=== PATIENT | female | born 1950 | race African-American/Black ===

== ENCOUNTER 2017-07-08 10:35 | Emergency (ER) | payer MEDICARE, OTHER ==
[2017-07-08 10:44] VITALS: RESP 18
--- NOTE | 2017-07-08 10:48 | ED ---
Extremity Problem HPI - General Chief complaint: Extremity Problem,Nontraumatic Stated complaint: Right Sided Pain Time Seen by Provider: 07/08/17 10:35 Source: patient, EMS, RN notes reviewed Mode of arrival: EMS Limitations: no limitations - History of Present Illness Initial comments: This is a 67-year-old female who was brought in by EMS for evaluation for possible stroke she was seen in outpatient clinic brought here by her [facility] worker she complains of bilateral headaches and pain to her right upper and lower extremity with no focal weakness. No falls no trauma no fevers chills sweats nausea vomiting no blurry vision. She states the extremities her more when she tries to move them. She cannot define the headache other than seen is some both sides and pain also is just pain. MD Complaint: extremity pain - Related Data Home Medications Medication Instructions Recorded Confirmed Albuterol Inhaler [Ventolin Hfa 2 puff INHALATION RT-Q6H PRN 07/24/16 07/08/17 Inhaler] FLUoxetine HCL [Fluoxetine HCl] 20 mg PO DAILY 07/24/16 07/08/17 Furosemide [Furosemide] 40 mg PO DAILY 07/24/16 07/08/17 amLODIPine BESYLATE [Amlodipine 10 mg PO DAILY 07/24/16 07/08/17 Besylate] Aspirin EC [Ecotrin Low Dose] 81 mg PO DAILY 07/08/17 07/08/17 Atenolol [Tenormin] 25 mg PO DAILY 07/08/17 07/08/17 Atorvastatin [Lipitor] 80 mg PO HS 07/08/17 07/08/17 Gabapentin [Neurontin] 300 mg PO QID 07/08/17 07/08/17 Isosorbide Mononitrate ER [Imdur] 30 mg PO DAILY 07/08/17 07/08/17 Previous Rx's Medication Instructions Recorded Ibuprofen [Motrin] 600 mg PO Q6HR PRN #20 tab 07/08/17 Allergies Allergy/AdvReac Type Severity Reaction Status Date / Time allopurinol [From Zyloprim] Allergy Unknown Verified 07/08/17 11:07 codeine Allergy Unknown Verified 07/08/17 11:07 Review of Systems ROS Statement: Those systems with pertinent positive or pertinent negative responses have been documented in the HPI. ROS Other: All systems not noted in ROS Statement are negative. Past Medical History Past Medical History: CVA/TIA, Hypertension, Renal Disease History of Any Multi-Drug Resistant Organisms: None Reported Past Surgical History: Hysterectomy, Tonsillectomy Past Anesthesia/Blood Transfusion Reactions: No Reported Reaction Past Psychological History: No Psychological Hx Reported Smoking Status: Never smoker Past Alcohol Use History: None Reported Past Drug Use History: None Reported General Exam - General Exam Comments Initial Comments: This a well-developed well-nourished awake alert female she appears be oriented 3 Limitations: no limitations General appearance: alert, in no apparent distress Head exam: Present: atraumatic, normocephalic, normal inspection Eye exam: Present: normal appearance, PERRL, EOMI. Absent: scleral icterus, conjunctival injection, periorbital swelling ENT exam: Present: normal exam, mucous membranes moist Neck exam: Present: normal inspection. Absent: tenderness, meningismus, lymphadenopathy Respiratory exam: Present: normal lung sounds bilaterally. Absent: respiratory distress, wheezes, rales, rhonchi, stridor Cardiovascular Exam: Present: regular rate, normal rhythm, normal heart sounds. Absent: systolic murmur, diastolic murmur, rubs, gallop, clicks GI/Abdominal exam: Present: soft, normal bowel sounds. Absent: distended, tenderness, guarding, rebound, rigid Extremities exam: Present: normal inspection, full ROM, tenderness (Tenderness palpation over the posterior right arm and anterior right thigh), normal capillary refill. Absent: pedal edema, joint swelling, calf tenderness Back exam: Present: normal inspection Neurological exam: Present: alert, oriented X3, CN II-XII intact Psychiatric exam: Present: normal affect, normal mood Skin exam: Present: warm, dry, intact, normal color. Absent: rash Course Vital Signs 07/08/17 07/08/17 10:38 12:23 Temperature 98 F 97.9 F Pulse Rate 71 70 Respiratory 18 18 Rate Blood Pressure 163/74 150/75 O2 Sat by Pulse 97 98 Oximetry Medical Decision Making - Medical Decision Making I did discuss the findings with the patient and her care worker she will be discharged to follow-up with her doctor. Patient also was instructed to increase her oral fluids - Lab Data Result diagrams: 07/08/17 10:50 07/08/17 10:50 Lab Results 07/08/17 07/08/17 07/08/17 Range/Units 10:50 10:50 10:50 WBC 6.2 (3.8-10.6) k/uL RBC 4.28 (3.80-5.40) m/uL Hgb 11.2 L (11.4-16.0) gm/dL Hct 34.3 (34.0-46.0) % MCV 80.2 (80.0-100.0) fL MCH 26.3 (25.0-35.0) pg MCHC 32.7 (31.0-37.0) g/dL RDW 15.0 (11.5-15.5) % Plt Count 282 (150-450) k/uL Neutrophils % 66 % Lymphocytes % 21 % Monocytes % 6 % Eosinophils % 5 % Basophils % 1 % Neutrophils # 4.1 (1.3-7.7) k/uL Lymphocytes # 1.3 (1.0-4.8) k/uL Monocytes # 0.4 (0-1.0) k/uL Eosinophils # 0.3 (0-0.7) k/uL Basophils # 0.0 (0-0.2) k/uL APTT 22.1 (22.0-30.0) sec Sodium (137-145) mmol/L Potassium (3.5-5.1) mmol/L Chloride (98-107) mmol/L Carbon Dioxide (22-30) mmol/L Anion Gap mmol/L BUN (7-17) mg/dL Creatinine (0.52-1.04) mg/dL Est GFR (MDRD) Af Amer (>60 ml/min/1.73 sqM) Est GFR (MDRD) Non-Af (>60 ml/min/1.73 sqM) Glucose (74-99) mg/dL Calcium (8.4-10.2) mg/dL Magnesium (1.6-2.3) mg/dL Total Bilirubin (0.2-1.3) mg/dL AST (14-36) U/L ALT (9-52) U/L Alkaline Phosphatase (38-126) U/L Total Creatine Kinase 174 H (30-135) U/L CK-MB (CK-2) 1.9 (0.0-2.4) ng/mL CK-MB (CK-2) Rel Index 1.1 Total Protein (6.3-8.2) g/dL Albumin (3.5-5.0) g/dL Phenytoin ug/mL 07/08/17 Range/Units 10:50 WBC (3.8-10.6) k/uL RBC (3.80-5.40) m/uL Hgb (11.4-16.0) gm/dL Hct (34.0-46.0) % MCV (80.0-100.0) fL MCH (25.0-35.0) pg MCHC (31.0-37.0) g/dL RDW (11.5-15.5) % Plt Count (150-450) k/uL Neutrophils % % Lymphocytes % % Monocytes % % Eosinophils % % Basophils % % Neutrophils # (1.3-7.7) k/uL Lymphocytes # (1.0-4.8) k/uL Monocytes # (0-1.0) k/uL Eosinophils # (0-0.7) k/uL Basophils # (0-0.2) k/uL APTT (22.0-30.0) sec Sodium 141 (137-145) mmol/L Potassium 4.1 (3.5-5.1) mmol/L Chloride 107 (98-107) mmol/L Carbon Dioxide 24 (22-30) mmol/L Anion Gap 10 mmol/L BUN 29 H (7-17) mg/dL Creatinine 1.30 H (0.52-1.04) mg/dL Est GFR (MDRD) Af Amer 49 (>60 ml/min/1.73 sqM) Est GFR (MDRD) Non-Af 41 (>60 ml/min/1.73 sqM) Glucose 92 (74-99) mg/dL Calcium 9.1 (8.4-10.2) mg/dL Magnesium 1.8 (1.6-2.3) mg/dL Total Bilirubin 0.3 (0.2-1.3) mg/dL AST 27 (14-36) U/L ALT 43 (9-52) U/L Alkaline Phosphatase 101 (38-126) U/L Total Creatine Kinase (30-135) U/L CK-MB (CK-2) (0.0-2.4) ng/mL CK-MB (CK-2) Rel Index Total Protein 6.8 (6.3-8.2) g/dL Albumin 3.7 (3.5-5.0) g/dL Phenytoin <3.0 ug/mL - EKG Data -: EKG Interpreted by Me EKG shows normal: sinus rhythm (Sinus rhythm rate 64 GA interval 162 QRS 74 QT since QTC of 416/429 st-t wave changes) - Radiology Data Radiology results: report reviewed (I did review the imaging and reports no acute findings. There is evidence of remote findings in the MCA distribution), image reviewed Disposition Clinical Impression: Dehydration, Extremity pain Disposition: HOME SELF-CARE Condition: Good Instructions: Dehydration (ED), Paresthesia (ED) Prescriptions: Ibuprofen [Motrin] 600 mg PO Q6HR PRN #20 tab PRN Reason: Pain Referrals: Rinku Echevarria MD [Primary Care Provider] - 1-2 days
[2017-07-08 11:12] LABS: Basophils % (A) 1 %; CH 25.7; CHCM 32.2; Eosinophils # (A) 0.3 k/uL (0-0.7); Eosinophils % (A) 5 %; HCT 34.3 % (34.0-46.0); HDW 2.46; HGB 11.2 gm/dL (11.4-16.0); Luc # (Auto) 0.12; Luc % (Auto) 2; Lymphocytes # (A) 1.3 k/uL (1.0-4.8); Lymphocytes % (A) 21 %; MCH 26.3 pg (25.0-35.0); MCHC 32.7 g/dL (31.0-37.0); MCV 80.2 fL (80.0-100.0); Mean Platelet Volume 6.4; Monocytes # (A) 0.4 k/uL (0-1.0); Monocytes % (A) 6 %; Neutrophils # (A) 4.1 k/uL (1.3-7.7); Neutrophils % (A) 66 %; RBC 4.28 m/uL (3.80-5.40); WBC 6.2 k/uL (3.8-10.6); WBC (Perox) 6.46
--- NOTE | 2017-07-08 11:18 | CT ---
EXAMINATION TYPE: CT brain wo con DATE OF EXAM: 07/08/2017 COMPARISON: NONE HISTORY: weakness, cva symptoms. hx of cva CT DLP: [address] of the brain was performed. The ventricles, basal cisterns and sulci overlying the cerebral convexities demonstrate mild enlargem ent. Large area of remote insult posterior left MCA territory. There is no evidence for intracranial hemorrhage or sulcal effacement. There is decreased attenuation about the periventricular white matter and deep white matter of both c erebral hemispheres, compatible with chronic small vessel ischemia. Differential diagnosis does inclu de demyelination. No mass effects are seen.No midline shift. Osseous calvarium is intact. If symptoms persist consider MRI. IMPRESSION: 1. Age related atrophic and chronic small vessel ischemic change without acute intracranial process s een at this time. Remote insult posterior left MCA territory.
--- NOTE | 2017-07-08 11:20 | XR ---
EXAMINATION TYPE: XR chest 2V DATE OF EXAM: 07/08/2017 COMPARISON: 08/09/2014 TECHNIQUE: PA and lateral views submitted. HISTORY: Cough FINDINGS: The lungs are clear and there is no pneumothorax, pleural effusion, or focal pneumonia. Subsegmental changes at the left lung base. No overt failure. Hypertrophic and degenerative change of the spine. Upper thoracic spine obscured due to positioning. IMPRESSION: 1. Subsegmental changes left lung base. Atelectasis favored over early infiltrate. Correlate clinical ly.
[2017-07-08 11:23] LABS: ALT 43 U/L (9-52); AST 27 U/L (14-36); Alkaline Phosphatase 101 U/L (38-126); Anion Gap 10 mmol/L; Blood Urea Nitrogen 29 mg/dL (7-17); Calcium 9.1 mg/dL (8.4-10.2); Carbon Dioxide 24 mmol/L (22-30); Chloride 107 mmol/L (98-107); Glucose 92 mg/dL (74-99); Magnesium 1.8 mg/dL (1.6-2.3); Non-African American GFR(MDRD) 41 (>60 ml/min/1.73 sqM); Potassium 4.1 mmol/L (3.5-5.1); Sodium 141 mmol/L (137-145); Total Bilirubin 0.3 mg/dL (0.2-1.3); Total Protein 6.8 g/dL (6.3-8.2)
[2017-07-08 11:35] LABS: Creatine Kinase MB 1.9 ng/mL (0.0-2.4)
[2017-07-08] MEDS ORDERED: KETOROLAC 30 MG/ML 1 ML VIAL IVP STA (12:23)
[2017-07-08 12:24] VITALS: BP 150/75; PULSE 70; TEMP 97.9
== END 2017-07-08 12:45 | disposition home or self-care (01) ==
LOC: EC 10:35
DX: E86.0 Dehydration (principal); M79.601 Pain in right arm; M79.651 Pain in right thigh; I10 Essential (primary) hypertension; N28.9 Disorder of kidney and ureter, unspecified; Z86.73 Personal history of transient ischemic attack (TIA), and cerebral infarction without residual deficits; Z88.8 Allergy status to other drugs, medicaments and biological substances; Z88.5 Allergy status to narcotic agent; Z79.82 Long term (current) use of aspirin; Z79.899 Other long term (current) drug therapy
CPT/HCPCS: 36415; 70450; 71020; 80053; 80185; 82550; 82553; 83735; 85025; 85730; 93005; 99284

== ENCOUNTER 2017-10-14 12:57 | Emergency (ER) | payer MEDICARE, OTHER ==
[2017-10-14 13:30] VITALS: RESP 20
--- NOTE | 2017-10-14 14:47 | XR ---
Right foot HISTORY: Pain 3 views of the right foot Osteotomy changes present at the first digit. There is a hallux valgus deformity. Bone mineralization is reduced. There is loss of joint space of the first metatarsophalangeal joint. There may be a smal l plantar calcaneal spur. Enthesophyte present at the insertion of the Achilles tendon. IMPRESSION: Osteopenia, postop changes, hallux valgus deformity.
--- NOTE | 2017-10-14 14:47 | ED ---
Extremity Problem HPI - General Chief complaint: Extremity Problem,Nontraumatic Stated complaint: Right Foot Pain Time Seen by Provider: 10/14/17 13:47 Source: patient, RN notes reviewed Mode of arrival: wheelchair Limitations: no limitations - History of Present Illness Initial comments: This is a 67-year-old female who presents to the emergency department with chief complaint of right foot and ankle pain and swelling. Patient states that she had a stroke 5-6 years ago and has had chronic pain of her right side ever since. Patient is unsure when the swelling and pain increased in intensity. She states that she has limited range of motion of her right ankle but that this is normal for her since having a stroke. She denies any recent injuries, falls or trauma. Denies fever, chills, chest pain, shortness of breath, abdominal pain, nausea or vomiting, constipation or diarrhea, dysuria or hematuria, numbness or tingling, headache or vision changes. - Related Data Home Medications Medication Instructions Recorded Confirmed Albuterol Inhaler [Ventolin Hfa 2 puff INHALATION RT-Q6H PRN 07/24/16 10/14/17 Inhaler] FLUoxetine HCL [Fluoxetine HCl] 20 mg PO DAILY 07/24/16 10/14/17 Furosemide [Furosemide] 40 mg PO DAILY 07/24/16 10/14/17 amLODIPine BESYLATE [Amlodipine 10 mg PO DAILY 07/24/16 10/14/17 Besylate] Aspirin EC [Ecotrin Low Dose] 81 mg PO DAILY 07/08/17 10/14/17 Atenolol [Tenormin] 25 mg PO DAILY 07/08/17 10/14/17 Atorvastatin [Lipitor] 80 mg PO HS 07/08/17 10/14/17 Gabapentin [Neurontin] 300 mg PO QID 07/08/17 10/14/17 Isosorbide Mononitrate ER [Imdur] 30 mg PO DAILY 07/08/17 10/14/17 Previous Rx's Medication Instructions Recorded Ibuprofen [Motrin] 600 mg PO Q6HR PRN #20 tab 07/08/17 traMADol HCL [Ultram] 50 mg PO Q4HR PRN #15 tab 10/14/17 Allergies Allergy/AdvReac Type Severity Reaction Status Date / Time allopurinol [From Zyloprim] Allergy Unknown Verified 10/14/17 13:45 codeine Allergy Unknown Verified 10/14/17 13:45 Review of Systems ROS Statement: Those systems with pertinent positive or pertinent negative responses have been documented in the HPI. ROS Other: All systems not noted in ROS Statement are negative. Past Medical History Past Medical History: CVA/TIA, Hypertension, Renal Disease History of Any Multi-Drug Resistant Organisms: None Reported Past Surgical History: Hysterectomy, Tonsillectomy Past Anesthesia/Blood Transfusion Reactions: No Reported Reaction Past Psychological History: No Psychological Hx Reported Smoking Status: Never smoker Past Alcohol Use History: None Reported Past Drug Use History: None Reported General Exam - General Exam Comments Initial Comments: General: Awake and alert, well-developed; in no apparent distress. Calm and cooperative. HEENT: Head atraumatic, normocephalic. Pupils are equal, round and reactive to light. Extraocular movements intact. Neck: Supple. Normal ROM. Cardiovascular: Regular rate and rhythm. No murmurs, rubs or gallops. Chest symmetrical. Respiratory: Lungs clear to auscultation bilaterally. No wheezes, rales or rhonchi. Normal respiratory effort with no use of accessory muscles. Musculoskeletal: Patient has limited range of motion of right ankle. Patient states this is normal for her. There is soft tissue swelling and tenderness of the entire right ankle and right foot. There is noted ecchymosis mid foot. Skin: Falcon, warm and dry without rashes or lesions. Neurological: Alert and oriented x3. CN II-XII grossly intact. Speech is fluent and answers are appropriate. Psychiatric: Normal mood and affect. No overt signs of depression or anxiety noted. Limitations: no limitations Course Vital Signs 10/14/17 13:27 Temperature 98.1 F Pulse Rate 78 Respiratory 20 Rate Blood Pressure 139/60 O2 Sat by Pulse 100 Oximetry Medical Decision Making - Medical Decision Making This is a 67-year-old female presents to the emergency department for evaluation of right foot pain and swelling. Patient is a poor historian and on palpation tenderness is generalized. X-rays of right ankle and foot revealed no acute abnormalities. It did reveal a calcaneal spur. Pedal and posterior tibial pulses were 2+ equal and palpable bilaterally. However, I did obtain a Doppler ultrasound to rule out DVT. Ultrasound was negative for DVT. This case was discussed with attending physician, Dr. Laura who also evaluated the patient. Patient has tenderness at the heel and pain increases with stretching of the plantar fascia. Patient may be suffering from plantar fasciitis. She will be discharged home with a referral to podiatry. She will also be given a prescription for Ultram. Patient is in agreement with plan and voices understanding. All questions were answered. - Radiology Data Radiology results: report reviewed X-ray right foot findings: Osteotomy changes present at the first digit. There is a hallux valgus deformity. Bony mineralization is reduced. There is loss of joint space of the first metatarsal phalangeal joint. There may be a small plantar calcaneal spur. Enthesophyte present at the insertion of the Achilles tendon. Impression: Osteopenia, postop changes, hallux valgus deformity. X-ray right ankle findings: There is soft tissue swelling present. Bone mineralization is reduced. No fracture or dislocation is evident. Plantar calcaneal spur is present. A necessary present at the insertion of the Achilles tendon. Soft tissue calcifications are likely quality audit representative of phleboliths. Impression: Osteopenia could limited sensitivity. Soft tissue swelling. Ultrasound venous Doppler right lower extremity impression: 1. No sonographic evidence of deep venous arthrosis within the right lower extremity. 2. Incidental note made of a 3.7 cm popliteal fossa cyst. Disposition Clinical Impression: Plantar fasciitis of right foot Disposition: HOME SELF-CARE Condition: Good Instructions: Plantar Fasciitis (ED) Additional Instructions: Please take medications as prescribed. Please follow up with primary care provider within 1-2 days. Return to emergency department if symptoms should worsen or any concerns arise. Prescriptions: traMADol HCL [Ultram] 50 mg PO Q4HR PRN #15 tab PRN Reason: Pain Referrals: Rinku Echevarria MD [Primary Care Provider] - 1-2 days Time of Disposition: 16:36
--- NOTE | 2017-10-14 14:47 | XR ---
Right ankle HISTORY: Right ankle pain 3 views of the right ankle there is soft tissue swelling present. Bone mineralization is reduced. No fracture or dislocation is evident. Plantar calcaneal spur is present. Enthesophyte present at the insertion of the Achilles ten don. Soft tissue calcifications are likely outbound call center representative of phleboliths. IMPRESSION: Osteopenia could limit sensitivity. Soft tissue swelling.
--- NOTE | 2017-10-14 15:58 | US ---
EXAMINATION TYPE: US venous doppler duplex LE RT DATE OF EXAM: 10/14/2017 3:49 PM COMPARISON: NONE CLINICAL HISTORY: Pain; EC patient with entire right leg pain. SIDE PERFORMED: Right TECHNIQUE: The lower extremity deep venous system is examined utilizing real time linear array sonog hedy with graded compression, doppler sonography and color-flow sonography. VESSELS IMAGED: Common Femoral Vein Deep Femoral Vein Greater Saphenous Vein * Femoral Vein Popliteal Vein Small Saphenous Vein * Proximal Calf Veins (* superficial vessels) Grayscale, color doppler, spectral doppler imaging performed of the deep veins of the lower extremiti es. There is normal flow, compressibility, vascular waveforms. Right Leg: Negative for DVT. Right popliteal fossa cyst is noted = 3.7 x 1.6 x 1.4cm. IMPRESSION: 1. No sonographic evidence of deep venous arthrosis within the right lower extremity. 2. Incidental note made of a 3.7 cm popliteal fossa cyst.
[2017-10-14 16:55] VITALS: BP 143/68; PULSE 70; TEMP 98.2
== END 2017-10-14 16:54 | disposition home or self-care (01) ==
LOC: EC 12:57
DX: M72.2 Plantar fascial fibromatosis (principal); M77.31 Calcaneal spur, right foot; I10 Essential (primary) hypertension; Z86.73 Personal history of transient ischemic attack (TIA), and cerebral infarction without residual deficits; Z79.82 Long term (current) use of aspirin; Z79.899 Other long term (current) drug therapy; Z88.5 Allergy status to narcotic agent; Z88.8 Allergy status to other drugs, medicaments and biological substances
CPT/HCPCS: 99284

== ENCOUNTER 2018-03-26 20:05 | Emergency (ER) | payer MEDICARE, OTHER ==
[2018-03-26 20:13] VITALS: BP 145/81; PULSE 83; RESP 18; TEMP 98.1
[2018-03-26 21:23] LABS: Basophils # (A) 0.1 k/uL (0-0.2); Basophils % (A) 1 %; Eosinophils # (A) 0.4 k/uL (0-0.7); Eosinophils % (A) 5 %; HCT 33.2 % (34.0-46.0); Lymphocytes # (A) 1.7 k/uL (1.0-4.8); Lymphocytes % (A) 22 %; MCH 25.4 pg (25.0-35.0); MCHC 33.3 g/dL (31.0-37.0); MCV 76.2 fL (80.0-100.0); Mean Platelet Volume 6.9; Microcytosis Slight; Monocytes # (A) 0.5 k/uL (0-1.0); Monocytes % (A) 6 %; Neutrophils % (A) 65 %; Platelet Count 278 k/uL (150-450); RBC 4.35 m/uL (3.80-5.40); RDW 15.4 % (11.5-15.5); WBC 7.7 k/uL (3.8-10.6)
--- NOTE | 2018-03-26 21:29 | XR ---
EXAMINATION TYPE: XR wrist complete LT DATE OF EXAM: 03/26/2018 COMPARISON: NONE HISTORY: Wrist pain TECHNIQUE: 4 views FINDINGS: There is narrowing and spurring at the first carpometacarpal joint. There is some spurring at the scaphoid trapezium joint. I see no fracture nor dislocation. There is widening of the scapholu juana joint space. IMPRESSION: Osteoarthritic changes and evidence of old injury. No fracture seen.
[2018-03-26 21:36] LABS: C Reactive Protein 8.1 mg/L (<10.0); Calcium 9.2 mg/dL (8.4-10.2); Potassium 4.3 mmol/L (3.5-5.1); Uric Acid 7.9 mg/dL (3.7-7.4)
--- NOTE | 2018-03-26 21:56 | ED ---
General Adult HPI - General Chief complaint: Extremity Injury, Upper Stated complaint: Hand Numbness Time Seen by Provider: 03/26/18 20:38 Source: patient, RN notes reviewed Mode of arrival: ambulatory Limitations: no limitations - History of Present Illness Initial comments: Patient 68-year-old female presenting to the emergency room today with a chief complaint of pain to the left wrist. She states it started yesterday. Denies any injury or trauma. Patient admits to a history of gout. States pain is worse with movements. Denies any other complaints. Patient denies any recent fever, chills, shortness of breath, chest pain, back pain, abdominal pain, nausea or vomiting, numbness or tingling, dysuria or hematuria, constipation or diarrhea, headaches or visual changes, or any other complaints. - Related Data Home Medications Medication Instructions Recorded Confirmed Albuterol Inhaler [Ventolin Hfa 2 puff INHALATION RT-Q6H PRN 07/24/16 10/14/17 Inhaler] FLUoxetine HCL [Fluoxetine HCl] 20 mg PO DAILY 07/24/16 10/14/17 Furosemide [Furosemide] 40 mg PO DAILY 07/24/16 10/14/17 amLODIPine BESYLATE [Amlodipine 10 mg PO DAILY 07/24/16 10/14/17 Besylate] Aspirin EC [Ecotrin Low Dose] 81 mg PO DAILY 07/08/17 10/14/17 Atenolol [Tenormin] 25 mg PO DAILY 07/08/17 10/14/17 Atorvastatin [Lipitor] 80 mg PO HS 07/08/17 10/14/17 Gabapentin [Neurontin] 300 mg PO QID 07/08/17 10/14/17 Isosorbide Mononitrate ER [Imdur] 30 mg PO DAILY 07/08/17 10/14/17 Previous Rx's Medication Instructions Recorded Ibuprofen [Motrin] 600 mg PO Q6HR PRN #20 tab 07/08/17 traMADol HCL [Ultram] 50 mg PO Q4HR PRN #15 tab 10/14/17 predniSONE 50 mg PO DAILY #5 tab 03/26/18 Allergies Allergy/AdvReac Type Severity Reaction Status Date / Time allopurinol [From Zyloprim] Allergy Unknown Verified 03/26/18 20:13 codeine Allergy Unknown Verified 03/26/18 20:13 Review of Systems ROS Statement: Those systems with pertinent positive or pertinent negative responses have been documented in the HPI. ROS Other: All systems not noted in ROS Statement are negative. Past Medical History Past Medical History: CVA/TIA, Hypertension, Renal Disease Additional Past Medical History / Comment(s): arthritis, History of Any Multi-Drug Resistant Organisms: None Reported Past Surgical History: Hysterectomy, Tonsillectomy Past Anesthesia/Blood Transfusion Reactions: No Reported Reaction Past Psychological History: No Psychological Hx Reported Smoking Status: Never smoker Past Alcohol Use History: None Reported Past Drug Use History: None Reported General Exam - General Exam Comments Initial Comments: General: The patient is awake and alert, in no distress, and does not appear acutely ill. Neck: The neck is supple, there is no tenderness or JVD. Cardiovascular: There is a regular rate and rhythm. No murmur, rub or gallop is appreciated. Respiratory: Lungs are clear to auscultation, respirations are non-labored, breath sounds are equal. No wheezes, stridor, rales, or rhonchi. Musculoskeletal: Mild warmness to the left wrist. Tender with palpation and extension and flexion. Sensations intact. Radial pulses 2+. Full range motion of the fingers and elbow Neurological: A&O x 3. CN II-XII intact, There are no obvious motor or sensory deficits. Coordination appears grossly intact. Speech is normal. Skin: Skin is warm and dry and no rashes or lesions are noted. Psychiatric: Normal mood and affect. Limitations: no limitations Course Vital Signs 03/26/18 20:07 Temperature 98.1 F Pulse Rate 83 Respiratory 18 Rate Blood Pressure 145/81 O2 Sat by Pulse 100 Oximetry Medical Decision Making - Medical Decision Making Patient's labs been reviewed no elevated white count. Negative CRP. Uric acid is elevated. Patient does have a history of gout. Symptoms are consistent. Patient will be given a short course of steroids. Advised following up with the - Lab Data Result diagrams: 03/26/18 20:41 03/26/18 20:41 Lab Results 03/26/18 03/26/18 Range/Units 20:41 20:41 WBC 7.7 (3.8-10.6) k/uL RBC 4.35 (3.80-5.40) m/uL Hgb 11.0 L (11.4-16.0) gm/dL Hct 33.2 L (34.0-46.0) % MCV 76.2 L (80.0-100.0) fL MCH 25.4 (25.0-35.0) pg MCHC 33.3 (31.0-37.0) g/dL RDW 15.4 (11.5-15.5) % Plt Count 278 (150-450) k/uL Neutrophils % 65 % Lymphocytes % 22 % Monocytes % 6 % Eosinophils % 5 % Basophils % 1 % Neutrophils # 5.0 (1.3-7.7) k/uL Lymphocytes # 1.7 (1.0-4.8) k/uL Monocytes # 0.5 (0-1.0) k/uL Eosinophils # 0.4 (0-0.7) k/uL Basophils # 0.1 (0-0.2) k/uL Microcytosis Slight Sodium 139 (137-145) mmol/L Potassium 4.3 (3.5-5.1) mmol/L Chloride 101 (98-107) mmol/L Carbon Dioxide 28 (22-30) mmol/L Anion Gap 10 mmol/L BUN 36 H (7-17) mg/dL Creatinine 1.40 H (0.52-1.04) mg/dL Est GFR (CKD-EPI)AfAm 44 (>60 ml/min/1.73 sqM) Est GFR (CKD-EPI)NonAf 38 (>60 ml/min/1.73 sqM) Glucose 92 (74-99) mg/dL Uric Acid 7.9 H (3.7-7.4) mg/dL Calcium 9.2 (8.4-10.2) mg/dL C-Reactive Protein 8.1 (<10.0) mg/L Disposition Clinical Impression: Gout Disposition: HOME SELF-CARE Condition: Good Instructions: Gout (ED) Additional Instructions: Please use medication as discussed. Please follow-up with family doctor in the next 2 days of symptoms have not improved. Please return to emergency room if the symptoms increase or worsen or for any other concerns. Prescriptions: predniSONE 50 mg PO DAILY #5 tab Is patient prescribed a controlled substance at d/c from ED?: No Referrals: Rinku Echevarria MD [Primary Care Provider] - 1-2 days Time of Disposition: 21:55
== END 2018-03-26 22:03 | disposition home or self-care (01) ==
LOC: EC 20:05
DX: M10.9 Gout, unspecified (principal); I10 Essential (primary) hypertension; M19.90 Unspecified osteoarthritis, unspecified site; Z86.73 Personal history of transient ischemic attack (TIA), and cerebral infarction without residual deficits; Z79.82 Long term (current) use of aspirin; Z79.899 Other long term (current) drug therapy; Z88.5 Allergy status to narcotic agent; Z88.8 Allergy status to other drugs, medicaments and biological substances
CPT/HCPCS: 36415; 80048; 84550; 85025; 86140; 87040; 99283

== ENCOUNTER 2018-05-11 15:10 | Inpatient (IN) | payer MEDICARE, OTHER ==
[2018-05-11] MEDS ORDERED: ONDANSETRON 4 MG/2 ML VIAL IVP STA (15:28)
[2018-05-11] MEDS ORDERED: FAMOTIDINE 20 MG/2 ML VIAL IV STA (15:28)
[2018-05-11] MEDS ORDERED: ACETAMINOPHEN IV (For NPO) 1,000 MG in SALINE 1 100ML.BAG IVPB STA (15:28)
--- NOTE | 2018-05-11 15:33 | ED ---
General Adult HPI - General Chief complaint: Nausea/Vomiting/Diarrhea Stated complaint: Vomiting and diarrhea Time Seen by Provider: 05/11/18 15:25 Source: patient, family, RN notes reviewed Mode of arrival: ambulatory Limitations: no limitations - History of Present Illness Initial comments: Patient is a pleasant 68-year-old female presenting to the emergency Department with vomiting and diarrhea. Patient is a somewhat poor historian. Symptoms were going on for a couple of days. Patient is unclear how much she has had vomiting and diarrhea that seems to be a similar amount for both. Patient feels she has had some fevers. Patient denies abdominal pain. No dysuria. - Related Data Home Medications Medication Instructions Recorded Confirmed Albuterol Inhaler [Ventolin Hfa 2 puff INHALATION RT-Q6H PRN 07/24/16 05/11/18 Inhaler] FLUoxetine HCL [Fluoxetine HCl] 20 mg PO DAILY 07/24/16 05/11/18 Furosemide 40 mg PO DAILY 07/24/16 05/11/18 amLODIPine BESYLATE [Amlodipine 10 mg PO DIRECTED 07/24/16 05/11/18 Besylate] Aspirin EC [Ecotrin Low Dose] 81 mg PO DAILY 07/08/17 05/11/18 Atenolol [Tenormin] 25 mg PO DAILY 07/08/17 05/11/18 Gabapentin [Neurontin] 300 mg PO DIRECTED 07/08/17 05/11/18 Isosorbide Mononitrate ER [Imdur] 30 mg PO DAILY 07/08/17 05/11/18 Atorvastatin [Lipitor] 40 mg PO DAILY 05/11/18 05/11/18 Allergies Allergy/AdvReac Type Severity Reaction Status Date / Time allopurinol [From Zyloprim] Allergy Unknown Verified 05/11/18 16:33 codeine Allergy Unknown Verified 05/11/18 16:33 Review of Systems ROS Statement: Those systems with pertinent positive or pertinent negative responses have been documented in the HPI. ROS Other: All systems not noted in ROS Statement are negative. Constitutional: Reports: fever Eyes: Denies: eye pain ENT: Denies: ear pain Respiratory: Denies: cough Cardiovascular: Denies: chest pain Endocrine: Reports: fatigue Gastrointestinal: Reports: nausea, vomiting, diarrhea. Denies: abdominal pain Genitourinary: Denies: dysuria Musculoskeletal: Denies: back pain Skin: Denies: rash Neurological: Denies: headache Past Medical History Past Medical History: CVA/TIA, Hypertension, Renal Disease Additional Past Medical History / Comment(s): arthritis, History of Any Multi-Drug Resistant Organisms: None Reported Past Surgical History: Hysterectomy, Tonsillectomy Past Anesthesia/Blood Transfusion Reactions: No Reported Reaction Past Psychological History: No Psychological Hx Reported Smoking Status: Never smoker Past Alcohol Use History: None Reported Past Drug Use History: None Reported General Exam Limitations: no limitations General appearance: alert, in no apparent distress Head exam: Present: atraumatic Eye exam: Present: normal appearance ENT exam: Present: normal oropharynx Neck exam: Present: normal inspection. Absent: meningismus Respiratory exam: Present: normal lung sounds bilaterally Cardiovascular Exam: Present: regular rate, normal rhythm GI/Abdominal exam: Present: soft, normal bowel sounds. Absent: distended, tenderness, guarding, rebound, rigid, pulsatile mass Extremities exam: Present: normal inspection. Absent: pedal edema, calf tenderness Neurological exam: Present: alert Psychiatric exam: Present: normal affect, normal mood Skin exam: Present: normal color. Absent: rash Course Vital Signs 05/11/18 05/11/18 15:13 16:41 Temperature 103 F H Pulse Rate 109 H Pulse Rate [ 98 Chlorinator ] Respiratory 18 18 Rate Blood Pressure 166/78 Blood Pressure 176/78 [Left Arm] O2 Sat by Pulse 96 100 Oximetry - Reevaluation(s) Reevaluation #1: 05/11/18 17:20 Patient does meet sepsis criteria diagnosed at 1720. Blood culture and lactic acid and IV antibiotics have been ordered. 05/11/18 17:48 Patient was earlier reevaluated and updated. Case was discussed with Dr. Echevarria, who will admit his patient and does request consult with Dr. raymond. EKG Findings - EKG Comments: EKG Findings:: Sinus tachycardia 103. DC 152. QRS 78. QT 322. QTC 421. Normal axis. Normal QRS. No acute ST change. Medical Decision Making - Lab Data Result diagrams: 05/11/18 16:30 05/11/18 16:30 Lab Results 05/11/18 05/11/18 05/11/18 Range/Units 15:44 15:55 16:30 WBC 21.6 H (3.8-10.6) k/uL RBC 4.24 (3.80-5.40) m/uL Hgb 10.2 L (11.4-16.0) gm/dL Hct 32.5 L (34.0-46.0) % MCV 76.5 L (80.0-100.0) fL MCH 24.1 L (25.0-35.0) pg MCHC 31.5 (31.0-37.0) g/dL RDW 15.3 (11.5-15.5) % Plt Count 245 (150-450) k/uL Neutrophils % 90 % Lymphocytes % 2 % Monocytes % 6 % Eosinophils % 1 % Basophils % 0 % Neutrophils # 19.5 H (1.3-7.7) k/uL Lymphocytes # 0.5 L (1.0-4.8) k/uL Monocytes # 1.3 H (0-1.0) k/uL Eosinophils # 0.1 (0-0.7) k/uL Basophils # 0.0 (0-0.2) k/uL Microcytosis Slight PT (9.0-12.0) sec INR (<1.2) APTT (22.0-30.0) sec Sodium (137-145) mmol/L Potassium (3.5-5.1) mmol/L Chloride (98-107) mmol/L Carbon Dioxide (22-30) mmol/L Anion Gap mmol/L BUN (7-17) mg/dL Creatinine (0.52-1.04) mg/dL Est GFR (CKD-EPI)AfAm (>60 ml/min/1.73 sqM) Est GFR (CKD-EPI)NonAf (>60 ml/min/1.73 sqM) Glucose (74-99) mg/dL POC Glucose (mg/dL) 218 H (75-99) mg/dL POC Glu Hypnotherapist ID Issa Scales Plasma Lactic Acid Julio (0.7-2.0) mmol/L Calcium (8.4-10.2) mg/dL Total Bilirubin (0.2-1.3) mg/dL AST (14-36) U/L ALT (9-52) U/L Alkaline Phosphatase (38-126) U/L Total Protein (6.3-8.2) g/dL Albumin (3.5-5.0) g/dL Urine Color Yellow Urine Appearance Turbid H (Clear) Urine pH 6.0 (5.0-8.0) Ur Specific [place] 1.011 (1.001-1.035) Urine Protein 2+ H (Negative) Urine Glucose (UA) Negative (Negative) Urine Ketones Negative (Negative) Urine Blood Small H (Negative) Urine Nitrite Negative (Negative) Urine Bilirubin Negative (Negative) Urine Urobilinogen <2.0 (<2.0) mg/dL Ur Leukocyte Esterase Trace H (Negative) Urine RBC <1 (0-5) /hpf Urine WBC 7 H (0-5) /hpf Ur Squamous Epith Cells 22 H (0-4) /hpf Amorphous Sediment Rare H (None) /hpf Urine Bacteria Many H (None) /hpf Hyaline Casts 2 (0-2) /lpf Urine Mucus Occasional H (None) /hpf 05/11/18 05/11/18 05/11/18 Range/Units 16:30 16:30 16:30 WBC (3.8-10.6) k/uL RBC (3.80-5.40) m/uL Hgb (11.4-16.0) gm/dL Hct (34.0-46.0) % MCV (80.0-100.0) fL MCH (25.0-35.0) pg MCHC (31.0-37.0) g/dL RDW (11.5-15.5) % Plt Count (150-450) k/uL Neutrophils % % Lymphocytes % % Monocytes % % Eosinophils % % Basophils % % Neutrophils # (1.3-7.7) k/uL Lymphocytes # (1.0-4.8) k/uL Monocytes # (0-1.0) k/uL Eosinophils # (0-0.7) k/uL Basophils # (0-0.2) k/uL Microcytosis PT 10.7 (9.0-12.0) sec INR 1.1 (<1.2) APTT 22.2 (22.0-30.0) sec Sodium 137 (137-145) mmol/L Potassium 5.8 H (3.5-5.1) mmol/L Chloride 107 (98-107) mmol/L Carbon Dioxide 23 (22-30) mmol/L Anion Gap 7 mmol/L BUN 21 H (7-17) mg/dL Creatinine 1.22 H (0.52-1.04) mg/dL Est GFR (CKD-EPI)AfAm 52 (>60 ml/min/1.73 sqM) Est GFR (CKD-EPI)NonAf 45 (>60 ml/min/1.73 sqM) Glucose 171 H (74-99) mg/dL POC Glucose (mg/dL) (75-99) mg/dL POC Glu Hypnotherapist ID Plasma Lactic Acid Julio 1.3 (0.7-2.0) mmol/L Calcium 8.5 (8.4-10.2) mg/dL Total Bilirubin 1.1 (0.2-1.3) mg/dL AST 42 H (14-36) U/L ALT 25 (9-52) U/L Alkaline Phosphatase 77 (38-126) U/L Total Protein 6.9 (6.3-8.2) g/dL Albumin 3.6 (3.5-5.0) g/dL Urine Color Urine Appearance (Clear) Urine pH (5.0-8.0) Ur Specific [place] (1.001-1.035) Urine Protein (Negative) Urine Glucose (UA) (Negative) Urine Ketones (Negative) Urine Blood (Negative) Urine Nitrite (Negative) Urine Bilirubin (Negative) Urine Urobilinogen (<2.0) mg/dL Ur Leukocyte Esterase (Negative) Urine RBC (0-5) /hpf Urine WBC (0-5) /hpf Ur Squamous Epith Cells (0-4) /hpf Amorphous Sediment (None) /hpf Urine Bacteria (None) /hpf Hyaline Casts (0-2) /lpf Urine Mucus (None) /hpf - Radiology Data Radiology results: image reviewed (Chest x-ray shows right lower lobe infiltrate. Abdominal x-ray reveals no acute process.) Critical Care Time Critical Care Time: Yes Total Critical Care Time: 32 Disposition Clinical Impression: Pneumonia, Sepsis Disposition: ADMITTED IP TO THIS HOSP Is patient prescribed a controlled substance at d/c from ED?: No Decision Time: 17:20
[2018-05-11] MEDS ORDERED: SODIUM CHLORIDE 0.9% 500 ML IV ONE (15:44)
[2018-05-11 15:49] LABS: Glucose,Whole Blood 218 mg/dL (75-99)
[2018-05-11 16:08] LABS: Amorphous Sediment,Urine Rare /hpf; Appearance,Urine Turbid (Clear); Bacteria,Urine Many /hpf; Bilirubin,Urine Negative (Negative); Blood,Urine Small (Negative); Color,Urine Yellow; Glucose,Urine (UA) Negative (Negative); Hyaline Casts,Urine 2 /lpf (0-2); Ketones,Urine Negative (Negative); Leukocyte Esterase,Urine Trace (Negative); Mucus,Urine Occasional /hpf; Nitrite,Urine Negative (Negative); Protein,Urine 2+ (Negative); RBC,Urine <1 /hpf (0-5); Specific Gravity,Urine 1.011 (1.001-1.035); Squamous Epithelial Cell,Urine 22 /hpf (0-4); Urobilinogen,Urine <2.0 mg/dL (<2.0); WBC,Urine 7 /hpf (0-5)
[2018-05-11] MEDS: SODIUM CHLORIDE 0.9% 1,000 ML IV SCH ×2 (16:31→17:29)
[2018-05-11 16:49] LABS: Basophils % (A) 0 %; Eosinophils # (A) 0.1 k/uL (0-0.7); Eosinophils % (A) 1 %; HCT 32.5 % (34.0-46.0); HGB 10.2 gm/dL (11.4-16.0); Lymphocytes # (A) 0.5 k/uL (1.0-4.8); Lymphocytes % (A) 2 %; MCH 24.1 pg (25.0-35.0); MCHC 31.5 g/dL (31.0-37.0); MCV 76.5 fL (80.0-100.0); Mean Platelet Volume 7.1; Microcytosis Slight; Monocytes # (A) 1.3 k/uL (0-1.0); Monocytes % (A) 6 %; Neutrophils # (A) 19.5 k/uL (1.3-7.7); Neutrophils % (A) 90 %; Platelet Count 245 k/uL (150-450); RBC 4.24 m/uL (3.80-5.40); RDW 15.3 % (11.5-15.5); WBC 21.6 k/uL (3.8-10.6)
[2018-05-11 16:58] LABS: Albumin 3.6 g/dL (3.5-5.0); Calcium 8.5 mg/dL (8.4-10.2); Total Bilirubin 1.1 mg/dL (0.2-1.3); Total Protein 6.9 g/dL (6.3-8.2)
[2018-05-11 17:01] LABS: Potassium 5.8 mmol/L (3.5-5.1)
[2018-05-11 17:03] LABS: INR 1.1 (<1.2); Partial Thromboplastin Time 22.2 sec (22.0-30.0); Prothrombin Time 10.7 sec (9.0-12.0)
--- NOTE | 2018-05-11 17:06 | XR ---
EXAMINATION TYPE: XR chest 2V DATE OF EXAM: 05/11/2018 COMPARISON: 07/08/2017 HISTORY: 68-year-old female with fever TECHNIQUE: PA and lateral views FINDINGS: The cardiomediastinal silhouette, aorta, and pulmonary vasculature are within normal limits. There is new right basilar consolidation. No pleural effusion. IMPRESSION: Right basilar pneumonia. Follow-up after treatment to ensure clearance.
--- NOTE | 2018-05-11 17:08 | XR ---
EXAMINATION TYPE: XR abdomen 1V DATE OF EXAM: 05/11/2018 CLINICAL DATA: 68-year-old female with pain, [facility] COMPARISON: 08/02/2014 FINDINGS: Right basilar opacity as mentioned on chest radiograph same day. No evidence for free intraperitoneal air. No dilated small bowel or air-fluid levels. Scattered air is present in some small bowel loops and colon with mild overall stool. No suspicious calcifications seen IMPRESSION: No evidence of bowel obstruction or free intraperitoneal air.
[2018-05-11] MEDS ORDERED: AZITHROMYCIN 500 MG in DEXTROSE 5% IN WATER 250 ML IVPB STA ×2 (17:18)
[2018-05-11] MEDS ORDERED: cefTRIAXone IN SWFI 1,000 MG/10 ML SYRINGE IVP STA (17:18)
[2018-05-11] MEDS ORDERED: PNEUMONIA PROTOCOL UTILIZED 1 EACH MISC PO PRN (17:18)
[2018-05-11] MEDS ORDERED: ONDANSETRON 4 MG/2 ML VIAL IVP PRN (19:02)
--- NOTE | 2018-05-11 20:55 | HP ---
HISTORY AND PHYSICAL CHIEF COMPLAINT: A 4 day history of nausea, vomiting, diarrhea, and fever and chills. HISTORY OF PRESENT ILLNESS: This is another admission for this 68-year-old female. She is very pleasant, but a poor historian and also had some mental issues in the past. Apparently, she became ill 3 or 4 days ago and was too sick to come to the office. She came to emergency room on the day of admission with history of nausea, vomiting, diarrhea, fever and chills. White count was elevated as was her temp and x-ray demonstrated a right lower lobe pneumonia. REVIEW OF SYSTEMS: She has no confusion, mental status changes, change in vision, hearing, hemoptysis, chest pain, abdominal pain, hematemesis, melena, urinary complaints, etc. Past medical history, family history, personal and social histories are significant in that she has the mental health problems and she also has very high hypertension, which she has been keeping under control over the last few years. She does not smoke or drink. LABORATORY STUDIES: [place] [address], hemoglobin 10.2. BUN was 21 with creatinine 1.2. Blood sugar was 218. Potassium is 5.8. PHYSICAL EXAM: Blood pressure is 176/78, pulse of 109, temperature 103, respirations of 18. In general, she appeared awake and alert. No acute distress. Skin was hot and dry. Lymph nodes not enlarged. Head, ears, eyes, nose, mouth, and throat were normal. Neck veins are not distended. Thyroid is not enlarged. Chest demonstrated decreased breath sounds at the bases with occasional rales or rhonchi. Cardiac exam demonstrates sinus tachycardia with no murmurs or extra sounds. The abdomen is soft, nontender. Extremities are normal. Neurological is intact. She is admitted to the hospital with diagnoses: 1. Right lower lobe pneumonia. 2. Viral gastroenteritis. 3. Possible sepsis. 4. Hypertension. PLAN: 1. Bed rest. 2. IV fluids. 3. Appropriate cultures. 4. IV antibiotics. 5. Infectious Disease consult. 6. Updrafts. MMODL / IJN: [id number] /
[2018-05-11] MEDS: LOPERAMIDE 2 MG CAP PO SCH (23:16)
[2018-05-12] MEDS: ACETAMINOPHEN TAB 325 MG TAB PO PRN ×3 (01:22→21:00)
[2018-05-12] MEDS: SODIUM CHLORIDE 0.9% 1,000 ML IV SCH ×4 (03:14→13:53)
--- NOTE | 2018-05-12 08:30 | XR ---
EXAMINATION TYPE: XR chest 2V DATE OF EXAM: 05/12/2018 COMPARISON: Prior chest x-ray 05/11/2018 HISTORY: Pneumonia TECHNIQUE: Frontal and lateral views of the chest are obtained. FINDINGS: Persistent airspace disease in the right lower lobe. Patient is rotated. No evident pneumo thorax or pleural effusion. Cardiac mediastinal silhouette, pulmonary vascularity and irwin are stable . IMPRESSION: Findings compatible with right lower lobe pneumonia. Follow-up recommended.
[2018-05-12] MEDS: ATORVASTATIN 40 MG TAB PO SCH (08:38)
[2018-05-12] MEDS: ATENOLOL 25 MG TAB PO SCH (08:39)
[2018-05-12] MEDS: FLUoxetine HCL 20 MG CAP PO SCH (08:39)
[2018-05-12] MEDS: LOPERAMIDE 2 MG CAP PO SCH ×4 (08:39→20:53)
[2018-05-12] MEDS: ASPIRIN 81 MG PO SCH (08:39)
[2018-05-12] MEDS: ISOSORBIDE MONONITRATE ER 30 MG TAB.ER.24H PO SCH (08:39)
[2018-05-12] MEDS ORDERED: AZITHROMYCIN 500 MG TAB PO SCH (09:00)
[2018-05-12] MEDS ORDERED: cefTRIAXone IN SWFI 1,000 MG/10 ML SYRINGE IVP SCH (09:00)
[2018-05-12] MEDS: amLODIPine 10 MG TAB PO SCH ×2 (10:49→20:54)
[2018-05-12] MEDS: IPRATROPIUM-ALBUTEROL 3 ML NEB INHALATION PRN (11:48)
[2018-05-12 11:49] LABS: Basophils % (A) 0 %; Eosinophils # (A) 0.2 k/uL (0-0.7); Eosinophils % (A) 1 %; HCT 30.3 % (34.0-46.0); HGB 9.7 gm/dL (11.4-16.0); Lymphocytes # (A) 0.6 k/uL (1.0-4.8); Lymphocytes % (A) 3 %; MCH 25.1 pg (25.0-35.0); MCV 78.5 fL (80.0-100.0); Mean Platelet Volume 6.9; Monocytes % (A) 6 %; Neutrophils # (A) 15.6 k/uL (1.3-7.7); Neutrophils % (A) 89 %; Platelet Count 198 k/uL (150-450); RBC 3.85 m/uL (3.80-5.40); RDW 14.9 % (11.5-15.5); WBC 17.6 k/uL (3.8-10.6)
[2018-05-12 11:58] LABS: Albumin 2.9 g/dL (3.5-5.0); Calcium 8.2 mg/dL (8.4-10.2); Potassium 4.3 mmol/L (3.5-5.1); Total Bilirubin 0.5 mg/dL (0.2-1.3); Total Protein 5.7 g/dL (6.3-8.2)
[2018-05-12 18:16] LABS: Hemoglobin A1C 6.1 % (4.0-6.0)
--- NOTE | 2018-05-12 18:20 | PN ---
PROGRESS NOTE CHIEF COMPLAINT: Fever, chills, gastroenteritis and right lower lobe pneumonia. HISTORY OF PRESENT ILLNESS: This lady is feeling much better. Her temperature has come down. She is oriented and alert. She is having no further nausea, vomiting or diarrhea, and she has had no chest pain. PHYSICAL EXAMINATION: Chest demonstrates scattered rales and rhonchi. Cardiac exam is normal. ABDOMEN: Soft, nontender. IMPRESSION: 1. Right lower lobe pneumonia. 2. Septicemia. 3. Viral gastroenteritis. 4. Dehydration. 5. Hypertension. PLAN: Continue with current program and repeat labs. MMODL / IJN: [id number] /
[2018-05-12] MEDS: GABAPENTIN 300 MG CAP PO SCH (20:54)
[2018-05-12] MEDS ORDERED: LEVOFLOXACIN 750 MG TAB PO SCH (22:15)
[2018-05-13] MEDS: SODIUM CHLORIDE 0.9% 1,000 ML IV SCH ×3 (01:04→20:08)
[2018-05-13] MEDS: AMPICILLIN-SULBACTAM 3 GM in SODIUM CHLORIDE 0.9% 100 ML IVPB SCH ×5 (01:04→23:33)
--- NOTE | 2018-05-13 05:44 | CONS ---
CONSULTATION DATE OF SERVICE: 05/12/2018 REASON FOR CONSULTATION: UTI and pneumonia. HISTORY OF PRESENT ILLNESS: The patient is a 68-year-old female who was brought into the ER at [facility] yesterday afternoon with chief complaints of vomiting and diarrhea. Apparently, her symptoms have been going on for a few days, though the patient subsequently did tell me that she was unable to go to the bathroom and her symptoms have been going on for about 2 to 3 days prior to presenting to the hospital. The patient did have some not feeling well, and the patient denies significant URI symptoms. She did have some mild cough, but not bringing up any sputum and no chest pain or shortness of breath. No abdominal pain and no significant burning or frequency of urine. With these symptoms, the patient has been evaluated by the ER physician. On arrival to the ER, the patient did have a fever of 103 degrees Fahrenheit. The patient did have a white count elevated 21.6. A urine was obtained which did show trace leukocyte esterase with many bacteria. The patient has been started on Zithromax and Rocephin. However, with persistent fever Infectious Disease was consulted for further recommendation regarding antibiotic therapy. The patient is not a very good historian. Thus most of the information has been obtained from question. REVIEW OF SYSTEMS: CONSTITUTIONAL: Positive for weakness and fever. EYES: No complaint. ENT: No complaint. RESPIRATORY: As per HPI. CARDIOVASCULAR: No complaint. GENITOURINARY: No complaint. GASTROINTESTINAL: As per HPI. MUSCULOSKELETAL: No complaint. INTEGUMENTARY: No complaint. PSYCHOLOGICAL: No complaint. ENDOCRINE: No complaint. NEUROLOGIC: No complaint. PAST MEDICAL HISTORY: Hypertension, CVA, TIA, renal insufficiency, arthritis. PAST SURGICAL HISTORY: Hysterectomy, tonsillectomy. SOCIAL HISTORY: No history of smoking, drinking, or drug use. FAMILY HISTORY: No pertinent findings noticed. ALLERGIES: MEDICATIONS: Zofran, Imodium, Imdur, Neurontin, Prozac, Rocephin, Zithromax, Lipitor, Tenormin, aspirin, Norvasc, DuoNeb, Ventolin and Tylenol. PHYSICAL EXAMINATION: On examination, blood pressure is 138/64, pulse of 89, temperature 103.1. She is 96% on 2 L nasal cannula. General description is an elderly female lying in bed, in no distress. No tachypnea or accessory muscle for respiratory use. HEENT examination shows pallor, no scleral icterus. Oral mucous membrane is dry. No pharyngeal erythema or thrush. NECK: Trachea central. No thyromegaly. LUNGS: Unlabored breathing with decreased breath sounds at the bases. No wheeze. HEART: S1, S2. Regular rate and rhythm. No added sounds. ABDOMEN: Soft, no tenderness. No guarding or rigidity. EXTREMITIES: No edema of feet. SKIN EXAMINATION: No rashes or masses palpable. NEUROLOGIC: The patient is awake, alert, oriented x2. Mood and affect normal. LABS: Hemoglobin 9.7, white count 17.6, BUN of 19, creatinine 1.23. Electrolytes have been normal. Liver enzymes are normal. Urine was slightly positive. DIAGNOSTIC IMPRESSION AND PLAN: Patient admitted to the hospital with sepsis in a patient who did have a fever of 103 and elevated white count of with evidence of right lower lobe pneumonia in a patient who did have predominant GI symptoms with concern of possible Legionella pneumonia to be on the top of the list. However, pneumonia of aspiration etiology also needs to be ruled out in view of her symptoms of vomiting. PLAN: 1. We will send a urine for Legionella antigen. 2. We will try to obtain sputum for Gram stain, culture and sensitivity. 3. Will start the patient on Unasyn 3 grams q.6 and add Levaquin 750 p.o. daily. 4. We will follow on clinical condition and cultures to further adjust medication if needed. Thank you for this consultation. Will follow this patient along with you. MMODL / IJN: [id number] /
[2018-05-13] MEDS: IPRATROPIUM-ALBUTEROL 3 ML NEB INHALATION PRN ×3 (06:01→20:51)
[2018-05-13] MEDS: ISOSORBIDE MONONITRATE ER 30 MG TAB.ER.24H PO SCH (09:28)
[2018-05-13] MEDS: amLODIPine 10 MG TAB PO SCH ×2 (09:28→20:08)
[2018-05-13] MEDS: ASPIRIN 81 MG PO SCH (09:28)
[2018-05-13] MEDS: ATORVASTATIN 40 MG TAB PO SCH (09:28)
[2018-05-13] MEDS: ATENOLOL 25 MG TAB PO SCH (09:29)
[2018-05-13] MEDS: LOPERAMIDE 2 MG CAP PO SCH ×4 (09:29→20:09)
[2018-05-13] MEDS: FLUoxetine HCL 20 MG CAP PO SCH (09:29)
--- NOTE | 2018-05-13 15:33 | PN ---
PROGRESS NOTE DATE OF SERVICE: 05/13/2018 CHIEF COMPLAINT: Right lower lobe pneumonitis. HISTORY OF PRESENT ILLNESS: This lady states she is feeling well. She still running low-grade fevers at night. She is also still having some nausea, vomiting, and diarrhea, but she is improved. PHYSICAL EXAM: Breath sounds diminished at the right base with a vesicular component and rales. Cardiac exam is normal. Abdomen is soft, nontender. IMPRESSION: 1. Right lower lobe pneumonitis. 2. Viral gastroenteritis. 3. Hypertension. PLAN: Continue on current program until she is afebrile through the night. MMODL / IJN: [id number] /
[2018-05-13] MEDS: GABAPENTIN 300 MG CAP PO SCH (20:08)
[2018-05-13] MEDS: ACETAMINOPHEN TAB 325 MG TAB PO PRN (22:14)
[2018-05-14] MEDS: SODIUM CHLORIDE 0.9% 1,000 ML IV SCH ×3 (04:34→23:15)
[2018-05-14] MEDS: AMPICILLIN-SULBACTAM 3 GM in SODIUM CHLORIDE 0.9% 100 ML IVPB SCH ×4 (06:03→23:13)
--- NOTE | 2018-05-14 06:43 | PN ---
PROGRESS NOTE DATE OF SERVICE: 05/13/2018. REASON FOR FOLLOWUP VISIT: Pneumonia, possible UTI. INTERVAL HISTORY: The patient's overall fever pattern has improved. The patient denies having any chest pain. She is feeling better, though. She did have some cough but not bringing up any sputum. No nausea, vomiting and no diarrhea. EXAMINATION: Her blood pressure is 164/56, pulse of 90, temperature of 100.3. She is 97% on 3 L nasal cannula. General description is an elderly female, lying in bed in no distress. RESPIRATORY SYSTEM: Unlabored breathing with decreased breath sounds in the base. No wheeze. HEART: S1, S2. Regular rate and rhythm. ABDOMEN: Soft, no tenderness. LABS: Hemoglobin is 9.7, white count 17.6, BUN of 19, creatinine 1.23. Cultures are currently pending. Urine did show an E coli with sensitive pathogen. Urine and stool cultures not done. Sputum was not collected. DIAGNOSTIC IMPRESSION AND PLAN: Patient with fever, source is likely right lobe pneumonia, question of possible aspiration with an E coli urinary tract infection. The patient is currently covered with Unasyn and Levaquin will be continued while waiting for the sputum culture. Continue supportive care. MMODL / IJN: [id number] /
[2018-05-14] MEDS: ATORVASTATIN 40 MG TAB PO SCH (08:24)
[2018-05-14] MEDS: ACETAMINOPHEN TAB 325 MG TAB PO PRN ×2 (08:24→21:32)
[2018-05-14] MEDS: ISOSORBIDE MONONITRATE ER 30 MG TAB.ER.24H PO SCH (08:24)
[2018-05-14] MEDS: FLUoxetine HCL 20 MG CAP PO SCH (08:24)
[2018-05-14] MEDS: ASPIRIN 81 MG PO SCH (08:25)
[2018-05-14] MEDS: amLODIPine 10 MG TAB PO SCH ×2 (08:25→21:29)
[2018-05-14] MEDS: LEVOFLOXACIN 750 MG TAB PO SCH (08:25)
[2018-05-14] MEDS: LOPERAMIDE 2 MG CAP PO SCH ×4 (08:33→21:29)
[2018-05-14] MEDS: ATENOLOL 25 MG TAB PO SCH (10:09)
--- NOTE | 2018-05-14 11:25 | CDI ---
Last Revision, September 2017 Documentation Clarification Form Date: 05/14/18 From: Jelena Kc Admit Date: 05/11/2018 5:18:00 PM Patient Name: Kelly Nino Visit Number: [id number] ATTENTION: The Clinical Documentation Specialists (CDI) and [facility] Coding Staff appreciate your assistance in clarifying documentation. Please respond to the clarification below the line at the bottom and electronically sign. The CDI & [facility] Coding staff will review the response and follow-up if needed. Please note: Queries are made part of the Legal Health Record. If you have any questions, please contact the author of this message via ITS. Dr. Rinku Echevarria MD, Pneumonia was documented in your H&P on 05/11, PN 05/12, Consult note 05/12 and PN 05/13. Can you please render your opinion on the clarification of the diagnosis? History/Risk Factors: mental health problems, htn Presented with vomiting and diarrhea, admitted with pneumonia and sepsis Clinical Indicators: WBC on admission: 21.6 X-ray: right basilar pneumonia Lung/Breathing assessment: H&P states decreased breath sounds at the bases with occasional rales or rhonchi. Treatment: Antibiotics: Ampicillin IVPB, Levaquin PO, Pneumonia protocol O2 @ 3L Breathing Tx: Ventolin, Duobeb In order to capture the severity of condition, please clarify if the condition signifies and you are treating for: Aspiration Pneumonia, identify if: Due to solids or liquids Bacterial Pneumonia, specify causal organism (if known) Gram Negative Pneumonia Other bacteria (please specify) Viral Pneumonia, specify casual organism (if known) Healthcare Acquired Pneumonia/Pneumonia, unspecified Other, please specify Unable to determine Please continue to document in your progress notes, under the line below and/or in the discharge summary in order to capture severity of illness and risk of mortality. Include clinical findings that support your diagnosis. MTDD
--- NOTE | 2018-05-14 11:42 | XR ---
EXAMINATION TYPE: XR chest 2V DATE OF EXAM: 05/14/2018 COMPARISON: Prior chest 05/12/2018 HISTORY: Pneumonia, cough TECHNIQUE: Frontal and lateral views of the chest are obtained. FINDINGS: Right hemidiaphragm is obscured due to increased density at the right lung base. No eviden t pneumothorax. IMPRESSION: Findings compatible with right lower lobe pneumonia, there is likely parapneumonic effus ion.
[2018-05-14 12:55] LABS: Basophils % (A) 0 %; Eosinophils # (A) 0.5 k/uL (0-0.7); Eosinophils % (A) 3 %; HCT 31.6 % (34.0-46.0); HGB 9.9 gm/dL (11.4-16.0); Lymphocytes # (A) 0.7 k/uL (1.0-4.8); Lymphocytes % (A) 5 %; MCH 24.6 pg (25.0-35.0); MCHC 31.4 g/dL (31.0-37.0); MCV 78.4 fL (80.0-100.0); Mean Platelet Volume 6.7; Monocytes # (A) 1.1 k/uL (0-1.0); Monocytes % (A) 8 %; Neutrophils % (A) 82 %; Platelet Count 287 k/uL (150-450); RBC 4.03 m/uL (3.80-5.40); RDW 15.1 % (11.5-15.5); WBC 14.6 k/uL (3.8-10.6)
[2018-05-14 13:13] LABS: Albumin 2.8 g/dL (3.5-5.0); Calcium 8.4 mg/dL (8.4-10.2); Potassium 3.9 mmol/L (3.5-5.1); Total Bilirubin 0.5 mg/dL (0.2-1.3); Total Protein 5.6 g/dL (6.3-8.2)
--- NOTE | 2018-05-14 15:28 | PN ---
PROGRESS NOTE CHIEF COMPLAINT: Pneumonitis. HISTORY OF PRESENT ILLNESS: This lady is doing well. She has had no pain, shortness of breath, nausea, vomiting, diarrhea, etc. PHYSICAL EXAM: Breath sounds are still decreased. Cardiac exam is normal. Abdomen is soft and nontender. IMPRESSION: Pneumonitis. PLAN: Continue with updrafts, IV fluids, antibiotics until her temperature is down. MMODL / IJN: [id number] /
[2018-05-14] MEDS: IPRATROPIUM-ALBUTEROL 3 ML NEB INHALATION PRN ×2 (16:15→21:11)
[2018-05-14] MEDS: GABAPENTIN 300 MG CAP PO SCH (21:29)
--- NOTE | 2018-05-14 23:28 | PN ---
PROGRESS NOTE DATE OF SERVICE: 05/14/2018 REASON FOR FOLLOWUP: Right lower lobe pneumonia. INTERVAL HISTORY: The patient seems to have persistent problems with a fever, running a fever of 101 degrees Fahrenheit. The patient denies significant chest pain or shortness of breath. She did have mild cough but not bringing up any sputum. No nausea, vomiting and no diarrhea. PHYSICAL EXAMINATION: Blood pressure 147/72 with a pulse of 94, temperature 100.9, T-max 101.3. She is 93% 2 L nasal cannula. General description is an elderly female lying in bed in no distress. RESPIRATORY SYSTEM: Unlabored breathing with decreased breath sounds. No wheeze. HEART: S1, S2. Regular rate and rhythm. ABDOMEN: Soft. No tenderness. EXTREMITIES: No edema of the feet. LABS: White count is down to 14.6 with a BUN of 14, creatinine 1.05. DIAGNOSTIC IMPRESSION AND PLAN: Patient admitted to hospital with fever with right lower lobe pneumonia, question of possible aspiration etiology, now with a parapneumonic effusion and persistent fever. Will need to rule out loculated fluid that may be responsible for this persistent fever, as the white count is showing a downward trend. We will obtain a CT of the chest without any contrast. If there is evidence of loculated fluid, CT surgeon will need to be consulted. Will keep the patient on Unasyn and Levaquin at this point. Continue with supportive care. MELANI / NICOLASAN: [id number] / MTDD
[2018-05-15] MEDS: AMPICILLIN-SULBACTAM 3 GM in SODIUM CHLORIDE 0.9% 100 ML IVPB SCH ×3 (05:57→17:21)
[2018-05-15] MEDS: IPRATROPIUM-ALBUTEROL 3 ML NEB INHALATION PRN ×3 (07:05→20:47)
[2018-05-15] MEDS: ATORVASTATIN 40 MG TAB PO SCH (08:34)
[2018-05-15] MEDS: amLODIPine 10 MG TAB PO SCH ×2 (08:34→20:44)
[2018-05-15] MEDS: FLUoxetine HCL 20 MG CAP PO SCH (08:34)
[2018-05-15] MEDS: ASPIRIN 81 MG PO SCH (08:34)
[2018-05-15] MEDS: ATENOLOL 25 MG TAB PO SCH (08:34)
[2018-05-15] MEDS: LOPERAMIDE 2 MG CAP PO SCH ×3 (08:35→20:44)
[2018-05-15] MEDS: ISOSORBIDE MONONITRATE ER 30 MG TAB.ER.24H PO SCH (08:35)
--- NOTE | 2018-05-15 11:07 | CT ---
EXAMINATION TYPE: CT chest wo con DATE OF EXAM: 05/15/2018 COMPARISON: Chest radiograph dated 05/14/2018. HISTORY: Pneumonia, empyema CT DLP: 417.4 mGycm. Automated Exposure Control for Dose Reduction was Utilized. TECHNIQUE: CT scan of the thorax is performed without IV contrast. FINDINGS: LUNGS: There is a nodular lobar consolidation within the right lower lobe with opacity also seen in t he right middle lobe. There are intervening areas of low-attenuation suggesting pneumonia rather than atelectasis. Additionally there are air bronchograms and a small to moderate surrounding right-sided pleural effusion, presumed parapneumonic effusion. Evaluation for empyema is extremely limited witho ut contrast to evaluate for pleural enhancement. No foci of air are seen within the pleural effusion to suggest empyema at this time. Right lower lobe punctate granulomas incidentally seen. There is a trace left pleural effusion and left basilar atelectasis. No pneumothorax is seen. MEDIASTINUM: Lack of IV contrast is noted to limit evaluation for mediastinal and especially hilar ad enopathy. There are no definitive greater than 1 cm hilar or mediastinal lymph nodes. There are mult iple prominent lymph nodes within the mediastinum measuring up to 1 cm in short axis, likely reactive . The heart is mildly enlarged. There is no pericardial effusion. OTHER: There is a fluid attenuated ill-defined left renal cystic lesion measuring 2.0 cm with layerin g debris or calcification peripherally. There is slight thickening of the adrenal glands although the y maintain their normal adreniform shape, likely on the basis of adrenal gland hyperplasia. Mild mult ilevel degenerative changes of the thoracic spine are seen. IMPRESSION: 1. Right lower lobar pneumonia with small to moderate parapneumonic effusion and right middle lobe pn eumonia versus atelectasis. No gross evidence of empyema however intravenous contrast with better ass ess this diagnosis with evaluation for pleural enhancement. 2. Left basilar atelectasis and trace pleural effusion.
[2018-05-15] MEDS: SODIUM CHLORIDE 0.9% 1,000 ML IV SCH (13:36)
[2018-05-15] MEDS: ALBUTEROL NEBULIZED 2.5 MG/3 ML INHALATION PRN (15:28)
--- NOTE | 2018-05-15 18:29 | PN ---
PROGRESS NOTE DATE OF SERVICE: 05/15/2018 CHIEF COMPLAINT: Pneumonitis. HISTORY OF PRESENT ILLNESS: This lady is doing well and seems to be feeling well, but she is still running low- grade temperatures at night, but they are coming down. PHYSICAL EXAMINATION: Her chest appears to be improving. Breath sounds are improved. Cardiac exam is normal. Abdomen is soft, nontender. IMPRESSION: Pneumonitis. PLAN: Continue with IV fluids and antibiotics until temperature is down. MMODL / IJN: [id number] /
[2018-05-15] MEDS: GABAPENTIN 300 MG CAP PO SCH (20:44)
--- NOTE | 2018-05-15 20:50 | PN ---
PROGRESS NOTE DATE OF SERVICE: 05/15/2018 REASON FOR FOLLOWUP: Pneumonia, likely aspiration in etiology. INTERVAL HISTORY: The patient did have a fever last night of 101.3. The patient is afebrile since then. The patient seems to be having more cough and she is bringing up sputum. Unfortunately, no sputum has been collected. Denies significant swelling. No nausea, no vomiting. No abdominal pain and no diarrhea. EXAMINATION: Her blood pressure is 140/69 with a pulse of 83, temperature 98.3. She is 91% on 3L nasal cannula. General description is an elderly female up in the bed in no distress. RESPIRATORY SYSTEM: Unlabored breathing. Some coarse breath sounds at the bases. No wheeze. HEART: S1, S2. Regular rate and rhythm. ABDOMEN: Soft. No tenderness. LABS: Hemoglobin 9.8, white count 14.6. BUN of 14, creatinine 1.05. Blood culture has been negative. Sputum not collected. She did have a CT of the chest to rule out empyema and did show right lower lobe pneumonia with small pulmonary effusion, right middle lobe pneumonia versus atelectasis. DIAGNOSTIC IMPRESSION AND PLAN: Patient with a right middle and lower lobe pneumonia, likely aspiration etiology with current fever, is concerning for recurrent aspiration. A swallow evaluation will be requested. R.N. has instructed once again to obtain a sputum. We will keep the patient on Unasyn and the Levaquin this point, adjusting it further based on clinical response. Continue with supportive care. MMODL / IJN: [id number] /
[2018-05-15] MEDS: ACETAMINOPHEN TAB 325 MG TAB PO PRN (22:44)
[2018-05-16] MEDS: AMPICILLIN-SULBACTAM 3 GM in SODIUM CHLORIDE 0.9% 100 ML IVPB SCH ×4 (00:58→17:13)
[2018-05-16] MEDS: SODIUM CHLORIDE 0.9% 1,000 ML IV SCH ×2 (00:58→08:23)
[2018-05-16] MEDS: ALBUTEROL NEBULIZED 2.5 MG/3 ML INHALATION PRN (07:13)
[2018-05-16] MEDS: ATENOLOL 25 MG TAB PO SCH (08:23)
[2018-05-16] MEDS: ISOSORBIDE MONONITRATE ER 30 MG TAB.ER.24H PO SCH (08:23)
[2018-05-16] MEDS: LEVOFLOXACIN 750 MG TAB PO SCH (08:23)
[2018-05-16] MEDS: amLODIPine 10 MG TAB PO SCH ×2 (08:23→22:12)
[2018-05-16] MEDS: FLUoxetine HCL 20 MG CAP PO SCH (08:24)
[2018-05-16] MEDS: LOPERAMIDE 2 MG CAP PO SCH ×4 (08:24→22:15)
[2018-05-16] MEDS: ATORVASTATIN 40 MG TAB PO SCH (08:24)
[2018-05-16] MEDS: ASPIRIN 81 MG PO SCH (08:24)
[2018-05-16 09:12] LABS: Calcium 8.6 mg/dL (8.4-10.2); Potassium 4.3 mmol/L (3.5-5.1)
[2018-05-16] MEDS: IPRATROPIUM-ALBUTEROL 3 ML NEB INHALATION PRN ×3 (10:49→18:55)
[2018-05-16 11:15] VITALS: BMI 32.7
[2018-05-16] MEDS: ACETAMINOPHEN TAB 325 MG TAB PO PRN (16:37)
--- NOTE | 2018-05-16 18:56 | PN ---
PROGRESS NOTE DATE OF SERVICE: 05/16/2018 CHIEF COMPLAINT: Pneumonitis. HISTORY OF PRESENT ILLNESS: This lady is doing fairly well. Temperature is coming down. She feels well and she has had no shortness of breath or vomiting. There has been no diarrhea. PHYSICAL EXAMINATION: The abdomen is soft, nontender. Cardiac exam seems normal. Chest is clear. IMPRESSION: 1. Resolving pneumonitis. 2. Gastroenteritis. PLAN: If temperature stays down over the next 24 hours, she can go home Saturday. MMODL / IJN: [id number] /
[2018-05-16] MEDS: GABAPENTIN 300 MG CAP PO SCH (22:12)
[2018-05-17] MEDS: AMPICILLIN-SULBACTAM 3 GM in SODIUM CHLORIDE 0.9% 100 ML IVPB SCH ×3 (00:09→11:06)
[2018-05-17] MEDS: ACETAMINOPHEN TAB 325 MG TAB PO PRN (00:10)
[2018-05-17 07:02] VITALS: BP 152/72; RESP 18; TEMP 98.2
[2018-05-17] MEDS: FLUoxetine HCL 20 MG CAP PO SCH (07:54)
[2018-05-17] MEDS: amLODIPine 10 MG TAB PO SCH (07:54)
[2018-05-17] MEDS: ATORVASTATIN 40 MG TAB PO SCH (07:54)
[2018-05-17] MEDS: ASPIRIN 81 MG PO SCH (07:55)
[2018-05-17] MEDS: ISOSORBIDE MONONITRATE ER 30 MG TAB.ER.24H PO SCH (07:55)
[2018-05-17] MEDS: ATENOLOL 25 MG TAB PO SCH (07:55)
[2018-05-17] MEDS: LOPERAMIDE 2 MG CAP PO SCH ×2 (07:55→11:12)
[2018-05-17] MEDS: IPRATROPIUM-ALBUTEROL 3 ML NEB INHALATION PRN ×2 (08:15→11:39)
--- NOTE | 2018-05-17 08:16 | PN ---
PROGRESS NOTE DATE OF SERVICE: 05/16/2018. REASON FOR FOLLOWUP: Pneumonia. INTERVAL HISTORY: The patient did have a low-grade fever of 100.8 last night. The patient afebrile since then. She has been breathing comfortably. She has been coughing up sputum. Unfortunately, no sputum has been collected. No chest pain. No abdominal pain. No diarrhea. EXAMINATION: Blood pressure 140/81 with a pulse of 83, temperature 98.9. She is 96% on 4 L nasal cannula. General description is an elderly female lying in bed in no distress. RESPIRATORY SYSTEM: Unlabored breathing. Some coarse breath sounds in the bases. No wheeze. HEART: S1, S2. Regular rate and rhythm. ABDOMEN: Soft. No tenderness. LABS: Creatinine is 1.19. CBC was not done today. Blood culture negative. DIAGNOSTIC IMPRESSION AND PLAN: Patient with right middle lobe pneumonia, consider recurrent aspiration pneumonitis. RN has been advised to obtain a sputum. Once again, the patient will be kept on Unasyn and Levaquin. Swallow evaluation has been requested. Continue supportive care. MMODL / IJN: [id number] /
[2018-05-17] MEDS ORDERED: LEVOFLOXACIN 500 MG TAB PO STA (10:11)
[2018-05-17 11:53] VITALS: PULSE 88
--- NOTE | 2018-05-17 18:49 | DS ---
DISCHARGE SUMMARY CHIEF COMPLAINT: Fever, chills, nausea, vomiting and diarrhea. HISTORY OF PRESENT ILLNESS AND PHYSICAL EXAM: Details of this lady's history and physical can be found in the initial workup. LABORATORY STUDIES: While she was in a hospital, she had laboratory studies, details which can be found in the laboratory section of her chart. COURSE IN HOSPITAL: After admission she was placed on bedrest, started on intravenous fluids and intravenous fluids and IV antibiotics and updrafts. She slowly improved. Breathing improved and temperature slowly came down. She is doing well and it was felt that she could be discharged on the and she will go home on usual activity, regular medications and seen in the office in several days. FINAL DIAGNOSES: 1. Bronchopneumonia. 2. Viral gastroenteritis. 3. Hypertension. OPERATIONS: None. CONSULTATION: None. She is improved. MELANI / JESUS: [id number] /
[2018-05-17] MEDS ORDERED: AMOXIC-POT CLAV 875-125MG 1 EACH TAB PO SCH (21:00)
--- NOTE | 2018-05-21 12:23 | CDI ---
Last Revision, September 2017 Documentation Clarification Form Date: 05/21/2018 12:08:28 PM From: Yadi Rayo Phone: If you have a question about this query, please contact Luanne Albright Trailer Technician at [phone] between 8am and 5pm. Admit Date: 05/11/2018 5:18:00 PM Patient Name: Kelly Nino Visit Number: [id number] Discharge Date: 05/17/2018 ATTENTION: The Clinical Documentation Specialists (CDI) and [facility] Coding Staff appreciate your assistance in clarifying documentation. Please respond to the clarification below the line at the bottom and electronically sign. The CDI & [facility] Coding staff will review the response and follow-up if needed. Please note: Queries are made part of the Legal Health Record. If you have any questions, please contact the author of this message via ITS. Dr. FINE, Rinku Bailey MD Documentation of possible sepsis is in the H and P and consult. Sepsis was not carried through to the D[facility]. Please clarify if patient had sepsis or was it ruled out. History/Risk Factors: Patient with bronchopneumonia and UTI and viral gastroenteritis. Clinical Indicators: Fever WBC/Left Shift 21.6 Vitals signs on admission: 103.5 F 109 BPM 18 166/78 96% RA Treatment: IV fluids, IV antibiotics, bedrest In your professional opinion, please clarify if these findings signify one of the following conditions, whether the condition is POA, and cause, if known: Condition Sepsis ruled out Sepsis Severe Sepsis Other, please specify Unable to determine Present on Admission: Yes No MTDD
--- NOTE | 2018-05-21 14:23 | MISC ---
MISCELLANOUS REPORT QUERY: Sepsis was ruled out. MMODL / IJN: [id number] /
== END 2018-05-17 14:31 | disposition home or self-care (01) | DRG 194 ==
LOC: EC 15:10 → 4MS4W 17:18
PROVIDERS: ADMIT Family Medicine; ATTEND Family Medicine
DX: J18.0 Bronchopneumonia, unspecified organism (principal); N39.0 Urinary tract infection, site not specified; A08.4 Viral intestinal infection, unspecified; E86.0 Dehydration; I10 Essential (primary) hypertension; Z86.73 Personal history of transient ischemic attack (TIA), and cerebral infarction without residual deficits; Z90.710 Acquired absence of both cervix and uterus; M19.90 Unspecified osteoarthritis, unspecified site; Z79.899 Other long term (current) drug therapy
CPT/HCPCS: 36415; 71046; 71250; 74018; 80048; 80053; 81001; 83036; 83605; 85025; 85610; 85730; 87040; 87077; 87086; 87186; 87449; 94640; 94760; 96361; 96374; 96375; 99285

== ENCOUNTER 2018-05-29 03:21 | Inpatient (IN) | payer MEDICARE, OTHER ==
--- NOTE | 2018-05-29 03:38 | ED ---
Nausea/Vomiting/Diarrhea HPI - General Chief complaint: Nausea/Vomiting/Diarrhea Stated complaint: Nausea, vomiting Time Seen by Provider: 05/29/18 03:23 Source: patient Mode of arrival: EMS Limitations: no limitations - History of Present Illness Initial comments: 68-year-old female with extensive past medical history presents to the emergency department today via EMS with multiple complaints. Patient reports that she has had multiple episodes of nonbloody diarrhea throughout the day today, in addition she has had some nausea and nonbloody nonbilious emesis. Patient reports diffuse abdominal cramping as well as a cough. She reports that she called her son and told him that she thought this was going to kill her and she didn't want to be in the hospital anymore. He needed to call 911 for the patient to be transferred to the emergency department. Patient was hospitalized earlier in the month for pneumonia, she reports that she believes she was discharged home with pills for the pneumonia. She states that she has tried to take them but they make her vomit. However it is uncertain if she is talking about immediately after her previous admission or earlier in the day as she seems somewhat confused about this. - Related Data Home Medications Medication Instructions Recorded Confirmed Albuterol Inhaler [Ventolin Hfa 2 puff INHALATION RT-Q6H PRN 07/24/16 05/29/18 Inhaler] FLUoxetine HCL [Fluoxetine HCl] 20 mg PO DAILY 07/24/16 05/29/18 Furosemide 40 mg PO DAILY 07/24/16 05/29/18 amLODIPine BESYLATE [Amlodipine 10 mg PO BID 07/24/16 05/29/18 Besylate] Aspirin EC [Ecotrin Low Dose] 81 mg PO DAILY 07/08/17 05/29/18 Atenolol [Tenormin] 25 mg PO DAILY 07/08/17 05/29/18 Gabapentin [Neurontin] 300 mg PO HS 07/08/17 05/29/18 Isosorbide Mononitrate ER [Imdur] 30 mg PO DAILY 07/08/17 05/29/18 Atorvastatin [Lipitor] 40 mg PO DAILY 05/11/18 05/29/18 Amoxic-Pot Clav 875-125Mg 1 tab PO Q12HR 05/29/18 05/29/18 [Augmentin 875-125] Allergies Allergy/AdvReac Type Severity Reaction Status Date / Time allopurinol [From Zyloprim] Allergy Unknown Verified 05/29/18 07:29 codeine Allergy Unknown Verified 05/29/18 07:29 Review of Systems ROS Statement: Those systems with pertinent positive or pertinent negative responses have been documented in the HPI. ROS Other: All systems not noted in ROS Statement are negative. Past Medical History Past Medical History: Asthma, Heart Failure, CVA/TIA, Hyperlipidemia, Hypertension, Renal Disease Additional Past Medical History / Comment(s): arthritis, neuropathy. Patient when reviewing med list and history states, "I didn't know I had that!" Not very aware of medical history, medications, or what they are for. History of Any Multi-Drug Resistant Organisms: None Reported Past Surgical History: Hysterectomy, Tonsillectomy Past Anesthesia/Blood Transfusion Reactions: No Reported Reaction Past Psychological History: Depression Smoking Status: Never smoker Past Alcohol Use History: None Reported Past Drug Use History: None Reported - Past Family History Father Family Medical History: No Reported History Mother Family Medical History: No Reported History General Exam Limitations: no limitations General appearance: alert, other (Appears uncomfortable, mildly dehydrated) Head exam: Present: atraumatic, normocephalic Eye exam: Present: PERRL ENT exam: Present: mucous membranes dry Neck exam: Absent: lymphadenopathy Respiratory exam: Absent: respiratory distress Cardiovascular Exam: Present: regular rate, normal rhythm GI/Abdominal exam: Present: soft, tenderness, normal bowel sounds. Absent: rebound, rigid Rectal exam: Present: deferred Extremities exam: Present: normal inspection Back exam: Absent: CVA tenderness (R), CVA tenderness (L) Neurological exam: Present: alert, other (Oriented to person, place, unaware of why she is at the hospital and no witnessed most of her medical conditions or medications) Psychiatric exam: Present: depressed Skin exam: Present: warm, dry Course Vital Signs 05/29/18 05/29/18 05/29/18 03:31 04:50 05:35 Temperature 98.0 F Pulse Rate 78 76 83 Respiratory 16 15 Rate Blood Pressure 158/74 173/72 179/72 O2 Sat by Pulse 97 100 99 Oximetry 05/29/18 05/29/18 05/29/18 07:00 08:12 08:32 Temperature 97.9 F Pulse Rate 84 86 87 Respiratory 15 18 18 Rate Blood Pressure 179/70 161/85 164/64 O2 Sat by Pulse 100 97 98 Oximetry Medical Decision Making - Medical Decision Making The patient was seen and evaluated, history is obtained from the patient, EMS, review of medical record Patient very poor historian with report of N/V/D, fatigue and feeling as though she is going to Labs and imaging ordered EKG obtained at 3:29 AM, rate is 78, rhythm is sinus, there is a normal axis, there are normal intervals, IA is 164, QRS is 82, QTc is 449, there are no acute ST elevations or depressions, no evidence of acute ischemia or infarction. Labs reveal chronic anemia, JAE CT with concern for persistent pneumonia - considering recent admission will treat as HCAP CT also reveals fluid in the bowel consistent with diarrhea - considering recent antibiotics will test for C. Diff Patient care discussed with Dr. Echevarria who is here with patient and agrees with admission for HCAP - Lab Data Result diagrams: 05/29/18 04:13 05/29/18 04:13 Lab Results 05/29/18 05/29/18 05/29/18 Range/Units 04:13 04:13 06:44 WBC 6.7 (3.8-10.6) k/uL RBC 3.91 (3.80-5.40) m/uL Hgb 9.4 L (11.4-16.0) gm/dL Hct 30.2 L (34.0-46.0) % MCV 77.3 L (80.0-100.0) fL MCH 24.1 L (25.0-35.0) pg MCHC 31.2 (31.0-37.0) g/dL RDW 15.8 H (11.5-15.5) % Plt Count 435 (150-450) k/uL Neutrophils % 77 % Lymphocytes % 13 % Monocytes % 5 % Eosinophils % 4 % Basophils % 1 % Neutrophils # 5.2 (1.3-7.7) k/uL Lymphocytes # 0.8 L (1.0-4.8) k/uL Monocytes # 0.3 (0-1.0) k/uL Eosinophils # 0.3 (0-0.7) k/uL Basophils # 0.0 (0-0.2) k/uL Microcytosis Slight Sodium 141 (137-145) mmol/L Potassium 3.7 (3.5-5.1) mmol/L Chloride 106 (98-107) mmol/L Carbon Dioxide 29 (22-30) mmol/L Anion Gap 6 mmol/L BUN 20 H (7-17) mg/dL Creatinine 1.40 H (0.52-1.04) mg/dL Est GFR (CKD-EPI)AfAm 44 (>60 ml/min/1.73 sqM) Est GFR (CKD-EPI)NonAf 38 (>60 ml/min/1.73 sqM) Glucose 99 (74-99) mg/dL Calcium 8.9 (8.4-10.2) mg/dL Total Bilirubin 0.5 (0.2-1.3) mg/dL AST 25 (14-36) U/L ALT 36 (9-52) U/L Alkaline Phosphatase 74 (38-126) U/L Total Protein 6.4 (6.3-8.2) g/dL Albumin 3.3 L (3.5-5.0) g/dL Urine Color Light Yellow Urine Appearance Clear (Clear) Urine pH 6.5 (5.0-8.0) Ur Specific [place] 1.017 (1.001-1.035) Urine Protein Trace H (Negative) Urine Glucose (UA) Negative (Negative) Urine Ketones Negative (Negative) Urine Blood Negative (Negative) Urine Nitrite Negative (Negative) Urine Bilirubin Negative (Negative) Urine Urobilinogen <2.0 (<2.0) mg/dL Ur Leukocyte Esterase Negative (Negative) Disposition Clinical Impression: HCAP (healthcare-associated pneumonia), Nausea, vomiting, and diarrhea Disposition: ADMITTED IP TO THIS [facility] Condition: Good Referrals: Rinku Echevarria MD [Primary Care Provider] - 1-2 days Decision Time: 08:39
[2018-05-29] MEDS ORDERED: SODIUM CHLORIDE 0.9% 1,000 ML IV STA (03:57)
[2018-05-29] MEDS ORDERED: ONDANSETRON 4 MG/2 ML VIAL IVP STA (03:57)
[2018-05-29] MEDS ORDERED: DICYCLOMINE 10 MG/ML 2 ML AMP IM STA (03:58)
[2018-05-29] MEDS ORDERED: ONDANSETRON ODT 4 MG TAB PO STA (03:58)
[2018-05-29 04:26] LABS: Basophils % (A) 1 %; Eosinophils # (A) 0.3 k/uL (0-0.7); Eosinophils % (A) 4 %; HCT 30.2 % (34.0-46.0); HGB 9.4 gm/dL (11.4-16.0); Lymphocytes # (A) 0.8 k/uL (1.0-4.8); Lymphocytes % (A) 13 %; MCH 24.1 pg (25.0-35.0); MCHC 31.2 g/dL (31.0-37.0); MCV 77.3 fL (80.0-100.0); Mean Platelet Volume 7.5; Microcytosis Slight; Monocytes # (A) 0.3 k/uL (0-1.0); Monocytes % (A) 5 %; Neutrophils # (A) 5.2 k/uL (1.3-7.7); Neutrophils % (A) 77 %; Platelet Count 435 k/uL (150-450); RBC 3.91 m/uL (3.80-5.40); RDW 15.8 % (11.5-15.5); WBC 6.7 k/uL (3.8-10.6)
--- NOTE | 2018-05-29 04:29 | XR ---
EXAMINATION TYPE: XR KUB DATE OF EXAM: 05/29/2018 COMPARISON: 05/11/2018 HISTORY: Abdominal pain TECHNIQUE: 2 views supine FINDINGS: There is no sign of intestinal obstruction or pneumoperitoneum. Fecal pattern is normal. Th ere are no pathologic calcifications over the kidneys. There is osteoarthritis in both hip joints and more on the left side. IMPRESSION: Nonacute abdomen. No significant change.
[2018-05-29 04:48] LABS: Albumin 3.3 g/dL (3.5-5.0); Calcium 8.9 mg/dL (8.4-10.2); Potassium 3.7 mmol/L (3.5-5.1); Total Bilirubin 0.5 mg/dL (0.2-1.3); Total Protein 6.4 g/dL (6.3-8.2)
--- NOTE | 2018-05-29 05:50 | CT ---
EXAMINATION TYPE: CT abdomen pelvis w con DATE OF EXAM: 05/29/2018 COMPARISON: None HISTORY: No prior, gen abd pain with nausea and vomiting, history of renal disease CT DLP: 589.10 mGycm Automated exposure control for dose reduction was used. TECHNIQUE: Helical acquisition of images was performed from the lung bases through the pelvis. CONTRAST: Performed without Oral Contrast and with IV Contrast, patient injected with 80 mL of Isovue 300. FINDINGS: There is right pleural effusion. There is some infiltrate and atelectasis in the right lower lobe. He art is enlarged. Liver and spleen appear normal. Bile ducts are not dilated. Gallbladder appears normal. There is no p ancreatic mass. There is no adrenal mass. Kidneys show satisfactory contrast opacification. There is 2.5 cm cortical cyst on the lateral left kidney. There are other smaller bilateral renal cortical cysts. There is no hydronephrosis. Ureters are not dilated. There is no retroperitoneal adenopathy. The appendix appears normal. There are fluid levels in the transverse colon. I see no evidence of a bowel obstruction. Sm all bowel is not dilated. The lumbar spine is intact. I see no bony destructive process. Bladder distends smoothly. There is no pelvic mass. There is hysterectomy. IMPRESSION: LARGE BOWEL FLUID LEVELS COULD RELATE TO SOME DIARRHEA. RIGHT PLEURAL EFFUSION WITH RIGHT LOWER LOBE CONSOLIDATION AND ATELECTASIS. CARDIOMEGALY. RENAL CORTICAL CYSTS. NO RENAL OBSTRUCTION.
[2018-05-29 07:04] LABS: Appearance,Urine Clear (Clear); Bilirubin,Urine Negative (Negative); Blood,Urine Negative (Negative); Color,Urine Light Yellow; Glucose,Urine (UA) Negative (Negative); Ketones,Urine Negative (Negative); Leukocyte Esterase,Urine Negative (Negative); Nitrite,Urine Negative (Negative); PH, Urine 6.5 (5.0-8.0); Protein,Urine Trace (Negative); Specific Gravity,Urine 1.017 (1.001-1.035); Urobilinogen,Urine <2.0 mg/dL (<2.0)
[2018-05-29] MEDS ORDERED: VANCOMYCIN IV PER PHARMACY 1 EACH MISC MISCELLANE PRN (07:49)
[2018-05-29] MEDS ORDERED: PIPERACILLIN-TAZOBACTAM 3.375 GM in DEXTROSE/WATER 1 50ML.BAG IVPB STA (07:49)
[2018-05-29] MEDS ORDERED: AZITHROMYCIN 500 MG in DEXTROSE 5% IN WATER 250 ML IVPB STA ×2 (07:56)
[2018-05-29] MEDS ORDERED: VANCOMYCIN 1,500 MG in SODIUM CHLORIDE 0.9% 250 ML IVPB STA (08:02)
[2018-05-29] MEDS ORDERED: NALOXONE 0.4 MG/ML 1 ML VIAL IV PRN (08:31)
[2018-05-29] MEDS: IPRATROPIUM-ALBUTEROL 3 ML NEB INHALATION SCH ×3 (14:28→18:59)
--- NOTE | 2018-05-29 15:59 | XR ---
EXAMINATION TYPE: XR chest 2V DATE OF EXAM: 05/29/2018 COMPARISON: 05/15/2018 TECHNIQUE: PA and lateral views submitted. HISTORY: Pneumonia FINDINGS: There is right lower lobe infiltrate and small pleural effusion. Curvature the spine noted. Heart siz e stable. No pneumothorax. Interstitium stable. IMPRESSION: 1. There may be mild improvement of the area of infiltrate and small pleural effusion involving the r ight lung relative to the previous exam.
--- NOTE | 2018-05-29 16:40 | HP ---
HISTORY AND PHYSICAL CHIEF COMPLAINT: Nausea, vomiting, diarrhea with persistent right lower lobe pneumonia. HISTORY OF PRESENT ILLNESS: This lady was just discharged from the hospital after being treated for right lower lobe pneumonitis. She was seen in the office and doing well. She apparently suddenly developed nausea, vomiting and diarrhea, which has been spreading through the community. She came to the emergency room. She was slightly dehydrated and because of her persistent vomiting and inability to take her medications, she was admitted. REVIEW OF SYSTEMS: She has had no problems neurologically or change in vision or hearing. She has had no hemoptysis, chest pain, abdominal pain, hematemesis, melena, hematochezia, urinary complaints, etc. Past medical history, family history, personal and social histories are all otherwise unremarkable and unchanged from recent admitting and discharge summaries. PHYSICAL EXAMINATION: Blood pressure 142/73 with a pulse of 79, respirations 35 and she is afebrile. In general, she appeared to be a slightly overweight and uncomfortable. Skin was dry. Lymph nodes not enlarged. Head, ears, eyes, nose, mouth, and throat were normal. Neck veins were not distended. Thyroid not enlarged. CHEST: Clear except for decreased breath sounds at the right base. Cardiac exam demonstrates sinus tachycardia and the abdomen is slightly protuberant, soft, nontender. Bowel sounds present. Extremities: Normal. Neurological: She is intact. IMPRESSION: 1. Viral gastroenteritis. 2. Dehydration. 3. Slowly resolving right lower lobe pneumonitis with consolidation. PLAN: 1. Bed rest. 2. IV fluids. 3. Updrafts. 4. Antidiarrheals. 5. Consult pulmonology for the right lower lobe pneumonitis. MMODL / IJN: [id number] /
--- NOTE | 2018-05-29 16:47 | P.CNPUL ---
History of Present Illness Consult date: 05/29/18 Reason for consult: pneumonia History of present illness: Is a 68-year-old female patient, who was Hospital as yesterday because of ongoing diarrhea. The patient was in the hospital for an extensive right lung pneumonia/consolidation small right-sided pleural effusion approximately 3 weeks ago. At that time she had an extensive workup and the cultures were all negative. The patient had negative blood culture and the Legionella urine antigen was negative. The patient was given antibiotics, seen by infectious disease and ultimately the patient was discharged home after pneumonia subsided. During that same hospitalization the patient was evaluated and seen by infectious disease. The patient came back with symptoms of repeated diarrhea that was nonbloody and was liquidy. She did have some nausea and emesis that was nonbloody and nonbilious. She did also report some diffuse abdominal cramping as well as. She was afebrile. She was hemodynamically stable. She was able to speak in full sentences without any difficulties. No reported aspiration. Her white cell count on admission was 6.7. The rest of the blood work showed a creatinine of 1.4 with a BUN of 20 and the rest of the electrodes were all within normal limits. A CAT scan of the abdomen was done that showed a small right-sided pleural effusion and atelectatic changes in the right lung base however compared to the previous CAT scan of the chest that was done earlier this month, the findings have significantly improved and the findings are most likely residual from her previous pneumonia. She does not express any pleurisy. No hemoptysis. No significant exertional dyspnea. Her UA is negative at this point in time. She has an acute kidney injury in the creatinine is up to 1.4 from a normal baseline from her previous hospitalization. She is a nonsmoker. Review of Systems Constitutional: Reports as per HPI Eyes: denies blurred vision, denies bulging eye, denies decreased vision Ears: deny: decreased hearing, ear discharge, earache, tinnitus Ears, nose, mouth and throat: Denies headache, Denies sore throat Cardiovascular: Denies chest pain, Denies shortness of breath Respiratory: Denies cough Gastrointestinal: Reports diarrhea, Reports nausea, Reports vomiting Genitourinary: Reports as per HPI Menstruation: Reports as per HPI Musculoskeletal: Reports as per HPI Musculoskeletal: absent: ankle pain, ankle stiffness, ankle swelling Integumentary: Denies pruritus, Denies rash Neurological: Reports as per HPI Psychiatric: Reports as per HPI Endocrine: Reports as per HPI Hematologic/Lymphatic: Reports as per HPI Allergic/Immunologic: Reports as per HPI Past Medical History Past Medical History: Asthma, Heart Failure, COPD, CVA/TIA, GERD/Reflux, Hyperlipidemia, Hypertension, Memory Impairment, Osteoarthritis (OA) Additional Past Medical History / Comment(s): Recent hospitalization for an extensive right lung pneumonia on 05/12/2018, 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, acid reflux, hypertension, hyperlipidemia, chronic anemia, chronic vitamin D deficiency, gout, chronic lower extremity pain History of Any Multi-Drug Resistant Organisms: None Reported Past Surgical History: Heart Catheterization, Hysterectomy, Tonsillectomy Additional Past Surgical History / Comment(s): Colonoscopy Past Anesthesia/Blood Transfusion Reactions: No Reported Reaction Smoking Status: Never smoker - Past Family History Father Family Medical History: No Reported History Mother Family Medical History: No Reported History Additional Family Medical History / Comment(s): Pt states she does not want to discuss parents past medical history. Medications and Allergies Home Medications Medication Instructions Recorded Confirmed Type Albuterol Inhaler [Ventolin Hfa 2 puff INHALATION RT-Q6H PRN 07/24/16 05/29/18 History Inhaler] FLUoxetine HCL [Fluoxetine HCl] 20 mg PO DAILY 07/24/16 05/29/18 History Furosemide 40 mg PO DAILY 07/24/16 05/29/18 History amLODIPine BESYLATE [Amlodipine 10 mg PO BID 07/24/16 05/29/18 History Besylate] Aspirin EC [Ecotrin Low Dose] 81 mg PO DAILY 07/08/17 05/29/18 History Atenolol [Tenormin] 25 mg PO DAILY 07/08/17 05/29/18 History Gabapentin [Neurontin] 300 mg PO HS 07/08/17 05/29/18 History Isosorbide Mononitrate ER [Imdur] 30 mg PO DAILY 07/08/17 05/29/18 History Atorvastatin [Lipitor] 40 mg PO DAILY 05/11/18 05/29/18 History Amoxic-Pot Clav 875-125Mg 1 tab PO Q12HR 05/29/18 05/29/18 History [Augmentin 875-125] Allergies Allergy/AdvReac Type Severity Reaction Status Date / Time allopurinol [From Zyloprim] Allergy Unknown Verified 05/29/18 07:29 codeine Allergy Unknown Verified 05/29/18 07:29 Physical Exam Vitals: Vital Signs Temp Pulse Pulse Resp BP BP Pulse Ox 05/29/18 15:56 70 16 05/29/18 13:18 16 05/29/18 10:30 98.1 F 87 16 165/91 96 05/29/18 09:56 78 18 173/80 97 05/29/18 08:32 97.9 F 87 18 164/64 98 05/29/18 08:12 86 18 161/85 97 05/29/18 07:00 84 15 179/70 100 05/29/18 05:35 83 15 179/72 99 05/29/18 04:50 76 173/72 100 05/29/18 03:31 98.0 F 78 16 158/74 97 Intake and Output 05/29/18 05/29/18 05/29/18 06:59 14:59 22:59 Other: Weight 83.915 kg The patient appeared well nourished and normally developed. Vital signs as documented. Head exam is unremarkable. No scleral icterus or corneal arcus noted. Neck is without jugular venous distension, thyromegaly, or carotid bruits. Carotid upstrokes are brisk bilaterally. Lungs are clear to auscultation and percussion. The breath sounds are diminished in the lung bases patient right lung base. Cardiac exam reveals the PMI to be normally sized and situated. Rhythm is regular. First and second heart sounds normal. No murmurs, rubs or gallops. Abdominal exam reveals normal bowel sounds, no masses , no organomegaly and no aortic enlargement. Extremities are nonedematous and both femoral and pedal pulses are normal.Examination of the skin revealed no evidence of significant rashes, suspicious appearing nevi or other concerning lesions. Neurologically the patient is awake and alert and is no focal neurological deficit. Results - Laboratory Findings CBC and BMP: 05/29/18 04:13 05/29/18 04:13 Abnormal lab findings: Abnormal Labs 05/29/18 05/29/18 05/29/18 04:13 04:13 06:44 Hgb 9.4 L Hct 30.2 L MCV 77.3 L MCH 24.1 L RDW 15.8 H Lymphocytes # 0.8 L BUN 20 H Creatinine 1.40 H Albumin 3.3 L Urine Protein Trace H Assessment and Plan Plan: Assessment 1 right lung pneumonia improved clinically and radiographically. There is some residual atelectatic change and effusion right lung base. Nevertheless, the patient is asymptomatic. The patient is not having any respiratory distress. No pleurisy. No hemoptysis and the findings in the right lung are probably related to a previous pneumonia and it was quite extensive based on my review of the CAT scan of the chest that was done on 05/12/2018. 2 diarrhea rule out C. diff colitis 3 acute kidney injury, likely secondary to intravascular volume depletion/ dehydration and creatinine is up to 1.4 4 hypertension 5 hyperlipidemia 6 CVA with some residual right-sided weakness 7 bronchial asthma currently inactive in stable Plan I reassured the patient on the right lung findings. The patient has small right -sided pleural effusion and compressive atelectasis and there are no signs or symptoms of ongoing pneumonia or respiratory infection. She was reassured. I' m however concerned about the ongoing diarrhea. I discussed this with infectious disease doctor was even with this patient during an earlier hospitalization. We'll check stool for C. diff. We'll put the patient on Flagyl 5 mg every 8 hours. Monitor diarrhea. Give the patient IV fluids. Monitor renal function. We'll continue to follow.
[2018-05-29] MEDS: metroNIDAZOLE-NS PMX 500 MG in SALINE 1 100ML.BAG IVPB SCH ×2 (16:49→23:59)
[2018-05-29] MEDS: SODIUM CHLORIDE 0.9% 1,000 ML IV SCH (16:50)
[2018-05-29] MEDS: amLODIPine 10 MG TAB PO SCH (20:27)
[2018-05-29] MEDS: GABAPENTIN 300 MG CAP PO SCH (20:27)
[2018-05-30] MEDS: SODIUM CHLORIDE 0.9% 1,000 ML IV SCH ×2 (04:54→19:10)
[2018-05-30] MEDS: ATENOLOL 25 MG TAB PO SCH (05:51)
[2018-05-30] MEDS: amLODIPine 10 MG TAB PO SCH ×2 (05:51→21:32)
[2018-05-30] MEDS ORDERED: VANCOMYCIN 1,500 MG in SODIUM CHLORIDE 0.9% 250 ML IVPB SCH (06:00)
--- NOTE | 2018-05-30 06:53 | CONS ---
CONSULTATION DATE OF SERVICE: 05/29/2018 REASON FOR CONSULTATION: Diarrhea and a question of pneumonia. HISTORY OF PRESENT ILLNESS: The patient is a 68-year-old female who was recently admitted to [facility] from 05/11/2018 until 05/17/2018 with the patient treated for right lower lobe pneumonia with concern for likely aspiration etiology. She was on Unasyn and Levaquin in the hospital and subsequently supposed to be discharged on oral Augmentin. However, when asked specifically for the patient which antibiotic she was discharged, she was not clear of when she has finished. The patient is now being brought back to the [facility] ER early this morning with chief complaints of nausea, vomiting and diarrhea. The patient has been complaining of multiple episodes of nonbloody diarrhea throughout the day today and she is complaining of some nausea and nonbilious emesis with diffuse crampy abdominal pain. The patient did call her son who advised her to call 911. Subsequently the patient was brought into the ER with the symptoms. The patient has been evaluated by the ER physician on arrival to the ER. The patient has been afebrile. Her white count was normal. The patient did have a CT of abdomen and pelvis completed, which was reported large bowel fluid could be related to some diarrhea, a right pleural effusion with right lower lobe consolidation atelectasis. However, the CT was reviewed with flatbed truck driver, Dr. Jurado and had shown much improved from her previous CT scan. The patient has been treated with broad- spectrum antibiotic in the form of Zosyn and Levaquin and vancomycin. Zosyn and Levaquin was discontinued. She was continued on IV Vanco and Infectious Disease was consulted for further recommendation regarding antibiotic therapy. REVIEW OF SYSTEMS: CONSTITUTIONAL: Positive for weakness. Denies any high-grade fever. EYES: No complaint. ENT: No complaint. RESPIRATORY: Occasional cough and some shortness of breath. CARDIOVASCULAR: No complaint. GENITOURINARY: No complaint. GASTROINTESTINAL: As per HPI. MUSCULOSKELETAL: No complaint. INTEGUMENTARY: No complaint. PSYCHOLOGICAL: No complaint. ENDOCRINE: No complaint. NEUROLOGIC: No complaint. PAST MEDICAL HISTORY: Her past medical history is significant for hypertension, CVA, TIA, insufficiency, arthritis, and recent episode of aspiration pneumonia. PAST SURGICAL HISTORY: Hysterectomy and tonsillectomy. SOCIAL HISTORY: The patient denies smoking, drinking or drug use. FAMILY HISTORY: No pertinent findings noticed. ALLERGIES: Allergies to ALLOPURINOL and CODEINE. MEDICATIONS: Medications currently include the patient is on DuoNeb, Norvasc, aspirin, Tenormin, Prozac, Lasix. Neurontin, Imdur, Narcan, and vancomycin pharmacy to dose. PHYSICAL EXAMINATION: On examination, her blood pressure is 144/86, pulse of 85, temperature 97.9. She is 95% on room air. General description is an elderly female, lying in bed in no distress. No tachypnea or accessory muscle of respiration use. HEENT examination shows slight pallor. No scleral icterus. Oral mucous membrane is dry. No pharyngeal erythema or thrush. NECK: Trachea central, no thyromegaly. LUNGS: Unlabored breathing, decreased breath sounds at the bases. No wheeze. HEART: S1, S2. Regular rate and rhythm. ABDOMEN: Soft, no tenderness. No guarding or rigidity. EXTREMITIES: No edema of feet. SKIN EXAMINATION: No rash or mass palpable. NEUROLOGICAL: Patient is awake, alert, oriented x3. Mood and affect normal. LABS: Hemoglobin 9.4, white count 6.7, BUN of 20, creatinine 1.40. Electrolytes have been normal. Liver enzymes are normal. Urine has been negative. Chest CT report as mentioned above. DIAGNOSTIC IMPRESSION AND PLAN: Patient admitted to the hospital with acute nausea, vomiting and diarrhea in a patient who was recently admitted to this facility and was treated for possible aspiration pneumonia with antibiotic in a hospital environment exposure making it to be high risk for Clostridium difficile colitis. Clinically, the patient does not have any fever and does not have significant respiratory symptoms and the chest x-ray and CAT scan was reviewed with the flatbed truck driver and did show significant improvement to the right lower lobe indicating that episode of pneumonia has been adequately treated. PLAN: 1. Discontinue the vancomycin to decrease risk of nephrotoxicity and clinical pneumonia. 2. We will check her stool for C difficile. 3. We will empirically add Flagyl 500 mg every 8 hours. 4. We will follow on her clinical condition and culture to further adjust medication if needed. Thank you for this consultation. Will follow this patient along with you. MMODL / IJN: [id number] /
[2018-05-30] MEDS: IPRATROPIUM-ALBUTEROL 3 ML NEB INHALATION SCH ×4 (07:13→19:53)
[2018-05-30] MEDS: ISOSORBIDE MONONITRATE ER 30 MG TAB.ER.24H PO SCH (08:25)
[2018-05-30] MEDS: FLUoxetine HCL 20 MG CAP PO SCH (08:25)
[2018-05-30] MEDS: ASPIRIN 81 MG PO SCH (08:26)
[2018-05-30] MEDS: FUROSEMIDE 40 MG TAB PO SCH (08:26)
[2018-05-30] MEDS: metroNIDAZOLE-NS PMX 500 MG in SALINE 1 100ML.BAG IVPB SCH (08:26)
[2018-05-30 14:26] VITALS: BMI 32.8
--- NOTE | 2018-05-30 15:10 | P.PN ---
Subjective Progress Note Date: 05/30/18 Is a 68-year-old female patient, who was Hospital as yesterday because of ongoing diarrhea. The patient was in the hospital for an extensive right lung pneumonia/consolidation small right-sided pleural effusion approximately 3 weeks ago. At that time she had an extensive workup and the cultures were all negative. The patient had negative blood culture and the Legionella urine antigen was negative. The patient was given antibiotics, seen by infectious disease and ultimately the patient was discharged home after pneumonia subsided. During that same hospitalization the patient was evaluated and seen by infectious disease. The patient came back with symptoms of repeated diarrhea that was nonbloody and was liquidy. She did have some nausea and emesis that was nonbloody and nonbilious. She did also report some diffuse abdominal cramping as well as. She was afebrile. She was hemodynamically stable. She was able to speak in full sentences without any difficulties. No reported aspiration. Her white cell count on admission was 6.7. The rest of the blood work showed a creatinine of 1.4 with a BUN of 20 and the rest of the electrodes were all within normal limits. A CAT scan of the abdomen was done that showed a small right-sided pleural effusion and atelectatic changes in the right lung base however compared to the previous CAT scan of the chest that was done earlier this month, the findings have significantly improved and the findings are most likely residual from her previous pneumonia. She does not express any pleurisy. No hemoptysis. No significant exertional dyspnea. Her UA is negative at this point in time. She has an acute kidney injury in the creatinine is up to 1.4 from a normal baseline from her previous hospitalization. She is a nonsmoker. On 05/30/2018 patient is not having any major stroke difficulties. No active diarrhea. She is on Flagyl. No stool sample was collected. No fever. No chills. No nausea no vomiting. No emesis. Objective - Vital Signs Vital signs: Vital Signs Temp 99.2 F 05/30/18 06:52 Pulse 88 05/30/18 11:02 Resp 16 05/30/18 08:00 BP 195/84 05/30/18 06:52 Pulse Ox 97 05/30/18 06:52 Intake & Output 05/29/18 05/30/18 05/30/18 18:59 06:59 18:59 Intake Total 400 Balance 400 Weight 83.915 kg Intake: Oral 400 Other: # Voids 1 1 # Bowel Movements 0 - Exam The patient appeared well nourished and normally developed. Vital signs as documented. Head exam is unremarkable. No scleral icterus or corneal arcus noted. Neck is without jugular venous distension, thyromegaly, or carotid bruits. Carotid upstrokes are brisk bilaterally. Lungs are clear to auscultation and percussion. The breath sounds are diminished in the lung bases patient right lung base. Cardiac exam reveals the PMI to be normally sized and situated. Rhythm is regular. First and second heart sounds normal. No murmurs, rubs or gallops. Abdominal exam reveals normal bowel sounds, no masses , no organomegaly and no aortic enlargement. Extremities are nonedematous and both femoral and pedal pulses are normal.Examination of the skin revealed no evidence of significant rashes, suspicious appearing nevi or other concerning lesions. Neurologically the patient is awake and alert and is no focal neurological deficit. - Labs CBC & Chem 7: 05/29/18 04:13 05/29/18 04:13 Labs: Microbiology - Last 24 Hours (Table) 05/29/18 07:12 Blood Culture - Preliminary Blood No Growth after 24 hours Assessment and Plan Plan: Assessment 1 right lung pneumonia improved clinically and radiographically. There is some residual atelectatic change and effusion right lung base. Nevertheless, the patient is asymptomatic. The patient is not having any respiratory distress. No pleurisy. No hemoptysis and the findings in the right lung are probably related to a previous pneumonia and it was quite extensive based on my review of the CAT scan of the chest that was done on 05/12/2018. 2 diarrhea rule out C. diff colitis 3 acute kidney injury, likely secondary to intravascular volume depletion/ dehydration and creatinine is up to 1.4 4 hypertension 5 hyperlipidemia 6 CVA with some residual right-sided weakness 7 bronchial asthma currently inactive in stable Plan Watch for diarrhea. Awaiting stool analysis. Continue Flagyl. No active pulmonary issues for now. No need for thoracentesis of the pleural fluid is small. Will need a follow-up blood work regarding the kidney function
[2018-05-30] MEDS: metroNIDAZOLE 500 MG TAB PO SCH ×2 (15:18→21:32)
--- NOTE | 2018-05-30 15:41 | PN ---
PROGRESS NOTE CHIEF COMPLAINT: Pneumonitis with viral gastroenteritis. HISTORY OF PRESENT ILLNESS: This lady is feeling better. The diarrhea has subsided. She is not nauseated. She has been seen by Pulmonology for her right lower lobe pneumonitis. PHYSICAL EXAMINATION: Breath sounds are decreased at the right base. Cardiac exam is normal. Abdomen is soft, nontender. IMPRESSION: 1. Right lower lobe pneumonitis. 2. Viral gastroenteritis. 3. Diarrhea. PLAN: Continue with current treatment, predominantly of her pneumonia, until she is clinically stable enough to go home. MMODL / IJN: [id number] /
--- NOTE | 2018-05-30 17:41 | PN ---
PROGRESS NOTE DATE OF SERVICE: 05/30/2018. REASON FOR FOLLOWUP: Diarrhea and a question of infectious colitis. INTERVAL HISTORY: The patient is currently afebrile. She is breathing comfortably. Denies any further nausea, vomiting. Tolerating her diet. Denies any abdominal pain. No further loose stool. EXAMINATION: Blood pressure is 195/84, pulse of 90, temperature of 99.2. She is 97% on room air. General description is an elderly female lying in bed in no distress. Respiratory system: Unlabored breathing with decreased breath sounds at the bases. Heart S1, S2. Regular rate and rhythm. Abdomen soft, no tenderness. LABS: Stool for C. dif has been requested, not completed. Blood culture has been negative so far. DIAGNOSTIC IMPRESSION AND PLAN: Patient admitted to the hospital with acute nausea, vomiting and diarrhea. The patient has been recently admitted to the hospital and treated for right lower lobe aspiration pneumonia and exposed to antibiotic. Plan at this time is try to obtain stool for C difficile. Keep the patient on Flagyl to which she seems to have responded. Continue supportive care. MMODL / IJN: [id number] /
[2018-05-30] MEDS: GABAPENTIN 300 MG CAP PO SCH (21:33)
[2018-05-31] MEDS: SODIUM CHLORIDE 0.9% 1,000 ML IV SCH (06:04)
[2018-05-31] MEDS: IPRATROPIUM-ALBUTEROL 3 ML NEB INHALATION SCH ×4 (07:10→20:09)
[2018-05-31] MEDS: metroNIDAZOLE 500 MG TAB PO SCH ×3 (08:15→20:45)
[2018-05-31] MEDS: FUROSEMIDE 40 MG TAB PO SCH (08:15)
[2018-05-31] MEDS: amLODIPine 10 MG TAB PO SCH ×2 (08:15→20:45)
[2018-05-31] MEDS: FLUoxetine HCL 20 MG CAP PO SCH (08:15)
[2018-05-31] MEDS: ATENOLOL 25 MG TAB PO SCH (08:15)
[2018-05-31] MEDS: ASPIRIN 81 MG PO SCH (08:15)
[2018-05-31] MEDS: ISOSORBIDE MONONITRATE ER 30 MG TAB.ER.24H PO SCH (08:16)
--- NOTE | 2018-05-31 14:07 | P.PN ---
Subjective Progress Note Date: 05/31/18 Principal diagnosis: Diarrhea acute Ms. Nino is a 68-year-old female with a past medical history of asthma, heart failure, COPD, CVA/TIA, GERD, reflux, hyperlipidemia, hypertension, osteoarthritis admitted to the hospital with a chief complaint of diarrhea. Patient had a recent hospitalization for extensive right lung pneumonia with the right-sided pleural effusion 3 weeks back. She was discharged home on antibiotics that she completed. Patient is being treated with Flagyl for her abdominal pain pending C. diff PCR. Today the patient is lying comfortably in the bed appears to be no acute distress. As per the nursing staff report patient did not have a bowel movement to collect C. diff. Review of systems; patient denies having any fevers chills or rigors. Denies having any abdominal pain nausea vomiting or diarrhea. No chest pain or palpitations. Patient has baseline shortness of breath with no exacerbation of her symptoms. Objective - Vital Signs Vital signs: Vital Signs Temp 99.7 F H 05/31/18 06:29 Pulse 72 05/31/18 11:40 Resp 18 05/31/18 06:29 BP 160/73 05/31/18 06:29 Pulse Ox 95 05/31/18 06:29 Intake & Output 05/30/18 05/31/18 05/31/18 18:59 06:59 18:59 Intake Total 500 240 Output Total 0 0 Balance 0 500 240 Weight 83.915 kg 74 kg Intake: Oral 500 240 Output: Stool 0 0 Other: # Voids 0 2 - Exam Gen. examination: No acute distress well-nourished well-developed HEENT: Atraumatic normocephalic no pallor no icterus Neck: No JVD no thyromegaly Cardiovascular: S1 and S2 heard no additional sounds Respiratory: Bilateral breath sounds are positive no wheeze or crackles Abdomen: Soft nontender no organomegaly bowel sounds are positive Extremities: No edema no cyanosis no clubbing peripheral pulses are felt COATER SMOKING PIPE: Alert awake oriented 3 no focal neurological deficits - Labs CBC & Chem 7: 05/29/18 04:13 05/29/18 04:13 Labs: Microbiology - Last 24 Hours (Table) 05/29/18 07:12 Blood Culture - Preliminary Blood No Growth after 48 hours Assessment and Plan Assessment: ASSESSMENT Acute gastroenteritis Right lower lobe pneumonitis JAE Hypertension Hyperlipidemia CVA with right-sided weakness Bronchial asthma Degenerative joint disease GERD/reflux PLAN: Patient will be continued on Flagyl as she responded to it. C. diff cultures still pending. We'll follow up on blood cultures as the patient still continues to have fever. Will repeat BMP to trend the creatinine. Continue with the rest of her home medication regimen and further recommendations to follow depending on the progress.
[2018-05-31] MEDS: GABAPENTIN 300 MG CAP PO SCH (20:45)
[2018-06-01] MEDS: SODIUM CHLORIDE 0.9% 1,000 ML IV SCH ×2 (03:43→10:42)
[2018-06-01] MEDS: IPRATROPIUM-ALBUTEROL 3 ML NEB INHALATION SCH ×4 (07:03→19:24)
[2018-06-01] MEDS: FUROSEMIDE 40 MG TAB PO SCH (08:03)
[2018-06-01] MEDS: amLODIPine 10 MG TAB PO SCH ×2 (08:04→21:22)
[2018-06-01] MEDS: FLUoxetine HCL 20 MG CAP PO SCH (08:04)
[2018-06-01] MEDS: metroNIDAZOLE 500 MG TAB PO SCH ×3 (08:04→21:22)
[2018-06-01] MEDS: ISOSORBIDE MONONITRATE ER 30 MG TAB.ER.24H PO SCH (08:04)
[2018-06-01] MEDS: ATENOLOL 25 MG TAB PO SCH (08:04)
[2018-06-01] MEDS: ASPIRIN 81 MG PO SCH (08:04)
[2018-06-01 09:37] LABS: Basophils % (A) 0 %; Eosinophils # (A) 0.4 k/uL (0-0.7); Eosinophils % (A) 8 %; HCT 29.6 % (34.0-46.0); HGB 9.2 gm/dL (11.4-16.0); Hypochromasia Slight; Lymphocytes # (A) 1.2 k/uL (1.0-4.8); Lymphocytes % (A) 22 %; MCH 24.2 pg (25.0-35.0); MCHC 31.1 g/dL (31.0-37.0); MCV 77.8 fL (80.0-100.0); Mean Platelet Volume 7.1; Microcytosis Slight; Monocytes # (A) 0.3 k/uL (0-1.0); Monocytes % (A) 6 %; Neutrophils # (A) 3.4 k/uL (1.3-7.7); Neutrophils % (A) 63 %; Platelet Count 359 k/uL (150-450); RBC 3.81 m/uL (3.80-5.40); RDW 15.6 % (11.5-15.5); WBC 5.4 k/uL (3.8-10.6)
[2018-06-01 10:05] LABS: Calcium 8.6 mg/dL (8.4-10.2); Potassium 3.8 mmol/L (3.5-5.1)
--- NOTE | 2018-06-01 13:28 | P.PN ---
Subjective Progress Note Date: 06/01/18 Principal diagnosis: Diarrhea acute Ms. Nino is a 68-year-old female with a past medical history of asthma, heart failure, COPD, CVA/TIA, GERD, reflux, hyperlipidemia, hypertension, osteoarthritis admitted to the hospital with a chief complaint of diarrhea. Patient had a recent hospitalization for extensive right lung pneumonia with the right-sided pleural effusion 3 weeks back. She was discharged home on antibiotics that she completed. Patient is being treated with Flagyl for her abdominal pain pending C. diff PCR. On 06/01/2018 - Today the patient is lying comfortably in the bed appears to be no acute distress. As per the nursing staff report patient did not have a bowel movement to collect C. diff. She responded well to Flagyl. Review of systems; patient denies having any fevers chills or rigors. Denies having any abdominal pain nausea vomiting or diarrhea. No chest pain or palpitations. Patient has baseline shortness of breath with no exacerbation of her symptoms. Objective - Vital Signs Vital signs: Vital Signs Temp 97.8 F 06/01/18 07:00 Pulse 84 06/01/18 11:06 Resp 18 06/01/18 08:00 BP 156/71 06/01/18 07:00 Pulse Ox 93 L 06/01/18 07:00 Intake & Output 05/31/18 06/01/18 06/01/18 18:59 06:59 18:59 Intake Total 480 550 240 Output Total 0 Balance 480 550 240 Intake: Oral 480 550 240 Output: Stool 0 Other: # Voids 1 2 1 # Bowel Movements 0 0 - Exam Gen. examination: No acute distress well-nourished well-developed HEENT: Atraumatic normocephalic no pallor no icterus Neck: No JVD no thyromegaly Cardiovascular: S1 and S2 heard no additional sounds Respiratory: Bilateral breath sounds are positive no wheeze or crackles Abdomen: Soft nontender no organomegaly bowel sounds are positive Extremities: No edema no cyanosis no clubbing peripheral pulses are felt PRODUCTION MANUFACTURING WORKER: Alert awake oriented 3 no new focal neurological deficits - Labs CBC & Chem 7: 06/01/18 08:36 06/01/18 08:36 Labs: Abnormal Lab Results - Last 24 Hours (Table) 06/01/18 06/01/18 Range/Units 08:36 08:36 Hgb 9.2 L (11.4-16.0) gm/dL Hct 29.6 L (34.0-46.0) % MCV 77.8 L (80.0-100.0) fL MCH 24.2 L (25.0-35.0) pg RDW 15.6 H (11.5-15.5) % Chloride 111 H (98-107) mmol/L Creatinine 1.21 H (0.52-1.04) mg/dL Glucose 105 H (74-99) mg/dL Microbiology - Last 24 Hours (Table) 05/29/18 07:12 Blood Culture - Preliminary Blood No Growth after 72 hours Assessment and Plan Assessment: ASSESSMENT Acute gastroenteritis - resolving Right lower lobe pneumonitis JAE on CKD -resolving CKD stage 3 Hypertension Hyperlipidemia Anemia of chronic disease CVA with right-sided weakness Bronchial asthma Degenerative joint disease GERD/reflux PLAN: Patient will be continued on Flagyl as she responded to it. C. diff cultures still pending but diarrhea resolved and patient had a formed small stool this morning. Follow up on blood cultures no growth for 72 hours. Creatinine at baseline currently. Continue with the rest of her home medication regimen and further recommendations to follow depending on the progress.
[2018-06-01] MEDS ORDERED: IBUPROFEN 600 MG TAB PO PRN (21:11)
[2018-06-01] MEDS: GABAPENTIN 300 MG CAP PO SCH (21:22)
[2018-06-02] MEDS: SODIUM CHLORIDE 0.9% 1,000 ML IV SCH ×2 (00:41→09:13)
--- NOTE | 2018-06-02 06:27 | PN ---
PROGRESS NOTE DATE OF SERVICE: 06/01/2018. REASON FOR FOLLOW UP: Diarrhea and question C difficile. INTERVAL HISTORY: The patient is afebrile. She has been breathing comfortably. She did have some occasional cough. No chest pain. No abdominal pain. The diarrhea seemed to have resolved. EXAMINATION: Blood pressure 137/59 with a pulse of 88. Temperature 98.1. She is 91% on room air. General description is an elderly female, lying in bed in no distress. RESPIRATORY SYSTEM: Unlabored breathing with decreased breath sounds in the bases. No wheeze. HEART: S1, S2. Regular rate and rhythm. ABDOMEN: Soft, no tenderness. LABS: Hemoglobin 9.8, white count 5.4, BUN of 15, creatinine 1.21. Blood culture has been negative. Stool for C was requested and not obtained. DIAGNOSTIC IMPRESSION AND PLAN: Patient admitted to the hospital with nausea, vomiting and diarrhea with concern for possible C diff in patient who has been recently admitted to the hospital. Unfortunately a stool for C was not collected and the patient to continue with Flagyl at this point to which the patient's symptoms seem to have responded. Continue supportive care. MMODL / IJN: [id number] /
[2018-06-02] MEDS: IPRATROPIUM-ALBUTEROL 3 ML NEB INHALATION SCH ×4 (07:44→20:02)
[2018-06-02] MEDS: ATENOLOL 25 MG TAB PO SCH (09:12)
[2018-06-02] MEDS: metroNIDAZOLE 500 MG TAB PO SCH ×3 (09:12→22:41)
[2018-06-02] MEDS: ASPIRIN 81 MG PO SCH (09:12)
[2018-06-02] MEDS: amLODIPine 10 MG TAB PO SCH ×2 (09:12→22:41)
[2018-06-02] MEDS: FLUoxetine HCL 20 MG CAP PO SCH (09:12)
[2018-06-02] MEDS: ISOSORBIDE MONONITRATE ER 30 MG TAB.ER.24H PO SCH (09:12)
[2018-06-02] MEDS: FUROSEMIDE 40 MG TAB PO SCH (09:12)
--- NOTE | 2018-06-02 22:18 | PN ---
PROGRESS NOTE DATE OF SERVICE: 06/02/2018. REASON FOR FOLLOWUP VISIT: Diarrhea and question of possible infectious diarrhea. INTERVAL HISTORY: The patient is afebrile. She is breathing comfortably on room air. Denies significant chest pain. Occasional cough. No further nausea or vomiting has been noticed. No diarrhea. EXAMINATION: Blood pressure 125/67, pulse of 71, temperature 98.2, she is 97% on room air. GENERAL DESCRIPTION: An elderly female lying in bed in no distress. RESPIRATORY SYSTEM: Unlabored breathing. Decreased breath sounds in the bases. No wheeze. HEART: S1, S2. Regular rate and rhythm. ABDOMEN: Soft. LABS: Hemoglobin is 9.8, white count 5.4 with a BUN of 16, creatinine 1.1. IMPRESSION/PLAN: Patient admitted to the hospital with nausea, vomiting, and diarrhea. The patient was recently treated for an episode of aspiration pneumonia and exposed to antibiotic with concern for possible C difficile colitis. Unfortunately was not collected. The patient seems to have responded to the oral Flagyl. She will continue for another week to finish a course of therapy. Continue supportive care. MMODL / IJN: [id number] /
[2018-06-02] MEDS: GABAPENTIN 300 MG CAP PO SCH (22:41)
[2018-06-03] MEDS: SODIUM CHLORIDE 0.9% 1,000 ML IV SCH (02:17)
[2018-06-03 06:29] VITALS: BP 143/76; TEMP 98.2
[2018-06-03] MEDS: IPRATROPIUM-ALBUTEROL 3 ML NEB INHALATION SCH ×2 (08:03→11:13)
[2018-06-03] MEDS: amLODIPine 10 MG TAB PO SCH (08:12)
[2018-06-03] MEDS: ASPIRIN 81 MG PO SCH (08:12)
[2018-06-03] MEDS: FLUoxetine HCL 20 MG CAP PO SCH (08:12)
[2018-06-03] MEDS: ATENOLOL 25 MG TAB PO SCH (08:12)
[2018-06-03] MEDS: ISOSORBIDE MONONITRATE ER 30 MG TAB.ER.24H PO SCH (08:13)
[2018-06-03] MEDS: metroNIDAZOLE 500 MG TAB PO SCH (08:13)
[2018-06-03] MEDS: FUROSEMIDE 40 MG TAB PO SCH (08:13)
[2018-06-03 11:16] VITALS: RESP 16
[2018-06-03 11:28] VITALS: PULSE 91
--- NOTE | 2018-06-03 13:02 | PN ---
PROGRESS NOTE DATE OF SERVICE: 06/03/2018 REASON FOR FOLLOWUP VISIT: Diarrhea and question of infection etiology. INTERVAL HISTORY: The patient is afebrile. She is feeling much better, breathing comfortably. Denies having any chest pain or shortness of breath or cough. No abdominal pain. No further loose stool. PHYSICAL EXAMINATION: Blood pressure 143/76, pulse of 73, temperature 98.2, she is 95% on room air. General description is an elderly female, lying in bed in no distress. RESPIRATORY SYSTEM: Unlabored breathing, clear to auscultation anteriorly. HEART: S1, S2. Regular rate and rhythm. ABDOMEN: Soft, no tenderness. LABS: Hemoglobin 9.2, white count 5.4 with a BUN of 16, creatinine 1.21. DIAGNOSTIC IMPRESSION AND PLAN: Patient admitted to the hospital with nausea, vomiting and diarrhea with concern for possible infectious etiology. Unfortunately, a stool for Clostridium difficile was not collected. Patient did well on the Flagyl. She will continue for about a week to finish the course of therapy. Continue supportive care. MMODL / NICOLASAN: [id number] /
--- NOTE | 2018-06-03 20:29 | PN ---
PROGRESS NOTE DATE OF SERVICE: 06/02/2018 CHIEF COMPLAINT: Pneumonitis and diarrhea. HISTORY OF PRESENT ILLNESS: This lady is doing well. She has had no further problems with diarrhea and she has had no shortness of breath, fever or chills. PHYSICAL EXAM: Breath sounds are improved at the right base. Cardiac exam is normal. Abdomen is soft, nontender. IMPRESSION: Right lower lobe pneumonitis. PLAN: Progress activity and possibly home tomorrow if she continues to improve. MMODL / IJN: [id number] /
--- NOTE | 2018-06-04 00:20 | DS ---
DISCHARGE SUMMARY CHIEF COMPLAINT: Right lower lobe pneumonitis and diarrhea. HISTORY OF PRESENT ILLNESS AND PHYSICAL EXAM: Details of this lady's history and physical can be found in the initial workup. LABORATORY STUDIES: While in the hospital, she had laboratory studies, details of which can be found in the laboratory section of her chart. COURSE IN HOSPITAL: After admission, she was placed on bedrest started on intravenous fluids, updrafts and antibiotics. The patient was seen by pulmonology. She improved and diarrhea stopped and it was felt she could go home on 06/03/2018. She will follow up in the office in 2- 3 days. FINAL DIAGNOSES: 1. Persistent right lower lobe community-acquired pneumonia. 2. Hypertension. 3. Diarrhea. OPERATIONS: None. CONSULTATIONS: Pulmonology. She is improved. MELANI / JESUS: [id number] /
== END 2018-06-03 15:24 | disposition home health service (06) | DRG 194 ==
LOC: EC 03:21 → 5MS5E 08:31 → 4MS4W 09:02 → OBSVTOIN 10:14
PROVIDERS: ADMIT Family Medicine; ATTEND Family Medicine
DX: J18.9 Pneumonia, unspecified organism (principal); I13.0 Hypertensive heart and chronic kidney disease with heart failure and stage 1 through stage 4 chronic kidney disease, or unspecified chronic kidney disease; I69.351 Hemiplegia and hemiparesis following cerebral infarction affecting right dominant side; J44.0 Chronic obstructive pulmonary disease with (acute) lower respiratory infection; N17.9 Acute kidney failure, unspecified; J98.11 Atelectasis; A08.4 Viral intestinal infection, unspecified; D63.1 Anemia in chronic kidney disease; E78.5 Hyperlipidemia, unspecified; E86.0 Dehydration; I50.9 Heart failure, unspecified; K21.9 Gastro-esophageal reflux disease without esophagitis; M19.90 Unspecified osteoarthritis, unspecified site; N18.3 Chronic kidney disease, stage 3 (moderate); F32.9 Major depressive disorder, single episode, unspecified; G62.9 Polyneuropathy, unspecified; E86.9 Volume depletion, unspecified; Z90.710 Acquired absence of both cervix and uterus; Z79.899 Other long term (current) drug therapy; Z79.82 Long term (current) use of aspirin; Z88.5 Allergy status to narcotic agent; Z88.8 Allergy status to other drugs, medicaments and biological substances; Y95 Nosocomial condition
CPT/HCPCS: 36415; 71046; 74018; 74177; 80048; 80053; 81003; 85025; 87040; 94640; 94760; 96361; 96365; 96372; 96375; 99285

== ENCOUNTER 2019-06-30 23:20 | Observation (INO) | payer MEDICARE, OTHER ==
[2019-06-30 23:32] LABS: Glucose,Whole Blood 109 mg/dL (75-99)
[2019-06-30] MEDS: SODIUM CHLORIDE 0.9% 500 ML 500 ML IV SCH (23:44)
[2019-06-30 23:51] LABS: Anisocytosis Slight; Basophils # (A) 0.1 k/uL (0-0.2); Basophils % (A) 1 %; Eosinophils # (A) 0.4 k/uL (0-0.7); Eosinophils % (A) 5 %; HCT 33.7 % (34.0-46.0); HGB 11.2 gm/dL (11.4-16.0); Lymphocytes # (A) 1.7 k/uL (1.0-4.8); Lymphocytes % (A) 23 %; MCH 25.8 pg (25.0-35.0); MCHC 33.2 g/dL (31.0-37.0); MCV 77.7 fL (80.0-100.0); Microcytosis Slight; Monocytes # (A) 0.5 k/uL (0-1.0); Monocytes % (A) 6 %; Neutrophils # (A) 4.8 k/uL (1.3-7.7); Neutrophils % (A) 63 %; Platelet Count 281 k/uL (150-450); RBC 4.34 m/uL (3.80-5.40); RDW 17.3 % (11.5-15.5); WBC 7.7 k/uL (3.8-10.6)
[2019-06-30 23:53] LABS: Appearance,Urine Clear (Clear); Bilirubin,Urine Negative (Negative); Blood,Urine Negative (Negative); Color,Urine Light Yellow; Glucose,Urine (UA) Negative (Negative); Ketones,Urine Negative (Negative); Leukocyte Esterase,Urine Negative (Negative); Nitrite,Urine Negative (Negative); PH, Urine 7.5 (5.0-8.0); Protein,Urine 1+ (Negative); RBC,Urine 1 /hpf (0-5); Specific Gravity,Urine 1.007 (1.001-1.035); Squamous Epithelial Cell,Urine 1 /hpf (0-4); Urobilinogen,Urine <2.0 mg/dL (<2.0)
[2019-06-30 23:59] LABS: INR 0.9 (<1.2); Prothrombin Time 9.8 sec (9.0-12.0)
[2019-07-01 00:01] LABS: Calcium 9.3 mg/dL (8.4-10.2); Potassium 4.1 mmol/L (3.5-5.1); Total Bilirubin 0.2 mg/dL (0.2-1.3); Total Protein 7.3 g/dL (6.3-8.2)
--- NOTE | 2019-07-01 00:04 | CT ---
EXAMINATION TYPE: CT brain jaskaran kaba con DATE OF EXAM: 06/30/2019 COMPARISON: CT brain July 08, 2017 HISTORY: AMS, Fall CT DLP: 1233.80 mGycm Automated exposure control for dose reduction was used. TECHNIQUE: CT scan of the head and cervical spine are performed without contrast. FINDINGS: There is hypodensity left temporal lobe related to old large cortical infarct. This exten ds into the left parietal lobe. There is no mass effect nor midline shift. There is no sign of intrac ranial hemorrhage. The calvarium is intact. Cervical vertebra have normal alignment. There is degenerative disc space narrowing at C5-6 C6-7 with spur formation. Facet joints are intact. The skull base appears intact. I see no bony destructive pr ocess. IMPRESSION: Spondylotic changes in the lower cervical spine. No fracture. Old left temporal lobe cortical infarct without change compared to old exam. No acute intracranial ab normality.
[2019-07-01 00:06] LABS: Partial Thromboplastin Time 19.6 sec (22.0-30.0)
[2019-07-01] MEDS ORDERED: MORPHINE SULFATE 4 MG/ML SYRINGE IVP STA (00:22)
[2019-07-01] MEDS ORDERED: ONDANSETRON 4 MG/2 ML VIAL IVP STA (00:23)
--- NOTE | 2019-07-01 00:28 | XR ---
EXAMINATION TYPE: XR chest 1V portable DATE OF EXAM: 07/01/2019 COMPARISON: 05/14/2018 HISTORY: Fever TECHNIQUE: Single frontal view of the chest is obtained. FINDINGS: Heart is normal. Lungs are clear of infiltrate. There are chest leads. Costophrenic angles are clear. IMPRESSION: Normal chest. There is complete clearing of right lower lobe pneumonia and pleural fluid compared to old exam.
--- NOTE | 2019-07-01 00:30 | XR ---
EXAMINATION TYPE: XR hand limited LT DATE OF EXAM: 07/01/2019 COMPARISON: NONE HISTORY: Pain TECHNIQUE: 2 views FINDINGS: There is unusual linear densities projected over the second and third digits the proximal p halanges consistent with foreign body. Location is unclear. I see no fracture line. There is some ost eoarthritis at the first carpometacarpal joint. There is widening of the scapholunate joint space con sistent with old ligamentous tear. Exam is limited due to positioning. There is probably some osteoar thritis in the IP joints. IMPRESSION: Osteoarthritis. Evidence of old trauma. Foreign body projected over the second and third digits.
--- NOTE | 2019-07-01 00:31 | XR ---
EXAMINATION TYPE: XR wrist limited LT DATE OF EXAM: 07/01/2019 COMPARISON: NONE HISTORY: Pain TECHNIQUE: 3 views FINDINGS: There is some spurring at the first carpometacarpal joint. There is widening of scapholunat e joint space. I see no carpal bone fracture. IMPRESSION: Osteoarthritis at the base of the thumb. Old ligamentous tear at the scapholunate joint. No acute fracture seen. Foreign body projected over the second and third digits.
--- NOTE | 2019-07-01 00:39 | ED ---
Altered Mental Status HPI - General Chief Complaint: Altered Mental Status Stated Complaint: Fall, altered mental status Time Seen by Provider: 06/30/19 23:28 Source: patient, EMS Mode of arrival: EMS - History of Present Illness Initial Comments: Kelly is a 69yo female who is brought to the ED today by EMS for evaluation of altered mental status. EMS was contacted by the patient's [id number] who reported she was on the phone with the patient when suddenly it became silent and it sounded like she dropped the phone. She attempted to hang up and call her [id number] back but didn't get a response at which time she contacted 911. EMS reports they found the patient on the floor, she was somewhat confused alert and oriented to person and place unaware of the date unaware of what it happened. They report that in route to the hospital she became alert and interactive. She complained of pain in her left thumb. Her left thumb was splinted. Upon arrival patient complains of pain in her left thumb denies other complaints. She is uncertain of what happened leading up to hospitalization. - Related Data Home Medications Medication Instructions Recorded Confirmed Albuterol Inhaler [Ventolin Hfa 2 puff INHALATION RT-Q6H PRN 07/24/16 05/29/18 Inhaler] FLUoxetine HCL [Fluoxetine HCl] 20 mg PO DAILY 07/24/16 05/29/18 Furosemide 40 mg PO DAILY 07/24/16 05/29/18 amLODIPine BESYLATE [Amlodipine 10 mg PO BID 07/24/16 05/29/18 Besylate] Aspirin EC [Ecotrin Low Dose] 81 mg PO DAILY 07/08/17 05/29/18 Atenolol [Tenormin] 25 mg PO DAILY 07/08/17 05/29/18 Gabapentin [Neurontin] 300 mg PO HS 07/08/17 05/29/18 Isosorbide Mononitrate ER [Imdur] 30 mg PO DAILY 07/08/17 05/29/18 Atorvastatin [Lipitor] 40 mg PO DAILY 05/11/18 05/29/18 Previous Rx's Medication Instructions Recorded metroNIDAZOLE [Flagyl] 500 mg PO TID #30 tab 06/03/18 Allergies Allergy/AdvReac Type Severity Reaction Status Date / Time allopurinol [From Zyloprim] Allergy Unknown Verified 06/30/19 23:32 codeine Allergy Unknown Verified 06/30/19 23:32 Review of Systems ROS Statement: Those systems with pertinent positive or pertinent negative responses have been documented in the HPI. ROS Other: All systems not noted in ROS Statement are negative. Past Medical History Past Medical History: Asthma, Heart Failure, COPD, CVA/TIA, GERD/Reflux, Hyperlipidemia, Hypertension, Memory Impairment, Osteoarthritis (OA) Additional Past Medical History / Comment(s): Recent hospitalization for an extensive right lung pneumonia on 05/12/2018, 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, acid reflux, hypertension, hyperlipidemia, chronic anemia, chronic vitamin D deficiency, gout, chronic lower extremity pain History of Any Multi-Drug Resistant Organisms: None Reported Past Surgical History: Heart Catheterization, Hysterectomy, Tonsillectomy Additional Past Surgical History / Comment(s): Colonoscopy Past Anesthesia/Blood Transfusion Reactions: No Reported Reaction Past Psychological History: Depression Smoking Status: Never smoker Past Alcohol Use History: None Reported Past Drug Use History: None Reported - Past Family History Father Family Medical History: No Reported History Mother Family Medical History: No Reported History Additional Family Medical History / Comment(s): Pt states she does not want to discuss parents past medical history. General Exam - General Exam Comments Initial Comments: Physical Exam GENERAL: Patient is well-developed and well-nourished. Patient is nontoxic and well- hydrated and is in no distress. HENT: Normocephalic, Atraumatic. EYES: PERRL, EOMI PULMONARY: Unlabored respirations. No audible rales rhonchi or wheezing was noted. CARDIOVASCULAR: There is a regular rate and rhythm without any murmurs gallops or rubs. ABDOMEN: Soft and nontender with normal bowel sounds. SKIN: Skin is clear with no lesions or rashes and otherwise unremarkable. : Deferred NEUROLOGIC: Patient is alert and oriented x2 Moving all extremities spontaneously CN II-XII grossly intact MUSCULOSKELETAL: Chronic arthritic changes in bilateral hands PSYCHIATRIC: Normal psychiatric evaluation. Course Vital Signs 06/30/19 07/01/19 07/01/19 23:32 00:38 02:14 Temperature 99.2 F Pulse Rate 84 86 82 Respiratory 18 18 18 Rate Blood Pressure 160/88 179/94 155/72 O2 Sat by Pulse 99 98 99 Oximetry Procedures - Orthopedic Splinting/Casting Injury #1 Side: left Upper Extremity Injury Location: wrist Upper Extremity Immobilizer: thumb spica Medical Decision Making - Medical Decision Making The patient was seen and evaluated history is obtained from the patient and EMS Patient had an apparent loss of consciousness while on the phone with the [id number], upon EMS arrival the patient was somewhat confused but pleasant Upon arrival patient remains pleasantly confused Patient complains of pain in her left thumb, she reports she was has been but it seems worse now Labs and imaging were obtained Head CT and x-rays with no acute findings, x-ray of the left hand with chronic changes however given the patient's significant pain she was splinted orthopedics will be consulted to evaluate her hand. Patient was witnessed to have episodes where she would be speaking then appeared to fall asleep and begins snoring. Patient was difficult to arouse but would wake seems somewhat confused but then be pleasantly interactive. Uncertain what the cause of this is as the patient's vital signs are unchanged, glucose is stable. Patient repeatedly just states that she is tired. At this time we will admit the patient for evaluation by neurology orthopedics and her primary care. Patient care was discussed with Dr. Olmstead who agrees with the plan - Lab Data Result diagrams: 06/30/19 23:34 06/30/19 23:34 Lab Results 06/30/19 06/30/19 06/30/19 Range/Units 23:28 23:34 23:34 WBC 7.7 (3.8-10.6) k/uL RBC 4.34 (3.80-5.40) m/uL Hgb 11.2 L (11.4-16.0) gm/dL Hct 33.7 L (34.0-46.0) % MCV 77.7 L (80.0-100.0) fL MCH 25.8 (25.0-35.0) pg MCHC 33.2 (31.0-37.0) g/dL RDW 17.3 H (11.5-15.5) % Plt Count 281 (150-450) k/uL Neutrophils % 63 % Lymphocytes % 23 % Monocytes % 6 % Eosinophils % 5 % Basophils % 1 % Neutrophils # 4.8 (1.3-7.7) k/uL Lymphocytes # 1.7 (1.0-4.8) k/uL Monocytes # 0.5 (0-1.0) k/uL Eosinophils # 0.4 (0-0.7) k/uL Basophils # 0.1 (0-0.2) k/uL Anisocytosis Slight Microcytosis Slight PT (9.0-12.0) sec INR (<1.2) APTT (22.0-30.0) sec Sodium 141 (137-145) mmol/L Potassium 4.1 (3.5-5.1) mmol/L Chloride 104 (98-107) mmol/L Carbon Dioxide 26 (22-30) mmol/L Anion Gap 11 mmol/L BUN 30 H (7-17) mg/dL Creatinine 1.43 H (0.52-1.04) mg/dL Est GFR (CKD-EPI)AfAm 43 (>60 ml/min/1.73 sqM) Est GFR (CKD-EPI)NonAf 37 (>60 ml/min/1.73 sqM) Glucose 106 H (74-99) mg/dL POC Glucose (mg/dL) 109 H (75-99) mg/dL POC Glu Is Support Analyst ID Maribell Pat Plasma Lactic Acid Julio (0.7-2.0) mmol/L Calcium 9.3 (8.4-10.2) mg/dL Total Bilirubin 0.2 (0.2-1.3) mg/dL AST 25 (14-36) U/L ALT 23 (9-52) U/L Alkaline Phosphatase 85 (38-126) U/L Troponin I (0.000-0.034) ng/mL Total Protein 7.3 (6.3-8.2) g/dL Albumin 4.0 (3.5-5.0) g/dL Urine Color Urine Appearance (Clear) Urine pH (5.0-8.0) Ur Specific [place] (1.001-1.035) Urine Protein (Negative) Urine Glucose (UA) (Negative) Urine Ketones (Negative) Urine Blood (Negative) Urine Nitrite (Negative) Urine Bilirubin (Negative) Urine Urobilinogen (<2.0) mg/dL Ur Leukocyte Esterase (Negative) Urine RBC (0-5) /hpf Urine WBC (0-5) /hpf Ur Squamous Epith Cells (0-4) /hpf 06/30/19 06/30/19 06/30/19 Range/Units 23:34 23:34 23:34 WBC (3.8-10.6) k/uL RBC (3.80-5.40) m/uL Hgb (11.4-16.0) gm/dL Hct (34.0-46.0) % MCV (80.0-100.0) fL MCH (25.0-35.0) pg MCHC (31.0-37.0) g/dL RDW (11.5-15.5) % Plt Count (150-450) k/uL Neutrophils % % Lymphocytes % % Monocytes % % Eosinophils % % Basophils % % Neutrophils # (1.3-7.7) k/uL Lymphocytes # (1.0-4.8) k/uL Monocytes # (0-1.0) k/uL Eosinophils # (0-0.7) k/uL Basophils # (0-0.2) k/uL Anisocytosis Microcytosis PT 9.8 (9.0-12.0) sec INR 0.9 (<1.2) APTT 19.6 L (22.0-30.0) sec Sodium (137-145) mmol/L Potassium (3.5-5.1) mmol/L Chloride (98-107) mmol/L Carbon Dioxide (22-30) mmol/L Anion Gap mmol/L BUN (7-17) mg/dL Creatinine (0.52-1.04) mg/dL Est GFR (CKD-EPI)AfAm (>60 ml/min/1.73 sqM) Est GFR (CKD-EPI)NonAf (>60 ml/min/1.73 sqM) Glucose (74-99) mg/dL POC Glucose (mg/dL) (75-99) mg/dL POC Glu Is Support Analyst ID Plasma Lactic Acid Julio 1.0 (0.7-2.0) mmol/L Calcium (8.4-10.2) mg/dL Total Bilirubin (0.2-1.3) mg/dL AST (14-36) U/L ALT (9-52) U/L Alkaline Phosphatase (38-126) U/L Troponin I <0.012 (0.000-0.034) ng/mL Total Protein (6.3-8.2) g/dL Albumin (3.5-5.0) g/dL Urine Color Urine Appearance (Clear) Urine pH (5.0-8.0) Ur Specific [place] (1.001-1.035) Urine Protein (Negative) Urine Glucose (UA) (Negative) Urine Ketones (Negative) Urine Blood (Negative) Urine Nitrite (Negative) Urine Bilirubin (Negative) Urine Urobilinogen (<2.0) mg/dL Ur Leukocyte Esterase (Negative) Urine RBC (0-5) /hpf Urine WBC (0-5) /hpf Ur Squamous Epith Cells (0-4) /hpf 06/30/19 Range/Units 23:34 WBC (3.8-10.6) k/uL RBC (3.80-5.40) m/uL Hgb (11.4-16.0) gm/dL Hct (34.0-46.0) % MCV (80.0-100.0) fL MCH (25.0-35.0) pg MCHC (31.0-37.0) g/dL RDW (11.5-15.5) % Plt Count (150-450) k/uL Neutrophils % % Lymphocytes % % Monocytes % % Eosinophils % % Basophils % % Neutrophils # (1.3-7.7) k/uL Lymphocytes # (1.0-4.8) k/uL Monocytes # (0-1.0) k/uL Eosinophils # (0-0.7) k/uL Basophils # (0-0.2) k/uL Anisocytosis Microcytosis PT (9.0-12.0) sec INR (<1.2) APTT (22.0-30.0) sec Sodium (137-145) mmol/L Potassium (3.5-5.1) mmol/L Chloride (98-107) mmol/L Carbon Dioxide (22-30) mmol/L Anion Gap mmol/L BUN (7-17) mg/dL Creatinine (0.52-1.04) mg/dL Est GFR (CKD-EPI)AfAm (>60 ml/min/1.73 sqM) Est GFR (CKD-EPI)NonAf (>60 ml/min/1.73 sqM) Glucose (74-99) mg/dL POC Glucose (mg/dL) (75-99) mg/dL POC Glu Is Support Analyst ID Plasma Lactic Acid Julio (0.7-2.0) mmol/L Calcium (8.4-10.2) mg/dL Total Bilirubin (0.2-1.3) mg/dL AST (14-36) U/L ALT (9-52) U/L Alkaline Phosphatase (38-126) U/L Troponin I (0.000-0.034) ng/mL Total Protein (6.3-8.2) g/dL Albumin (3.5-5.0) g/dL Urine Color Light Yellow Urine Appearance Clear (Clear) Urine pH 7.5 (5.0-8.0) Ur Specific [place] 1.007 (1.001-1.035) Urine Protein 1+ H (Negative) Urine Glucose (UA) Negative (Negative) Urine Ketones Negative (Negative) Urine Blood Negative (Negative) Urine Nitrite Negative (Negative) Urine Bilirubin Negative (Negative) Urine Urobilinogen <2.0 (<2.0) mg/dL Ur Leukocyte Esterase Negative (Negative) Urine RBC 1 (0-5) /hpf Urine WBC 1 (0-5) /hpf Ur Squamous Epith Cells 1 (0-4) /hpf Disposition Clinical Impression: Altered mental status Disposition: ADMITTED IP TO THIS HOSP Condition: Stable
[2019-07-01] MEDS ORDERED: ONDANSETRON 4 MG/2 ML VIAL IVP PRN (00:52)
[2019-07-01] MEDS ORDERED: NALOXONE 0.4 MG/ML 1 ML VIAL IV PRN (00:52)
[2019-07-01] MEDS ORDERED: MORPHINE SULFATE 4 MG/ML SYRINGE IV PRN (00:52)
[2019-07-01 06:40] LABS: Glucose,Whole Blood 119 mg/dL (75-99)
[2019-07-01 10:23] VITALS: BMI 309.6
[2019-07-01] MEDS ORDERED: PNEUMOCOCCAL VACC-PNEUMOVAX 23 25 MCG/0.5 ML VIAL IM ONE (10:26)
[2019-07-01 12:57] LABS: Glucose,Whole Blood 116 mg/dL (75-99)
--- NOTE | 2019-07-01 13:12 | P.CNNES ---
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 Yesterday patient was reportedly on the phone with her [id number] when she suddenly became silent and it sounded like she dropped the phone. The [id number] attempted to hang up and call the patient back but did not get a response. 911 was called. When EMS arrived, they found the patient on the floor, somewhat confused but later became alert and oriented and interactive. She did complain of pain in the left thumb for which it was splinted. The patient did not have any tongue or inner cheek biting, bowel or bladder incontinence, headache or myalgias. She does not remember what happened yesterday. She did not have any recollection about any type of aura or prodrome. She currently does not have any neurological c omplaints. Review of Systems 14-point ROS performed and as per HPI. Neurologically, patient denies other episodes of decreased level or loss of consciousness, headache, seizure, changes in vision, diplopia, amaurosis, changes in hearing, facial droop, ptosis, vertigo, hearing loss, tinnitus, dysarthria, dysphagia, aphasia, other focal numbness/weakness not mentioned above, tremors, bowel/bladder incontinence or ataxia. Past Medical History Past Medical History: Asthma, Heart Failure, COPD, CVA/TIA, GERD/Reflux, Hyperlipidemia, Hypertension, Memory Impairment, Osteoarthritis (OA), Pneumonia Additional Past Medical History / Comment(s): CVA with R sided weakness/memory impairment, chronic anemia, vitamin D deficiency, gout bilateral feet, chronic lower extremity pain especially L side, acute renal disease. History of Any Multi-Drug Resistant Organisms: None Reported Past Surgical History: Heart Catheterization, Hysterectomy, Tonsillectomy Additional Past Surgical History / Comment(s): Colonoscopy Past Anesthesia/Blood Transfusion Reactions: No Reported Reaction Smoking Status: Never smoker - Past Family History Father History Unknown: Yes Family Medical History: No Reported History Mother History Unknown: Yes Family Medical History: No Reported History Additional Family Medical History / Comment(s): Pt states she does not want to discuss parents past medical history. Medications and Allergies Home Medications Medication Instructions Recorded Confirmed Type Albuterol Inhaler [Ventolin Hfa 2 puff INHALATION RT-Q6H PRN 07/24/16 07/01/19 History Inhaler] FLUoxetine HCL [Fluoxetine HCl] 20 mg PO DAILY 07/24/16 07/01/19 History Furosemide 40 mg PO DAILY 07/24/16 07/01/19 History amLODIPine BESYLATE [Amlodipine 10 mg PO BID 07/24/16 07/01/19 History Besylate] Aspirin EC [Ecotrin Low Dose] 81 mg PO DAILY 07/08/17 07/01/19 History Atenolol [Tenormin] 25 mg PO DAILY 07/08/17 07/01/19 History Gabapentin [Neurontin] 300 mg PO HS 07/08/17 07/01/19 History Isosorbide Mononitrate ER [Imdur] 30 mg PO DAILY 07/08/17 07/01/19 History Atorvastatin [Lipitor] 40 mg PO DAILY 05/11/18 07/01/19 History Allergies Allergy/AdvReac Type Severity Reaction Status Date / Time allopurinol [From Zyloprim] Allergy Unknown Verified 07/01/19 09:23 codeine Allergy Unknown Verified 07/01/19 09:23 Physical Examination - Vital Signs Vital Signs: Vital Signs Temp Pulse Resp BP Pulse Ox 07/01/19 11:21 98.1 F 88 16 158/87 94 L 07/01/19 06:43 98.5 F 91 18 165/83 98 07/01/19 02:14 82 18 155/72 99 07/01/19 00:38 86 18 179/94 98 06/30/19 23:32 99.2 F 84 18 160/88 99 Intake and Output 06/30/19 07/01/19 07/01/19 22:59 06:59 14:59 Other: # Voids 3 Weight 743.438 kg Gen NAD Pleasant and cooperative HEENT NCAT Sclera without icterus Edentulous o/w O/P clear Neck Supple No carotid bruit Cor RRR no m/r/g Lungs CTAB Abd Soft NTND +BS Ext Warm to touch No edema left hand splinted Neuro MS A+Ox4 Normal fluency Able to follow all commands CN PERRL VFF no APD EOMI no nystagmus or KLARISSA No facial asymmetry Masseter's symmetric Hearing intact to normal voice bilaterally Speech not dysarthric Equal elevation of palate Tongue midline Sym shrug and SCM bilaterally Motor Normal bulk/tone No pronator or tremors Strength 5/5 sym throughout Sens Intact to LT x4 No neglect Coord No dysmetria on FTN bilaterally DTRs 2+/4 sym throughout Toes downgoing bilaterally No clonus at achilles Gait Deferred Results - Laboratory Findings CBC and BMP: 06/30/19 23:34 06/30/19 23:34 Abnormal Lab Findings: Abnormal Labs 06/30/19 06/30/19 06/30/19 23:28 23:34 23:34 Hgb 11.2 L Hct 33.7 L MCV 77.7 L RDW 17.3 H APTT BUN 30 H Creatinine 1.43 H Glucose 106 H POC Glucose (mg/dL) 109 H Urine Protein 06/30/19 06/30/19 07/01/19 23:34 23:34 06:38 Hgb Hct MCV RDW APTT 19.6 L BUN Creatinine Glucose POC Glucose (mg/dL) 119 H Urine Protein 1+ H 07/01/19 12:46 Hgb Hct MCV RDW APTT BUN Creatinine Glucose POC Glucose (mg/dL) 116 H Urine Protein - Diagnostic Findings Additional findings: CT Head and C-spine wo cont 06/30/19. Old left temporal ischemic infarct. No ICH. Nil acute intracranially. Sopndylitic changes in the lower cervical spine. No acute fracture. I have reviewed neuroimages myself. Assessment and Plan Assessment: Transient alteration of awareness- her old temporal CVA may serve as an epileptogenic focus. Will r/o seizure with EEG and also investigate for any major vascular compromise. Current neuro exam is non-focal. Plan: -EEG -Carotid duplex -TSH, B12 and fasting lipids in am -Resume aspirin and statin -May treat BP to normotensive range -Other medical work-up for possible syncope deferred to primary team -Will follow up -d/w patient in detail. All questions answered. Thank you for this consultation. Please call with ?. Time with Patient: Greater than 30 (Time spent in direct patient care, greater than 50% of which was spent in [id number] counseling and coordination of care: 70 minutes)
--- NOTE | 2019-07-01 14:26 | P.CNOR ---
History of Present Illness - [facility] Consult date: 07/01/19 Consult reason: joint pain History of present illness: Patient is a 69-year-old female who presented to [facility] with regards to altered mental status and a fall. Apparently the patient was on the phone with her daughter and alignment bed. She had contacted EMS, they found the patient on the floor. Upon arrival to the emergency room, patient remained confused but was able to answer most questions. She complained of left wrist pain. Multiple images of the left wrist are obtained. Patient was admitted under internal medicine for further workup, I'll orthopedic team was then consulted. Patient was evaluated at bedside today, she was sleeping upon arrival. I was able to wake her up with ease, she did not seem confused on talking to her. She notes she's had some previous issues with her left wrist. She denies any previous surgery. She has no other orthopedic complaints this time. Review of Systems Constitutional: Reports as per HPI Past Medical History Past Medical History: Asthma, Heart Failure, COPD, CVA/TIA, GERD/Reflux, Hyperlipidemia, Hypertension, Memory Impairment, Osteoarthritis (OA), Pneumonia Additional Past Medical History / Comment(s): CVA with R sided weakness/memory impairment, chronic anemia, vitamin D deficiency, gout bilateral feet, chronic lower extremity pain especially L side, acute renal disease. History of Any Multi-Drug Resistant Organisms: None Reported Past Surgical History: Heart Catheterization, Hysterectomy, Tonsillectomy Additional Past Surgical History / Comment(s): Colonoscopy Past Anesthesia/Blood Transfusion Reactions: No Reported Reaction Smoking Status: Never smoker - Past Family History Father History Unknown: Yes Family Medical History: No Reported History Mother History Unknown: Yes Family Medical History: No Reported History Additional Family Medical History / Comment(s): Pt states she does not want to discuss parents past medical history. Medications and Allergies Home Medications Medication Instructions Recorded Confirmed Type Albuterol Inhaler [Ventolin Hfa 2 puff INHALATION RT-Q6H PRN 07/24/16 07/01/19 History Inhaler] FLUoxetine HCL [Fluoxetine HCl] 20 mg PO DAILY 07/24/16 07/01/19 History Furosemide 40 mg PO DAILY 07/24/16 07/01/19 History amLODIPine BESYLATE [Amlodipine 10 mg PO BID 07/24/16 07/01/19 History Besylate] Aspirin EC [Ecotrin Low Dose] 81 mg PO DAILY 07/08/17 07/01/19 History Atenolol [Tenormin] 25 mg PO DAILY 07/08/17 07/01/19 History Gabapentin [Neurontin] 300 mg PO HS 07/08/17 07/01/19 History Isosorbide Mononitrate ER [Imdur] 30 mg PO DAILY 07/08/17 07/01/19 History Atorvastatin [Lipitor] 40 mg PO DAILY 05/11/18 07/01/19 History Allergies Allergy/AdvReac Type Severity Reaction Status Date / Time allopurinol [From Zyloprim] Allergy Unknown Verified 07/01/19 09:23 codeine Allergy Unknown Verified 07/01/19 09:23 Physical Examination Left upper extremity: There was a thumb spica type splint on, I did remove this. No obvious open lesions or sores present Obvious soft tissue swelling noted on the radial aspect of the hand and wrist. She's tender with palpation of the scaphoid lunate area. She is nontender with palpation throughout most of the digits. She is nontender at the elbow and proximal forearm. She is able to bend and extend the elbow with minimal difficulty She is able to wiggle the fingers minimal difficulty. Range of motion of the wrist does reproduce discomfort Sensation to light touch throughout the extremities intact, radial pulses 2+ Results - Labs Labs: Abnormal Lab Results - Last 24 Hours (Table) 06/30/19 06/30/19 06/30/19 Range/Units 23:28 23:34 23:34 Hgb 11.2 L (11.4-16.0) gm/dL Hct 33.7 L (34.0-46.0) % MCV 77.7 L (80.0-100.0) fL RDW 17.3 H (11.5-15.5) % APTT (22.0-30.0) sec BUN 30 H (7-17) mg/dL Creatinine 1.43 H (0.52-1.04) mg/dL Glucose 106 H (74-99) mg/dL POC Glucose (mg/dL) 109 H (75-99) mg/dL Urine Protein (Negative) 06/30/19 06/30/19 07/01/19 Range/Units 23:34 23:34 06:38 Hgb (11.4-16.0) gm/dL Hct (34.0-46.0) % MCV (80.0-100.0) fL RDW (11.5-15.5) % APTT 19.6 L (22.0-30.0) sec BUN (7-17) mg/dL Creatinine (0.52-1.04) mg/dL Glucose (74-99) mg/dL POC Glucose (mg/dL) 119 H (75-99) mg/dL Urine Protein 1+ H (Negative) 07/01/19 Range/Units 12:46 Hgb (11.4-16.0) gm/dL Hct (34.0-46.0) % MCV (80.0-100.0) fL RDW (11.5-15.5) % APTT (22.0-30.0) sec BUN (7-17) mg/dL Creatinine (0.52-1.04) mg/dL Glucose (74-99) mg/dL POC Glucose (mg/dL) 116 H (75-99) mg/dL Urine Protein (Negative) H & H 06/30/19 Range/Units 23:34 Hgb 11.2 L (11.4-16.0) gm/dL Hct 33.7 L (34.0-46.0) % Coagulation 06/30/19 Range/Units 23:34 INR 0.9 (<1.2) Result Diagrams: 06/30/19 23:34 06/30/19 23:34 - Diagnostic results Wrist/Hand MRI: report reviewed, image reviewed Assessment and Plan Plan: Imaging: Multiple x-rays of the wrist and hand are obtained. Images were negative for any acute fractures or dislocations. Obvious widening of the scaphoid lunate joint representing old injury is present. Assessment: 1. Left wrist/hand sprain 2. Left hand scapholunate chronic injury 3. Recent fall 4. Other medical comorbidities Plan: Was able to discuss the case, including with physical exam findings with my attending Dr. Mauricio. I did remove the makeshift thumb spica splint. Prescription was placed for a thumb spica splint. No orthopedic surgical intervention needed at this time. Recommend icing and elevating along with Tylenol or anti-inflammatories We'll be available for any further questions regarding this patient Time with Patient: Less than 30
--- NOTE | 2019-07-01 16:55 | US ---
EXAMINATION TYPE: US carotid duplex BILAT DATE OF EXAM: 07/01/2019 COMPARISON: US CLINICAL HISTORY: Altered mental status possible syncope. Altered mental status EXAM MEASUREMENTS: RIGHT: Peak Systolic Velocity (PSV) cm/sec ----- Right CCA: 51.4 ----- Right ICA: 217.1 ----- Right ECA: 47.0 ICA/CCA ratio: 4.2 RIGHT: End Diastole cm/sec ----- Right CCA: 10.4 ----- Right ICA: 41.5 ----- Right ECA: 13.0 LEFT: Peak Systolic Velocity (PSV) cm/sec ----- Left CCA: 83.4 ----- Left ICA: 155.4 ----- Left ECA: 122.6 ICA/CCA ratio: 1.9 LEFT: End Diastole cm/sec ----- Left CCA: 14.2 ----- Left ICA: 41.6 ----- Left ECA: 11.1 VERTEBRALS (direction of flow): Right Vertebral: Antegrade Left Vertebral: Antegrade Rhythm: Normal Difficult exam due to short neck, tortuous vessels, and high bifurcation Bilateral ICA's tortuous causing elevated velocities and abnormal ratios, more on right side IMPRESSION: Although peak systolic velocities appear exaggerated secondary to tortuous vessels and h igh bifurcation there is concern for 50-69% stenosis within the bilateral internal carotid arteries g iven the abnormal internal carotid artery to common carotid artery ratios. CTA of the neck could furt her evaluate for more accurate degree of stenosis. Criteria for Assigning % of Stenosis / Diameter reduction (Estimation based on the indirect measurements of the internal carotid artery velocities (ICA PSV). 1. Normal (no stenosis)=ICA PSV < 125 cm/s: ratio < 2.0: ICA EDV<40 cm/s. 2. Less than 50% stenosis=ICA PSV < 125 cm/s: ratio < 2.0: ICA EDV<40 cm/s. 3. 50 to 69% stenosis=ICA PSV of 125 to 230 cm/s: ration 2.0 ? 4.0: ICA EDV 40-100 cm/s. 4. Greater than 70% stenosis to near occlusion= ICA PSV > 230 cm/s: ratio > 4.0: ICA EDV > 100 cm/s. 5. Near occlusion= ICA PSV velocities may be low or undetectable: variable ratio and ICA EDV. 6. Total occlusion=unable to detect flow.
[2019-07-01 16:56] LABS: Glucose,Whole Blood 98 mg/dL (75-99)
--- NOTE | 2019-07-01 17:17 | EEG ---
ELECTROENCEPHALOGRAM REPORT DATE OF TESTIN07/01/2019. CLINICAL PROBLEM: The patient was talking on the phone when she suddenly stopped responding. On EMS arrival, patient was found lying on the floor, confused. The event was not physically witnessed. She has a history of an old left temporal stroke. EEG was requested to rule out epileptic activity. TYPE OF RECORDING: Bedside tracing using the 10-20 international electrode placement system. No sedation was given prior to the beginning of this recording. FINDINGS: At the beginning of this recording, there is a symmetric alpha rhythm that attenuates on eye opening and returns upon eye closure. There are scattered EMG artifacts that correspond to patient's movements. Photic stimulation does not elicit a driving response. Hyperventilation is not performed in this recording. As the tracing progresses, there is some slowing down of the background into the theta range. No definitive sleep architecture is seen. There is no background asymmetry, ictal or interictal patterns appreciated. IMPRESSION: This is a normal awake/drowsy electroencephalogram without background asymmetry or epileptiform discharges. Clinical correlation is advised. MELANI / JESUS: [id number] / MTDMatias
--- NOTE | 2019-07-01 18:47 | HP ---
HISTORY AND PHYSICAL CHIEF COMPLAINT: Syncopal episodes and injury to left thumb. HISTORY OF PRESENT ILLNESS: This is another admission for this 69-year-old -[place] female who has hypertension and some psychiatric difficulties, including depression. She also has a history of chronic renal failure and anemia. She apparently was talking with a relative and suddenly stopped talking, passed out and injured her left thumb. She came to the emergency room. She denies and was not witnessed to have a seizure, incontinence, etc. She was not diaphoretic and she has had no chest pain, headache, aura, diarrhea, melena, hematochezia, fever, chills, shortness of breath, etc. Review of systems is otherwise unremarkable. Past medical history, family history, and personal and social histories reveal that she is ALLERGIC to CODEINE and ALLOPURINOL. She is on: 1. Atenolol 25 mg once a day. 2. Amlodipine 10 mg once a day. 3. Furosemide 40 mg once a day. 4. Aspirin. 5. Isosorbide mononitrate 30 mg once a day. 6. Atorvastatin 40 mg once a day. 7. Fluoxetine 20 mg once a day. 8. Gabapentin 300 mg once a day. Past history is otherwise unremarkable. She has had a hysterectomy. She has sickle cell trait. She has never smoked. She does not drink. PHYSICAL EXAMINATION: Blood pressure 122/80 with pulse of 72, regular. Respiratory rate is 16. She is afebrile. In general she appears to be well developed, well nourished, in no acute distress. Skin color is normal. Skin is warm and dry. Lymph nodes are not enlarged. Head, ears, eyes, nose, mouth and throat are normal. Neck veins are not distended. Thyroid is not enlarged. Chest is clear. The cardiac exam is normal. The abdomen is soft and non-tender. Extremities are normal except for the left thumb, which is in a splint. Neurologically she is intact. IMPRESSION: 1. Syncopal episode and history of recent blackouts or syncopal events. 2. Hypertension. 3. Injury to the left thumb and wrist. 4. Hypertension. 5. Previous cerebrovascular accident. PLAN: 1. Bed rest. 2. IV fluids. 3. Frequent monitoring of her neurologic status and vital signs. 4. Central nervous system workup. 5. Consult Orthopedics. 6. Consult with Neurology. MMODL / IJN: [id number] /
--- NOTE | 2019-07-01 20:28 | XR ---
EXAMINATION TYPE: XR chest 1V DATE OF EXAM: 07/01/2019 COMPARISON: 06/30/2019 HISTORY: Fever TECHNIQUE: Single frontal view of the chest is obtained. FINDINGS: The previously seen right-sided pneumonia has resolved in the interim. No focal opacity re ana orsa. Diffuse osseous demineralization is seen. Dextroscoliosis of the thoracic spine. Cardiac silho uette is stable. IMPRESSION: Resolution of the previously seen pneumonia. No acute pathology.
[2019-07-01 20:39] LABS: Glucose,Whole Blood 114 mg/dL (75-99)
[2019-07-01] MEDS ORDERED: ATORVASTATIN 40 MG TAB PO SCH (21:00)
[2019-07-01] MEDS: ACETAMINOPHEN TAB 325 MG TAB PO PRN (21:06)
[2019-07-01] MEDS: ATENOLOL 25 MG TAB PO SCH (21:07)
[2019-07-01] MEDS: amLODIPine 10 MG TAB PO SCH (21:07)
[2019-07-01] MEDS: GABAPENTIN 300 MG CAP PO SCH (21:07)
[2019-07-02 01:42] LABS: Glucose,Whole Blood 126 mg/dL (75-99)
[2019-07-02] MEDS: ACETAMINOPHEN TAB 325 MG TAB PO PRN ×3 (05:35→19:09)
[2019-07-02 07:21] LABS: Glucose,Whole Blood 107 mg/dL (75-99)
[2019-07-02] MEDS: ISOSORBIDE MONONITRATE ER 30 MG TAB.ER.24H PO SCH (08:11)
[2019-07-02] MEDS: FUROSEMIDE 40 MG TAB PO SCH (08:11)
[2019-07-02] MEDS: ATENOLOL 25 MG TAB PO SCH (08:11)
[2019-07-02] MEDS: FLUoxetine HCL 20 MG CAP PO SCH (08:12)
[2019-07-02] MEDS: amLODIPine 10 MG TAB PO SCH ×2 (08:12→20:16)
[2019-07-02] MEDS: ASPIRIN 81 MG PO SCH (08:12)
--- NOTE | 2019-07-02 08:14 | P.PN ---
Subjective Progress Note Date: 07/02/19 Principal diagnosis: Syncope, etiology unclear EEG. Carotid duplex. No further episode of transient alteration of awareness or syncope. No other neuro c/o. Objective - Vital Signs Vital signs: Vital Signs Temp 98.6 F 07/02/19 06:41 Pulse 69 07/02/19 06:41 Resp 18 07/02/19 06:41 BP 138/76 07/02/19 06:41 Pulse Ox 98 07/02/19 06:41 Intake & Output 07/01/19 07/02/19 07/02/19 18:59 06:59 18:59 Intake Total 200 Balance 200 Weight 71 kg Intake: Oral 200 Other: Voiding Method Toilet # Voids 1 - Exam Gen NAD Pleasant and cooperative MS A+Ox4 Normal speech CN II-XII grossly intact no nystagmus Motor Normal bulk/tone No tremors Strength 5/5 sym throughout Sens Intact to LT x4 Coord No dysmetria on FTN bilaterally DTRs 2+/4 sym throughout Gait Deferred - Labs CBC & Chem 7: 06/30/19 23:34 06/30/19 23:34 Labs: Abnormal Lab Results - Last 24 Hours (Table) 07/01/19 07/01/19 07/02/19 Range/Units 12:46 20:26 01:30 POC Glucose (mg/dL) 116 H 114 H 126 H (75-99) mg/dL HDL Cholesterol (40-60) mg/dL 07/02/19 07/02/19 Range/Units 06:52 07:10 POC Glucose (mg/dL) 107 H (75-99) mg/dL HDL Cholesterol 67 H (40-60) mg/dL - Imaging and Cardiology EEG 07/01/19. Normal awake. No EPD. Carotid duplex 07/01/19. Toruous vessels possible up to 50-69% stenosis of BICA. I have reviewed neuroimages myself. Assessment and Plan Assessment: Transient alteration of awareness- EEG unrevealing. Carotid duplex limited by tortuosity of vessels but no critical stenosis Plan: -EEG and carotid duplex results d/w patient in detail -Carotid duplex shows possible up to 50-69% stenosis. Her Cr is 1.43. Will not pursue CTA at this point since she does not have severe stenosis. Can follow up with neurology or vascular surgery as outpatient. The degree of stenosis is unlikely to explain her syncopal episode -TSH normal LDL 67 at goal. No statin necessary -Continue aspirin -May treat BP to normotensive range -Other medical work-up for possible syncope deferred to primary team -d/w patient in detail. All questions answered -No further inpatient neuro recs at this time. Will revisit patient prn. Please call with new ?. Thank you again for this consultation. Time with Patient: Less than 30 (Time spent in direct patient care, greater than 50% of which was spent in [id number] counseling coordination of care: 25 minutes)
[2019-07-02] MEDS: IPRATROPIUM-ALBUTEROL 3 ML NEB INHALATION SCH ×4 (09:38→19:46)
[2019-07-02 11:06] LABS: Glucose,Whole Blood 99 mg/dL (75-99)
[2019-07-02 17:08] LABS: Glucose,Whole Blood 105 mg/dL (75-99)
[2019-07-02 20:16] LABS: Glucose,Whole Blood 114 mg/dL (75-99)
[2019-07-02] MEDS: GABAPENTIN 300 MG CAP PO SCH (20:16)
--- NOTE | 2019-07-02 20:42 | PN ---
PROGRESS NOTE DATE OF SERVICE: 07/02/2019 CHIEF COMPLAINT: Syncope. HISTORY OF PRESENT ILLNESS: This lady seems to be doing well. She has not had any further syncopal events. She has had no complaints of headache, shortness of breath, focal neurologic deficits, etc. PHYSICAL EXAMINATION: Her chest is clear. Cardiac exam is normal. Abdomen is soft, nontender. IMPRESSION: 1. Syncopal episode. 2. Hypertension. PLAN: Await results of further studies and increase activity. MMODL / IJN: [id number] /
[2019-07-03] MEDS: ACETAMINOPHEN TAB 325 MG TAB PO PRN (01:31)
[2019-07-03 01:44] LABS: Glucose,Whole Blood 109 mg/dL (75-99)
[2019-07-03 07:27] LABS: Glucose,Whole Blood 92 mg/dL (75-99)
[2019-07-03] MEDS: IPRATROPIUM-ALBUTEROL 3 ML NEB INHALATION SCH ×4 (08:32→22:08)
[2019-07-03] MEDS: ISOSORBIDE MONONITRATE ER 30 MG TAB.ER.24H PO SCH (08:57)
[2019-07-03] MEDS: FLUoxetine HCL 20 MG CAP PO SCH (08:57)
[2019-07-03] MEDS: amLODIPine 10 MG TAB PO SCH ×2 (08:57→21:36)
[2019-07-03] MEDS: FUROSEMIDE 40 MG TAB PO SCH (08:57)
[2019-07-03] MEDS: ASPIRIN 81 MG PO SCH (08:57)
[2019-07-03] MEDS: ATENOLOL 25 MG TAB PO SCH (08:57)
[2019-07-03 12:09] LABS: Glucose,Whole Blood 120 mg/dL (75-99)
[2019-07-03 16:40] LABS: Glucose,Whole Blood 98 mg/dL (75-99)
[2019-07-03 18:21] LABS: Albumin 3.8 g/dL (3.5-5.0); Calcium 9.2 mg/dL (8.4-10.2); Potassium 4.4 mmol/L (3.5-5.1); Total Bilirubin 0.3 mg/dL (0.2-1.3); Total Protein 7.3 g/dL (6.3-8.2)
--- NOTE | 2019-07-03 19:01 | PN ---
PROGRESS NOTE CHIEF COMPLAINT: Syncopal episode. HISTORY OF PRESENT ILLNESS: This lady is doing well. She has had no further symptoms of difficulty. Studies have been unremarkable, except the carotid duplex suggests that she might be a candidate for an MRA of the cervical circulation, and this will be ordered. PHYSICAL EXAMINATION: Neurologically she is intact. Blood pressure is good. Chest is clear. Cardiac exam is normal. Abdomen is soft, nontender. IMPRESSION: 1. Syncopal episode. 2. History of hypertension. PLAN: Order CTA of the carotid vasculature. MMODL / IJN: [id number] /
[2019-07-03 21:28] LABS: Glucose,Whole Blood 139 mg/dL (75-99)
[2019-07-03] MEDS: GABAPENTIN 300 MG CAP PO SCH (21:36)
[2019-07-04 01:42] LABS: Glucose,Whole Blood 94 mg/dL (75-99)
[2019-07-04 06:59] LABS: Glucose,Whole Blood 101 mg/dL (75-99)
[2019-07-04] MEDS: IPRATROPIUM-ALBUTEROL 3 ML NEB INHALATION SCH ×2 (08:29→12:12)
[2019-07-04 08:45] VITALS: BP 132/66; RESP 14; TEMP 99.2
[2019-07-04] MEDS: FUROSEMIDE 40 MG TAB PO SCH (08:56)
[2019-07-04] MEDS: FLUoxetine HCL 20 MG CAP PO SCH (08:56)
[2019-07-04] MEDS: ATENOLOL 25 MG TAB PO SCH (08:56)
[2019-07-04] MEDS: ASPIRIN 81 MG PO SCH (08:56)
[2019-07-04] MEDS: amLODIPine 10 MG TAB PO SCH (08:56)
[2019-07-04] MEDS: ACETAMINOPHEN TAB 325 MG TAB PO PRN (08:56)
[2019-07-04] MEDS: ISOSORBIDE MONONITRATE ER 30 MG TAB.ER.24H PO SCH (08:56)
[2019-07-04 12:25] LABS: Glucose,Whole Blood 115 mg/dL (75-99)
[2019-07-04 12:27] VITALS: PULSE 77
--- NOTE | 2019-07-04 18:07 | DS ---
DISCHARGE SUMMARY CHIEF COMPLAINT: Syncopal episode. HISTORY OF PRESENT ILLNESS AND PHYSICAL EXAMINATION: Details of this lady's history and physical can be found in the initial workup. COURSE IN THE HOSPITAL: After admission she was placed on bedrest and started on intravenous fluids and telemetry. She developed no further problems with vital signs or arrhythmia. She was seen by Neurology. It was thought that she could benefit from MRA of the cervical vessels, but with her renal failure it was decided that gadolinium should be avoided. She was doing well. It was felt that she could go home on July 04, and she will go home on her usual activity, diet and medication. She will be seen in the office in several days. FINAL DIAGNOSES: 1. Syncopal episode. 2. History of syncopal events. 3. History of hypertension. 4. Sprain of the left thumb and wrist. OPERATIONS: None. CONSULTATIONS: 1. Neurology. 2. Orthopedics. She is improved. MMANUPAMA / JESUS: [id number] /
== END 2019-07-04 13:00 | disposition home or self-care (01) ==
LOC: EC 23:20 → 4SSUR 07-01 00:52
PROVIDERS: ADMIT Family Medicine; ATTEND Family Medicine
DX: R55 Syncope and collapse (principal); S63.502A Unspecified sprain of left wrist, initial encounter; S63.601A Unspecified sprain of right thumb, initial encounter; I13.0 Hypertensive heart and chronic kidney disease with heart failure and stage 1 through stage 4 chronic kidney disease, or unspecified chronic kidney disease; I50.9 Heart failure, unspecified; N18.9 Chronic kidney disease, unspecified; I69.351 Hemiplegia and hemiparesis following cerebral infarction affecting right dominant side; D57.3 Sickle-cell trait; I69.311 Memory deficit following cerebral infarction; K21.9 Gastro-esophageal reflux disease without esophagitis; J44.9 Chronic obstructive pulmonary disease, unspecified; E78.5 Hyperlipidemia, unspecified; M19.042 Primary osteoarthritis, left hand; M10.9 Gout, unspecified; E55.9 Vitamin D deficiency, unspecified; D64.9 Anemia, unspecified; G89.29 Other chronic pain; M79.606 Pain in leg, unspecified; F32.9 Major depressive disorder, single episode, unspecified; Z23 Encounter for immunization; W19.XXXA Unspecified fall, initial encounter; Z79.82 Long term (current) use of aspirin; Z79.899 Other long term (current) drug therapy; Z88.5 Allergy status to narcotic agent; Z88.8 Allergy status to other drugs, medicaments and biological substances; Z90.710 Acquired absence of both cervix and uterus; Z86.79 Personal history of other diseases of the circulatory system; Z87.828 Personal history of other (healed) physical injury and trauma; Z87.01 Personal history of pneumonia (recurrent); Z91.81 History of falling
CPT/HCPCS: 96361; 96374; 96375; 99285; 36415; 94640 ×6; 94760; 95816; 93005; 80053 ×2; 80061; 84443; 82607; 83605; 84484; 85025; 85610; 85730; 81001; 87040; 73100; 73120; 71045; 93880; 72125; 70450; 90732; G0378 ×4; G0009; J2270; J2405

== ENCOUNTER 2019-07-08 16:24 | Observation (INO) | payer MEDICARE, OTHER ==
[2019-07-08] MEDS ORDERED: LORazepam 2 MG/ML INJ IV STA (16:56)
--- NOTE | 2019-07-08 16:58 | ED ---
Psych HPI - General Chief Complaint: Psychiatric Symptoms Stated Complaint: MENTAL HEALTH Time Seen by Provider: 07/08/19 16:49 Source: patient, EMS, RN notes reviewed, old records reviewed Mode of arrival: EMS Limitations: altered mental status - History of Present Illness Initial Comments: This is a 69-year-old female the ER for evaluation resents today for evaluation regards to mental health evaluation under recommendation of her family doctor Dr. Echevarria. Per EMS reports patient was chasing her home nurse around with someone and she does normal tracing with an umbrella she was very angry and irritated stay. Patient's history of the emergency room is without complaint. Patient does appear agitated, difficult with history taking. History obtained from patient's chart. MD Complaint: altered mental status, other (Patient was angry, combative) -: unknown Associated Psychiatric Symptoms: none History of same: Yes Quality: intermittent Improves With: none Worsens With: none Associated Symptoms: denies other symptoms Treatments Prior to Arrival: placed on mental health hold If Self Harm: other (None) - Related Data Home Medications Medication Instructions Recorded Confirmed Albuterol Inhaler [Ventolin Hfa 2 puff INHALATION RT-Q6H PRN 07/24/16 07/08/19 Inhaler] FLUoxetine HCL [Fluoxetine HCl] 20 mg PO DAILY 07/24/16 07/08/19 Furosemide 40 mg PO DAILY 07/24/16 07/08/19 amLODIPine BESYLATE [Amlodipine 10 mg PO BID 07/24/16 07/08/19 Besylate] Aspirin EC [Ecotrin Low Dose] 81 mg PO DAILY 07/08/17 07/08/19 Atenolol [Tenormin] 25 mg PO DAILY 07/08/17 07/08/19 Gabapentin [Neurontin] 300 mg PO HS 07/08/17 07/08/19 Isosorbide Mononitrate ER [Imdur] 30 mg PO DAILY 07/08/17 07/08/19 Atorvastatin [Lipitor] 40 mg PO DAILY 05/11/18 07/08/19 Allergies Allergy/AdvReac Type Severity Reaction Status Date / Time allopurinol [From Zyloprim] Allergy Unknown Verified 07/08/19 17:45 codeine Allergy Unknown Verified 07/08/19 17:45 Review of Systems ROS Statement: Those systems with pertinent positive or pertinent negative responses have been documented in the HPI. ROS Other: All systems not noted in ROS Statement are negative. Past Medical History Past Medical History: Asthma, Heart Failure, COPD, CVA/TIA, GERD/Reflux, Hyperlipidemia, Hypertension, Memory Impairment, Osteoarthritis (OA), Pneumonia Additional Past Medical History / Comment(s): CVA with R sided weakness/memory impairment, chronic anemia, vitamin D deficiency, gout bilateral feet, chronic lower extremity pain especially L side, acute renal disease. History of Any Multi-Drug Resistant Organisms: None Reported Past Surgical History: Heart Catheterization, Hysterectomy, Tonsillectomy Additional Past Surgical History / Comment(s): Colonoscopy Past Anesthesia/Blood Transfusion Reactions: No Reported Reaction Past Psychological History: Depression Smoking Status: Never smoker - Past Family History Father History Unknown: Yes Family Medical History: No Reported History Mother History Unknown: Yes Family Medical History: No Reported History Additional Family Medical History / Comment(s): Pt states she does not want to discuss parents past medical history. General Exam Limitations: altered mental status General appearance: alert, in no apparent distress Head exam: Present: atraumatic, normocephalic, normal inspection Eye exam: Present: normal appearance, EOMI. Absent: scleral icterus, conjunctival injection, periorbital swelling ENT exam: Present: normal exam, mucous membranes moist Neck exam: Present: normal inspection. Absent: tenderness, meningismus, lymphadenopathy Respiratory exam: Present: normal lung sounds bilaterally. Absent: respiratory distress, wheezes, rales, rhonchi, stridor Cardiovascular Exam: Present: regular rate, normal rhythm, normal heart sounds. Absent: systolic murmur, diastolic murmur, rubs, gallop, clicks GI/Abdominal exam: Present: soft, normal bowel sounds. Absent: distended, tenderness, guarding, rebound, rigid Extremities exam: Present: normal inspection, full ROM, normal capillary refill. Absent: tenderness, pedal edema, joint swelling, calf tenderness Back exam: Present: normal inspection Neurological exam: Present: alert, oriented X3, CN II-XII intact Psychiatric exam: Present: normal affect, normal mood Skin exam: Present: warm, dry, intact, normal color. Absent: rash Course Vital Signs 07/08/19 16:45 Temperature 98.0 F Pulse Rate 72 Respiratory 18 Rate Blood Pressure 148/92 O2 Sat by Pulse 99 Oximetry - Reevaluation(s) Reevaluation #1: 07/08/19 16:58 Medical records reviewed Reevaluation #2: 07/08/19 19:58 Patient still not acting appropriately, altered - Consultations Consultation #1: Spoke Dr. Echevarria who is agreeable for inpatient admission Medical Decision Making - Medical Decision Making 69 female will be admitted for altered mental status. Patient may need psychiatric evaluation of mental status is clear, patient was violent and threatening 2 home health worker today. - Lab Data Result diagrams: 07/08/19 18:49 07/08/19 18:49 Lab Results 07/08/19 07/08/19 07/08/19 Range/Units 17:55 18:49 18:49 WBC 8.5 (3.8-10.6) k/uL RBC 3.69 L (3.80-5.40) m/uL Hgb 9.8 L (11.4-16.0) gm/dL Hct 29.3 L (34.0-46.0) % MCV 79.4 L (80.0-100.0) fL MCH 26.6 (25.0-35.0) pg MCHC 33.5 (31.0-37.0) g/dL RDW 15.0 (11.5-15.5) % Plt Count 372 (150-450) k/uL Neutrophils % 70 % Lymphocytes % 18 % Monocytes % 6 % Eosinophils % 4 % Basophils % 1 % Neutrophils # 5.9 (1.3-7.7) k/uL Lymphocytes # 1.5 (1.0-4.8) k/uL Monocytes # 0.5 (0-1.0) k/uL Eosinophils # 0.4 (0-0.7) k/uL Basophils # 0.1 (0-0.2) k/uL Hypochromasia Slight APTT 19.6 L (22.0-30.0) sec Sodium (137-145) mmol/L Potassium (3.5-5.1) mmol/L Chloride (98-107) mmol/L Carbon Dioxide (22-30) mmol/L Anion Gap mmol/L BUN (7-17) mg/dL Creatinine (0.52-1.04) mg/dL Est GFR (CKD-EPI)AfAm (>60 ml/min/1.73 sqM) Est GFR (CKD-EPI)NonAf (>60 ml/min/1.73 sqM) Glucose (74-99) mg/dL Calcium (8.4-10.2) mg/dL Total Bilirubin (0.2-1.3) mg/dL AST (14-36) U/L ALT (9-52) U/L Alkaline Phosphatase (38-126) U/L Creatine Kinase (30-135) U/L Troponin I (0.000-0.034) ng/mL Total Protein (6.3-8.2) g/dL Albumin (3.5-5.0) g/dL Urine Color Light Yellow Urine Appearance Clear (Clear) Urine pH 5.5 (5.0-8.0) Ur Specific [place] 1.010 (1.001-1.035) Urine Protein Trace H (Negative) Urine Glucose (UA) Negative (Negative) Urine Ketones Negative (Negative) Urine Blood Negative (Negative) Urine Nitrite Negative (Negative) Urine Bilirubin Negative (Negative) Urine Urobilinogen <2.0 (<2.0) mg/dL Ur Leukocyte Esterase Negative (Negative) Salicylates mg/dL Urine Opiates Screen Not Detected (NotDetected) Ur Oxycodone Screen Not Detected (NotDetected) Urine Methadone Screen Not Detected (NotDetected) Ur Propoxyphene Screen Not Detected (NotDetected) Acetaminophen ug/mL Ur Barbiturates Screen Not Detected (NotDetected) U Tricyclic Antidepress Not Detected (NotDetected) Ur Phencyclidine Scrn Not Detected (NotDetected) Ur Amphetamines Screen Not Detected (NotDetected) U Methamphetamines Scrn Not Detected (NotDetected) U Benzodiazepines Scrn Not Detected (NotDetected) Urine Cocaine Screen Not Detected (NotDetected) U Marijuana (THC) Screen Not Detected (NotDetected) Serum Alcohol mg/dL 07/08/19 07/08/19 Range/Units 18:49 18:49 WBC (3.8-10.6) k/uL RBC (3.80-5.40) m/uL Hgb (11.4-16.0) gm/dL Hct (34.0-46.0) % MCV (80.0-100.0) fL MCH (25.0-35.0) pg MCHC (31.0-37.0) g/dL RDW (11.5-15.5) % Plt Count (150-450) k/uL Neutrophils % % Lymphocytes % % Monocytes % % Eosinophils % % Basophils % % Neutrophils # (1.3-7.7) k/uL Lymphocytes # (1.0-4.8) k/uL Monocytes # (0-1.0) k/uL Eosinophils # (0-0.7) k/uL Basophils # (0-0.2) k/uL Hypochromasia APTT (22.0-30.0) sec Sodium 141 (137-145) mmol/L Potassium 3.6 (3.5-5.1) mmol/L Chloride 109 H (98-107) mmol/L Carbon Dioxide 25 (22-30) mmol/L Anion Gap 7 mmol/L BUN 34 H (7-17) mg/dL Creatinine 1.48 H (0.52-1.04) mg/dL Est GFR (CKD-EPI)AfAm 41 (>60 ml/min/1.73 sqM) Est GFR (CKD-EPI)NonAf 35 (>60 ml/min/1.73 sqM) Glucose 90 (74-99) mg/dL Calcium 8.9 (8.4-10.2) mg/dL Total Bilirubin 0.2 (0.2-1.3) mg/dL AST 25 (14-36) U/L ALT 26 (9-52) U/L Alkaline Phosphatase 79 (38-126) U/L Creatine Kinase 187 H (30-135) U/L Troponin I <0.012 (0.000-0.034) ng/mL Total Protein 6.9 (6.3-8.2) g/dL Albumin 3.7 (3.5-5.0) g/dL Urine Color Urine Appearance (Clear) Urine pH (5.0-8.0) Ur Specific [place] (1.001-1.035) Urine Protein (Negative) Urine Glucose (UA) (Negative) Urine Ketones (Negative) Urine Blood (Negative) Urine Nitrite (Negative) Urine Bilirubin (Negative) Urine Urobilinogen (<2.0) mg/dL Ur Leukocyte Esterase (Negative) Salicylates <1.0 mg/dL Urine Opiates Screen (NotDetected) Ur Oxycodone Screen (NotDetected) Urine Methadone Screen (NotDetected) Ur Propoxyphene Screen (NotDetected) Acetaminophen <10.0 ug/mL Ur Barbiturates Screen (NotDetected) U Tricyclic Antidepress (NotDetected) Ur Phencyclidine Scrn (NotDetected) Ur Amphetamines Screen (NotDetected) U Methamphetamines Scrn (NotDetected) U Benzodiazepines Scrn (NotDetected) Urine Cocaine Screen (NotDetected) U Marijuana (THC) Screen (NotDetected) Serum Alcohol <10 mg/dL - EKG Data -: EKG Interpreted by Me (EKG shows sinus rhythm rate of 75, PA 160, QRS 80, QTC 451) - Radiology Data Radiology results: report reviewed (CT brain negative for acute disease), image reviewed Disposition Clinical Impression: Altered mental status Disposition: ADMITTED IP TO THIS [facility] Condition: Undetermined Is patient prescribed a controlled substance at d/c from ED?: No Referrals: Rinku Echevarria MD [Primary Care Provider] - 1-2 days
[2019-07-08 18:28] LABS: Appearance,Urine Clear (Clear); Bilirubin,Urine Negative (Negative); Blood,Urine Negative (Negative); Color,Urine Light Yellow; Glucose,Urine (UA) Negative (Negative); Ketones,Urine Negative (Negative); Leukocyte Esterase,Urine Negative (Negative); Nitrite,Urine Negative (Negative); PH, Urine 5.5 (5.0-8.0); Protein,Urine Trace (Negative); Urobilinogen,Urine <2.0 mg/dL (<2.0)
--- NOTE | 2019-07-08 18:32 | CT ---
EXAMINATION TYPE: CT brain wo con DATE OF EXAM: 07/08/2019 COMPARISON: 06/30/2019 HISTORY: ams CT DLP: 1099.4 mGycm Automated exposure control for dose reduction was used. FINDINGS: There is 5 cm area of hypodensity involving left temporal lobe and parietal lobe related to old infar ct. There is no mass effect nor midline shift. There is no sign of intracranial hemorrhage. Calvarium is intact. 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 NO CHANGE COMPARED TO OLD EXAM. NO ACUTE INTRACRANIAL AB NORMALITY.
[2019-07-08 18:40] LABS: Amphetamine Screen,Urine Not Detected (NotDetected); Barbiturate Screen,Urine Not Detected (NotDetected); Benzodiazepines Screen,Urine Not Detected (NotDetected); Cocaine Screen,Urine Not Detected (NotDetected); Methadone Screen, Urine Not Detected (NotDetected); Opiate Screen,Urine Not Detected (NotDetected); Oxycodone Screen, Urine Not Detected (NotDetected); Phencyclidine Screen,Urine Not Detected (NotDetected); Tricyclic Antidepressant,Urine Not Detected (NotDetected); Urn Cannabinoid Scrn Not Detected (NotDetected)
[2019-07-08 19:11] LABS: Basophils # (A) 0.1 k/uL (0-0.2); Basophils % (A) 1 %; Eosinophils # (A) 0.4 k/uL (0-0.7); Eosinophils % (A) 4 %; HCT 29.3 % (34.0-46.0); HGB 9.8 gm/dL (11.4-16.0); Hypochromasia Slight; Lymphocytes # (A) 1.5 k/uL (1.0-4.8); Lymphocytes % (A) 18 %; MCH 26.6 pg (25.0-35.0); MCHC 33.5 g/dL (31.0-37.0); MCV 79.4 fL (80.0-100.0); Mean Platelet Volume 5.7; Monocytes # (A) 0.5 k/uL (0-1.0); Monocytes % (A) 6 %; Neutrophils # (A) 5.9 k/uL (1.3-7.7); Neutrophils % (A) 70 %; Platelet Count 372 k/uL (150-450); RBC 3.69 m/uL (3.80-5.40); WBC 8.5 k/uL (3.8-10.6)
[2019-07-08 19:26] LABS: ALT 26 U/L (9-52); AST 25 U/L (14-36); Acetaminophen <10.0 ug/mL; African American GFR (CKD) 41 (>60 ml/min/1.73 sqM); Albumin 3.7 g/dL (3.5-5.0); Alcohol <10 mg/dL; Alkaline Phosphatase 79 U/L (38-126); Anion Gap 7 mmol/L; Blood Urea Nitrogen 34 mg/dL (7-17); Calcium 8.9 mg/dL (8.4-10.2); Carbon Dioxide 25 mmol/L (22-30); Chloride 109 mmol/L (98-107); Creatine Kinase 187 U/L (30-135); Glucose 90 mg/dL (74-99); Non-African American GFR(CKD) 35 (>60 ml/min/1.73 sqM); Potassium 3.6 mmol/L (3.5-5.1); Salicylate <1.0 mg/dL; Sodium 141 mmol/L (137-145); Total Bilirubin 0.2 mg/dL (0.2-1.3); Total Protein 6.9 g/dL (6.3-8.2)
[2019-07-08] MEDS ORDERED: LORazepam 2 MG/ML INJ IV PRN (19:57)
[2019-07-08] MEDS ORDERED: SODIUM CHLORIDE 0.9% 1,000 ML IV ONE (19:57)
[2019-07-09] MEDS ORDERED: ATENOLOL 25 MG TAB PO STA (12:30)
--- NOTE | 2019-07-09 18:05 | HP ---
HISTORY AND PHYSICAL CHIEF COMPLAINT: Acute psychosis ? HISTORY OF PRESENT ILLNESS: This is another recent admission for this 69-year-old female. After she left the hospital, Visiting Nurses was instructed to see her. On the day of admission, they went to her home where she greeted them with violent behavior and apparently was waving a gun around. It was also reported by the nurse that she waving an umbrella. EMS was summoned and she was brought to the hospital. She denies any headaches, focal neurologic deficits, etc. She does not remember any of these behaviors. She has had psychiatric problems in the past. REVIEW OF SYSTEMS: She denies headaches, chest pain, abdominal pain, confusion, focal neurologic deficits, fever and chills, etc. Past medical history, family history and personal and social histories are unremarkable and unchanged. ALLERGIES: She is ALLERGIC to ALLOPURINOL AND CODEINE. MEDICATIONS: She is on atenolol 25 mg once a day, amlodipine 10 mg once a day, Lasix 40 mg once a day, isosorbide dinitrate 30 mg once a day. Atorvastatin 40 mg once a day, fluoxetine 20 mg once a day, Ventolin HFA, and gabapentin 300 mg once a day. The remainder of her history is unremarkable. She denies heavy alcohol consumption and she has never smoked. PHYSICAL EXAMINATION: Blood pressure 122/80, pulse 72, regular. Respirations 16. She is afebrile. General: She appeared to be slightly overweight and in no acute distress. Skin color is normal. Skin is warm, dry. Lymph nodes not enlarged. HEENT: Head, ears, eyes, nose, mouth, and throat were normal. Neck veins not distended. Thyroid is not enlarged. CHEST: Clear. Cardiac exam is normal. Abdomen is soft, nontender. Extremities are normal. Neurologically: She seems to be intact. IMPRESSION: 1. Acute psychosis ? 2. Personality disorder. 3. Hypertension. 4. Previous transient ischemic attack/cerebrovascular accident. PLAN: 1. Bed rest. 2. IV fluids. 3. Psychiatric consult. MMODL / IJN: [id number] /
[2019-07-09] MEDS: amLODIPine 10 MG TAB PO SCH (20:43)
[2019-07-09] MEDS ORDERED: GABAPENTIN 300 MG CAP PO SCH (21:00)
[2019-07-09] MEDS: ACETAMINOPHEN TAB 325 MG TAB PO PRN (22:03)
[2019-07-09 22:47] VITALS: RESP 16
[2019-07-10 06:33] VITALS: BP 148/76; PULSE 67; TEMP 98.2
[2019-07-10] MEDS: amLODIPine 10 MG TAB PO SCH (07:49)
[2019-07-10] MEDS: ACETAMINOPHEN TAB 325 MG TAB PO PRN (07:49)
[2019-07-10] MEDS ORDERED: ISOSORBIDE MONONITRATE ER 30 MG TAB.ER.24H PO SCH (09:00)
[2019-07-10] MEDS ORDERED: FLUoxetine HCL 20 MG CAP PO SCH (09:00)
[2019-07-10] MEDS ORDERED: FUROSEMIDE 40 MG TAB PO SCH (09:00)
[2019-07-10] MEDS ORDERED: ATENOLOL 25 MG TAB PO SCH (09:00)
[2019-07-10] MEDS ORDERED: ASPIRIN 81 MG PO SCH (09:00)
--- NOTE | 2019-07-10 16:23 | PN ---
PROGRESS NOTE DATE OF SERVICE: 07/09/2019. CHIEF COMPLAINT: Altered mental status and acute psychosis? HISTORY OF PRESENT ILLNESS: This lady is stable medically. She has had no chest pain, shortness of breath, neurologic problems, headaches, etc. She is to be evaluated by Psychiatry. PHYSICAL EXAMINATION: Neurologically she is intact. Neck is supple. Chest is clear. Cardiac exam is normal. Abdomen is soft and nontender. Extremities are normal. IMPRESSION: 1. Mental status changes. 2. ? Acute psychosis, schizophrenia? PLAN: Await her psychiatric evaluation. MMODL / IJN: [id number] /
--- NOTE | 2019-07-10 19:47 | PN ---
PROGRESS NOTE CHIEF COMPLAINT: Hypertension, behavioral disorder and acute psychosis. HISTORY OF PRESENT ILLNESS: This lady is complaining now of new pain in her left arm, which is mostly in the biceps and down in the forearm. She denies any chest pain, trauma, swelling, etc. We still await psych evaluation. PHYSICAL EXAMINATION: Her chest is clear. Cardiac exam is normal. Abdomen is soft, nontender. The shoulder and elbow seem to have a normal range of motion and she is a little bit tender over the biceps. IMPRESSION: 1. Left arm pain, etiology unknown. 2. Behavioral disorder and possible acute psychosis. PLAN: 1. No further evaluation of her left arm unless she has more difficulty or develops more symptoms or signs. 2. Await psychiatric evaluation. MMODL / IJN: [id number] /
--- NOTE | 2019-07-11 17:27 | DS ---
DISCHARGE SUMMARY CHIEF COMPLAINT: Mental status changes with aggressive and threatening behavior. HISTORY OF PRESENT ILLNESS AND PHYSICAL EXAM: Details of this lady's history and physical can be found in the initial workup. LABORATORY STUDIES: While she was in a hospital she had laboratory studies, details of which can be found in the laboratory section of her chart. COURSE IN HOSPITAL: After admission, she was placed on bedrest, started on intravenous fluids and was to have been seen by Psychiatry. On the morning of 11 of July, I noticed that she was no longer on my hospital list. Nobody on the floor was able to tell me anything about her discharge. They did not know who would put the discharge in or what instructions the patient had been given for followup nor any medications. FINAL DIAGNOSES: 1. Mental status changes. 2. Hypertension. 3. Possible acute psychosis. OPERATIONS: None. CONSULTATIONS: Psychiatry. MELANI / JESUS: [id number] /
== END 2019-07-10 11:00 | disposition left against medical advice (07) ==
LOC: EC 16:24 → 4MS4W 19:57
PROVIDERS: ADMIT Family Medicine; ATTEND Family Medicine
DX: R41.82 Altered mental status, unspecified (principal); R45.6 Violent behavior; R45.4 Irritability and anger; K21.9 Gastro-esophageal reflux disease without esophagitis; J44.9 Chronic obstructive pulmonary disease, unspecified; I50.9 Heart failure, unspecified; I11.0 Hypertensive heart disease with heart failure; E78.5 Hyperlipidemia, unspecified; M19.90 Unspecified osteoarthritis, unspecified site; R41.3 Other amnesia; F32.9 Major depressive disorder, single episode, unspecified; F60.9 Personality disorder, unspecified; I69.911 Memory deficit following unspecified cerebrovascular disease; I69.351 Hemiplegia and hemiparesis following cerebral infarction affecting right dominant side; M10.9 Gout, unspecified; E55.9 Vitamin D deficiency, unspecified; D64.9 Anemia, unspecified; G89.29 Other chronic pain; M79.606 Pain in leg, unspecified; M79.602 Pain in left arm; Z79.82 Long term (current) use of aspirin; Z79.899 Other long term (current) drug therapy; Z88.5 Allergy status to narcotic agent; Z88.8 Allergy status to other drugs, medicaments and biological substances; Z90.710 Acquired absence of both cervix and uterus
CPT/HCPCS: 82075; 96374; 99285; 36415; 93005; 80053; 82550; 84484; 85025; 85730; 81003; 80306; 83520; 70450; G0378 ×3; G0480 ×2; J2060; 80320; 80329

== ENCOUNTER 2020-06-29 15:20 | Inpatient (IN) | payer MEDICARE, OTHER ==
--- NOTE | 2020-06-29 16:05 | ED ---
General Adult HPI - General Chief complaint: Weakness Stated complaint: Poss pre stroke pain in hand and leg Per [facility] Time Seen by Provider: 06/29/20 15:40 Source: patient, family, RN notes reviewed Mode of arrival: wheelchair Limitations: no limitations - History of Present Illness Initial comments: Patient is a pleasant 70-year-old female presenting to the emergency department with concerns for possible stroke. Patient is unclear why this may be. Patient is a very poor historian. Patient does complain of some pain of her left wrist. Patient is unclear when this started. Patient believes she may have had some problems with her left leg earlier. No family is present at this time. - Related Data Home Medications Medication Instructions Recorded Confirmed Albuterol Inhaler (Mhu) [Ventolin 2 puff INHALATION RT-Q6H PRN 07/24/16 07/08/19 Hfa Inhaler (Mhu)] FLUoxetine HCL [Fluoxetine HCl] 20 mg PO DAILY 07/24/16 07/08/19 Furosemide 40 mg PO DAILY 07/24/16 07/08/19 amLODIPine BESYLATE [Amlodipine 10 mg PO BID 07/24/16 07/08/19 Besylate] Aspirin EC [Ecotrin Low Dose] 81 mg PO DAILY 07/08/17 07/08/19 Gabapentin [Neurontin] 300 mg PO HS 07/08/17 07/08/19 Isosorbide Mononitrate ER [Imdur] 30 mg PO DAILY 07/08/17 07/08/19 atenoloL [Tenormin] 25 mg PO DAILY 07/08/17 07/08/19 Atorvastatin [Lipitor] 40 mg PO DAILY 05/11/18 07/08/19 Allergies Allergy/AdvReac Type Severity Reaction Status Date / Time allopurinol [From Zyloprim] Allergy Unknown Verified 06/29/20 15:27 codeine Allergy Unknown Verified 06/29/20 15:27 Review of Systems ROS Statement: Those systems with pertinent positive or pertinent negative responses have been documented in the HPI. ROS Other: All systems not noted in ROS Statement are negative. Constitutional: Denies: fever Eyes: Denies: eye pain ENT: Denies: ear pain Respiratory: Denies: cough Cardiovascular: Denies: chest pain Endocrine: Denies: fatigue Gastrointestinal: Denies: abdominal pain Genitourinary: Denies: dysuria Musculoskeletal: Denies: back pain Skin: Denies: rash Neurological: Reports: as per HPI Past Medical History Past Medical History: Asthma, Heart Failure, COPD, CVA/TIA, GERD/Reflux, Hyperlipidemia, Hypertension, Memory Impairment, Osteoarthritis (OA), Pneumonia Additional Past Medical History / Comment(s): CVA with R sided weakness/memory impairment, chronic anemia, vitamin D deficiency, gout bilateral feet, chronic lower extremity pain especially L side, acute renal disease. History of Any Multi-Drug Resistant Organisms: None Reported Past Surgical History: Heart Catheterization, Hysterectomy, Tonsillectomy Additional Past Surgical History / Comment(s): Colonoscopy Past Anesthesia/Blood Transfusion Reactions: No Reported Reaction Past Psychological History: Depression Smoking Status: Never smoker Past Alcohol Use History: None Reported Past Drug Use History: None Reported - Past Family History Father History Unknown: Yes Family Medical History: No Reported History Mother History Unknown: Yes Family Medical History: No Reported History Additional Family Medical History / Comment(s): Pt states she does not want to discuss parents past medical history. General Exam Limitations: no limitations General appearance: alert, in no apparent distress Head exam: Present: normocephalic Eye exam: Present: normal appearance, PERRL, EOMI. Absent: nystagmus ENT exam: Present: normal oropharynx Neck exam: Present: normal inspection Respiratory exam: Present: normal lung sounds bilaterally Cardiovascular Exam: Present: regular rate, normal rhythm GI/Abdominal exam: Present: soft. Absent: tenderness Extremities exam: Present: other (Left dorsal wrist no scaphoid with swelling approximately 2 cm and tenderness. No warmth or erythema.) Neurological exam: Present: alert, CN II-XII intact. Absent: motor sensory def icit Expanded Neurological exam: Present: protecting the airway Speech: Present: fluid speech Cranial nerves: EOM's Intact: Normal Sensory exam: Upper Extremity Light Touch: Normal, Lower Extremity Light Touch: Normal Motor strength exam: RUE: 5, LUE: 5, RLE: 5, LLE: 5 Eye Response: (4) open spontaneously Motor Response: (6) obeys commands Verbal Response: (5) oriented Psychiatric exam: Present: normal affect, normal mood Skin exam: Present: normal color Course Vital Signs 06/29/20 06/29/20 06/29/20 15:22 16:30 17:50 Temperature 98.4 F 98.1 F Pulse Rate 88 80 84 Respiratory 16 16 18 Rate Blood Pressure 141/69 178/77 185/76 O2 Sat by Pulse 95 96 100 Oximetry - Reevaluation(s) Reevaluation #1: 06/29/20 16:01 Daughter is now present who states patient was at the primary care physician earlier who did have some concern for stroke. She is unclear why. She was not present there and does not have further information. She states patient does sometimes get swelling and discomfort of her left wrist that seems to be intermittent. EKG Findings - EKG Comments: EKG Findings:: Normal sinus rhythm 85. KS 154. QRS 86. QT 382. QTC 454. Normal axis. Normal QRS. No acute ST change. Medical Decision Making - Medical Decision Making Patient reevaluated and resting comfortably in bed. Patient and family updated on results and plan. Case was earlier discussed with Dr. Echevarria who states patient did have difficulty walking and did want admission with consult with neurology and psychiatry. He does question if patient's symptoms could be psychiatric. - Lab Data Result diagrams: 06/29/20 16:21 06/29/20 16:21 Lab Results 06/29/20 06/29/20 06/29/20 Range/Units 16:21 16:21 16:21 WBC 19.1 H (3.8-10.6) k/uL RBC 3.86 (3.80-5.40) m/uL Hgb 10.0 L (11.4-16.0) gm/dL Hct 30.1 L (34.0-46.0) % MCV 78.1 L (80.0-100.0) fL MCH 25.8 (25.0-35.0) pg MCHC 33.1 (31.0-37.0) g/dL RDW 15.0 (11.5-15.5) % Plt Count 278 (150-450) k/uL Neutrophils % 91 % Lymphocytes % 3 % Monocytes % 4 % Eosinophils % 1 % Basophils % 0 % Neutrophils # 17.4 H (1.3-7.7) k/uL Lymphocytes # 0.6 L (1.0-4.8) k/uL Monocytes # 0.8 (0-1.0) k/uL Eosinophils # 0.2 (0-0.7) k/uL Basophils # 0.0 (0-0.2) k/uL PT 10.4 (9.0-12.0) sec INR 1.0 (<1.2) APTT 19.2 L (22.0-30.0) sec Sodium 140 (137-145) mmol/L Potassium 3.7 (3.5-5.1) mmol/L Chloride 104 (98-107) mmol/L Carbon Dioxide 26 (22-30) mmol/L Anion Gap 10 mmol/L BUN 56 H (7-17) mg/dL Creatinine 2.05 H (0.52-1.04) mg/dL Est GFR (CKD-EPI)AfAm 27 (>60 ml/min/1.73 sqM) Est GFR (CKD-EPI)NonAf 24 (>60 ml/min/1.73 sqM) Glucose 117 H (74-99) mg/dL Calcium 9.3 (8.4-10.2) mg/dL Total Bilirubin 1.0 (0.2-1.3) mg/dL AST 26 (14-36) U/L ALT 12 (4-34) U/L Alkaline Phosphatase 71 (38-126) U/L Creatine Kinase 74 (30-135) U/L Troponin I (0.000-0.034) ng/mL C-Reactive Protein 265.1 H (<10.0) mg/L Total Protein 7.5 (6.3-8.2) g/dL Albumin 4.0 (3.5-5.0) g/dL 06/29/20 Range/Units 16:21 WBC (3.8-10.6) k/uL RBC (3.80-5.40) m/uL Hgb (11.4-16.0) gm/dL Hct (34.0-46.0) % MCV (80.0-100.0) fL MCH (25.0-35.0) pg MCHC (31.0-37.0) g/dL RDW (11.5-15.5) % Plt Count (150-450) k/uL Neutrophils % % Lymphocytes % % Monocytes % % Eosinophils % % Basophils % % Neutrophils # (1.3-7.7) k/uL Lymphocytes # (1.0-4.8) k/uL Monocytes # (0-1.0) k/uL Eosinophils # (0-0.7) k/uL Basophils # (0-0.2) k/uL PT (9.0-12.0) sec INR (<1.2) APTT (22.0-30.0) sec Sodium (137-145) mmol/L Potassium (3.5-5.1) mmol/L Chloride (98-107) mmol/L Carbon Dioxide (22-30) mmol/L Anion Gap mmol/L BUN (7-17) mg/dL Creatinine (0.52-1.04) mg/dL Est GFR (CKD-EPI)AfAm (>60 ml/min/1.73 sqM) Est GFR (CKD-EPI)NonAf (>60 ml/min/1.73 sqM) Glucose (74-99) mg/dL Calcium (8.4-10.2) mg/dL Total Bilirubin (0.2-1.3) mg/dL AST (14-36) U/L ALT (4-34) U/L Alkaline Phosphatase (38-126) U/L Creatine Kinase (30-135) U/L Troponin I <0.012 (0.000-0.034) ng/mL C-Reactive Protein (<10.0) mg/L Total Protein (6.3-8.2) g/dL Albumin (3.5-5.0) g/dL - Radiology Data Radiology results: report reviewed (No acute process. Old left parietal infar ct), image reviewed (Chest x-ray shows no acute process. Wrist x-ray still pending) Disposition Clinical Impression: Ataxia, Arthralgia Disposition: ADMITTED IP TO THIS HOSP Is patient prescribed a controlled substance at d/c from ED?: No Referrals: Rinku Echevarria MD [Primary Care Provider] - 1-2 days Decision Time: 18:32
[2020-06-29 17:03] LABS: Basophils % (A) 0 %; Eosinophils # (A) 0.2 k/uL (0-0.7); Eosinophils % (A) 1 %; HCT 30.1 % (34.0-46.0); Lymphocytes # (A) 0.6 k/uL (1.0-4.8); Lymphocytes % (A) 3 %; MCH 25.8 pg (25.0-35.0); MCHC 33.1 g/dL (31.0-37.0); MCV 78.1 fL (80.0-100.0); Mean Platelet Volume 7.7; Monocytes # (A) 0.8 k/uL (0-1.0); Monocytes % (A) 4 %; Neutrophils # (A) 17.4 k/uL (1.3-7.7); Neutrophils % (A) 91 %; Platelet Count 278 k/uL (150-450); RBC 3.86 m/uL (3.80-5.40); WBC 19.1 k/uL (3.8-10.6)
[2020-06-29 17:13] LABS: Prothrombin Time 10.4 sec (9.0-12.0)
[2020-06-29 17:34] LABS: Calcium 9.3 mg/dL (8.4-10.2); Partial Thromboplastin Time 19.2 sec (22.0-30.0); Potassium 3.7 mmol/L (3.5-5.1); Total Protein 7.5 g/dL (6.3-8.2)
[2020-06-29 17:48] LABS: C Reactive Protein 265.1 mg/L (<10.0)
--- NOTE | 2020-06-29 18:08 | CT ---
EXAMINATION TYPE: CT brain wo con DATE OF EXAM: 06/29/2020 COMPARISON: 07/08/2019 INDICATION: TIA. DLP: 1036.4 mGycm, Automated exposure control for dose reduction was used. CONTRAST: None CT of the brain is performed utilizing 3 mm thick sections through the posterior fossa and 3 mm thick sections through the remaining calvarium. Study is performed within 24 hours of arrival to the hosp ital. No abnormal hyperdensity is present to suggest an acute intracranial hemorrhage. No mass lesion is evident. No acute infarcts are evident. There is an old infarct along the left parietal lobe. Ventricles and sulci are appropriate for the patient age. Paranasal sinuses and mastoid air cells within the [id number] are clear. IMPRESSIONS: 1. No acute intracranial process. 2. Old left parietal infarct.
--- NOTE | 2020-06-29 18:15 | XR ---
EXAMINATION TYPE: XR chest 2V DATE OF EXAM: 06/29/2020 COMPARISON: 07/01/2019 INDICATION: Weakness pain after fall TECHNIQUE: Single frontal view of the chest is obtained. FINDINGS: The heart size is normal. The pulmonary vasculature is normal. The lungs are clear. No pneumothorax is evident. No displaced rib fractures are identified. IMPRESSION: 1. No acute pulmonary process.
--- NOTE | 2020-06-29 18:18 | XR ---
EXAMINATION TYPE: XR wrist complete LT DATE OF EXAM: 06/29/2020 COMPARISON: 06/30/2019 HISTORY: Pain and swelling TECHNIQUE: 4 view left wrist FINDINGS: No displaced fractures are evident. Some degenerative change may be within the distal carpa l row. First carpal metacarpal osteoarthritic degenerative changes present. Displaced fractures are n ot identified. IV catheter is evident within the fundal region. Diffuse soft tissue swelling is prese nt. Scapholunate space appears diminished compared to the prior study. Follow-up studies can be performed 7-10 days from acute trauma for continued pain. If there is pain a t the anatomic snuff box nuclear medicine bone scan would be recommended for additional evaluation. IMPRESSION: 1. Acute displaced fractures not identified. 2. Scapholunate space appears less prominent than the comparison study. This could be projectional. 3. Degenerative joint changes noted. 4. Soft tissue swelling over the wrist
[2020-06-29] MEDS ORDERED: ASPIRIN 325 MG TAB PO STA (18:33)
[2020-06-29] MEDS: SODIUM CHLORIDE 0.9% 1,000 ML IV SCH (19:43)
[2020-06-29] MEDS ORDERED: IPRATROPIUM-ALBUTEROL 3 ML NEB INHALATION PRN (20:53)
--- NOTE | 2020-06-29 21:21 | US ---
EXAMINATION TYPE: US carotid duplex BILAT DATE OF EXAM: 06/29/2020 COMPARISON: US CLINICAL HISTORY: Stenosis. Stenosis per order. Hx TIA/CVA, hypertension, hyperlipidemia. Patient cam e to the ER with right-sided weakness. Patient is poor historian. EXAM MEASUREMENTS: RIGHT: Peak Systolic Velocity (PSV) cm/sec ----- Right CCA: 37.6 ----- Right ICA: 156.9 ----- Right ECA: 54.0 ICA/CCA ratio: 4.2 RIGHT: End Diastole cm/sec ----- Right CCA: 6.9 ----- Right ICA: 32.7 ----- Right ECA: 7.8 LEFT: Peak Systolic Velocity (PSV) cm/sec ----- Left CCA: 63.3 ----- Left ICA: 88.6 ----- Left ECA: 44.2 ICA/CCA ratio: 1.4 LEFT: End Diastole cm/sec ----- Left CCA: 11.7 ----- Left ICA: 14.9 ----- Left ECA: 0.0 VERTEBRALS (direction of flow): Right Vertebral: Antegrade Left Vertebral: Antegrade Rhythm: Normal *Difficult and limited exam due to short neck, tortuous vessels, and high bifurcation. Elevated veloc ity within right ICA. Right ICA/CCA ratio was 4.2. Plaque seen within bilateral carotid bifurcations. IMPRESSION: 1. Bilateral atheromatous plaquing. This is contributing to moderate right internal carotid artery st enosis between 50 and 69%. Criteria for Assigning % of Stenosis / Diameter reduction (Estimation based on the indirect measurements of the internal carotid artery velocities (ICA PSV). 1. Normal (no stenosis)=ICA PSV < 125 cm/s: ratio < 2.0: ICA EDV<40 cm/s. 2. Less than 50% stenosis=ICA PSV < 125 cm/s: ratio < 2.0: ICA EDV<40 cm/s. 3. 50 to 69% stenosis=ICA PSV of 125 to 230 cm/s: ration 2.0 ? 4.0: ICA EDV 40-100 cm/s. 4. Greater than 70% stenosis to near occlusion= ICA PSV > 230 cm/s: ratio > 4.0: ICA EDV > 100 cm/s. 5. Near occlusion= ICA PSV velocities may be low or undetectable: variable ratio and ICA EDV. 6. Total occlusion=unable to detect flow.
[2020-06-29] MEDS: GABAPENTIN 300 MG CAP PO SCH (21:52)
[2020-06-29] MEDS: traMADol 50 MG TAB PO PRN (21:52)
[2020-06-29] MEDS: amLODIPine 10 MG TAB PO SCH (21:52)
[2020-06-30] MEDS: traMADol 50 MG TAB PO PRN (05:15)
[2020-06-30] MEDS: SODIUM CHLORIDE 0.9% 1,000 ML IV SCH ×2 (05:15→12:04)
[2020-06-30] MEDS: ASPIRIN 81 MG PO SCH (08:56)
[2020-06-30] MEDS: atenoloL 50 MG TAB PO SCH (08:59)
[2020-06-30] MEDS: CHLORTHALIDONE 25 MG TAB PO SCH (09:00)
[2020-06-30] MEDS: ISOSORBIDE MONONITRATE ER 30 MG TAB.ER.24H PO SCH (09:00)
[2020-06-30] MEDS: ASPIRIN 325 MG TAB PO SCH (09:00)
[2020-06-30] MEDS: FUROSEMIDE 40 MG TAB PO SCH (09:00)
[2020-06-30] MEDS: FLUoxetine HCL 20 MG CAP PO SCH (09:00)
[2020-06-30] MEDS: ATORVASTATIN 40 MG TAB PO SCH (09:00)
[2020-06-30] MEDS: amLODIPine 10 MG TAB PO SCH ×2 (09:00→20:35)
[2020-06-30] MEDS: minoxidiL 2.5 MG TAB PO SCH (09:01)
[2020-06-30 09:05] LABS: Chol/HDL Ratio 3.42; LDL Cholesterol,Calculated 93.8 mg/dL (0.0-131.0); VLDL Calculation 15.2 mg/dL (5.00-40.00)
[2020-06-30] MEDS: LIDOCAINE 2% INJ 20 MG/ML (20 ML MDV) SQ STA ×2 (09:40→09:42)
--- NOTE | 2020-06-30 09:57 | P.CNOR ---
History of Present Illness - [facility] Consult date: 06/30/20 Consult reason: joint pain (Left wrist pain and swelling.) History of present illness: This is a pleasant 70-year-old female with significant confusion. She was admitted last evening for possible CVA. She was complaining of some left wrist pain. She states that she has had multiple falls recently and that her wrist began hurting after a fall. However, there is also a report that she has intermittent wrist pain. The patient is a poor historian. Her story today is that she thinks she fell down the stairs and had wrist pain after the incident. Past Medical History Past Medical History: Asthma, Heart Failure, COPD, CVA/TIA, GERD/Reflux, Hyperlipidemia, Hypertension, Memory Impairment, Osteoarthritis (OA), Pneumonia Additional Past Medical History / Comment(s): CVA with L sided weakness/memory impairment, chronic anemia, vitamin D deficiency, gout bilateral feet, chronic lower extremity pain especially L side, acute renal disease. History of Any Multi-Drug Resistant Organisms: None Reported Past Surgical History: Heart Catheterization, Hysterectomy, Tonsillectomy Additional Past Surgical History / Comment(s): Colonoscopy Past Anesthesia/Blood Transfusion Reactions: No Reported Reaction Past Psychological History: Depression Additional Psychological History / Comment(s): Pt resides alone. She has a cane and a walker but states she is not using them. She no longer drives, she uses the bus or gets someone to drive her to appts. Smoking Status: Never smoker Past Alcohol Use History: None Reported Past Drug Use History: None Reported - Past Family History Father History Unknown: Yes Family Medical History: No Reported History Mother History Unknown: Yes Family Medical History: No Reported History Additional Family Medical History / Comment(s): Pt states she does not want to discuss parents past medical history. Medications and Allergies Home Medications Medication Instructions Recorded Confirmed Type FLUoxetine HCL [Fluoxetine HCl] 20 mg PO DAILY 07/24/16 06/29/20 History Furosemide 40 mg PO DAILY 07/24/16 06/29/20 History amLODIPine BESYLATE [Amlodipine 10 mg PO BID 07/24/16 06/29/20 History Besylate] Aspirin EC [Ecotrin Low Dose] 81 mg PO DAILY 07/08/17 06/29/20 History Gabapentin [Neurontin] 300 mg PO HS 07/08/17 06/29/20 History Isosorbide Mononitrate ER [Imdur] 30 mg PO DAILY 07/08/17 06/29/20 History Atorvastatin [Lipitor] 40 mg PO DAILY 05/11/18 06/29/20 History Albuterol Inhaler [Ventolin Hfa 2 puff INHALATION RT-QID PRN 06/29/20 06/29/20 History Inhaler] Atenolol [Tenormin] 100 mg PO DAILY 06/29/20 06/29/20 History Chlorthalidone [Hygroton] 25 mg PO DAILY 06/29/20 06/29/20 History minoxidiL [Minoxidil] 2.5 mg PO DAILY 06/29/20 06/29/20 History traMADol HCL 50 mg PO QID PRN 06/29/20 06/29/20 History hydrALAZINE HCL [Apresoline] 100 mg PO TID 06/30/20 06/30/20 History Allergies Allergy/AdvReac Type Severity Reaction Status Date / Time allopurinol [From Zyloprim] Allergy Unknown Verified 06/29/20 15:27 codeine Allergy Unknown Verified 06/29/20 15:27 Physical Examination This is a pleasant 70-year-old female in no acute distress. She is alert but co nfused. Exam of the left upper extremity reveals mild soft tissue swelling about the dorsum of the wrist. There is point tenderness with palpation about the mid carpal region. She has mild tenderness over the distal radius and ulna as well. She has limited range of motion of the wrist secondary to pain and swelling. She has full finger motion. She has full elbow motion without difficulty. Neurovascular status to the upper extremity is intact. Her IV is in her left wrist. Results X-rays of the left wrist reveal no obvious displaced fractures. There is a cor tical irregularity about the volar distal radius. There is also a cortical irregularity to the dorsal carpal region consistent with a dorsal chip fracture. - Labs Labs: Abnormal Lab Results - Last 24 Hours (Table) 06/29/20 06/29/20 06/29/20 Range/Units 16:21 16:21 16:21 WBC 19.1 H (3.8-10.6) k/uL Hgb 10.0 L (11.4-16.0) gm/dL Hct 30.1 L (34.0-46.0) % MCV 78.1 L (80.0-100.0) fL Neutrophils # 17.4 H (1.3-7.7) k/uL Lymphocytes # 0.6 L (1.0-4.8) k/uL APTT 19.2 L (22.0-30.0) sec BUN 56 H (7-17) mg/dL Creatinine 2.05 H (0.52-1.04) mg/dL Glucose 117 H (74-99) mg/dL C-Reactive Protein 265.1 H (<10.0) mg/L H & H 06/29/20 Range/Units 16:21 Hgb 10.0 L (11.4-16.0) gm/dL Hct 30.1 L (34.0-46.0) % Coagulation 06/29/20 Range/Units 16:21 INR 1.0 (<1.2) Result Diagrams: 06/29/20 16:21 06/29/20 16:21 Assessment and Plan (1) Avulsion fracture of left wrist Current Visit: Yes Status: Acute Code(s): S62.102A - FRACTURE OF UNSP CARPAL BONE, LEFT WRIST, INIT FOR CLOS FX SNOMED Code(s): 818659012 (2) Arthralgia Current Visit: Yes Status: Acute Code(s): M25.50 - PAIN IN UNSPECIFIED JOINT SNOMED Code(s): 12708349 (3) Altered mental status Current Visit: No Status: Acute Code(s): R41.82 - ALTERED MENTAL STATUS, UNSPECIFIED SNOMED Code(s): 794344120 (4) Fall Current Visit: No Status: Acute Code(s): W19.XXXA - UNSPECIFIED FALL, INITIAL ENCOUNTER SNOMED Code(s): 0620970 Plan: The clinical and neck she findings are discussed with the patient and her nurse. There are x-ray findings consistent with a dorsal chip fracture and possibly a volar fracture of the distal radius. I cannot completely exclude inflammatory or infectious process. Her white blood cell count is 19.1 and CRP is significantly elevated. I will aspirate the wrist and send any fluid obtained to microbiology for assessment. For now we'll treat her in a brace for immobilization. We'll continue to follow. Procedure: The left wrist his prepped and 3 mL of 2% lidocaine is administered for local anesthesia. Aspiration of the wrist is attempted. I obtained a very small amount of bloody fluid. This fluid is sent to lab for culture. I did not get enough fluid to send for cell count or crystal identification. The patient tolerated the aspiration well.
[2020-06-30] MEDS: hydrALAZINE HCL 50 MG TAB PO SCH ×2 (13:10→15:38)
--- NOTE | 2020-06-30 14:47 | P.CN ---
Psychiatric Consult - . Consult date: 06/30/20 Consult:: IDENTIFYING DATA: This patient is a 70-year-old -Mexican female who presents to the emergency department for possible stroke. HISTORY OF PRESENT ILLNESS: The patient presented to the hospital and was an unclear historian but did express pain in her left wrist. Patient has been noted to have multiple falls recently and has been noted that it is possible that she fell down the stairs. Psychiatry consult was placed for "psychiatry evaluation." In regards to mood, patient is not reporting any significant symptoms of depression at this time. She denies any anhedonia, low mood, crying episodes, or suicidal or homicidal ideations, intent or plan. Patient denies any auditory, visual hallucinations and denies any paranoia or delusions. Patient terminated the interview and she expressed significant pain in her wrist and did not want to be asked any more questions. PAST PSYCHIATRIC HISTORY: Patient has a a history of depression. Her whole medications include fluoxetine Patient denies any previous psychiatric hospitali zations. Patient is unable to verbalize if she has outpatient psychiatric follow-up. Patient denies any history of suicide attempts in the past. PAST MEDICAL HISTORY: Asthma, heart failure, COPD, CVA/CAD, GERD, hyperlipidemia, hypertension, memory impairment, osteoarthritis, pneumonia. ALLERGIES: as per EMR. CHEMICAL DEPENDENCY HISTORY: Unable to obtain FAMILY PSYCHIATRIC/SUBSTANCE USE HISTORY: denies SOCIAL HISTORY: Patient was born and raised in her urine. MENTAL STATUS EXAM: General Appearance: Patient appears to be stated age is alert, pleasant, and uncooperative. Patient appears to have fair hygiene and grooming wearing hospital gown with poor eye contact. Behavior: Psychomotor activity is elevated as patient is expressing significant pain in her wrist. Speech: Patient's speech is fluent and nonpressured. Mood/Affect: Patient reports their mood is "doing fine", affect is in pain and slightly irritable Suicidality/Homicidality: Patient denies having any suicidal or homicidal ideation intent or plan. Perceptions: Patient denies any visual hallucinations and denies any auditory hallucinations Though content/process: There is no evidence of any delusional thought content and thought process is linear. Memory and concentration: AOX3, grossly intact for the purposes of this session. Would not participate in assessment of concentration. Judgment and insight: Unable to determine at this time as patient refused to participate in psychiatric evaluation. IMPRESSIONS: Major depressive disorder, as per history Suspect major Neurocognitive disorder PLAN: -At this time patient DOES NOT meet criteria for inpatient psychiatric admission. -Delirium precautions recommended with patient including - avoiding use of narcotics and CHIEF OF [employer]PERATIONS sedatives, limit anticholinergic medications when possible, frequent re-orientation, minimize use of restraints, open window shades during the day and close them at night -Recommend pain management as that may be contributing to patient's presentation of irritability and disorganization. -Unable to determine patient's capacity at this time as she is refusing to participate in the psychiatric interview -Would recommend the following medication changes/additions: Continue fluoxetine 20 mg by mouth daily for depression -Psychiatry will sign off at this point, please contact with any questions or any further psychiatric concerns. 06/30/20 14:38
--- NOTE | 2020-06-30 15:02 | P.CNNES ---
History of Present Illness Consult date: 06/30/20 Requesting physician: Mike Ahumada Reason for Consult: Ataxia episode History of Present Illness: Patient is a 70-year-old female, who came to the hospital yesterday at 3:20 PM for possible stroke. Patient not able to provide any history. I had to talk patient's [id number] An, who provided most of the history. Also spoke to patient's son. Patient was seen at her primary care physician's office yesterday, for left hand weakness, pain, not moving her left arm as well. Also complaining of left leg pain Patient was referred to the hospital to rule out stroke. Patient lives by herself with a cat. Her children does check on her periodically. Patient had suffered from a fall 2-3 weeks ago, when she was on a step stool, trying to hang a curtain when she lost balance and fell. Her left wrist has been hurting since then. Patient's [id number] states that she has been complaining of leg pains for some time. Some days she is doing better, other days she sore, hurting all over, and can barely walk CT head showed no acute intercranial process. Old left parietal infarct. Chest x-ray showed no acute pulmonary process. EKG is normal sinus rhythm. Carotid Doppler showed bilateral atheromatous plaquing. This is contributing to moderate right ICA stenosis between 50-69%. Extraocular the wrists showed a scapholunate space appears less prominent than in comparison study. This could be projectional. Blood test shows WBC 19.1 hemoglobin 10.0, platelets 278 INR 1.0 electrolytes normal, BUN 56, creatinine 2.05 hepatic panel normal. Total cholesterol 154, LDL 93.8, HDL 45, triglycerides 76.0. CPK 74. Patient's last vitamin B12 344 on 07/02/2019, TSH 2.080 normal. Hemoglobin A1c 6.1 in 2018. Patient denies any tobacco or alcohol use. No diabetes. Patient has history of a stroke about 10 years ago, which affected her right side. Patient's son states that she does forget stuff, forgets and misplace his money. Sometimes she forgets name. One of the daughter feels that patient may have some underlying cognitive impairment. Review of Systems Patient complains of left hand pain, left ankle pain, mild right ankle pain. Patient does complain of headache off and on since her stroke. Patient is hard of hearing. Denies hoarseness or throat dysphagia. Denies any chest pain shortness of breath wheezing or cough. Denies abdominal pain. All other review of systems unremarkable. Patient's family denies any history of loss of consciousness, seizures in the past. Patient did not have any tongue bite or loss of control of urine in the last few weeks. No history of seizures. Past Medical History Past Medical History: Asthma, Heart Failure, COPD, CVA/TIA, GERD/Reflux, Hyperlipidemia, Hypertension, Memory Impairment, Osteoarthritis (OA), Pneumonia Additional Past Medical History / Comment(s): CVA with L sided weakness/memory impairment, chronic anemia, vitamin D deficiency, gout bilateral feet, chronic lower extremity pain especially L side, acute renal disease. History of Any Multi-Drug Resistant Organisms: None Reported Past Surgical History: Heart Catheterization, Hysterectomy, Tonsillectomy Additional Past Surgical History / Comment(s): Colonoscopy Past Anesthesia/Blood Transfusion Reactions: No Reported Reaction Past Psychological History: Depression Additional Psychological History / Comment(s): Pt resides alone. She has a cane and a walker but states she is not using them. She no longer drives, she uses the bus or gets someone to drive her to appts. Smoking Status: Never smoker Past Alcohol Use History: None Reported Past Drug Use History: None Reported - Past Family History Father History Unknown: Yes Family Medical History: No Reported History Mother History Unknown: Yes Family Medical History: No Reported History Additional Family Medical History / Comment(s): Pt states she does not want to discuss parents past medical history. Medications and Allergies Home Medications Medication Instructions Recorded Confirmed Type FLUoxetine HCL [Fluoxetine HCl] 20 mg PO DAILY 07/24/16 06/29/20 History Furosemide 40 mg PO DAILY 07/24/16 06/29/20 History amLODIPine BESYLATE [Amlodipine 10 mg PO BID 07/24/16 06/29/20 History Besylate] Aspirin EC [Ecotrin Low Dose] 81 mg PO DAILY 07/08/17 06/29/20 History Gabapentin [Neurontin] 300 mg PO HS 07/08/17 06/29/20 History Isosorbide Mononitrate ER [Imdur] 30 mg PO DAILY 07/08/17 06/29/20 History Atorvastatin [Lipitor] 40 mg PO DAILY 05/11/18 06/29/20 History Albuterol Inhaler [Ventolin Hfa 2 puff INHALATION RT-QID PRN 06/29/20 06/29/20 History Inhaler] Atenolol [Tenormin] 100 mg PO DAILY 06/29/20 06/29/20 History Chlorthalidone [Hygroton] 25 mg PO DAILY 06/29/20 06/29/20 History minoxidiL [Minoxidil] 2.5 mg PO DAILY 06/29/20 06/29/20 History traMADol HCL 50 mg PO QID PRN 06/29/20 06/29/20 History hydrALAZINE HCL [Apresoline] 100 mg PO TID 06/30/20 06/30/20 History Allergies Allergy/AdvReac Type Severity Reaction Status Date / Time allopurinol [From Zyloprim] Allergy Unknown Verified 06/29/20 15:27 codeine Allergy Unknown Verified 06/29/20 15:27 Physical Examination - Vital Signs Vital Signs: Vital Signs Temp Pulse Pulse Resp BP BP Pulse Ox 06/30/20 06:56 99 F 92 17 155/74 100 06/30/20 03:06 16 06/30/20 00:58 99.0 F 93 16 145/74 100 06/29/20 21:51 89 145/78 06/29/20 20:06 98.4 F 92 18 167/86 100 06/29/20 19:58 98.1 F 81 16 170/88 98 06/29/20 17:50 98.1 F 84 18 185/76 100 06/29/20 16:30 80 16 178/77 96 06/29/20 15:22 98.4 F 88 16 141/69 95 Intake and Output 06/29/20 06/30/20 06/30/20 22:59 06:59 14:59 Other: Voiding Method Bedside Commode Bedside Commode # Voids 1 3 1 Weight 65.771 kg On examination patient is an elderly Afro-L[place] female, laying comfortably in the bed. Patient is very pleasant, knows that she is in [facility] and name of the current president. When I asked about the date, she looked at the orientation board in front and told it is 06/30/2020. Speech and language functions are normal. Attention and concentration is intact but fund of knowledge is somewhat poor. On cranial nerve examination pupils are round and reactive to light, visual cox are full on confrontation, extraocular muscles are intact with no nystagmus. Face is symmetric, tongue protrudes on midline. Palatal elevation is normal. Hearing is moderately decreased, shoulder shrug normal. On muscle strength testing there is no pronator drift on the right. Patient has significant pain in the left arm therefore not able to perform the task. The strength is normal in the right arm and right leg. Her right ankle hurts mild to moderately. But her left ankle is severely tender. Therefore left leg could not be tested in detail. Reflexes are normal on the right and plantars downgoing bilaterally. Sensory touch is equal with no neglect. No ataxia for [id number] testing on the right, cannot check on the left because of pain. Tone and bulk of muscles normal on the right side. Gait deferred. No obvious bruit, S1 and S2 audible. Abdomen soft nontender. Chest is clear. Results - Laboratory Findings CBC and BMP: 06/29/20 16:21 06/29/20 16:21 Abnormal Lab Findings: Abnormal Labs 06/29/20 06/29/20 06/29/20 16:21 16:21 16:21 WBC 19.1 H Hgb 10.0 L Hct 30.1 L MCV 78.1 L Neutrophils # 17.4 H Lymphocytes # 0.6 L APTT 19.2 L BUN 56 H Creatinine 2.05 H Glucose 117 H C-Reactive Protein 265.1 H Assessment and Plan Assessment: * Left hand weakness, guarding, status post fall 2-3 weeks ago. Patient has dorsal chip fracture and possibly a volar fracture of the distal radius as per orthopedic surgery. * Left ankle pain with guarding, rule out ankle fracture. Patient's symptoms in the left arm and leg is likely mechanical due to pain/myofascial trauma resulting from a fall. No definitive evidence of acute stroke. * Acute on chronic renal insufficiency * History of CVA with no significant residual deficits. Plan: * X-ray of the left ankle, rule out fracture. * Carotid Doppler showed bilateral atheromatous plaquing. This is contributing to moderate right ICA stenosis between 50 and 69%. Continue aspirin and statin. * We will check rheumatoid factor, ESR, uric acid, SANTHOSH, and also check B12, f olate, hemoglobin A1c, DESI, TSH and Lyme titer * We will follow.
--- NOTE | 2020-06-30 15:52 | XR ---
Bilateral ankles HISTORY: Trauma and pain 3 views of each ankle submitted There is soft tissue swelling present greater on the left than on the right. Bone mineralization, zaina nt spaces and alignment are maintained. Plantar calcaneal spurs are present. Enthesophyte present at the insertion of the Achilles tendons. Soft tissue calcifications in the distal left leg are likely v ascular. Postop changes suspected at the first digit of the left foot. IMPRESSION: Nonspecific findings described above.
--- NOTE | 2020-06-30 18:19 | PN ---
PROGRESS NOTE CHIEF COMPLAINT: Inability to walk and general weakness and debility. HISTORY OF PRESENT ILLNESS: This lady is doing fairly well, but her blood pressure dropped quite low. She went down to a systolic blood pressure of 82. IV fluids were increased and some of her antihypertensive medications will be dropped. She has not had any syncope, confusion, etc. PHYSICAL EXAMINATION: Her chest is clear. Cardiac exam is normal. Abdomen is soft, nontender. IMPRESSION: 1. General debility and inability to use lower extremities. 2. Hypertension. 3. Hypotension. PLAN: 1. Increase IV fluids. 2. Stop hydralazine. 3. Continue workup. MMODL / IJN: [id number] /
--- NOTE | 2020-06-30 18:19 | HP ---
HISTORY AND PHYSICAL CHIEF COMPLAINT: Sudden inability to walk. HISTORY OF PRESENT ILLNESS: This is another admission for this 70-year-old female. She has a history of severe and at times uncontrolled hypertension. She has had previous CVA. She also has some psychiatric problems and is has given very bizarre behavior from time to time. She is not always compliant and does not always take her medications. She was brought into the office on the day of admission by some friends or relatives after she stated that she could not walk. She did not say that she had any specific lateralizing weakness, but it seemed to be mostly in the legs and it was the same on both sides. She has had no headache, trauma, back pain, or anything else. She could not be evaluated in the office, and it was felt that she probably would need admission and she was sent to the emergency room. REVIEW OF SYSTEMS: She denies any headaches, diplopia, change in the vision or the hearing, chest pain, shortness of breath, confusion, abdominal pain, nausea, vomiting, hematemesis, melena, hematochezia, jaundice, urinary symptoms, fever, chills, etc. Past medical history, family history, and personal and social histories reveal that she is ALLERGIC TO ALLOPURINOL AND CODEINE. She is currently on: 1. Atenolol 100 mg once a day. 2. Chlorthalidone 25 once a day. 3. Updrafts with albuterol. 4. Minoxidil 2.5 once a day. 5. Ultram 50 mg q.6 hours p.r.n. 6. Fluoxetine 20 mg once a day. 7. Hydralazine 100 mg t.i.d. 8. Gabapentin 300 mg once a day. 9. Amlodipine 10 mg twice a day. 10.Furosemide 40 mg once a day. 11.Isosorbide mononitrate 30 mg once a day. 12.Atorvastatin 40 mg once a day. 13.81 mg of aspirin. The remainder of her history is unremarkable. She has never smoked. She does not drink. PHYSICAL EXAMINATION: Blood pressure 120/60, pulse of 88 and regular, respirations 16 and she is afebrile. In general she appeared to be well developed, well nourished, in no acute distress. She was awake and alert. Cognitive function was normal. Head, ears, eyes, nose, mouth and throat were normal. Carotids were normal. Neck veins were not distended. Chest was clear. Cardiac exam demonstrated normal sinus rhythm and no murmurs or extra sounds. Abdomen was soft and nontender. There were no masses or visceromegaly. Extremities were normal. Neurologically she was awake, alert and oriented. Cranial nerves were intact. Sensory motor exam seemed to be intact. She is admitted to the hospital with diagnoses: 1. Sudden onset of generalized weakness, particularly in the lower extremities, and inability to walk. 2. Hypertension. 3. History of psychosis. PLAN: 1. Bed rest. 2. IV fluids. 3. Frequent monitoring of her neurologic status and vital signs. 4. Neurology consult. 5. Psychiatry consult. MMODL / IJN: [id number] /
[2020-06-30] MEDS: GABAPENTIN 300 MG CAP PO SCH (20:20)
[2020-07-01 01:26] LABS: Uric Acid 14.4 mg/dL (2.9-7.7)
[2020-07-01 01:37] LABS: Folate, Serum 3.1 ng/mL
[2020-07-01 01:53] LABS: Hemoglobin A1C 5.7 % (4.0-6.0)
[2020-07-01] MEDS: SODIUM CHLORIDE 0.9% 1,000 ML IV SCH ×3 (03:53→23:41)
[2020-07-01] MEDS: traMADol 50 MG TAB PO PRN (05:14)
[2020-07-01] MEDS: ASPIRIN 81 MG PO SCH (08:19)
[2020-07-01] MEDS: amLODIPine 10 MG TAB PO SCH ×2 (08:19→21:04)
[2020-07-01] MEDS: atenoloL 50 MG TAB PO SCH (08:19)
[2020-07-01] MEDS: minoxidiL 2.5 MG TAB PO SCH (08:20)
[2020-07-01] MEDS: CHLORTHALIDONE 25 MG TAB PO SCH (08:22)
[2020-07-01] MEDS: ATORVASTATIN 40 MG TAB PO SCH (08:23)
[2020-07-01] MEDS: ASPIRIN 325 MG TAB PO SCH (08:23)
[2020-07-01] MEDS: FUROSEMIDE 40 MG TAB PO SCH (08:24)
[2020-07-01] MEDS: FLUoxetine HCL 20 MG CAP PO SCH (08:24)
[2020-07-01] MEDS: ISOSORBIDE MONONITRATE ER 30 MG TAB.ER.24H PO SCH (08:24)
[2020-07-01 09:32] LABS: Basophils % (A) 0 %; Eosinophils # (A) 0.1 k/uL (0-0.7); Eosinophils % (A) 1 %; HCT 25.8 % (34.0-46.0); Lymphocytes # (A) 0.8 k/uL (1.0-4.8); Lymphocytes % (A) 6 %; MCH 25.7 pg (25.0-35.0); MCHC 32.7 g/dL (31.0-37.0); MCV 78.8 fL (80.0-100.0); Mean Platelet Volume 7.1; Monocytes # (A) 0.6 k/uL (0-1.0); Monocytes % (A) 5 %; Neutrophils # (A) 11.9 k/uL (1.3-7.7); Neutrophils % (A) 88 %; Platelet Count 294 k/uL (150-450); RBC 3.27 m/uL (3.80-5.40); RDW 15.1 % (11.5-15.5); WBC 13.5 k/uL (3.8-10.6)
[2020-07-01 09:37] LABS: HGB 8.4 gm/dL (11.4-16.0)
[2020-07-01 11:32] LABS: African American GFR (CKD) 20.5 (60.0-200.0); Albumin 3.2 g/dL (3.80-4.90); Albumin/Globulin Ratio 1.45 (1.60-3.17); Anion Gap 15.9 mmol/L (4.00-12.00); BUN/Creat Ratio 23.85 Ratio (12.00-20.00); Carbon Dioxide 16.1 mmol/L (21.6-31.8); Globulin 2.2 g/dL (1.6-3.3); Non-African American GFR(CKD) 17.7 (60.0-200.0); Potassium 3.4 mmol/L (3.5-5.5); Total Bilirubin 0.2 mg/dL (0.3-1.2); Total Protein 5.4 g/dL (6.2-8.2)
--- NOTE | 2020-07-01 17:36 | XR ---
EXAMINATION TYPE: XR chest 2V DATE OF EXAM: 07/01/2020 COMPARISON: 06/29/2020 INDICATION: Short of breath paralysis anemia TECHNIQUE: Frontal and lateral views of the chest are obtained. FINDINGS: The heart size is normal. The pulmonary vasculature is normal. The lungs are clear. Hyperinflation is present. IMPRESSION: 1. No acute pulmonary process.
--- NOTE | 2020-07-01 18:38 | PN ---
PROGRESS NOTE CHIEF COMPLAINT: Weakness in the lower extremities and inability to ambulate. HISTORY OF PRESENT ILLNESS: This lady is doing fairly well. She has been seen by Psychiatry and they do not feel that her mental health problems have anything to do with her neurologic complaints. She is doing well and may be going to rehab. This is being worked on. It is also noted that her BUN is 62 with a creatinine of 2.6 and GFR of 20.5. Hemoglobin is 8.4. PHYSICAL EXAMINATION: Vital signs are normal. The chest is clear. Cardiac exam is normal. Abdomen is soft, nontender. IMPRESSION: 1. Paralysis of the lower extremities, etiology unknown. 2. Acute and chronic kidney disease. 3. Anemia. PLAN: The patient will be put on inpatient status and will probably go to rehab the first of the week. In the meantime, we will have her evaluated by Nephrology. MELANI / JESUS: [id number] /
--- NOTE | 2020-07-01 19:51 | P.PN ---
Subjective Progress Note Date: 07/01/20 Patient was seen for a follow-up. Patient is doing better. Able to walk with a walker. Patient's daughter Bianca was present. still with left hand pain. Objective - Vital Signs Vital signs: Vital Signs Temp 97.5 F L 07/01/20 15:00 Pulse 64 07/01/20 16:15 Resp 18 07/01/20 16:15 BP 97/58 07/01/20 15:00 Pulse Ox 100 07/01/20 15:00 Intake & Output 07/01/20 07/01/20 07/02/20 06:59 18:59 06:59 Intake Total 1200 Balance 1200 Intake: Intake, IV Titration 800 Amount Sodium Chloride 0.9% 1, 800 000 ml @ 100 mls/hr IV . Q10H [facility] Rx#:[id number] Oral 400 Other: Voiding Method Bedside Commode Bedside Commode # Voids 1 3 - Exam patient is alert and awake in no distress. Speech and language functions are n ormal. Patient is hard of hearing. Muscle strength appears normal. - Labs CBC & Chem 7: 07/01/20 08:37 07/01/20 06:35 Labs: Abnormal Lab Results - Last 24 Hours (Table) 06/30/20 06/30/20 07/01/20 Range/Units 12:00 12:00 06:35 WBC (3.8-10.6) k/uL RBC (3.80-5.40) m/uL Hgb (11.4-16.0) gm/dL Hct (34.0-46.0) % MCV (80.0-100.0) fL Neutrophils # (1.3-7.7) k/uL Lymphocytes # (1.0-4.8) k/uL ESR 83 H (0-30) mm/Hr Potassium 3.4 L (3.5-5.5) mmol/L Carbon Dioxide 16.1 L (21.6-31.8) mmol/L Anion Gap 15.90 H (4.00-12.00) mmol/L BUN 62.0 H (9.0-27.0) mg/dL Creatinine 2.6 H (0.6-1.5) mg/dL Est GFR (CKD-EPI)AfAm 20.5 L (60.0-200.0) Est GFR (CKD-EPI)NonAf 17.7 L (60.0-200.0) BUN/Creatinine Ratio 23.85 H (12.00-20.00) Ratio Uric Acid 14.4 H (2.9-7.7) mg/dL Calcium 8.0 L (8.7-10.3) mg/dL Total Bilirubin 0.2 L (0.3-1.2) mg/dL Total Protein 5.4 L (6.2-8.2) g/dL Albumin 3.20 L (3.80-4.90) g/dL Albumin/Globulin Ratio 1.45 L (1.60-3.17) g/dL Rheumatoid Factor 18 H (0-15) IU/mL 07/01/20 Range/Units 08:37 WBC 13.5 H (3.8-10.6) k/uL RBC 3.27 L (3.80-5.40) m/uL Hgb 8.4 L D (11.4-16.0) gm/dL Hct 25.8 L (34.0-46.0) % MCV 78.8 L (80.0-100.0) fL Neutrophils # 11.9 H (1.3-7.7) k/uL Lymphocytes # 0.8 L (1.0-4.8) k/uL ESR (0-30) mm/Hr Potassium (3.5-5.5) mmol/L Carbon Dioxide (21.6-31.8) mmol/L Anion Gap (4.00-12.00) mmol/L BUN (9.0-27.0) mg/dL Creatinine (0.6-1.5) mg/dL Est GFR (CKD-EPI)AfAm (60.0-200.0) Est GFR (CKD-EPI)NonAf (60.0-200.0) BUN/Creatinine Ratio (12.00-20.00) Ratio Uric Acid (2.9-7.7) mg/dL Calcium (8.7-10.3) mg/dL Total Bilirubin (0.3-1.2) mg/dL Total Protein (6.2-8.2) g/dL Albumin (3.80-4.90) g/dL Albumin/Globulin Ratio (1.60-3.17) g/dL Rheumatoid Factor (0-15) IU/mL Microbiology - Last 24 Hours (Table) 06/30/20 09:38 Gram Stain - Preliminary Aspirate Body Fluid Culture - Preliminary Assessment and Plan Assessment: * Left hand weakness, guarding, status post fall 2-3 weeks ago. Patient has dorsal chip fracture and possibly a volar fracture of the distal radius as per orthopedic surgery. * Polyarthritis, uncertain if it represents gout, rheumatoid arthritis or osteoarthritis. * Acute on chronic renal insufficiency * History of CVA with no significant residual deficits. Plan: * No clinical evidence of CVA. Continue aspirin and statins. * X-ray of the ankles revealed nonspecific findings, no fracture. * Carotid Doppler showed bilateral atheromatous plaquing. This is contributing to moderate right ICA stenosis between 50 and 69%. Consider repeating carotid Doppler in 6 months to a year for a follow-up. * Rheumatoid factor elevated 18 (0-15), ESR 83, uric acid 14.4 (2.9-7.7), SANTHOSH negative, and also check B12 380, folate 3.1, hemoglobin A1c 5.7, DESI pending, TSH normal 2.16, and Lyme titer negative * Suggest rheumatology consultation to evaluate for rheumatoid arthritis versus gouty arthritis versus osteoarthritis. * Neurologically no other for Indicated. * We will start folate replacement for folate deficiency. * Neurology will sign off.
[2020-07-01] MEDS: GABAPENTIN 300 MG CAP PO SCH (21:07)
[2020-07-01] MEDS: FOLIC ACID 1 MG TAB PO SCH (21:10)
[2020-07-02 06:39] LABS: Basophils % (A) 0 %; Eosinophils # (A) 0.1 k/uL (0-0.7); Eosinophils % (A) 2 %; HCT 25.2 % (34.0-46.0); Lymphocytes # (A) 0.5 k/uL (1.0-4.8); Lymphocytes % (A) 6 %; MCHC 31.7 g/dL (31.0-37.0); MCV 78.8 fL (80.0-100.0); Mean Platelet Volume 7.3; Monocytes # (A) 0.5 k/uL (0-1.0); Monocytes % (A) 6 %; Neutrophils # (A) 7.2 k/uL (1.3-7.7); Neutrophils % (A) 85 %; Platelet Count 290 k/uL (150-450); RDW 15.2 % (11.5-15.5); WBC 8.5 k/uL (3.8-10.6)
--- NOTE | 2020-07-02 08:41 | P.NPCON ---
History of Present Illness - Reason for Consult acute renal failure - Chief Complaint Acute kidney injury - History of Present Illness This is a 70 year old female known to us with chronic kidney disease, came in with history of fall a few days ago and a fracture of the distal radius. She is now seen with acute kidney injury. Her baseline creatinine is 1.48 as of 07/08/2019 admission creatinine was 2 and further has gone up to 2.6. In the past her creatinine has ranged up to 2 CK D secondary to likely nephrosclerosis and ultrasound of the kidney in 2013 when she was initially seen showed a right kidney at 8.6 and the left kidney at 9.3 cm. There are rare cysts seen. Her past history significant for history of heart failure, mild dementia, COPD, history of CVA in the past with left-sided weakness. Patient denies any nausea vomiting diarrhea appetite is poor Her vital signs shows slightly low blood pressure,pressure documented 91/50 early this morning, and was a 2/43 on 06/30/2020 Past Medical History Past Medical History: Asthma, Heart Failure, COPD, CVA/TIA, GERD/Reflux, Hyperlipidemia, Hypertension, Memory Impairment, Osteoarthritis (OA), Pneumonia Additional Past Medical History / Comment(s): CVA with L sided weakness/memory impairment, chronic anemia, vitamin D deficiency, gout bilateral feet, chronic lower extremity pain especially L side, acute renal disease. History of Any Multi-Drug Resistant Organisms: None Reported Past Surgical History: Heart Catheterization, Hysterectomy, Tonsillectomy Additional Past Surgical History / Comment(s): Colonoscopy Past Anesthesia/Blood Transfusion Reactions: No Reported Reaction Past Psychological History: Depression Additional Psychological History / Comment(s): Pt resides alone. She has a cane and a walker but states she is not using them. She no longer drives, she uses the bus or gets someone to drive her to [employer]. Smoking Status: Never smoker Past Alcohol Use History: None Reported Past Drug Use History: None Reported - Past Family History Father History Unknown: Yes Family Medical History: No Reported History Mother History Unknown: Yes Family Medical History: No Reported History Additional Family Medical History / Comment(s): Pt states she does not want to discuss parents past medical history. Medications and Allergies Home Medications Medication Instructions Recorded Confirmed Type FLUoxetine HCL [Fluoxetine HCl] 20 mg PO DAILY 07/24/16 06/29/20 History Furosemide 40 mg PO DAILY 07/24/16 06/29/20 History amLODIPine BESYLATE [Amlodipine 10 mg PO BID 07/24/16 06/29/20 History Besylate] Aspirin EC [Ecotrin Low Dose] 81 mg PO DAILY 07/08/17 06/29/20 History Gabapentin [Neurontin] 300 mg PO HS 07/08/17 06/29/20 History Isosorbide Mononitrate ER [Imdur] 30 mg PO DAILY 07/08/17 06/29/20 History Atorvastatin [Lipitor] 40 mg PO DAILY 05/11/18 06/29/20 History Albuterol Inhaler [Ventolin Hfa 2 puff INHALATION RT-QID PRN 06/29/20 06/29/20 History Inhaler] Atenolol [Tenormin] 100 mg PO DAILY 06/29/20 06/29/20 History Chlorthalidone [Hygroton] 25 mg PO DAILY 06/29/20 06/29/20 History minoxidiL [Minoxidil] 2.5 mg PO DAILY 06/29/20 06/29/20 History traMADol HCL 50 mg PO QID PRN 06/29/20 06/29/20 History hydrALAZINE HCL [Apresoline] 100 mg PO TID 06/30/20 06/30/20 History Allergies Allergy/AdvReac Type Severity Reaction Status Date / Time allopurinol [From Zyloprim] Allergy Unknown Verified 06/29/20 15:27 codeine Allergy Unknown Verified 06/29/20 15:27 Physical Exam Vitals: Vital Signs Temp Pulse Resp BP BP Pulse Ox 07/02/20 07:00 98.5 F 78 18 135/66 100 07/02/20 00:43 98.2 F 72 16 91/50 100 07/02/20 00:00 68 18 07/01/20 19:44 97.4 F L 68 18 102/56 07/01/20 16:15 64 18 07/01/20 15:00 97.5 F L 64 18 97/58 07/01/20 12:53 97.9 F 16 117/82 91 L Intake and Output 07/01/20 07/02/20 07/02/20 22:59 06:59 14:59 Other: Voiding Method Bedside Commode Bedside Commode # Voids 1 1 On examination she seems to awake alert oriented HEENT exam no JVP neck is supple no facial asymmetry Lungs are clear to auscultation good air entry bilaterally Heart sounds are unremarkable for any murmur rub gallop Abdomen soft nontender no organomegaly ascites masses Extremity exam was minimal edema more on the left than the right Neurologically awake alert oriented Moves all her extremities but is in pain in her left wrist Results - Lab Results Most recent lab results Calcium 8.0 mg/dL (8.7-10.3) L 07/01/20 06:35 07/02/20 05:45 07/01/20 06:35 Assessment and Plan Plan: Impression 1. Acute kidney injury likely from low blood pressure 2. Chronic kidney disease stage III B, Baseline creatinine 1.4 on 07/08/2019, GFR was 41 mL, etiology is nephrosclerosis 3. Fall 2 weeks ago with supposedly a distal radial fracture per orthopedics 4. Anemia hemoglobin is 8 likely from chronic kidney disease rule out iron deficiency 5. Low blood pressure currently on multiple medications 6. Mild degree of non-gap and gap acidosis from acute kidney injury and chronic kidney disease. 7. History of CVA remote, less side with very little residual 8. History of dementia mild Recommendation 1. Will reduce her atenolol from 100 mg to 50 kg. 2. Hold blood pressure medications for blood pressure less than 120s systolic. 3. Check iron saturation 4. Monitor labs including hemoglobin and renal profile Thank you for this consultation and we'll continue to follow
[2020-07-02] MEDS: SODIUM CHLORIDE 0.9% 1,000 ML IV SCH ×2 (08:44→21:54)
[2020-07-02] MEDS: amLODIPine 10 MG TAB PO SCH ×2 (08:44→21:54)
[2020-07-02] MEDS: ASPIRIN 325 MG TAB PO SCH (08:45)
[2020-07-02] MEDS: ISOSORBIDE MONONITRATE ER 30 MG TAB.ER.24H PO SCH (08:45)
[2020-07-02] MEDS: ATORVASTATIN 40 MG TAB PO SCH (08:45)
[2020-07-02] MEDS: ASPIRIN 81 MG PO SCH (08:45)
[2020-07-02] MEDS: CHLORTHALIDONE 25 MG TAB PO SCH (08:45)
[2020-07-02] MEDS: FUROSEMIDE 40 MG TAB PO SCH (08:45)
[2020-07-02] MEDS: atenoloL 50 MG TAB PO SCH (08:45)
[2020-07-02] MEDS: FLUoxetine HCL 20 MG CAP PO SCH (08:45)
[2020-07-02] MEDS: FOLIC ACID 1 MG TAB PO SCH (08:45)
[2020-07-02] MEDS: traMADol 50 MG TAB PO PRN (08:52)
[2020-07-02 09:48] LABS: ALT <8 U/L (8-44); AST 12 U/L (13-35); African American GFR (CKD) 17.3 (60.0-200.0); Albumin/Globulin Ratio 1.41 (1.60-3.17); Alkaline Phosphatase 55 U/L (41-126); BUN/Creat Ratio 23.33 Ratio (12.00-20.00); Calcium 8.3 mg/dL (8.7-10.3); Carbon Dioxide 20.5 mmol/L (21.6-31.8); Chloride 107 mmol/L (96-109); Globulin 2.2 g/dL (1.6-3.3); Glucose 92 mg/dL (70-110); Non-African American GFR(CKD) 14.9 (60.0-200.0); Potassium 3.4 mmol/L (3.5-5.5); Sodium 139 mmol/L (135-145); Total Bilirubin 0.3 mg/dL (0.3-1.2); Total Protein 5.3 g/dL (6.2-8.2)
--- NOTE | 2020-07-02 10:54 | P.PN ---
Subjective Progress Note Date: 07/02/20 Principal diagnosis: Left wrist pain. Bilateral ankle pain. History of gout. Mental status changes. This is a pleasant 70-year-old female with significant confusion. She was admit ike on 07/01/2020 for possible CVA. She was complaining of some left wrist pain. She states that she has had multiple falls recently and that her wrist began hurting after a fall. However, there is also a report that she has intermittent wrist pain. The patient is a poor historian. X-rays of bilateral ankles reveal no acute bony abnormality. X-rays of the left wrist reveal a possible dorsal chip fracture. The patient's serum uric acid is 14.1. She does have a history of gout. Objective - Vital Signs Vital signs: Vital Signs Temp 98.5 F 07/02/20 07:00 Pulse 78 07/02/20 08:00 Resp 18 07/02/20 08:00 BP 135/66 07/02/20 07:00 Pulse Ox 100 07/02/20 07:00 Intake & Output 07/01/20 07/02/20 07/02/20 18:59 06:59 18:59 Intake Total 1200 Balance 1200 Intake: Intake, IV Titration 800 Amount Sodium Chloride 0.9% 1, 800 000 ml @ 100 mls/hr IV . Q10H [facility] Rx#:[id number] Oral 400 Other: Voiding Method Bedside Commode Bedside Commode Bedside Commode # Voids 3 1 - Exam this is a pleasant 70-year-old female in no acute distress. She is alert and oriented to person and place. Exam of her left wrist reveals that the brace is not in place. Her swelling is slightly improved. She has slightly less tenderness to the wrist. Exam of the lower extremities reveals no obvious deformity. She has full foot and ankle motion bilaterally. She has minimal tenderness to palpation about the ankles. Neurovascular status the upper and lower extremities is intact. - Labs CBC & Chem 7: 07/02/20 05:45 07/02/20 05:45 Labs: Abnormal Lab Results - Last 24 Hours (Table) 07/01/20 07/02/20 07/02/20 Range/Units 06:35 05:45 05:45 RBC 3.20 L (3.80-5.40) m/uL Hgb 8.0 L (11.4-16.0) gm/dL Hct 25.2 L (34.0-46.0) % MCV 78.8 L (80.0-100.0) fL Lymphocytes # 0.5 L (1.0-4.8) k/uL Potassium 3.4 L 3.4 L (3.5-5.5) mmol/L Carbon Dioxide 16.1 L 20.5 L (21.6-31.8) mmol/L Anion Gap 15.90 H (4.00-12.00) mmol/L BUN 62.0 H 70.0 H (9.0-27.0) mg/dL Creatinine 2.6 H 3.0 H (0.6-1.5) mg/dL Est GFR (CKD-EPI)AfAm 20.5 L 17.3 L (60.0-200.0) Est GFR (CKD-EPI)NonAf 17.7 L 14.9 L (60.0-200.0) BUN/Creatinine Ratio 23.85 H 23.33 H (12.00-20.00) Ratio Calcium 8.0 L 8.3 L (8.7-10.3) mg/dL Total Bilirubin 0.2 L (0.3-1.2) mg/dL AST 12 L (13-35) U/L ALT <8 L (8-44) U/L Total Protein 5.4 L 5.3 L (6.2-8.2) g/dL Albumin 3.20 L 3.10 L (3.80-4.90) g/dL Albumin/Globulin Ratio 1.45 L 1.41 L (1.60-3.17) g/dL Microbiology - Last 24 Hours (Table) 06/30/20 09:38 Gram Stain - Preliminary Aspirate Body Fluid Culture - Preliminary Assessment and Plan (1) Avulsion fracture of left wrist Current Visit: Yes Status: Acute Code(s): S62.102A - FRACTURE OF UNSP CARPAL BONE, LEFT WRIST, INIT FOR CLOS FX SNOMED Code(s): 779872608 (2) Arthralgia Current Visit: Yes Status: Acute Code(s): M25.50 - PAIN IN UNSPECIFIED JOINT SNOMED Code(s): 65701970 (3) Altered mental status Current Visit: No Status: Acute Code(s): R41.82 - ALTERED MENTAL STATUS, UNSPECIFIED SNOMED Code(s): 291527027 (4) Fall Current Visit: No Status: Acute Code(s): W19.XXXA - UNSPECIFIED FALL, INITIAL ENCOUNTER SNOMED Code(s): 6235025 (5) History of acute gouty arthritis Current Visit: Yes Status: Acute Code(s): Z87.39 - PERSONAL HISTORY OF DISEASES OF THE MS SYS AND CONN TISS SNOMED Code(s): 896859889 Plan: the clinical findings are discussed with the patient and her nurse. I recommended the left wrist be braced for comfort. I also recommend treatment for acute gouty arthritis with Indocin. I will order the medication to be given if okay with medical management. We will continue to follow.
[2020-07-02] MEDS ORDERED: INDOMETHACIN 25 MG CAP PO SCH (11:00)
[2020-07-02 14:01] LABS: % Iron Saturation 18.18 (12.00-45.00)
[2020-07-02] MEDS: INDOMETHACIN 25 MG CAP PO SCH ×2 (15:44→21:54)
[2020-07-02 15:59] LABS: Creatinine,Urine Random 161.3 mg/dL; Protein/Creatinine Ratio,Urine 0.068
--- NOTE | 2020-07-02 16:17 | PN ---
PROGRESS NOTE CHIEF COMPLAINT: Paralysis in the lower extremities. HISTORY OF PRESENT ILLNESS: This lady remains about the same. She still cannot move her lower extremities well or at all. We are waiting for alf placement. PHYSICAL EXAMINATION: Chest is clear. Cardiac exam is normal. Abdomen is soft, nontender. She can hardly move her toes, feet or legs at all. IMPRESSION: 1. Sudden lower extremity paraparesis, etiology unknown. 2. Hypertension. PLAN: Await rehab placement and approval. MMODL / NICOLASAN: [id number] /
[2020-07-02] MEDS: GABAPENTIN 300 MG CAP PO SCH (21:54)
[2020-07-03] MEDS: SODIUM CHLORIDE 0.9% 1,000 ML IV SCH ×3 (03:51→23:50)
[2020-07-03] MEDS: atenoloL 50 MG TAB PO SCH (07:33)
[2020-07-03] MEDS: INDOMETHACIN 25 MG CAP PO SCH ×3 (07:33→22:43)
[2020-07-03] MEDS: ATORVASTATIN 40 MG TAB PO SCH (07:33)
[2020-07-03] MEDS: ISOSORBIDE MONONITRATE ER 30 MG TAB.ER.24H PO SCH (07:33)
[2020-07-03] MEDS: CHLORTHALIDONE 25 MG TAB PO SCH (07:33)
[2020-07-03] MEDS: amLODIPine 10 MG TAB PO SCH ×2 (07:33→22:41)
[2020-07-03] MEDS: FLUoxetine HCL 20 MG CAP PO SCH (07:34)
[2020-07-03] MEDS: ASPIRIN 325 MG TAB PO SCH (07:34)
[2020-07-03] MEDS: ASPIRIN 81 MG PO SCH (07:34)
[2020-07-03] MEDS: FOLIC ACID 1 MG TAB PO SCH (07:40)
[2020-07-03] MEDS: FUROSEMIDE 40 MG TAB PO SCH (07:40)
[2020-07-03] MEDS ORDERED: SODIUM FERRIC GLUCONAT-SUCROSE 125 MG in SODIUM CHLORIDE 0.9% 100 ML IVPB ONE (09:10)
--- NOTE | 2020-07-03 09:10 | P.PN ---
Subjective Progress Note Date: 07/03/20 Principal diagnosis: This is 70-year-old female known to us with chronic kidney disease, came in with history of fall a few days before presentation and was found to have fracture of the distal radius. She is seen with acute kidney injury, deemed to be secondary to low blood pre ssure. She has also edema possibly from minoxidil and amlodipine. Her baseline creatinine is 1.48 as of 07/08/2019, went up to 2.6, and further to 3.30. Her chronic kidney disease deemed to be secondary to nephrosclerosis CK D secondary to likely nephrosclerosis and ultrasound of the kidney in 2013 when she was initially seen showed a right kidney at 8.6 and the left kidney at 9.3 cm. There are rare cysts seen. Yesterday I discontinued her minoxidil 2.5 mg. Blood pressure remains low 103 systolic to 118/58. Creatinine has gone up to 3 as of yesterday. Urine protein to creatinine ratio is 0.06 This morning she is feeling very well and is very cheerful. Denies any complaints Her past history significant for history of heart failure, mild dementia, COPD, history of CVA in the past with left-sided weakness. Objective - Vital Signs Vital signs: Vital Signs Temp 98.5 F 07/03/20 07:00 Pulse 66 07/03/20 08:00 Resp 16 07/03/20 08:00 BP 118/58 07/03/20 07:00 Pulse Ox 100 07/03/20 07:00 Intake & Output 07/02/20 07/03/20 07/03/20 18:59 06:59 18:59 Output Total 550 Balance -550 Output: Urine 550 Other: Voiding Method Bedside Commode Bedside Commode Bedside Commode Bedpan # Voids 1 On examination is awake alert oriented cheerful HEENT exam no JVP neck is supple no facial asymmetry Lungs clear to auscultation good air entry bilaterally Heart sounds are unremarkable no murmur rub gallop Abdomen soft nontender Extremity exam was trace edema Neurologically awake alert oriented - Labs CBC & Chem 7: 07/02/20 05:45 07/02/20 05:45 Labs: Abnormal Lab Results - Last 24 Hours (Table) 07/02/20 07/02/20 Range/Units 05:45 05:45 Potassium 3.4 L (3.5-5.5) mmol/L Carbon Dioxide 20.5 L (21.6-31.8) mmol/L BUN 70.0 H (9.0-27.0) mg/dL Creatinine 3.0 H (0.6-1.5) mg/dL Est GFR (CKD-EPI)AfAm 17.3 L (60.0-200.0) Est GFR (CKD-EPI)NonAf 14.9 L (60.0-200.0) BUN/Creatinine Ratio 23.33 H (12.00-20.00) Ratio Calcium 8.3 L (8.7-10.3) mg/dL Iron 30 L (50-170) ug/dL TIBC 165 L (228-460) ug/dL AST 12 L (13-35) U/L ALT <8 L (8-44) U/L Total Protein 5.3 L (6.2-8.2) g/dL Albumin 3.10 L (3.80-4.90) g/dL Albumin/Globulin Ratio 1.41 L (1.60-3.17) g/dL Microbiology - Last 24 Hours (Table) 06/30/20 09:38 Gram Stain - Preliminary Aspirate Body Fluid Culture - Preliminary Assessment and Plan Plan: Impression 1. Acute kidney injury likely from low blood pressure here creatinine has peaked at 3 as of yesterday 2. Chronic kidney disease stage III B, Baseline creatinine 1.4 on 07/08/2019, GFR was 41 mL, etiology is nephrosclerosis. Urine protein to creatinine ratio is 0.068 3. Fall 2 weeks ago with supposedly a distal radial fracture per orthopedics. Fairly asymptomatic 4. Anemia hemoglobin is 8 likely from chronic kidney disease. 5. She has iron deficiency with a saturation of 18% dated 07/02/2020 rule out iron deficiency 5. Low blood pressure currently on multiple medications 6. Mild degree of non-gap and gap acidosis from acute kidney injury and chronic kidney disease. 7. History of CVA remote, less side with very little residual 8. History of dementia mild Recommendation 1. Check labs today. 2. Maintain blood pressure above 110 systolic Will reduce her atenolol from 100 mg to 50 kg. 3. Hold blood pressure medications for blood pressure less than 120s systolic. 4. Start Ferrlecit 125 mg 1 dose
--- NOTE | 2020-07-03 10:40 | P.PN ---
Subjective Progress Note Date: 07/03/20 Principal diagnosis: Left wrist pain. Bilateral ankle pain. History of gout. Mental status changes. This is a pleasant 70-year-old female with significant confusion. She was admit ike on 07/01/2020 for possible CVA. She was complaining of some left wrist pain. She states that she has had multiple falls recently and that her wrist began hurting after a fall. However, there is also a report that she has intermittent wrist pain. The patient is a poor historian. X-rays of bilateral ankles reveal no acute bony abnormality. X-rays of the left wrist reveal a possible dorsal chip fracture. The patient's serum uric acid is 14.1. She does have a history of gout. 07/03/2020: The patient is significantly improved today. She states her pain is much better. She was started on Indocin yesterday with medical management approval. She has no new complaints or concerns today. Vital signs are stable. Objective - Vital Signs Vital signs: Vital Signs Temp 98.5 F 07/03/20 07:00 Pulse 66 07/03/20 08:00 Resp 16 07/03/20 08:00 BP 118/58 07/03/20 07:00 Pulse Ox 100 07/03/20 07:00 Intake & Output 07/02/20 07/03/20 07/03/20 18:59 06:59 18:59 Output Total 550 Balance -550 Output: Urine 550 Other: Voiding Method Bedside Commode Bedside Commode Bedside Commode Bedpan # Voids 1 - Exam this is a pleasant 70-year-old female in no acute distress. She is alert and oriented to person and place. Exam of her left wrist reveals that the brace is not in place. Her swelling is significantly improved. She has less tenderness to the wrist. She she is to have very slight tenderness about the mid carpal region. Exam of the lower extremities reveals no obvious deformity. She has full foot and ankle motion bilaterally. She has minimal tenderness to palpation about the ankles. Neurovascular status the upper and lower extremities is intact. - Labs CBC & Chem 7: 07/02/20 05:45 07/02/20 05:45 Labs: Abnormal Lab Results - Last 24 Hours (Table) 07/02/20 Range/Units 05:45 Iron 30 L (50-170) ug/dL TIBC 165 L (228-460) ug/dL Microbiology - Last 24 Hours (Table) 06/30/20 09:38 Gram Stain - Preliminary Aspirate Body Fluid Culture - Preliminary Assessment and Plan (1) Avulsion fracture of left wrist Current Visit: Yes Status: Acute Code(s): S62.102A - FRACTURE OF UNSP CARPAL BONE, LEFT WRIST, INIT FOR CLOS FX SNOMED Code(s): 208816768 (2) Arthralgia Current Visit: Yes Status: Acute Code(s): M25.50 - PAIN IN UNSPECIFIED JOINT SNOMED Code(s): 55161822 (3) Altered mental status Current Visit: No Status: Acute Code(s): R41.82 - ALTERED MENTAL STATUS, UNSPECIFIED SNOMED Code(s): 329033996 (4) Fall Current Visit: No Status: Acute Code(s): W19.XXXA - UNSPECIFIED FALL, INITIAL ENCOUNTER SNOMED Code(s): 7908996 (5) History of acute gouty arthritis Current Visit: Yes Status: Acute Code(s): Z87.39 - PERSONAL HISTORY OF DISEASES OF THE MS SYS AND CONN TISS SNOMED Code(s): 113058269 Plan: The clinical findings are discussed with the patient and her nurse. I recommended the left wrist be braced for comfort. I believe that she's does have a small dorsal chip fracture to the mid carpal region. She does not require any follow-up x-rays. She may follow up with our office as needed. We will defer the treatment of her gout to her PCP.
--- NOTE | 2020-07-03 12:12 | PN ---
PROGRESS NOTE CHIEF COMPLAINT: Paraparesis. HISTORY OF PRESENT ILLNESS: Miraculously overnight, this patient's lower extremity motor function returned completely normal. She is up walking around. She is apparently slightly ataxic. It is noted that her hemoglobin is dropping. She is down around 8. This is probably due to her chronic renal failure, but iron is also low and we will obtain a fecal blood. PHYSICAL EXAMINATION: Chest is clear. Cardiac exam is normal. Blood pressure is normal. Abdomen is soft, nontender. IMPRESSION: 1. Flaccid paraparesis-resolving completely. 2. Anemia. 3. Renal failure. 4. Hypertension. PLAN: 1. Stool for blood. 2. Continue physical therapy and see if she is going to be stable enough to go home rather than the senior care. EHL / NICOLASAN: [id number] /
[2020-07-03 17:24] LABS: Anion Gap 18.3 mmol/L (4.00-12.00); BUN/Creat Ratio 27.24 Ratio (12.00-20.00); Calcium 8.5 mg/dL (8.7-10.3); Carbon Dioxide 22.7 mmol/L (21.6-31.8); Non-African American GFR(CKD) 15.5 (60.0-200.0); Potassium 3.4 mmol/L (3.5-5.5)
[2020-07-03] MEDS: GABAPENTIN 300 MG CAP PO SCH (22:43)
[2020-07-04] MEDS: SODIUM CHLORIDE 0.9% 1,000 ML IV SCH (07:38)
[2020-07-04 08:23] VITALS: BP 123/58; PULSE 64; RESP 20; TEMP 98.2
[2020-07-04] MEDS: ASPIRIN 81 MG PO SCH (08:39)
[2020-07-04] MEDS: FOLIC ACID 1 MG TAB PO SCH (08:39)
[2020-07-04] MEDS: ASPIRIN 325 MG TAB PO SCH (08:39)
[2020-07-04] MEDS: ISOSORBIDE MONONITRATE ER 30 MG TAB.ER.24H PO SCH (08:39)
[2020-07-04] MEDS: ATORVASTATIN 40 MG TAB PO SCH (08:39)
[2020-07-04] MEDS: CHLORTHALIDONE 25 MG TAB PO SCH (08:39)
[2020-07-04] MEDS: INDOMETHACIN 25 MG CAP PO SCH (08:40)
[2020-07-04] MEDS: amLODIPine 10 MG TAB PO SCH (08:40)
[2020-07-04] MEDS: FLUoxetine HCL 20 MG CAP PO SCH (08:40)
[2020-07-04] MEDS: atenoloL 50 MG TAB PO SCH (08:40)
[2020-07-04] MEDS: FUROSEMIDE 40 MG TAB PO SCH (08:40)
--- NOTE | 2020-07-04 16:37 | PN ---
PROGRESS NOTE Patient is seen for followup for acute kidney injury. Patient wants to go home today. She denies any chest pains, nausea, vomiting, abdominal pain or diarrhea. She is not on any IV fluids, maintained on oral diuretics. PHYSICAL EXAMINATION: Today blood pressure 123/58, heart rate 64 per minute, she is afebrile. Examination of the heart S1, S2. Examination of the lungs, bilateral breath sounds are heard. Abdomen is soft. Examination of the lower extremities edema 1+ bilaterally. LATHE PULLER exam grossly intact. LABS: Show sodium 148, potassium 3.4, chloride 107, BUN 79, creatinine 2.9 mg/dL. ASSESSMENT: 1. Acute kidney injury, ATN nonoliguric, mostly associated with low blood pressure. 2. Chronic kidney disease stage IIIB. Baseline creatinine 1.4 in July of 2019, secondary to nephrosclerosis. 3. Status post fall 2 weeks ago with distal radial fracture. 4. History of hypertension with low blood pressure, currently. 5. History of remote CVA. PLAN: Patient can be discharged with plans to follow up as outpatient. Continue with the diuretics. Continue sodium. Try to discontinue use of Indocin given the advanced renal failure and follow up as outpatient for CKD. MMODL / IJN: [id number] /
--- NOTE | 2020-07-06 09:16 | DS ---
DISCHARGE SUMMARY CHIEF COMPLAINT: Paraparesis. HISTORY OF PRESENT ILLNESS AND PHYSICAL EXAMINATION: Details of this lady's history and physical can be found in the initial workup. LABORATORY STUDIES: While she was in a hospital she had laboratory studies, details of which can be found in the laboratory section of her chart. COURSE IN THE HOSPITAL: After admission she was placed on bedrest and started on frequent monitoring of her neurologic status and vital signs. She was seen by Neurology. The etiology for her acute paraparesis did not come clear immediately. She has had some psychiatric issues in the past and this was always been suspect as a cause. Arrangements were being made for her to go to a detention and suddenly one night her symptoms instantly disappeared. She is able to get up and walk about and plans were made for her to be discharged. She will follow up in the office. She will go home on her usual activity and diet, medication. FINAL DIAGNOSES: 1. Hysterical paraparesis. 2. Possible bipolar depression. 3. Schizoaffective disorder. 4. History of hypertension. OPERATIONS: None. CONSULTATIONS: Neurology. She is improved. MMODL / IJN: [id number] /
--- NOTE | 2020-07-08 11:43 | ECHOF ---
Referral Reason:Thrombus MEASUREMENTS -------- HEIGHT: 154.9 cm WEIGHT: 65.8 kg BP: 145/74 RVIDd: 4.4 cm (< 3.3) IVSd: 1.4 cm (0.6 - 1.1) LVIDd: 3.4 cm (3.9 - 5.3) LVPWd: 1.4 cm (0.6 - 1.1) IVSs: 1.7 cm LVIDs: 2.5 cm LVPWs: 1.9 cm LAESV Index (A-L): 19.99 ml/m Ao Diam: 2.7 cm (2.0 - 3.7) AV Cusp: 1.9 cm (1.5 - 2.6) MV EXCURSION: 14.924 mm (> 18.000) MV EF SLOPE: 33 mm/s (70 - 150) EPSS: 0.9 cm MV E Anibal: 0.72 m/s MV DecT: 223 ms MV A Anibal: 1.24 m/s MV E/A Ratio: 0.58 RAP: 20.00 mmHg RVSP: 49.35 mmHg FINDINGS -------- This was a technically adequate study. The left ventricular size is normal. There is moderate concentric left ventricular hypertrophy. O verall left ventricular systolic function is low-normal with, an EF between 50 - 55 %. The diastoli c filling pattern is normal for the age of the patient 14.75. The right ventricle is moderately enlarged. Normal LA size by volume 22+/-6 ml/m2. The right atrial size is normal. Interatrial and interventricular septum intact. There is no evidence of aortic regurgitation. There is no evidence of aortic stenosis. No mitral regurgitation. [id number] tricuspid regurgitation present. There is moderate pulmonary hypertension. The r ight ventricular systolic pressure, as measured by Doppler, is 49.35mmHg. There is no pulmonic regurgitation present. The aortic root size is normal. The inferior vena cava is dilated with poor inspiratory collapse which is consistent with estimated r ight atrial pressure of 20 mmHg. There is no pericardial effusion. CONCLUSIONS -------- 1. The left ventricular size is normal. 2. There is moderate concentric left ventricular hypertrophy. 3. Overall left ventricular systolic function is low-normal with, an EF between 50 - 55 %. 4. The diastolic filling pattern is normal for the age of the patient 14.75 5. The right ventricle is moderately enlarged. 6. [id number] tricuspid regurgitation present. 7. There is moderate pulmonary hypertension. 8. The right ventricular systolic pressure, as measured by Doppler, is 49.35mmHg. 9. The inferior vena cava is dilated with poor inspiratory collapse which is consistent with estimate d right atrial pressure of 20 mmHg. HOLISTIC PULSER: Paulina Avila RDCS
== END 2020-07-04 14:20 | disposition home or self-care (01) | DRG 683 ==
LOC: EC 15:20 → 4SSUR 18:33 → INTOOBSV 18:33 → 4SSUR 06-30 11:18 → OBSVTOIN 07-01 13:03
PROVIDERS: ADMIT Family Medicine; ATTEND Family Medicine
DX: N17.0 Acute kidney failure with tubular necrosis (principal); S52.509A Unspecified fracture of the lower end of unspecified radius, initial encounter for closed fracture; E87.2 Acidosis; I13.0 Hypertensive heart and chronic kidney disease with heart failure and stage 1 through stage 4 chronic kidney disease, or unspecified chronic kidney disease; I69.351 Hemiplegia and hemiparesis following cerebral infarction affecting right dominant side; R53.1 Weakness; W10.9XXA Fall (on) (from) unspecified stairs and steps, initial encounter; D63.1 Anemia in chronic kidney disease; E78.5 Hyperlipidemia, unspecified; F03.90 Unspecified dementia, unspecified severity, without behavioral disturbance, psychotic disturbance, mood disturbance, and anxiety; I50.9 Heart failure, unspecified; I65.21 Occlusion and stenosis of right carotid artery; J44.9 Chronic obstructive pulmonary disease, unspecified; M13.0 Polyarthritis, unspecified; N18.3 Chronic kidney disease, stage 3 (moderate); Z79.82 Long term (current) use of aspirin; Z79.899 Other long term (current) drug therapy; Z90.710 Acquired absence of both cervix and uterus; Z88.5 Allergy status to narcotic agent; Z88.8 Allergy status to other drugs, medicaments and biological substances
CPT/HCPCS: 36415; 70450; 71046; 80048; 80053; 80061; 82164; 82550; 82570; 82607; 82746; 83036; 83540; 83550; 84156; 84443; 84484; 84550; 85025; 85610; 85652; 85730; 86038; 86140; 86431; 86618; 87070; 87205; 93005; 93306; 93880; 94760; 99285

== ENCOUNTER 2020-07-06 15:55 | Inpatient (IN) | payer MEDICARE, OTHER ==
[2020-07-06 16:38] LABS: Appearance,Urine Clear (Clear); Bilirubin,Urine Negative (Negative); Blood,Urine Negative (Negative); Color,Urine Light Yellow; Glucose,Urine (UA) Negative (Negative); Ketones,Urine Negative (Negative); Leukocyte Esterase,Urine Negative (Negative); Nitrite,Urine Negative (Negative); PH, Urine 5.5 (5.0-8.0); Protein,Urine Negative (Negative); Specific Gravity,Urine 1.009 (1.001-1.035); Urobilinogen,Urine <2.0 mg/dL (<2.0)
[2020-07-06 17:00] LABS: Amphetamine Screen,Urine Not Detected (NotDetected); Barbiturate Screen,Urine Not Detected (NotDetected); Benzodiazepines Screen,Urine Not Detected (NotDetected); Cocaine Screen,Urine Not Detected (NotDetected); Methadone Screen, Urine Not Detected (NotDetected); Opiate Screen,Urine Not Detected (NotDetected); Oxycodone Screen, Urine Not Detected (NotDetected); Phencyclidine Screen,Urine Not Detected (NotDetected); Tricyclic Antidepressant,Urine Not Detected (NotDetected); Urn Cannabinoid Scrn Not Detected (NotDetected)
--- NOTE | 2020-07-06 17:11 | ED ---
General Adult HPI - General Chief complaint: Weakness Stated complaint: WEAK Time Seen by Provider: 07/06/20 16:04 Source: patient Mode of arrival: ambulatory Limitations: no limitations - History of Present Illness Initial comments: Patient is a 70-year-old female with past medical history of bipolar depression, schizoaffective disorder who presents to the emergency department with failure to thrive, depression and suicidal statements. The patient was recently hospitalized and evaluated by neurology and psychiatry. She was diagnosed with psychogenic paresthesias. She had complete improvement in her symptoms and therefore she was discharged home. Dr. Echevarria's office did call on the patient to see how she was doing. Over the phone she reported that she was depressed, wanted to and was complaining of the same symptoms with pain all over. Dr. Echevarria was concerned about the patient. He is concerned that she is unable to care for herself that she lives alone. Also reports that her mental status appears to be too unstable and therefore had her brought back into the emergency department for evaluation. I did evaluate the patient with her daughter present. The patient whether she may be statements for which she reported that she did. Reports to feeling depressed in her house. Would consider being placed as she requires more care than what her children can provide. She denies attempting to harm herself. Does report to some muscle cramping in her bilateral lower extremities. Patient answers all questions appropriately. There are no other alleviating, precipitating or modifying factors - Related Data Home Medications Medication Instructions Recorded Confirmed FLUoxetine HCL [Fluoxetine HCl] 20 mg PO DAILY 07/24/16 07/06/20 Furosemide 40 mg PO DAILY 07/24/16 07/06/20 amLODIPine BESYLATE [Amlodipine 10 mg PO BID 07/24/16 07/06/20 Besylate] Gabapentin [Neurontin] 300 mg PO HS 07/08/17 07/06/20 Isosorbide Mononitrate ER [Imdur] 30 mg PO DAILY 07/08/17 07/06/20 Atorvastatin [Lipitor] 40 mg PO DAILY 05/11/18 07/06/20 Albuterol Inhaler [Ventolin Hfa 2 puff INHALATION RT-QID PRN 06/29/20 07/06/20 Inhaler] Atenolol [Tenormin] 100 mg PO DAILY 06/29/20 07/06/20 minoxidiL [Minoxidil] 2.5 mg PO DAILY 06/29/20 07/06/20 traMADol HCL 50 mg PO QID PRN 06/29/20 07/06/20 hydrALAZINE HCL [Apresoline] 100 mg PO TID 06/30/20 07/06/20 Previous Rx's Medication Instructions Recorded Aspirin 325 mg PO DAILY #100 tab 07/04/20 Folic Acid 1 mg PO DAILY tab 07/04/20 Allergies Allergy/AdvReac Type Severity Reaction Status Date / Time allopurinol [From Zyloprim] Allergy Unknown Verified 07/06/20 18:50 codeine Allergy Unknown Verified 07/06/20 18:50 Review of Systems ROS Statement: Those systems with pertinent positive or pertinent negative responses have been documented in the HPI. ROS Other: All systems not noted in ROS Statement are negative. Past Medical History Past Medical History: Asthma, Heart Failure, COPD, CVA/TIA, GERD/Reflux, Hyperlipidemia, Hypertension, Memory Impairment, Osteoarthritis (OA), Pneumonia Additional Past Medical History / Comment(s): CVA with L sided weakness/memory impairment, chronic anemia, vitamin D deficiency, gout bilateral feet, chronic lower extremity pain especially L side, acute renal disease. History of Any Multi-Drug Resistant Organisms: None Reported Past Surgical History: Heart Catheterization, Hysterectomy, Tonsillectomy Additional Past Surgical History / Comment(s): Colonoscopy Past Anesthesia/Blood Transfusion Reactions: No Reported Reaction Past Psychological History: Depression Smoking Status: Never smoker Past Alcohol Use History: None Reported Past Drug Use History: None Reported - Past Family History Father History Unknown: Yes Family Medical History: No Reported History Mother History Unknown: Yes Family Medical History: No Reported History Additional Family Medical History / Comment(s): Pt states she does not want to discuss parents past medical history. General Exam Limitations: no limitations General appearance: alert, in no apparent distress Head exam: Present: atraumatic, normocephalic, normal inspection Eye exam: Present: normal appearance, PERRL, EOMI. Absent: scleral icterus, conjunctival injection, periorbital swelling ENT exam: Present: normal exam, mucous membranes moist Neck exam: Present: normal inspection. Absent: tenderness, meningismus, lymphadenopathy Respiratory exam: Present: normal lung sounds bilaterally. Absent: respiratory distress, wheezes, rales, rhonchi, stridor Cardiovascular Exam: Present: regular rate, normal rhythm, normal heart sounds. Absent: systolic murmur, diastolic murmur, rubs, gallop, clicks GI/Abdominal exam: Present: soft, normal bowel sounds. Absent: distended, tenderness, guarding, rebound, rigid Extremities exam: Present: normal inspection, full ROM, normal capillary refill. Absent: tenderness, pedal edema, joint swelling, calf tenderness Back exam: Present: normal inspection Neurological exam: Present: alert, oriented X3, CN II-XII intact Psychiatric exam: Present: depressed Skin exam: Present: warm, dry, intact, normal color. Absent: rash Course Vital Signs 07/06/20 07/06/20 07/06/20 15:57 19:17 19:59 Temperature 99.2 F 98.2 F Pulse Rate 95 88 Respiratory 20 12 Rate Blood Pressure 163/84 163/103 O2 Sat by Pulse 94 L 98 Oximetry EKG Findings - EKG Comments: EKG Findings:: EKG demonstrates normal sinus rhythm with a ventricular rate of 79. Panel 150. QRS E4. QTC 488. No acute ST segment elevations or depressions concerning for ischemic changes Medical Decision Making - Medical Decision Making Upon arrival patient is placed in room 24. A thorough history and physical exam was performed. I did discuss the case with Dr. Echevarria. Laboratory studies were conducted. This time the patient will be admitted to Dr. Echevarria with social work consults. Patient stay or to thrive and cannot live on her own. Patient, family requesting placement for the patient. Bridging orders were placed and the patient is currently awaiting a bed on the floor - Lab Data Result diagrams: 07/07/20 13:08 07/06/20 18:00 Lab Results 07/06/20 07/06/20 07/06/20 Range/Units 16:23 18:00 18:00 WBC 10.8 H (3.8-10.6) k/uL RBC 3.50 L (3.80-5.40) m/uL Hgb 8.3 L (11.4-16.0) gm/dL Hct 26.9 L (34.0-46.0) % MCV 76.8 L (80.0-100.0) fL MCH 23.8 L (25.0-35.0) pg MCHC 31.0 (31.0-37.0) g/dL RDW 15.1 (11.5-15.5) % Plt Count 437 (150-450) k/uL Neutrophils % 79 % Lymphocytes % 10 % Monocytes % 6 % Eosinophils % 3 % Basophils % 0 % Neutrophils # 8.6 H (1.3-7.7) k/uL Lymphocytes # 1.1 (1.0-4.8) k/uL Monocytes # 0.7 (0-1.0) k/uL Eosinophils # 0.3 (0-0.7) k/uL Basophils # 0.1 (0-0.2) k/uL Microcytosis Slight PT (9.0-12.0) sec INR (<1.2) APTT (22.0-30.0) sec Sodium (137-145) mmol/L Potassium (3.5-5.1) mmol/L Chloride (98-107) mmol/L Carbon Dioxide (22-30) mmol/L Anion Gap mmol/L BUN (7-17) mg/dL Creatinine (0.52-1.04) mg/dL Est GFR (CKD-EPI)AfAm (>60 ml/min/1.73 sqM) Est GFR (CKD-EPI)NonAf (>60 ml/min/1.73 sqM) Glucose (74-99) mg/dL Calcium (8.4-10.2) mg/dL Total Bilirubin (0.2-1.3) mg/dL AST (14-36) U/L ALT (4-34) U/L Alkaline Phosphatase (38-126) U/L Ammonia <9 (<30) umol/L Creatine Kinase (30-135) U/L Troponin I (0.000-0.034) ng/mL Total Protein (6.3-8.2) g/dL Albumin (3.5-5.0) g/dL Urine Color Light Yellow Urine Appearance Clear (Clear) Urine pH 5.5 (5.0-8.0) Ur Specific [place] 1.009 (1.001-1.035) Urine Protein Negative (Negative) Urine Glucose (UA) Negative (Negative) Urine Ketones Negative (Negative) Urine Blood Negative (Negative) Urine Nitrite Negative (Negative) Urine Bilirubin Negative (Negative) Urine Urobilinogen <2.0 (<2.0) mg/dL Ur Leukocyte Esterase Negative (Negative) Salicylates mg/dL Urine Opiates Screen Not Detected (NotDetected) Ur Oxycodone Screen Not Detected (NotDetected) Urine Methadone Screen Not Detected (NotDetected) Ur Propoxyphene Screen Not Detected (NotDetected) Acetaminophen ug/mL Ur Barbiturates Screen Not Detected (NotDetected) U Tricyclic Antidepress Not Detected (NotDetected) Ur Phencyclidine Scrn Not Detected (NotDetected) Ur Amphetamines Screen Not Detected (NotDetected) U Methamphetamines Scrn Not Detected (NotDetected) U Benzodiazepines Scrn Not Detected (NotDetected) Urine Cocaine Screen Not Detected (NotDetected) U Marijuana (THC) Screen Not Detected (NotDetected) Serum Alcohol mg/dL 07/06/20 07/06/20 07/06/20 Range/Units 18:00 18:00 18:00 WBC (3.8-10.6) k/uL RBC (3.80-5.40) m/uL Hgb (11.4-16.0) gm/dL Hct (34.0-46.0) % MCV (80.0-100.0) fL MCH (25.0-35.0) pg MCHC (31.0-37.0) g/dL RDW (11.5-15.5) % Plt Count (150-450) k/uL Neutrophils % % Lymphocytes % % Monocytes % % Eosinophils % % Basophils % % Neutrophils # (1.3-7.7) k/uL Lymphocytes # (1.0-4.8) k/uL Monocytes # (0-1.0) k/uL Eosinophils # (0-0.7) k/uL Basophils # (0-0.2) k/uL Microcytosis PT 10.3 (9.0-12.0) sec INR 1.0 (<1.2) APTT 20.0 L (22.0-30.0) sec Sodium 145 (137-145) mmol/L Potassium 3.2 L (3.5-5.1) mmol/L Chloride 108 H (98-107) mmol/L Carbon Dioxide 29 (22-30) mmol/L Anion Gap 8 mmol/L BUN 63 H (7-17) mg/dL Creatinine 1.82 H (0.52-1.04) mg/dL Est GFR (CKD-EPI)AfAm 32 (>60 ml/min/1.73 sqM) Est GFR (CKD-EPI)NonAf 27 (>60 ml/min/1.73 sqM) Glucose 98 (74-99) mg/dL Calcium 9.3 (8.4-10.2) mg/dL Total Bilirubin 0.6 (0.2-1.3) mg/dL AST 21 (14-36) U/L ALT 11 (4-34) U/L Alkaline Phosphatase 71 (38-126) U/L Ammonia (<30) umol/L Creatine Kinase 68 (30-135) U/L Troponin I 0.021 (0.000-0.034) ng/mL Total Protein 6.6 (6.3-8.2) g/dL Albumin 3.4 L (3.5-5.0) g/dL Urine Color Urine Appearance (Clear) Urine pH (5.0-8.0) Ur Specific [place] (1.001-1.035) Urine Protein (Negative) Urine Glucose (UA) (Negative) Urine Ketones (Negative) Urine Blood (Negative) Urine Nitrite (Negative) Urine Bilirubin (Negative) Urine Urobilinogen (<2.0) mg/dL Ur Leukocyte Esterase (Negative) Salicylates <1.0 mg/dL Urine Opiates Screen (NotDetected) Ur Oxycodone Screen (NotDetected) Urine Methadone Screen (NotDetected) Ur Propoxyphene Screen (NotDetected) Acetaminophen <10.0 ug/mL Ur Barbiturates Screen (NotDetected) U Tricyclic Antidepress (NotDetected) Ur Phencyclidine Scrn (NotDetected) Ur Amphetamines Screen (NotDetected) U Methamphetamines Scrn (NotDetected) U Benzodiazepines Scrn (NotDetected) Urine Cocaine Screen (NotDetected) U Marijuana (THC) Screen (NotDetected) Serum Alcohol <10 mg/dL - EKG Data Rate: normal Disposition Clinical Impression: Depression, Altered mental status Disposition: ADMITTED IP TO THIS [facility] Condition: Stable Is patient prescribed a controlled substance at d/c from ED?: No Decision to Admit Reason: Admit from EC Decision Date: 07/06/20 Decision Time: 18:03
[2020-07-06] MEDS ORDERED: NALOXONE 0.4 MG/ML 1 ML VIAL IV PRN (18:03)
[2020-07-06 18:17] LABS: ALT 11 U/L (4-34); AST 21 U/L (14-36); Acetaminophen <10.0 ug/mL; African American GFR (CKD) 32 (>60 ml/min/1.73 sqM); Albumin 3.4 g/dL (3.5-5.0); Alcohol <10 mg/dL; Alkaline Phosphatase 71 U/L (38-126); Anion Gap 8 mmol/L; Blood Urea Nitrogen 63 mg/dL (7-17); Calcium 9.3 mg/dL (8.4-10.2); Carbon Dioxide 29 mmol/L (22-30); Chloride 108 mmol/L (98-107); Creatine Kinase 68 U/L (30-135); Glucose 98 mg/dL (74-99); Non-African American GFR(CKD) 27 (>60 ml/min/1.73 sqM); Potassium 3.2 mmol/L (3.5-5.1); Salicylate <1.0 mg/dL; Sodium 145 mmol/L (137-145); Total Bilirubin 0.6 mg/dL (0.2-1.3); Total Protein 6.6 g/dL (6.3-8.2)
[2020-07-06 18:23] LABS: Prothrombin Time 10.3 sec (9.0-12.0)
[2020-07-06 18:28] LABS: Basophils # (A) 0.1 k/uL (0-0.2); Basophils % (A) 0 %; Eosinophils # (A) 0.3 k/uL (0-0.7); Eosinophils % (A) 3 %; HCT 26.9 % (34.0-46.0); HGB 8.3 gm/dL (11.4-16.0); Lymphocytes # (A) 1.1 k/uL (1.0-4.8); Lymphocytes % (A) 10 %; MCH 23.8 pg (25.0-35.0); MCV 76.8 fL (80.0-100.0); Microcytosis Slight; Monocytes # (A) 0.7 k/uL (0-1.0); Monocytes % (A) 6 %; Neutrophils # (A) 8.6 k/uL (1.3-7.7); Neutrophils % (A) 79 %; Platelet Count 437 k/uL (150-450); RDW 15.1 % (11.5-15.5); WBC 10.8 k/uL (3.8-10.6)
[2020-07-06 19:16] LABS: Glucose,Whole Blood 89 mg/dL (75-99)
[2020-07-07] MEDS ORDERED: QUEtiapine 50 MG TAB PO SCH (00:30)
[2020-07-07] MEDS: hydrALAZINE HCL 50 MG TAB PO SCH ×4 (05:58→22:08)
[2020-07-07] MEDS: GABAPENTIN 300 MG CAP PO SCH ×2 (05:58→22:08)
[2020-07-07] MEDS: amLODIPine 10 MG TAB PO SCH ×3 (05:58→22:08)
[2020-07-07] MEDS ORDERED: ALBUTEROL NEBULIZED 2.5 MG/3 ML INHALATION PRN (08:00)
[2020-07-07] MEDS: ATORVASTATIN 40 MG TAB PO SCH (10:13)
[2020-07-07] MEDS: FLUoxetine HCL 20 MG CAP PO SCH (10:13)
[2020-07-07] MEDS: ISOSORBIDE MONONITRATE ER 30 MG TAB.ER.24H PO SCH (10:14)
[2020-07-07] MEDS: minoxidiL 2.5 MG TAB PO SCH (10:14)
[2020-07-07] MEDS: atenoloL 50 MG TAB PO SCH (10:14)
[2020-07-07] MEDS: FOLIC ACID 1 MG TAB PO SCH (10:14)
[2020-07-07] MEDS: ASPIRIN 325 MG TAB PO SCH (10:14)
[2020-07-07] MEDS: POTASSIUM CHLORIDE ER 20 MEQ TAB.ER PO SCH ×2 (11:07→22:08)
[2020-07-07] MEDS: FUROSEMIDE 40 MG TAB PO SCH (11:07)
--- NOTE | 2020-07-07 12:58 | US ---
EXAMINATION TYPE: US kidneys/renal and bladder DATE OF EXAM: 07/07/2020 COMPARISON: US 08/03/2014, CT 05/29/2018 CLINICAL HISTORY: electrolyte imbalance . Difficult exam due to overlying bowel gas. Patient would no t roll onto her side EXAM MEASUREMENTS: Right Kidney: 8.3 x 4.2 x 4.2 cm Left Kidney: 7.9 x 4.5 x 4.3 cm Right Kidney: No hydronephrosis. Hypoechoic nodule lower pole measuring 1.3 cm Left Kidney: No hydronephrosis. Hypoechoic nodule mid pole measuring 1.3 cm Bladder: wnl Bilateral Jets seen: no There is no evidence for hydronephrosis at this point in time. No nephrolithiasis is seen. The urin tyrel bladder is anechoic. IMPRESSION: No hydronephrosis or nephrolithiasis. There is a 1.3 cm hypoechoic nodule within each kidney which ar e indeterminate by ultrasound. However, there appear to be simple appearing cyst within each kidney o n the previous CT scan of 2018. Therefore, findings likely represent simple cyst
--- NOTE | 2020-07-07 13:53 | P.CN ---
Psychiatric Consult - . Consult date: 07/07/20 Consult:: 07/07/20 13:41 IDENTIFYING DATA: This patient is a 70-year-old -[place] female with significant history of bipolar depression, schizoaffective disorder who presented to the emergency department with failure to thrive and depression with suicidal ideation. HISTORY OF PRESENT ILLNESS: The patient presented to the hospital Patient was previously admitted to [facility] and was evaluated by neurology and psychiatry and was subsequently diagnosed with psychogenic paresthesias. She had improvement of her symptoms and was discharged home. She is evaluated by her primary care physician Dr. Echevarria over the phone where she verbalized that she was depressed and wants to . In the emergency department, patient made comments that she was feeling depressed in her house. She reported that she felt like she was a burden to her family and would require placement in a shelter. Psychiatry was consulted to evaluate for worsening depression and suicidal ideation. Patient continues to endorse significant depression at this time. She repeatedly tells this provider that she would like to "go to a shelter." She does report an overall decrease in appetite, increased fatigue, and overall low mood. At this time patient denies any suicidal or homicidal ideations, intent or plan. Patient denies any auditory, visual hallucinations and denies any paranoia or delusions. Patient is not endorsing any significant substance use. This provider attempted to contact the patient's daughter for collateral information after permission was granted by the patient, but only reached voicemail. PAST PSYCHIATRIC HISTORY: Patient has a a history of Depression, bipolar, and schizoaffective disorder. Patient is unable to recall what psychiatric medications she is currently prescribed or has been prescribed in the past. Her whole medications include Prozac 20 mg daily and Seroquel 50 mg at bedtime. Her current psychotropic medications are prescribed by her primary care physician. PAST MEDICAL HISTORY: Asthma, heart failure, COPD, CVA, GERD, hyperlipidemia, hypertension, osteoarthritis, pneumonia. ALLERGIES: as per EMR. CHEMICAL DEPENDENCY HISTORY: Denies FAMILY PSYCHIATRIC/SUBSTANCE USE HISTORY: Unable to obtain at this time. SOCIAL HISTORY: Patient was born and raised in [place]. She has a daughter named Bianca. MENTAL STATUS EXAM: General Appearance: Patient appears to be stated age is Somnolent, pleasant, and uncooperative. Patient appears to have fair hygiene and grooming wearing hospital gown with Poor eye contact. Behavior: Patient is calmly lying in bed without any agitated behavior. Speech: Patient's speech is Nonspontaneous, minimal, but otherwise fluent. Mood/Affect: Patient reports their mood is "depressed", affect is Constricted in range and congruent. Suicidality/Homicidality: Patient denies having any suicidal or homicidal ideation intent or plan. Perceptions: Patient denies any visual hallucinations and denies any auditory hallucinations Though content/process: There is no evidence of any delusional thought content and thought process is linear and goal-directed. Memory and concentration: AOX3, grossly intact for the purposes of this session. Unable to assess concentration at this time. Judgment and insight: [poor] IMPRESSIONS: Major depressive disorder, recurrent Rule out major neurocognitive disorder PLAN: -At this time patient DOES meet criteria for inpatient psychiatric admission as she has displayed failure to thrive and endorsed suicidal ideation prior to this admission. -When medically stable, recommend Geriatric psychiatric history replacement. -We will re-attempt to obtain collateral information from the patient's daughter. -Unable to assess medical decision making at this time as patient refuses evaluation. -Delirium precautions recommended with patient including - avoiding use of narcotics and [employer] sedatives, limit anticholinergic medications when possible, frequent re-orientation, minimize use of restraints, open window shades during the day and close them at night -Would recommend the following medication changes/additions: Decrease Seroquel to 25 mg by mouth at bedtime for history of schizoaffective disorder. Will reevaluate need for this medication as there is a black box warning for increased mortality of antipsychotic medications with elderly. Continue Prozac 20 mg by mouth daily for depression Start Remeron 7.5 mg by mouth at bedtime for depression and failure to thrive -Cannot leave AMA at this time. Patient will need a petition and certification if attempting to leave AMA. -Will continue to follow along
[2020-07-07] MEDS ORDERED: ONDANSETRON 4 MG/2 ML VIAL IVP PRN (14:48)
--- NOTE | 2020-07-07 15:00 | P.CONS ---
History of Present Illness - Reason for Consult Consult date: 07/07/20 Anemia Requesting physician: Rinku Echevarria - Chief Complaint Weakness - History of Present Illness Mrs. Oliveira is a pleasant 70-year-old female with been asked to see regarding microcytic, hypochromic anemia. Patient is a poor historian. Most of the facts I have are taken from chart review. Patient states she has pain in her feet, denied nosebleeds, gum bleeding, coughing up of blood or seeing any blood after moving her bowels. She does not know if she iwas ever anemic, she states she doesn't know what anemia is and doesn't want to. On chart review patient is noted to be anemic, some degree of renal disease and microcytic for several years now. In this medical record there is no documentation of patient ever receiving a blood transfusion. Review of Systems ROS unobtainable: due to mental status Past Medical History Past Medical History: Asthma, Heart Failure, COPD, CVA/TIA, GERD/Reflux, Hyperlipidemia, Hypertension, Memory Impairment, Osteoarthritis (OA), Pneumonia Additional Past Medical History / Comment(s): CVA with L sided weakness/memory impairment, chronic anemia, vitamin D deficiency, gout bilateral feet, chronic lower extremity pain especially L side, acute renal disease. History of Any Multi-Drug Resistant Organisms: None Reported Past Surgical History: Heart Catheterization, Hysterectomy, Tonsillectomy Additional Past Surgical History / Comment(s): Colonoscopy Past Anesthesia/Blood Transfusion Reactions: No Reported Reaction Past Psychological History: Depression Additional Psychological History / Comment(s): Pt resides alone. She has a cane and a walker but states she is not using them. She no longer drives, she uses the bus or gets someone to drive her to [employer]. Smoking Status: Never smoker Past Alcohol Use History: None Reported Past Drug Use History: None Reported - Past Family History Father History Unknown: Yes Family Medical History: No Reported History Mother History Unknown: Yes Family Medical History: No Reported History Additional Family Medical History / Comment(s): Pt states she does not want to discuss parents past medical history. Medications and Allergies Home Medications Medication Instructions Recorded Confirmed Type FLUoxetine HCL [Fluoxetine HCl] 20 mg PO DAILY 07/24/16 07/06/20 History Furosemide 40 mg PO DAILY 07/24/16 07/06/20 History amLODIPine BESYLATE [Amlodipine 10 mg PO BID 07/24/16 07/06/20 History Besylate] Gabapentin [Neurontin] 300 mg PO HS 07/08/17 07/06/20 History Isosorbide Mononitrate ER [Imdur] 30 mg PO DAILY 07/08/17 07/06/20 History Atorvastatin [Lipitor] 40 mg PO DAILY 05/11/18 07/06/20 History Albuterol Inhaler [Ventolin Hfa 2 puff INHALATION RT-QID PRN 06/29/20 07/06/20 History Inhaler] Atenolol [Tenormin] 100 mg PO DAILY 06/29/20 07/06/20 History minoxidiL [Minoxidil] 2.5 mg PO DAILY 06/29/20 07/06/20 History traMADol HCL 50 mg PO QID PRN 06/29/20 07/06/20 History hydrALAZINE HCL [Apresoline] 100 mg PO TID 06/30/20 07/06/20 History Aspirin 325 mg PO DAILY #100 tab 07/04/20 07/06/20 Rx Folic Acid 1 mg PO DAILY tab 07/04/20 07/06/20 Rx Allergies Allergy/AdvReac Type Severity Reaction Status Date / Time allopurinol [From Zyloprim] Allergy Unknown Verified 07/06/20 18:50 codeine Allergy Unknown Verified 07/06/20 18:50 Physical Exam Vitals: Vital Signs Temp Pulse Pulse Resp BP BP Pulse Ox 07/07/20 07:00 98.8 F 89 173/69 96 07/07/20 01:34 98.5 F 99 165/70 97 07/06/20 19:59 98.2 F 07/06/20 19:17 88 12 163/103 98 07/06/20 15:57 99.2 F 95 20 163/84 94 L Intake and Output 07/06/20 07/07/20 07/07/20 22:59 06:59 14:59 Other: Voiding Method Bedpan Bedpan # Voids 1 1 2 Weight 68.039 kg - Constitutional General appearance: average body habitus, cooperative, no acute distress - EENT Eyes: anicteric sclerae ENT: hearing grossly normal - Neck Neck: no lymphadenopathy - Respiratory Respiratory: bilateral: CTA - Cardiovascular Rhythm: regular Heart sounds: normal: S1, S2 Abnormal Heart Sounds: no systolic murmur, no diastolic murmur, no rub, no S3 Gallop, no S4 Gallop, no click, no other leg Peripheral Edema: bilateral: None - Gastrointestinal General gastrointestinal: normal bowel sounds, soft - Psychiatric Psychiatric: A&O x's 3, appropriate affect Results CBC & Chem 7: 07/06/20 18:00 07/06/20 18:00 Labs: Abnormal Lab Results - Last 24 Hours (Table) 07/06/20 07/06/20 07/06/20 Range/Units 18:00 18:00 18:00 WBC 10.8 H (3.8-10.6) k/uL RBC 3.50 L (3.80-5.40) m/uL Hgb 8.3 L (11.4-16.0) gm/dL Hct 26.9 L (34.0-46.0) % MCV 76.8 L (80.0-100.0) fL MCH 23.8 L (25.0-35.0) pg Neutrophils # 8.6 H (1.3-7.7) k/uL APTT 20.0 L (22.0-30.0) sec Potassium 3.2 L (3.5-5.1) mmol/L Chloride 108 H (98-107) mmol/L BUN 63 H (7-17) mg/dL Creatinine 1.82 H (0.52-1.04) mg/dL Albumin 3.4 L (3.5-5.0) g/dL US - abdomen: report reviewed Assessment and Plan (1) Microcytic hypochromic anemia Narrative/Plan: Patient's is microcytic, hypochromic anemia has been mild to moderate since at least 2018. Iron studies have been ordered. Patient is also noted to have at least mild renal disease noted in this medical record since about 2011. Pending iron studies and adequate iron storage, could consider EPO if patient continues to be anemic. GI evaluation recommended for iron deficiency. Current Visit: Yes Status: Chronic Priority: High Code(s): D50.9 - IRON DEFICIENCY ANEMIA, UNSPECIFIED SNOMED Code(s): 60413693
[2020-07-07 15:21] LABS: Basophils # (A) 0.1 k/uL (0-0.2); Basophils % (A) 1 %; Eosinophils # (A) 0.2 k/uL (0-0.7); Eosinophils % (A) 1 %; HCT 26.4 % (34.0-46.0); HGB 8.4 gm/dL (11.4-16.0); Lymphocytes # (A) 0.9 k/uL (1.0-4.8); Lymphocytes % (A) 8 %; MCH 24.3 pg (25.0-35.0); MCHC 31.9 g/dL (31.0-37.0); MCV 76.2 fL (80.0-100.0); Mean Platelet Volume 8.3; Microcytosis Slight; Monocytes # (A) 0.8 k/uL (0-1.0); Monocytes % (A) 7 %; Neutrophils # (A) 9.8 k/uL (1.3-7.7); Neutrophils % (A) 83 %; Platelet Count 449 k/uL (150-450); RBC 3.47 m/uL (3.80-5.40); RDW 15.3 % (11.5-15.5); WBC 11.7 k/uL (3.8-10.6)
[2020-07-07] MEDS ORDERED: SODIUM CHLORIDE 0.9% 500 ML 500 ML IV ONE (15:40)
[2020-07-07] MEDS: SODIUM CHLORIDE 0.9% 1,000 ML IV SCH (16:18)
[2020-07-07] MEDS ORDERED: MIRTAZAPINE 15 MG TAB PO SCH (21:00)
[2020-07-07] MEDS ORDERED: QUEtiapine 25 MG TAB PO SCH (21:00)
--- NOTE | 2020-07-08 03:07 | HP ---
HISTORY AND PHYSICAL CHIEF COMPLAINT: Mental status changes, depression and agitation. HISTORY OF PRESENT ILLNESS: This is another recent admission for this 70-year-old female. She has had some psychiatric issues in the past. She was just discharged from the hospital after she had an episode of hysterical paraparesis. She went home and when she was contacted for followup she was crying incessantly and "wanting my permission to ". She is unable to live alone. She is brought back into the hospital for further psychiatric evaluation and placement. REVIEW OF SYSTEMS: She denies any headaches, chest pain, shortness of breath, abdominal pain, nausea, vomiting, diarrhea, urinary complaints, etc. Past medical history, family history and personal and social histories are all otherwise unchanged. PHYSICAL EXAMINATION: Blood pressure is 121/64 with a pulse 70, respirations 19. She is afebrile. In general, she appeared to be in no acute distress at this time. Head, ears, eyes, nose, mouth, and throat are normal. Chest is clear. Cardiac exam is normal. Abdomen is soft, nontender. Neurologically, she is intact. IMPRESSION: 1. Major depression. 2. Bipolar disorder?.. 3. Hypertension. 4. General debility. PLAN: 1. Bed rest. 2. IV fluids. 3. This social work evaluation to consider placement. MMODL / IJN: [id number] /
--- NOTE | 2020-07-08 03:16 | PN ---
PROGRESS NOTE DATE OF SERVICE: 07/07/2020 CHIEF COMPLAINT: Major depression and general debility with failure to thrive. HISTORY OF PRESENT ILLNESS: This lady has no complaints. She has had no neurologic problems. She will be seen by Psychiatry and social work. PHYSICAL EXAMINATION: Chest is clear. Cardiac exam is normal. Abdomen is soft, nontender. Her blood pressure is slightly low. IMPRESSION: 1. Major depression. 2. History of hypertension. 3. Hypotension. PLAN: Wait for Bulk [facility]iller referral to be completed. MMODL / IJN: [id number] /
[2020-07-08] MEDS: SODIUM CHLORIDE 0.9% 1,000 ML IV SCH ×2 (05:39→20:26)
[2020-07-08 06:33] LABS: Reticulocyte % 2.1 % (0.5-2.0)
[2020-07-08] MEDS: amLODIPine 10 MG TAB PO SCH (09:11)
[2020-07-08] MEDS: FUROSEMIDE 40 MG TAB PO SCH (09:12)
[2020-07-08] MEDS: atenoloL 50 MG TAB PO SCH (09:12)
[2020-07-08] MEDS: ISOSORBIDE MONONITRATE ER 30 MG TAB.ER.24H PO SCH (09:12)
[2020-07-08] MEDS: hydrALAZINE HCL 50 MG TAB PO SCH ×2 (09:12→17:24)
[2020-07-08 10:08] LABS: Free Kappa Lt Chain Qnt, Serum 7.63 mg/dL (0.33-1.94)
--- NOTE | 2020-07-08 12:01 | P.PN ---
Progress Note - Text Progress Note Date: 07/08/20 IDENTIFYING DATA: This patient is a [] SUBJECTIVE: Patient refuses to answer any questions during the psychiatric evaluation. She was noted to stare at the provider and then turn away and close her eyes. After discussion with the patient's nurse, the patient has been refusing her medications this morning and has been refusing a bladder scan. She was noted by the nurse to perk up when seeing her primary care physician Dr. Echevarria. She is currently not cooperating with this provider and keeps her eyes closed. OBJECTIVE: MENTAL STATUS EXAM: General Appearance: Patient appears to be stated age, is Uncooperative, not somnolent as patient has been noted to acknowledge the presence of this provider but keeps her eyes closed anyway. Behavior: Patient is lying in bed without any agitated behavior. Speech: Unable to assess this patient refuses to speak. Mood/Affect: Unable to assess this patient refuses to speak, affect is Annoyed. Suicidality/Homicidality: Unable to assess as patient refuses to speak. Perceptions: Unable to assess as patient refuses to speak. Though content/process: Unable to assess as patient refuses to speak. Memory and concentration: Unable to assess as patient refuses to speak. Judgment and insight:Unable to assess as patient refuses to speak. ASSESSMENT: IMPRESSIONS: Major depressive disorder PLAN: -Patient is intermittently adherent with treatment and evaluation. This provider attempted to obtain collateral information from the patient's daughter but continues to be met with voicemail. -Delirium precautions recommended with patient including - avoiding use of narcotics and [employer] sedatives, limit anticholinergic medications when possible, f requent re-orientation, minimize use of restraints, open window shades during the day and close them at night -Would recommend the following medication changes/additions: Discontinue Seroquel due to black box warning of increased mortality with antipsychotics in elderly. Increase remeron to 15 mg po hs for depression / appetite. Increase in dose would help decrease sedative effects of the medication. -Cannot leave AMA at this time. Patient will need a petition and certification if attempting to leave AMA As patient has not displayed an ability to care for self -Patient would benefit from a Jail Facility for management and monitoring of her chronic medical conditions and her ability to care for self. -Psychiatry will continue to follow.
--- NOTE | 2020-07-08 13:32 | P.CRDCN ---
History of Present Illness Consult date: 07/08/20 History of present illness: CHIEF COMPLAINT: Abnormal EKG HISTORY OF PRESENT ILLNESS: This is a 70-year old female with a past medical history significant for hypertension and hyperlipidemia. We have been asked to see the patient in consultation for abnormal EKG. Patient was hypotensive yesterday and complaining of some nausea. An EKG was ordered by Dr. Echevarria. Patient examined at the bedside with Dr. Chiang. Patient initially refusing to answer any questions or be examined. Patient then agreed to answer a few questions. She denied chest pain or pressure. Denies shortness of breath. Blood pressure 98/58. Her antihypertensive medications have been held. DIAGNOSTICS: EKG reveals sinus rhythm with right axis deviation Laboratory data: WBC 11.7. Hemoglobin 8.4. Platelet count 449. Sodium 145. Potassium 3.2. BUN 63. Creatinine 1.82. Troponin 0.021. 0.047. 0.047. 0.049. Current home cardiac medications include hydralazine 100 mg 3 times a day, Norvasc 10 mg twice a day, Imdur 30 mg daily, Lasix 40 mg daily, Lipitor 40 mg daily, atenolol 100 mg daily, and aspirin 325 mg daily Echocardiogram completed on 06/30/2020 reveals ejection fraction between 50 and 55%, [id number] tricuspid regurgitation, and moderate pulmonary hypertension REVIEW OF SYSTEMS: At the time of my exam: CONSTITUTIONAL: Denies fever or chills. HEENT: Denies blurred vision, vision changes, or eye pain. Denies hemoptysis CARDIOVASCULAR: Denies chest pain, orthopnea, PND or palpitations RESPIRATORY: No shortness of breath. GASTROINTESTINAL: Denies abdominal pain. Denies nausea or vomiting. HEMATOLOGIC: Denies bleeding disorders. GENITOURINARY: Denies any blood in urine. SKIN: Denies pruitis. Denies rash. PHYSICAL EXAM: VITAL SIGNS: Reviewed. GENERAL: Well-developed in no acute distress. HEENT: Head is normocephalic. Pupils are equal, round. Sclerae anicteric. Mucous membranes of the mouth are moist. Neck supple. No JVD or thyromegaly LUNGS: Respirations even and unlabored. Lungs essentially clear to auscultation bilaterally. HEART: Regular rate and rhythm. S1 and S2 heard. ABDOMEN: Soft. Nondistended. Nontender. EXTREMITIES: Normal range of motion. No clubbing or cyanosis. Peripheral pulses intact. No lower extremity edema NEUROLOGIC: Awake and alert. Oriented x 3. ASSESSMENT: Abnormal EKG of unclear clinical significance, may be secondary to lead placement Abnormal troponins unclear clinical significance. No evidence of acute coronary syndrome History of hypertension, currently hypotensive PLAN: No evidence of acute coronary syndrome Blood pressure management per primary care physician No further inpatient intervention from a cardiac standpoint We will sign off. Please re-consult if needed Nurse practitioner note has been reviewed by physician. Signing provider agrees with the documented findings, assessment, and plan of care. Past Medical History Past Medical History: Asthma, Heart Failure, COPD, CVA/TIA, GERD/Reflux, Hyperlipidemia, Hypertension, Memory Impairment, Osteoarthritis (OA), Pneumonia Additional Past Medical History / Comment(s): CVA with L sided weakness/memory impairment, chronic anemia, vitamin D deficiency, gout bilateral feet, chronic lower extremity pain especially L side, acute renal disease. History of Any Multi-Drug Resistant Organisms: None Reported Past Surgical History: Heart Catheterization, Hysterectomy, Tonsillectomy Additional Past Surgical History / Comment(s): Colonoscopy Past Anesthesia/Blood Transfusion Reactions: No Reported Reaction Past Psychological History: Depression Smoking Status: Never smoker Past Alcohol Use History: None Reported Past Drug Use History: None Reported - Past Family History Father History Unknown: Yes Family Medical History: No Reported History Mother History Unknown: Yes Family Medical History: No Reported History Additional Family Medical History / Comment(s): Pt states she does not want to discuss parents past medical history. Medications and Allergies Home Medications Medication Instructions Recorded Confirmed Type FLUoxetine HCL [Fluoxetine HCl] 20 mg PO DAILY 07/24/16 07/06/20 History Furosemide 40 mg PO DAILY 07/24/16 07/06/20 History amLODIPine BESYLATE [Amlodipine 10 mg PO BID 07/24/16 07/06/20 History Besylate] Gabapentin [Neurontin] 300 mg PO HS 07/08/17 07/06/20 History Isosorbide Mononitrate ER [Imdur] 30 mg PO DAILY 07/08/17 07/06/20 History Atorvastatin [Lipitor] 40 mg PO DAILY 05/11/18 07/06/20 History Albuterol Inhaler [Ventolin Hfa 2 puff INHALATION RT-QID PRN 06/29/20 07/06/20 History Inhaler] Atenolol [Tenormin] 100 mg PO DAILY 06/29/20 07/06/20 History minoxidiL [Minoxidil] 2.5 mg PO DAILY 06/29/20 07/06/20 History traMADol HCL 50 mg PO QID PRN 06/29/20 07/06/20 History hydrALAZINE HCL [Apresoline] 100 mg PO TID 06/30/20 07/06/20 History Aspirin 325 mg PO DAILY #100 tab 07/04/20 07/06/20 Rx Folic Acid 1 mg PO DAILY tab 07/04/20 07/06/20 Rx Allergies Allergy/AdvReac Type Severity Reaction Status Date / Time allopurinol [From Zyloprim] Allergy Unknown Verified 07/06/20 18:50 codeine Allergy Unknown Verified 07/06/20 18:50 Physical Exam Vitals: Vital Signs Temp Pulse Resp BP Pulse Ox 07/08/20 07:00 98.7 F 81 98/58 94 L 07/08/20 00:40 98.4 F 84 18 103/57 96 07/07/20 23:07 16 07/07/20 19:24 98.7 F 87 16 106/57 97 07/07/20 15:22 87 105/57 97 07/07/20 15:00 98.3 F 85 88/39 92 L Intake and Output 07/07/20 07/08/20 07/08/20 22:59 06:59 14:59 Intake Total 440 760 Output Total 50 Balance 390 760 Intake: Intake, IV Titration 320 640 Amount Sodium Chloride 0.9% 1, 320 640 000 ml @ 80 mls/hr IV . [id number] [facility] Rx#:[id number] Oral 120 120 Output: Emesis 50 Other: Voiding Method Bedpan Bedpan Incontinent # Voids 1 1 Results 07/07/20 13:08 07/06/20 18:00 Cardiac Enzymes 07/07/20 07/07/20 07/08/20 Range/Units 17:26 20:59 05:58 Troponin I 0.047 H* 0.047 H* 0.049 H* (0.000-0.034) ng/mL CBC 07/07/20 Range/Units 13:08 WBC 11.7 H (3.8-10.6) k/uL RBC 3.47 L (3.80-5.40) m/uL Hgb 8.4 L (11.4-16.0) gm/dL Hct 26.4 L (34.0-46.0) % Plt Count 449 (150-450) k/uL Current Medications Generic Name Dose Route Start Last Admin Trade Name Freq PRN Reason Stop Dose Admin Albuterol Sulfate 2.5 mg 07/07/20 08:00 Albuterol Nebulized 2.5 Mg/3 Ml INHALATION RT-QID PRN Shortness Of Breath Amlodipine Besylate 10 mg 07/07/20 01:00 07/08/20 09:11 Amlodipine 10 Mg Tab PO Not Given BID DAO Aspirin 325 mg 07/07/20 09:00 07/07/20 10:14 Aspirin 325 Mg Tab PO 325 mg DAILY DAO Administration Atenolol 100 mg 07/07/20 09:00 07/08/20 09:12 Atenolol 50 Mg Tab PO Not Given DAILY DAO Atorvastatin Calcium 40 mg 07/07/20 09:00 07/07/20 10:13 Atorvastatin 40 Mg Tab PO 40 mg DAILY DAO Administration Fluoxetine HCl 20 mg 07/07/20 09:00 07/07/20 10:13 Fluoxetine Hcl 20 Mg Cap PO 20 mg DAILY DAO Administration Folic Acid 1 mg 07/07/20 09:00 07/07/20 10:14 Folic Acid 1 Mg Tab PO 1 mg DAILY DAO Administration Furosemide 40 mg 07/07/20 09:00 07/08/20 09:12 Furosemide 40 Mg Tab PO Not Given DAILY DAO Gabapentin 300 mg 07/07/20 00:30 07/07/20 22:08 Gabapentin 300 Mg Cap PO 300 mg HS DAO Administration Hydralazine HCl 100 mg 07/07/20 00:30 07/08/20 09:12 Hydralazine Hcl 50 Mg Tab PO Not Given TID [facility] Sodium Chloride 1,000 mls @ 80 mls/hr 07/07/20 15:45 07/08/20 05:39 Saline 0.9% IV Not Given .[id number] DAO Isosorbide Mononitrate 30 mg 07/07/20 09:00 07/08/20 09:12 Isosorbide Mononitrate Er 30 Mg Tab.Er.24h PO Not Given DAILY [facility] Minoxidil 2.5 mg 07/07/20 09:00 07/07/20 10:14 Minoxidil 2.5 Mg Tab PO 2.5 mg DAILY DAO Administration Mirtazapine 15 mg 07/08/20 21:00 Mirtazapine 15 Mg Tab PO HS DAO Naloxone HCl 0.2 mg 07/06/20 18:03 Naloxone 0.4 Mg/Ml 1 Ml Vial IV Q2M PRN Opioid Reversal Ondansetron HCl 4 mg 07/07/20 14:48 07/07/20 15:35 Ondansetron 4 Mg/2 Ml Vial IVP 4 mg Q6HR PRN Administration Nausea And Vomiting Potassium Chloride 20 meq 07/07/20 11:00 07/07/20 22:08 Potassium Chloride Er 20 Meq Tab.Er PO 20 meq BID DAO Administration Intake and Output 07/07/20 07/08/20 07/08/20 22:59 06:59 14:59 Intake Total 440 760 Output Total 50 Balance 390 760 Intake: Intake, IV Titration 320 640 Amount Sodium Chloride 0.9% 1, 320 640 000 ml @ 80 mls/hr IV . [id number] DAO Rx#:[id number] Oral 120 120 Output: Emesis 50 Other: Voiding Method Bedpan Bedpan Incontinent # Voids 1 1 07/07/20 13:08 07/06/20 18:00
[2020-07-08 15:58] LABS: Basophils % (A) 0 %; Eosinophils # (A) 0.1 k/uL (0-0.7); Eosinophils % (A) 1 %; HCT 25.5 % (34.0-46.0); HGB 7.9 gm/dL (11.4-16.0); Hypochromasia Slight; Lymphocytes # (A) 1.3 k/uL (1.0-4.8); Lymphocytes % (A) 14 %; MCH 24.9 pg (25.0-35.0); MCHC 31.2 g/dL (31.0-37.0); MCV 79.8 fL (80.0-100.0); Mean Platelet Volume 6.8; Monocytes # (A) 0.5 k/uL (0-1.0); Monocytes % (A) 5 %; Neutrophils # (A) 7.3 k/uL (1.3-7.7); Neutrophils % (A) 78 %; Platelet Count 488 k/uL (150-450); RBC 3.19 m/uL (3.80-5.40); RDW 15.5 % (11.5-15.5); WBC 9.3 k/uL (3.8-10.6)
[2020-07-08 16:12] LABS: Albumin 2.8 g/dL (3.5-5.0); Anion Gap 11 mmol/L; Carbon Dioxide 19 mmol/L (22-30); Chloride 112 mmol/L (98-107); Globulin 2.8 g/dL; Glucose 81 mg/dL (74-99); Potassium 3.8 mmol/L (3.5-5.1); Sodium 142 mmol/L (137-145); Total Protein 5.6 g/dL (6.3-8.2)
[2020-07-08 16:22] LABS: ALT 9 U/L (4-34); AST 19 U/L (14-36); African American GFR (CKD) 13 (>60 ml/min/1.73 sqM); Alkaline Phosphatase 52 U/L (38-126); Blood Urea Nitrogen 63 mg/dL (7-17); Calcium 8.4 mg/dL (8.4-10.2); LDH 417 U/L (313-618); Non-African American GFR(CKD) 11 (>60 ml/min/1.73 sqM); Total Bilirubin 0.4 mg/dL (0.2-1.3)
[2020-07-08] MEDS: FLUoxetine HCL 20 MG CAP PO SCH (17:20)
[2020-07-08] MEDS: ATORVASTATIN 40 MG TAB PO SCH (17:20)
[2020-07-08] MEDS: ASPIRIN 325 MG TAB PO SCH (17:20)
[2020-07-08] MEDS: minoxidiL 2.5 MG TAB PO SCH (17:20)
[2020-07-08] MEDS: FOLIC ACID 1 MG TAB PO SCH (17:20)
[2020-07-08] MEDS: POTASSIUM CHLORIDE ER 20 MEQ TAB.ER PO SCH ×2 (17:20→20:27)
--- NOTE | 2020-07-08 18:50 | P.PN ---
Subjective Progress Note Date: 07/08/20 Principal diagnosis: Encephalopathy and anemia Patient is still very lethargic, opens eyes but does not answer Objective - Vital Signs Vital signs: Vital Signs Temp 98.7 F 07/08/20 07:00 Pulse 81 07/08/20 07:00 Resp 18 07/08/20 00:40 BP 98/58 07/08/20 07:00 Pulse Ox 94 L 07/08/20 07:00 Intake & Output 07/07/20 07/08/20 07/08/20 18:59 06:59 18:59 Intake Total 1200 Output Total 50 Balance -50 1200 Intake: Intake, IV Titration 960 Amount Sodium Chloride 0.9% 1, 960 000 ml @ 80 mls/hr IV . [id number] DAO Rx#:[id number] Oral 240 Output: Emesis 50 Other: Voiding Method Bedpan Bedpan Incontinent # Voids 2 1 - Exam Constitutional General appearance: average body habitus, lethargic, no acute distress - EENT Eyes: anicteric sclerae ENT: hearing grossly normal - Neck Neck: no lymphadenopathy - Respiratory Respiratory: bilateral: CTA - Cardiovascular Rhythm: regular Heart sounds: normal: S1, S2 Abnormal Heart Sounds: no systolic murmur, no diastolic murmur, no rub, no S3 Gallop, no S4 Gallop, no click, no other leg Peripheral Edema: bilateral: None - Gastrointestinal General gastrointestinal: normal bowel sounds, soft - Psychiatric Psychiatric: lethargic and not answering appropriately - Labs CBC & Chem 7: 07/08/20 15:37 07/08/20 15:37 Labs: Abnormal Lab Results - Last 24 Hours (Table) 07/07/20 07/07/20 07/07/20 Range/Units 13:08 17:26 20:59 WBC 11.7 H (3.8-10.6) k/uL RBC 3.47 L (3.80-5.40) m/uL Hgb 8.4 L (11.4-16.0) gm/dL Hct 26.4 L (34.0-46.0) % MCV 76.2 L (80.0-100.0) fL MCH 24.3 L (25.0-35.0) pg Neutrophils # 9.8 H (1.3-7.7) k/uL Lymphocytes # 0.9 L (1.0-4.8) k/uL Retic Count (0.5-2.0) % Sickle Cell Screen (Negative) Iron (50-170) ug/dL Troponin I 0.047 H* 0.047 H* (0.000-0.034) ng/mL Free [place] LC, Quant (0.33-1.94) mg/dL Free [place]ambda LC, Quant (0.57-2.63) mg/dL 07/08/20 07/08/20 07/08/20 Range/Units 05:58 05:58 05:58 WBC (3.8-10.6) k/uL RBC (3.80-5.40) m/uL Hgb (11.4-16.0) gm/dL Hct (34.0-46.0) % MCV (80.0-100.0) fL MCH (25.0-35.0) pg Neutrophils # (1.3-7.7) k/uL Lymphocytes # (1.0-4.8) k/uL Retic Count 2.1 H (0.5-2.0) % Sickle Cell Screen Positive H (Negative) Iron 23 L (50-170) ug/dL Troponin I (0.000-0.034) ng/mL Free [place] LC, Quant (0.33-1.94) mg/dL Free [place]ambda LC, Quant (0.57-2.63) mg/dL 07/08/20 07/08/20 Range/Units 05:58 05:58 WBC (3.8-10.6) k/uL RBC (3.80-5.40) m/uL Hgb (11.4-16.0) gm/dL Hct (34.0-46.0) % MCV (80.0-100.0) fL MCH (25.0-35.0) pg Neutrophils # (1.3-7.7) k/uL Lymphocytes # (1.0-4.8) k/uL Retic Count (0.5-2.0) % Sickle Cell Screen (Negative) Iron (50-170) ug/dL Troponin I 0.049 H* (0.000-0.034) ng/mL Free [place] LC, Quant 7.63 H (0.33-1.94) mg/dL Free [place]ambda LC, Quant 7.06 H (0.57-2.63) mg/dL Assessment and Plan Plan: US - abdomen: report reviewed Assessment and Plan Microcytic hypochromic anemia - Patient's is microcytic, hypochromic anemia has been mild to moderate since at least 2018. - Iron studies low transferrin, indicative inflammation - CKD - unknown stage - Rec GI evaluation recommended for iron deficiency. - Sickle Cell Panel Positive, hemoglobin electrophoresis ordered Physician Attest: I have completed the full history and physcial and agree with above dictation, dictated as a scribe.
--- NOTE | 2020-07-08 19:23 | PN ---
PROGRESS NOTE DATE OF SERVICE: 07/08/2020. CHIEF COMPLAINT: Mental status changes, depression, hypertension, general debility and failure to thrive. HISTORY OF PRESENT ILLNESS: This lady was being prepared to go to the skilled nursing today. She was asked along with a witnesses as to whether or not she was suicidal or homicidal and she stated she was not. Then, the family came in and decided that they did want her to go to a skilled nursing. Her discharge will be canceled and she will be kept in over the weekend to meet with Retail Sales Professional either on Saturday or Saturday. PHYSICAL EXAMINATION: Chest is clear. Cardiac exam is normal. Abdomen is soft, nontender. Blood pressure is slightly low and she is a little dehydrated. IMPRESSION: 1. Mental status changes. 2. Psychiatric disorder. 3. Dehydration. 4. Hypotension. PLAN: 1. Reinstitute IV fluids. 2. Start to work again on discharge planning. MMODL / IJN: [id number] /
--- NOTE | 2020-07-08 20:05 | CONS ---
CONSULTATION REASON FOR CONSULT: Renal failure. HISTORY OF PRESENT ILLNESS: Patient is a 70-year-old female who was recently admitted to the hospital with a fall and fracture of the distal radius. She had acute kidney injury, with serum creatinine that peaked to about 3 mg/dL. Her renal function had started to improve when patient was admitted again 3 days later, and her creatinine is down to 1.82. This admission was more for spells of crying and patient was "wanting permission to ." A psychiatric evaluation is in progress. Patient is lying in bed. She does not open her eyes. She does not communicate. However, it appears that she did communicate with Dr. Piedra this morning. According to nursing staff, the patient has not been eating much. She has been voiding. Blood pressure is slightly on the lower side, with systolic 98 to 103 mmHg with blood pressure as low as 88 mmHg yesterday. Patient is currently on IV fluids at 80 mL/hour. She is also maintained on Lasix 40 mg p.o. daily. PAST MEDICAL HISTORY: Asthma, COPD, CVA, TIA, gastroesophageal reflux disease, hyperlipidemia, osteoarthritis, history of CVA, recent fall and fracture of the radius, history of gout, cardiac catheterization, depression with history of psychotic paraparesis. PAST SURGICAL HISTORY: Cardiac catheterization, hysterectomy, tonsillectomy, colonoscopy. MEDICATIONS PRIOR TO ADMISSION: Medications prior to admission included Lasix, fluoxetine, amlodipine, aspirin, Neurontin, Imdur, Lipitor, Tenormin, minoxidil, chlorthalidone, tramadol, hydralazine. ALLERGIES: ALLERGIES include ALLOPURINOL AND CODEINE. PHYSICAL EXAMINATION: Patient is comfortable. She does not open her eyes. She is not in any acute distress. Blood pressure is 98/58, heart rate 81 per minute. She is afebrile. EXAMINATION OF THE HEART: S1 and S2. EXAMINATION OF LUNGS: Bilateral breath sounds are heard. ABDOMEN: Soft, non-tender. Examination of lower extremities shows no significant edema. LABS: Labs show sodium of 145, potassium 3.2 on 07/06. I do not have any more recent labs available. Serum creatinine was 1.82 on 07/06/2020. Hemoglobin was 8.4 g/dL. ASSESSMENT: 1. Acute kidney injury. During last admission, ATN, currently improved with creatinine down to 1.82 mg/dL now. Blood pressure is on the lower side. I will decrease antihypertensive medications. Check repeat labs. 2. Chronic kidney disease, stage IIIB, with previous creatinine 1.4 on 07/08/2019 secondary to nephrosclerosis. 3. History of psychotic paraparesis. 4. Severe depression. 5. History of dementia. 6. Anemia. No active bleeding noted. Iron saturation 18% on 07/02/2019 during her last admission. Will maintain patient on Aranesp. She did receive IV iron. PLAN: Repeat labs. Maintain patient on Aranesp. Decrease dose of hydralazine and other antihypertensive medications, given the low blood pressure. Also hold off on Lasix for now. Agree with psych evaluation. Thank you for this consultation. Will continue to follow the patient with you during her hospitalization. MMODL / IJN: [id number] /
[2020-07-08] MEDS: MIRTAZAPINE 15 MG TAB PO SCH (20:27)
[2020-07-08] MEDS: GABAPENTIN 300 MG CAP PO SCH (20:27)
[2020-07-08 20:56] LABS: Protein, Total 5.7 g/dL (6.2-8.2)
[2020-07-09] MEDS: DEXTROSE 5%-0.45% NACL 1,000 ML IV SCH ×4 (04:17→19:15)
[2020-07-09] MEDS: hydrALAZINE HCL 50 MG TAB PO SCH ×2 (04:18→08:10)
[2020-07-09] MEDS: amLODIPine 10 MG TAB PO SCH ×2 (04:18→08:09)
[2020-07-09] MEDS: SODIUM CHLORIDE 0.9% 1,000 ML IV SCH (05:48)
[2020-07-09 06:59] LABS: Basophils % (A) 1 %; Eosinophils # (A) 0.1 k/uL (0-0.7); Eosinophils % (A) 2 %; HCT 25.2 % (34.0-46.0); Lymphocytes # (A) 0.8 k/uL (1.0-4.8); Lymphocytes % (A) 10 %; MCH 24.7 pg (25.0-35.0); MCHC 31.6 g/dL (31.0-37.0); MCV 78.1 fL (80.0-100.0); Microcytosis Slight; Monocytes # (A) 0.4 k/uL (0-1.0); Monocytes % (A) 5 %; Neutrophils # (A) 6.6 k/uL (1.3-7.7); Neutrophils % (A) 83 %; Platelet Count 531 k/uL (150-450); RBC 3.22 m/uL (3.80-5.40); RDW 15.5 % (11.5-15.5)
[2020-07-09] MEDS: POTASSIUM CHLORIDE ER 20 MEQ TAB.ER PO SCH (08:02)
[2020-07-09] MEDS: FOLIC ACID 1 MG TAB PO SCH (08:02)
[2020-07-09] MEDS: ASPIRIN 325 MG TAB PO SCH (08:02)
[2020-07-09] MEDS: FLUoxetine HCL 20 MG CAP PO SCH (08:02)
[2020-07-09] MEDS: ATORVASTATIN 40 MG TAB PO SCH (08:04)
[2020-07-09] MEDS: atenoloL 50 MG TAB PO SCH (08:10)
[2020-07-09] MEDS: FUROSEMIDE 40 MG TAB PO SCH (08:10)
[2020-07-09] MEDS: ISOSORBIDE MONONITRATE ER 30 MG TAB.ER.24H PO SCH (08:10)
[2020-07-09] MEDS: minoxidiL 2.5 MG TAB PO SCH (08:14)
--- NOTE | 2020-07-09 08:35 | P.PN ---
Progress Note - Text Progress Note Date: 07/09/20 (097) Anesthesiology Peripheral IV started Ultrasound used but unable to print picture. 20-gauge left before meals 2 attempts. Sterile protocol utilized. Dressed and flushed
[2020-07-09 09:58] LABS: African American GFR (CKD) 11.5 (60.0-200.0); Albumin/Globulin Ratio 1.43 (1.60-3.17); Anion Gap 11.6 mmol/L (4.00-12.00); BUN/Creat Ratio 18.1 Ratio (12.00-20.00); Calcium 8.1 mg/dL (8.7-10.3); Carbon Dioxide 20.4 mmol/L (21.6-31.8); Globulin 2.1 g/dL (1.6-3.3); Non-African American GFR(CKD) 9.9 (60.0-200.0); Potassium 4.5 mmol/L (3.5-5.5); Total Bilirubin 0.1 mg/dL (0.3-1.2); Total Protein 5.1 g/dL (6.2-8.2)
--- NOTE | 2020-07-09 10:11 | P.PN ---
Subjective patient is seen in follow-up for acute kidney injury on chronic kidney disease. she is awake and alert. States she has been voiding. Denies vomiting or diarrhea. Maintained on IV fluids. blood pressure is low in the systolic 90s. Vital signs are stable. General: The patient appeared well nourished and normally developed. HEENT: Head exam is unremarkable. Neck is without jugular venous distension. LUNGS: Lungs are clear to auscultation and percussion. Breath sounds decreased. HEART: Rate and Rhythm are regular. ABDOMEN: soft, nontender. EXTREMITITES: No clubbing, cyanosis, or edema. Objective - Vital Signs Vital signs: Vital Signs Temp 99.6 F 07/09/20 07:00 Pulse 79 07/09/20 07:00 Resp 18 07/09/20 07:00 BP 94/46 07/09/20 07:00 Pulse Ox 100 07/09/20 07:00 Intake & Output 07/08/20 07/09/20 07/09/20 18:59 06:59 18:59 Intake Total 810 100 360 Output Total 400 Balance 810 -300 360 Intake: Intake, IV Titration 560 Amount Sodium Chloride 0.9% 1, 560 000 ml @ 80 mls/hr IV . [id number] [facility] Rx#:[id number] Oral 250 100 360 Output: Urine 400 Other: Voiding Method Bedpan Incontinent # Voids 0 0 # Bowel Movements 0 - Labs CBC & Chem 7: 07/09/20 06:23 07/09/20 06:23 Labs: Abnormal Lab Results - Last 24 Hours (Table) 07/08/20 07/08/20 07/08/20 Range/Units 05:58 05:58 05:58 RBC (3.80-5.40) m/uL Hgb (11.4-16.0) gm/dL Hct (34.0-46.0) % MCV (80.0-100.0) fL MCH (25.0-35.0) pg Plt Count (150-450) k/uL Lymphocytes # (1.0-4.8) k/uL Sickle Cell Screen Positive H (Negative) Chloride (98-107) mmol/L Carbon Dioxide (22-30) mmol/L BUN (7-17) mg/dL Creatinine (0.52-1.04) mg/dL Est GFR (CKD-EPI)AfAm (60.0-200.0) Est GFR (CKD-EPI)NonAf (60.0-200.0) Calcium (8.7-10.3) mg/dL Iron 23 L (50-170) ug/dL Transferrin 131.0 L (204.0-354.0) mg/dL Total Bilirubin (0.3-1.2) mg/dL Total Protein (6.3-8.2) g/dL Total Protein (PEP) 5.7 L (6.2-8.2) g/dL Albumin (3.5-5.0) g/dL Albumin/Globulin Ratio (1.60-3.17) g/dL Free Rosepine LC, Quant 7.63 H (0.33-1.94) mg/dL Free Lambda LC, Quant 7.06 H (0.57-2.63) mg/dL 07/08/20 07/08/20 07/09/20 Range/Units 15:37 15:37 06:23 RBC 3.19 L 3.22 L (3.80-5.40) m/uL Hgb 7.9 L 8.0 L (11.4-16.0) gm/dL Hct 25.5 L 25.2 L (34.0-46.0) % MCV 79.8 L 78.1 L (80.0-100.0) fL MCH 24.9 L 24.7 L (25.0-35.0) pg Plt Count 488 H 531 H (150-450) k/uL Lymphocytes # 0.8 L (1.0-4.8) k/uL Sickle Cell Screen (Negative) Chloride 112 H (98-107) mmol/L Carbon Dioxide 19 L (22-30) mmol/L BUN 63 H (7-17) mg/dL Creatinine 3.80 H (0.52-1.04) mg/dL Est GFR (CKD-EPI)AfAm (60.0-200.0) Est GFR (CKD-EPI)NonAf (60.0-200.0) Calcium (8.7-10.3) mg/dL Iron (50-170) ug/dL Transferrin (204.0-354.0) mg/dL Total Bilirubin (0.3-1.2) mg/dL Total Protein 5.6 L (6.3-8.2) g/dL Total Protein (PEP) (6.2-8.2) g/dL Albumin 2.8 L (3.5-5.0) g/dL Albumin/Globulin Ratio (1.60-3.17) g/dL Free Rosepine LC, Quant (0.33-1.94) mg/dL Free Lambda LC, Quant (0.57-2.63) mg/dL 07/09/20 Range/Units 06:23 RBC (3.80-5.40) m/uL Hgb (11.4-16.0) gm/dL Hct (34.0-46.0) % MCV (80.0-100.0) fL MCH (25.0-35.0) pg Plt Count (150-450) k/uL Lymphocytes # (1.0-4.8) k/uL Sickle Cell Screen (Negative) Chloride (98-107) mmol/L Carbon Dioxide 20.4 L (22-30) mmol/L BUN 76.0 H (7-17) mg/dL Creatinine 4.2 H (0.52-1.04) mg/dL Est GFR (CKD-EPI)AfAm 11.5 L (60.0-200.0) Est GFR (CKD-EPI)NonAf 9.9 L (60.0-200.0) Calcium 8.1 L (8.7-10.3) mg/dL Iron (50-170) ug/dL Transferrin (204.0-354.0) mg/dL Total Bilirubin 0.1 L (0.3-1.2) mg/dL Total Protein 5.1 L (6.3-8.2) g/dL Total Protein (PEP) (6.2-8.2) g/dL Albumin 3.00 L (3.5-5.0) g/dL Albumin/Globulin Ratio 1.43 L (1.60-3.17) g/dL Free Rosepine LC, Quant (0.33-1.94) mg/dL Free Lambda LC, Quant (0.57-2.63) mg/dL Assessment and Plan Plan: assessment: 1. Acute kidney injury secondary to ATN secondary to hypotension and diuresis. Creatinine 4.2 today. Rule out urinary retention. No evidence of hydronephrosis noted kidney ultrasound. UA benign. 2. Chronic kidney disease stage IIIB. Creatinine 1.4 in July 2019. Etiology is nephrosclerosis. 3. Severe depression. 4. Anemia of chronic kidney disease maintained on Aranesp. 5. Hypertension with chronic kidney disease. Currently hypotensive. 6. Metabolic acidosis secondary to acute kidney injury. Plan: Discontinue all antihypertensives. Maintain IV fluids. Check bladder scan. To insert Dial catheter if greater than 300 mL of urine present. discontinue potassium supplementation. continue to monitor renal function and urine output.
[2020-07-09 11:28] LABS: Magnesium 1.4 mg/dL (1.5-2.4)
[2020-07-09 12:08] LABS: Erythrocyte Sedimentation Rate 106 mm/Hr (0-30)
--- NOTE | 2020-07-09 15:57 | PN ---
PROGRESS NOTE DATE OF SERVICE: 07/09/2020 CHIEF COMPLAINT: Major depression and encephalopathy, renal failure, and anemia. HISTORY OF PRESENT ILLNESS: This lady is fairly stable but her renal function is deteriorating. The family does not want her to go to the [facility] and other arrangements will have to be explored the first of the week. She is being seen by Nephrology. PHYSICAL EXAMINATION: Chest is clear. Cardiac exam is normal. Abdomen is soft, nontender. IMPRESSION: 1. Major depression. 2. Encephalopathy. 3. Hypertension. 4. Anemia. 5. Chronic renal failure. PLAN: She is being followed by Nephrology and discharge arrangements will have to be reconsidered first of the week. MMODL / IJN: [id number] /
[2020-07-09] MEDS: GABAPENTIN 300 MG CAP PO SCH (21:09)
[2020-07-09] MEDS: MIRTAZAPINE 15 MG TAB PO SCH (21:09)
[2020-07-09] MEDS: MAGNESIUM SULFATE-D5W PMX 1 GM in DEXTROSE/WATER 1 100ML.BAG IVPB SCH (21:09)
[2020-07-10] MEDS ORDERED: MAGNESIUM SULFATE-D5W PMX 1 GM in DEXTROSE/WATER 2 100ML.BAG IVPB ONE (00:11)
[2020-07-10] MEDS: MAGNESIUM SULFATE-D5W PMX 1 GM in DEXTROSE/WATER 1 100ML.BAG IVPB SCH (00:18)
[2020-07-10] MEDS: DEXTROSE 5%-0.45% NACL 1,000 ML IV SCH ×3 (00:33→19:37)
[2020-07-10] MEDS ORDERED: MAGNESIUM SULFATE-D5W PMX 1 GM in DEXTROSE/WATER 1 100ML.BAG IVPB ONE (01:33)
[2020-07-10] MEDS: FLUoxetine HCL 20 MG CAP PO SCH (09:35)
[2020-07-10] MEDS: FOLIC ACID 1 MG TAB PO SCH (09:35)
[2020-07-10] MEDS: ISOSORBIDE MONONITRATE ER 30 MG TAB.ER.24H PO SCH (09:35)
[2020-07-10] MEDS: ATORVASTATIN 40 MG TAB PO SCH (09:35)
[2020-07-10] MEDS: ASPIRIN 325 MG TAB PO SCH (09:35)
--- NOTE | 2020-07-10 11:08 | P.PN ---
Subjective patient is seen in follow-up for acute kidney injury on chronic kidney disease. she is awake and alert. States she has been voiding. Denies vomiting or diarrhea. Maintained on IV fluids. blood pressure better today. Vital signs are stable. General: The patient appeared well nourished and normally developed. HEENT: Head exam is unremarkable. Neck is without jugular venous distension. LUNGS: Lungs are clear to auscultation and percussion. Breath sounds decreased. HEART: Rate and Rhythm are regular. ABDOMEN: soft, nontender. EXTREMITITES: No clubbing, cyanosis, or edema. Objective - Vital Signs Vital signs: Vital Signs Temp 98.7 F 07/10/20 07:43 Pulse 74 07/10/20 07:43 Resp 16 07/10/20 07:43 BP 108/62 07/10/20 07:43 Pulse Ox 97 07/10/20 07:43 Intake & Output 07/09/20 07/10/20 07/10/20 18:59 06:59 18:59 Intake Total 1440 540 Output Total 250 Balance 1440 290 Intake: Intake, IV Titration 600 300 Amount Dextrose 5%-0.45% NaCl 1, 600 300 000 ml @ 125 mls/hr IV . Q8H [facility] Rx#:[id number] Oral 840 240 Output: Urine 250 Other: Voiding Method Bedpan Bedpan Incontinent Incontinent # Voids 0 - Labs CBC & Chem 7: 07/09/20 06:23 07/09/20 06:23 Labs: Abnormal Lab Results - Last 24 Hours (Table) 07/09/20 07/09/20 Range/Units 06:23 06:23 ESR 106 H (0-30) mm/Hr Magnesium 1.4 L (1.5-2.4) mg/dL Assessment and Plan Plan: assessment: 1. Acute kidney injury secondary to ATN secondary to hypotension and diuresis. Creatinine 4.2 as of yesterday. bladder scan revealed 250 mL yesterday. This will be repeated today.No evidence of hydronephrosis noted kidney ultrasound. UA benign. 2. Chronic kidney disease stage IIIB. Creatinine 1.4 in July 2019. Etiology is nephrosclerosis. 3. Severe depression. 4. Anemia of chronic kidney disease maintained on Aranesp. 5. Hypertension with chronic kidney disease. blood pressure on the lower side. antihypertensives held. 6. Metabolic acidosis secondary to acute kidney injury. Plan: Discontinued all antihypertensives. Maintain IV fluids. continue to monitor bladder scans closely. Strict Is and Os. discontinued potassium supplementation. continue to monitor renal function and urine output. morning labs pending.
[2020-07-10 11:32] LABS: African American GFR (CKD) 10 (>60 ml/min/1.73 sqM); Anion Gap 6 mmol/L; Blood Urea Nitrogen 79 mg/dL (7-17); Calcium 8.2 mg/dL (8.4-10.2); Carbon Dioxide 22 mmol/L (22-30); Chloride 108 mmol/L (98-107); Glucose 158 mg/dL (74-99); Magnesium 2.4 mg/dL (1.6-2.3); Non-African American GFR(CKD) 8 (>60 ml/min/1.73 sqM); Potassium 4.4 mmol/L (3.5-5.1); Sodium 136 mmol/L (137-145)
[2020-07-10] MEDS: GABAPENTIN 300 MG CAP PO SCH (20:00)
[2020-07-10] MEDS: SODIUM CHLORIDE 0.9% 1,000 ML IV SCH (20:00)
[2020-07-10] MEDS: MIRTAZAPINE 15 MG TAB PO SCH (20:00)
[2020-07-11] MEDS: ATORVASTATIN 40 MG TAB PO SCH (08:25)
[2020-07-11] MEDS: ASPIRIN 325 MG TAB PO SCH (08:25)
[2020-07-11] MEDS: MIDODRINE 5 MG TAB PO SCH ×3 (08:25→17:26)
[2020-07-11] MEDS: FOLIC ACID 1 MG TAB PO SCH (08:25)
[2020-07-11] MEDS: FLUoxetine HCL 20 MG CAP PO SCH (08:25)
[2020-07-11] MEDS: ISOSORBIDE MONONITRATE ER 30 MG TAB.ER.24H PO SCH (08:25)
[2020-07-11] MEDS: SODIUM CHLORIDE 0.9% 1,000 ML IV SCH ×2 (08:26→20:00)
--- NOTE | 2020-07-11 10:32 | P.PN ---
Subjective patient is seen in follow-up for acute kidney injury on chronic kidney disease. she is awake and alert. Dial catheter inserted July 10. Denies vomiting or diarrhea. Maintained on IV fluids. midodrine added July 10. Blood pressure improved. Vital signs are stable. General: The patient appeared well nourished and normally developed. HEENT: Head exam is unremarkable. Neck is without jugular venous distension. LUNGS: Lungs are clear to auscultation and percussion. Breath sounds decreased. HEART: Rate and Rhythm are regular. ABDOMEN: soft, nontender. EXTREMITITES: No clubbing, cyanosis, or edema. Objective - Vital Signs Vital signs: Vital Signs Temp 99.2 F 07/11/20 07:00 Pulse 78 07/11/20 07:00 Resp 16 07/11/20 07:00 BP 125/56 07/11/20 07:00 Pulse Ox 97 07/11/20 07:00 Intake & Output 07/10/20 07/11/20 07/11/20 18:59 06:59 18:59 Intake Total 1100 225 240 Output Total 300 225 Balance 800 0 240 Intake: IV 1000 Dextrose 5%-0.45% NaCl 1, 1000 000 ml @ 125 mls/hr IV . Q8H [facility] Rx#:[id number] Intake, IV Titration 225 Amount Sodium Chloride 0.9% 1, 225 000 ml @ 75 mls/hr IV . [id number] [facility] Rx#:[id number] Oral 100 240 Output: Urine 300 225 Straight 300 Other: Voiding Method Bedpan Indwelling Catheter Incontinent - Labs CBC & Chem 7: 07/09/20 06:23 07/10/20 05:38 Labs: Abnormal Lab Results - Last 24 Hours (Table) 07/10/20 07/10/20 Range/Units 05:38 05:38 Sodium 136 L (137-145) mmol/L Chloride 108 H (98-107) mmol/L BUN 79 H (7-17) mg/dL Creatinine 4.84 H (0.52-1.04) mg/dL Glucose 158 H (74-99) mg/dL Calcium 8.2 L (8.4-10.2) mg/dL Magnesium 2.4 H (1.6-2.3) mg/dL Ferritin 397.5 H (10.0-291.0) ng/mL Assessment and Plan Plan: assessment: 1. Acute kidney injury secondary to ATN secondary to hypotension and diuresis. Creatinine 4.83 as of yesterday. No evidence of hydronephrosis noted kidney ultrasound. UA benign. 2. Chronic kidney disease stage IIIB. Creatinine 1.4 in July 2019. Etiology is nephrosclerosis. 3. Severe depression. 4. Anemia of chronic kidney disease maintained on Aranesp. 5. Hypertension with chronic kidney disease. blood pressure on the lower side. antihypertensives held. midodrine added. 6. Metabolic acidosis secondary to acute kidney injury. better. Plan: Discontinued all antihypertensives. Maintain IV fluids. continue to monitor bladder scans closely. Strict Is and Os. discontinued potassium supplementation. continue to monitor renal function and urine output. morning labs pending. maintain midodrine. Follow-up cortisol level.
[2020-07-11 10:58] LABS: African American GFR (CKD) 14.8 (60.0-200.0); Anion Gap 8.4 mmol/L (4.00-12.00); BUN/Creat Ratio 22.06 Ratio (12.00-20.00); Calcium 8.3 mg/dL (8.7-10.3); Carbon Dioxide 20.6 mmol/L (21.6-31.8); Magnesium 1.9 mg/dL (1.5-2.4); Non-African American GFR(CKD) 12.8 (60.0-200.0); Potassium 4.5 mmol/L (3.5-5.5)
--- NOTE | 2020-07-11 14:02 | P.PN ---
Progress Note - Text Progress Note Date: 07/11/20 Interval History: Patient was seen resting in bed comfortably and was directable and agreeable to speak with commercial real estate underwriter. Patient reports that she is feeling "well." She states that she initially felt like her family did not care for her but now that she feels better about her situation. She vehemently denies any suicidal or homicidal ideation, intention, and/or plan. She reports that she has lots to live for especially for her grandchildren. She has been adherent with her medications and denies any side effects. She reports that she is eating and sleeping well. Patient denies any auditory, visual hallucinations and denies any paranoia or delusions. Mental Status Exam: General Appearance: Patient appears to be stated age is alert, directable, and cooperative. Behavior: Patient is lying down calmly without any agitated behavior Speech: Patient's speech is fluent and nonpressured. Mood/Affect: Mood is "feeling great!" affect is euthymic to bright. Suicidality/Homicidality: Patient denies having any suicidal or homicidal ideation intent or plan. Perceptions: Patient denies any visual hallucinations and denies any auditory hallucinations Though content/process: There is no evidence of any delusional thought content and thought process is linear and goal-directed. Memory and concentration: AOX3, grossly intact for the purposes of this session Judgment and insight: Improving mildly Assessment Major depressive disorder Plan: - Patient at this time DOES NOT meet criteria for inpatient psychiatric treatment. - Recommend outpatient psychiatric or PCP follow-up. - Delirium precautions recommended with patient including - avoiding use of narcotics and STATEMENT DISTRIBUTION CLERK sedatives, limit anticholinergic medications when possible, frequent reorientation, minimize use of restraints, open window shades during the day and close them at night - Continue Remeron 15 mg by mouth at bedtime for depression/appetite - Continue Prozac 20 mg by mouth daily for depression/anxiety -Psychiatry will sign off at this time. Please call if there are any questions. Thank you for the consult.
[2020-07-11 14:15] LABS: Albumin 2.63 g/dL (3.80-4.90); Gamma Globulin 1.05 g/dL (0.70-1.50)
[2020-07-11] MEDS: GABAPENTIN 300 MG CAP PO SCH (19:59)
[2020-07-11] MEDS: MIRTAZAPINE 15 MG TAB PO SCH (20:00)
--- NOTE | 2020-07-11 21:46 | P.PN ---
Subjective Progress Note Date: 07/11/20 Principal diagnosis: Encephalopathy and anemia Patient is still very lethargic, Answers questions inconsistently. She has not undergone GI work-up as of now, order placed Objective - Vital Signs Vital signs: Vital Signs Temp 98.6 F 07/11/20 20:00 Pulse 76 07/11/20 20:00 Resp 16 07/11/20 20:00 BP 131/75 07/11/20 20:00 Pulse Ox 98 07/11/20 20:00 Intake & Output 07/11/20 07/11/20 07/12/20 06:59 18:59 06:59 Intake Total 225 240 Output Total 225 475 Balance 0 -235 Intake: Intake, IV Titration 225 Amount Sodium Chloride 0.9% 1, 225 000 ml @ 75 mls/hr IV . [id number] [facility] Rx#:[id number] Oral 240 Output: Urine 225 475 Other: Voiding Method Indwelling Catheter Indwelling Catheter - Exam Constitutional General appearance: average body habitus, lethargic, no acute distress - EENT Eyes: anicteric sclerae ENT: hearing grossly normal - Neck Neck: no lymphadenopathy - Respiratory Respiratory: bilateral: CTA - Cardiovascular Rhythm: regular Heart sounds: normal: S1, S2 Abnormal Heart Sounds: no systolic murmur, no diastolic murmur, no rub, no S3 Gallop, no S4 Gallop, no click, no other leg Peripheral Edema: bilateral: None - Gastrointestinal General gastrointestinal: normal bowel sounds, soft - Psychiatric Psychiatric: lethargic and not answering appropriately - Labs CBC & Chem 7: 07/09/20 06:23 07/11/20 05:35 Labs: Abnormal Lab Results - Last 24 Hours (Table) 07/08/20 07/08/20 07/11/20 Range/Units 05:58 07:48 05:35 Carbon Dioxide 20.6 L (21.6-31.8) mmol/L BUN 75.0 H (9.0-27.0) mg/dL Creatinine 3.4 H (0.6-1.5) mg/dL Est GFR (CKD-EPI)AfAm 14.8 L (60.0-200.0) Est GFR (CKD-EPI)NonAf 12.8 L (60.0-200.0) BUN/Creatinine Ratio 22.06 H (12.00-20.00) Ratio Calcium 8.3 L (8.7-10.3) mg/dL Albumin (PEP) 2.63 L (3.80-4.90) g/dL [id number]-[id number] 0.49 H (0.10-0.40) g/dL RBC Folate 1,088 H (280 - 791) ng/mL Assessment and Plan Plan: US - abdomen: report reviewed Assessment and Plan Microcytic hypochromic anemia - Patient's is microcytic, hypochromic anemia has been mild to moderate since at least 2018. - Iron studies low transferrin, indicative inflammation - CKD - unknown stage - Rec GI evaluation recommended for iron deficiency. - Sickle Cell Panel Positive, hemoglobin electrophoresis ordered - Consult placed for General Surgery for GI EGD and COlonoscopy - Continue on Aransp per nephrology Acute kidney injury secondary to ATN secondary to hypotension and diuresis. Chronic kidney disease stage IIIB. Severe depression.
--- NOTE | 2020-07-11 22:42 | PN ---
PROGRESS NOTE DATE OF SERVICE: 02/08/2020 CHIEF COMPLAINT: Encephalopathy and major depression with hypertension. HISTORY OF PRESENT ILLNESS: This lady is doing fairly well, but her renal function is deteriorating fairly quickly. She is being followed by Nephrology. The family does not want her go to a residential, so we will have to work out some other type of a discharge plan. She has been taken off of numerous medications, and her vital signs remain remains normal and she continues to feel well physically. PHYSICAL EXAMINATION: Head, ears, eyes, nose and mouth are normal. Chest is clear. Neck veins are not distended. Cardiac exam is normal and the abdomen is soft and nontender. IMPRESSION: 1. Major depression. 2. Possible encephalopathy. 3. Failure to thrive. 4. Chronic renal failure. PLAN: 1. Continue to work on a discharge location and plan. 2. She continues to be followed by Nephrology. MMODL / IJN: [id number] /
--- NOTE | 2020-07-11 22:55 | PN ---
PROGRESS NOTE DATE OF SERVICE: 07/11/2020 CHIEF COMPLAINT: Encephalopathy and failure to thrive. HISTORY OF PRESENT ILLNESS: This lady is doing fairly well and feels fine. We are waiting for a discharge plan. Her kidney function is extremely poor. Nephrology is following this. PHYSICAL EXAMINATION: Her vital signs are normal. Chest is clear. Cardiac exam is normal. IMPRESSION: 1. Major depression. 2. Encephalopathy. 3. Hypertension. 4. Chronic kidney disease. PLAN: Social Work is working on a discharge plan for this lady. MMODL / IJN: [id number] /
[2020-07-12 01:13] VITALS: RESP 18
[2020-07-12 06:41] LABS: African American GFR (CKD) 17 (>60 ml/min/1.73 sqM); Anion Gap 4 mmol/L; Blood Urea Nitrogen 75 mg/dL (7-17); Calcium 8.6 mg/dL (8.4-10.2); Carbon Dioxide 21 mmol/L (22-30); Chloride 115 mmol/L (98-107); Glucose 102 mg/dL (74-99); Non-African American GFR(CKD) 15 (>60 ml/min/1.73 sqM); Potassium 5.1 mmol/L (3.5-5.1); Sodium 140 mmol/L (137-145)
[2020-07-12] MEDS: FOLIC ACID 1 MG TAB PO SCH (08:50)
[2020-07-12] MEDS: FLUoxetine HCL 20 MG CAP PO SCH (08:50)
[2020-07-12] MEDS: ASPIRIN 325 MG TAB PO SCH (08:50)
[2020-07-12] MEDS: MIDODRINE 5 MG TAB PO SCH ×2 (08:50→12:32)
[2020-07-12] MEDS: SODIUM CHLORIDE 0.9% 1,000 ML IV SCH (08:51)
--- NOTE | 2020-07-12 10:50 | P.PN ---
Subjective patient is seen in follow-up for acute kidney injury on chronic kidney disease. she is awake and alert. Dial catheter inserted July 10. Denies vomiting or diarrhea. Maintained on IV fluids. midodrine added July 10. Blood pressure improved. Renal function gradually improving. Vital signs are stable. General: The patient appeared well nourished and normally developed. HEENT: Head exam is unremarkable. Neck is without jugular venous distension. LUNGS: Lungs are clear to auscultation and percussion. Breath sounds decreased. HEART: Rate and Rhythm are regular. ABDOMEN: soft, nontender. EXTREMITITES: No clubbing, cyanosis, or edema. Objective - Vital Signs Vital signs: Vital Signs Temp 97.8 F 07/12/20 07:00 Pulse 89 07/12/20 07:00 Resp 18 07/12/20 01:10 BP 154/69 07/12/20 07:00 Pulse Ox 96 07/12/20 07:00 Intake & Output 07/11/20 07/12/20 07/12/20 18:59 06:59 18:59 Intake Total 240 225 225 Output Total 475 350 Balance -235 -125 225 Intake: Intake, IV Titration 225 225 Amount Sodium Chloride 0.9% 1, 225 225 000 ml @ 75 mls/hr IV . [id number] [facility] Rx#:[id number] Oral 240 Output: Urine 475 350 Other: Voiding Method Indwelling Catheter - Labs CBC & Chem 7: 07/09/20 06:23 07/12/20 05:31 Labs: Abnormal Lab Results - Last 24 Hours (Table) 07/08/20 07/08/20 07/11/20 Range/Units 05:58 07:48 05:35 Chloride (98-107) mmol/L Carbon Dioxide 20.6 L (21.6-31.8) mmol/L BUN 75.0 H (9.0-27.0) mg/dL Creatinine 3.4 H (0.6-1.5) mg/dL Est GFR (CKD-EPI)AfAm 14.8 L (60.0-200.0) Est GFR (CKD-EPI)NonAf 12.8 L (60.0-200.0) BUN/Creatinine Ratio 22.06 H (12.00-20.00) Ratio Glucose (74-99) mg/dL Calcium 8.3 L (8.7-10.3) mg/dL Albumin (PEP) 2.63 L (3.80-4.90) g/dL [id number] 0.49 H (0.10-0.40) g/dL RBC Folate 1,088 H (280 - 791) ng/mL 07/12/20 Range/Units 05:31 Chloride 115 H (98-107) mmol/L Carbon Dioxide 21 L (21.6-31.8) mmol/L BUN 75 H (9.0-27.0) mg/dL Creatinine 3.03 H (0.6-1.5) mg/dL Est GFR (CKD-EPI)AfAm (60.0-200.0) Est GFR (CKD-EPI)NonAf (60.0-200.0) BUN/Creatinine Ratio (12.00-20.00) Ratio Glucose 102 H (74-99) mg/dL Calcium (8.7-10.3) mg/dL Albumin (PEP) (3.80-4.90) g/dL Lwahx-1-Qhiswjryi (0.10-0.40) g/dL RBC Folate (280 - 791) ng/mL Assessment and Plan Plan: assessment: 1. Acute kidney injury secondary to ATN secondary to hypotension and diuresis. Renal function improving. Creatinine 3.03 today. No evidence of hydronephrosis noted kidney ultrasound. UA benign. 2. Chronic kidney disease stage IIIB. Creatinine 1.4 in July 2019. Etiology is nephrosclerosis. 3. Severe depression. 4. Anemia of chronic kidney disease maintained on Aranesp. 5. Hypertension with chronic kidney disease. blood pressure on the lower side - improved with discontinuation of antihypertensives and addition of midodrine. 6. Metabolic acidosis secondary to acute kidney injury. better. Plan: Decreased normal saline to 50 mL an hour. Encouraged oral intake. Avoid nephrotoxins. Maintain midodrine. To be held if systolic blood pressure greater than 130. Continue to monitor renal function and urine output.
--- NOTE | 2020-07-12 11:33 | P.GSCN ---
<Dayna Maki - Last Filed: 07/12/20 11:48> History of Present Illness Consult date: 07/12/20 History of present illness: CHIEF COMPLAINT: Anemia HISTORY OF PRESENT ILLNESS: This is a 70-year-old female with a known history of chronic kidney disease, bipolar, schizophrenia and depression. Patient is a poor historian and is angered easily with questions. Most of information was obtained from her chart. Apparently she initially presented to the emergency room with failure to thrive, depression and suicidal statements. She's been evaluated by psychiatry during this admission. We have been placed on consult in regards to her anemia. Nephrology does have her on Aranesp for anemia of chronic kidney disease. Her hemoglobin was 8.0 on July 09. Patient denies any blood in her stools or black stools. Denies any abdominal pain. She denies ever having an EGD or colonoscopy. She reports that she just wants to go home and she thought she was being discharged today. PAST MEDICAL HISTORY: See list. PAST SURGICAL HISTORY: See list. MEDICATIONS: See list. ALLERGIES: See list. SOCIAL HISTORY: No illicit drug use. REVIEW OF SYSTEMS: CONSTITUTIONAL: Denies fever or chills. HEENT: Denies blurred vision, vision changes, or eye pain. Denies hemoptysis CARDIOVASCULAR: Denies chest pain or pressure. RESPIRATORY: No shortness of breath. GASTROINTESTINAL: See HPI for pertinent findings HEMATOLOGIC: Denies bleeding disorders. GENITOURINARY: Denies any blood in urine or increased urinary frequency. SKIN: Denies pruitis. Denies rash. PHYSICAL EXAM: VITAL SIGNS: Reviewed Patient refused physical exam to be completed LABORATORY DATA: WBC 8.0 hemoglobin 8.0 platelets 531 creatinine 3.03 Albumin 3.0. Total iron 23 transferrin 131 ferritin 397.5 IMAGING: ASSESSMENT: 1. Microcytic anemia that is likely multifactorial with iron deficiency anemia, anemia of chronic kidney disease and malnutrition. She also had sickle cell panel positive and oncology has ordered hemoglobin electrophoresis. Patient has no active signs of bleeding. PLAN: -Recommend EGD and colonoscopy outpatient for further workup for patient's anemia Physician Mixer Driver note has been reviewed by physician. Signing provider agrees with the documented findings, assessment, and plan of care. Past Medical History Past Medical History: Asthma, Heart Failure, COPD, CVA/TIA, GERD/Reflux, Hyperlipidemia, Hypertension, Memory Impairment, Osteoarthritis (OA), Pneumonia Additional Past Medical History / Comment(s): CVA with L sided weakness/memory impairment, chronic anemia, vitamin D deficiency, gout bilateral feet, chronic lower extremity pain especially L side, acute renal disease. History of Any Multi-Drug Resistant Organisms: None Reported Past Surgical History: Heart Catheterization, Hysterectomy, Tonsillectomy Additional Past Surgical History / Comment(s): Colonoscopy Past Anesthesia/Blood Transfusion Reactions: No Reported Reaction Past Psychological History: Depression Smoking Status: Never smoker Past Alcohol Use History: None Reported Past Drug Use History: None Reported - Past Family History Father History Unknown: Yes Family Medical History: No Reported History Mother History Unknown: Yes Family Medical History: No Reported History Additional Family Medical History / Comment(s): Pt states she does not want to discuss parents past medical history. Medications and Allergies Home Medications Medication Instructions Recorded Confirmed Type FLUoxetine HCL [Fluoxetine HCl] 20 mg PO DAILY 07/24/16 07/06/20 History amLODIPine BESYLATE [Amlodipine 10 mg PO BID 07/24/16 07/06/20 History Besylate] Gabapentin [Neurontin] 300 mg PO HS 07/08/17 07/06/20 History Isosorbide Mononitrate ER [Imdur] 30 mg PO DAILY 07/08/17 07/06/20 History Albuterol Inhaler [Ventolin Hfa 2 puff INHALATION RT-QID PRN 06/29/20 07/06/20 History Inhaler] Atenolol [Tenormin] 100 mg PO DAILY 06/29/20 07/06/20 History minoxidiL [Minoxidil] 2.5 mg PO DAILY 06/29/20 07/06/20 History hydrALAZINE HCL [Apresoline] 100 mg PO TID 06/30/20 07/06/20 History Aspirin 325 mg PO DAILY #100 tab 07/04/20 07/06/20 Rx Folic Acid 1 mg PO DAILY tab 07/04/20 07/06/20 Rx Mirtazapine [Remeron] 15 mg PO HS #30 tab 07/12/20 Rx Allergies Allergy/AdvReac Type Severity Reaction Status Date / Time allopurinol [From Zyloprim] Allergy Unknown Verified 07/06/20 18:50 codeine Allergy Unknown Verified 07/06/20 18:50 Surgical - Exam Vital Signs Temp Pulse Resp BP Pulse Ox 99.2 F 95 20 163/84 94 L 07/06/20 15:57 07/06/20 15:57 07/06/20 15:57 07/06/20 15:57 07/06/20 15:57 Results - Labs 07/09/20 06:23 07/12/20 05:31 Abnormal Lab Results - Last 24 Hours (Table) 07/08/20 07/08/20 07/12/20 Range/Units 05:58 07:48 05:31 Chloride 115 H (98-107) mmol/L Carbon Dioxide 21 L (22-30) mmol/L BUN 75 H (7-17) mg/dL Creatinine 3.03 H (0.52-1.04) mg/dL Glucose 102 H (74-99) mg/dL Albumin (PEP) 2.63 L (3.80-4.90) g/dL [id number] 0.49 H (0.10-0.40) g/dL RBC Folate 1,088 H (280 - 791) ng/mL Diabetes panel 07/12/20 Range/Units 05:31 Sodium 140 (137-145) mmol/L Potassium 5.1 (3.5-5.1) mmol/L Chloride 115 H (98-107) mmol/L Carbon Dioxide 21 L (22-30) mmol/L BUN 75 H (7-17) mg/dL Creatinine 3.03 H (0.52-1.04) mg/dL Glucose 102 H (74-99) mg/dL Calcium 8.6 (8.4-10.2) mg/dL Calcium panel 07/12/20 Range/Units 05:31 Calcium 8.6 (8.4-10.2) mg/dL Pituitary panel 07/12/20 Range/Units 05:31 Sodium 140 (137-145) mmol/L Potassium 5.1 (3.5-5.1) mmol/L Chloride 115 H (98-107) mmol/L Carbon Dioxide 21 L (22-30) mmol/L BUN 75 H (7-17) mg/dL Creatinine 3.03 H (0.52-1.04) mg/dL Glucose 102 H (74-99) mg/dL Calcium 8.6 (8.4-10.2) mg/dL Adrenal panel 07/12/20 Range/Units 05:31 Sodium 140 (137-145) mmol/L Potassium 5.1 (3.5-5.1) mmol/L Chloride 115 H (98-107) mmol/L Carbon Dioxide 21 L (22-30) mmol/L BUN 75 H (7-17) mg/dL Creatinine 3.03 H (0.52-1.04) mg/dL Glucose 102 H (74-99) mg/dL Calcium 8.6 (8.4-10.2) mg/dL <Mario Thomas - Last Filed: 07/12/20 15:50> History of Present Illness History of present illness: As above. Patient minute with confusion and weakness. Found to be anemic. We were consulted for upper and lower endoscopy. Patient during my evaluation quite belligerent. Patient insists she is going home. She refuses any endoscopic procedures currently. I called the patient's daughter and spoke with her by phone. At this time plan is for discharge. Her daughter will try to convince her to follow up with us for upper and lower endoscopy to be performed in an elective setting as an outpatient. Surgical - Exam Vital Signs Temp Pulse Resp BP Pulse Ox 99.2 F 95 20 163/84 94 L 07/06/20 15:57 07/06/20 15:57 07/06/20 15:57 07/06/20 15:57 07/06/20 15:57 Results - Labs 07/09/20 06:23 07/12/20 05:31 Abnormal Lab Results - Last 24 Hours (Table) 07/08/20 07/09/20 07/12/20 Range/Units 07:48 06:23 05:31 Hemoglobin A1 64.7 L (96.5-97.8) % Hemoglobin S 32.8 H (0.0) % Chloride 115 H (98-107) mmol/L Carbon Dioxide 21 L (22-30) mmol/L BUN 75 H (7-17) mg/dL Creatinine 3.03 H (0.52-1.04) mg/dL Glucose 102 H (74-99) mg/dL RBC Folate 1,088 H (280 - 791) ng/mL Diabetes panel 07/12/20 Range/Units 05:31 Sodium 140 (137-145) mmol/L Potassium 5.1 (3.5-5.1) mmol/L Chloride 115 H (98-107) mmol/L Carbon Dioxide 21 L (22-30) mmol/L BUN 75 H (7-17) mg/dL Creatinine 3.03 H (0.52-1.04) mg/dL Glucose 102 H (74-99) mg/dL Calcium 8.6 (8.4-10.2) mg/dL Calcium panel 07/12/20 Range/Units 05:31 Calcium 8.6 (8.4-10.2) mg/dL Pituitary panel 07/12/20 Range/Units 05:31 Sodium 140 (137-145) mmol/L Potassium 5.1 (3.5-5.1) mmol/L Chloride 115 H (98-107) mmol/L Carbon Dioxide 21 L (22-30) mmol/L BUN 75 H (7-17) mg/dL Creatinine 3.03 H (0.52-1.04) mg/dL Glucose 102 H (74-99) mg/dL Calcium 8.6 (8.4-10.2) mg/dL Adrenal panel 07/12/20 Range/Units 05:31 Sodium 140 (137-145) mmol/L Potassium 5.1 (3.5-5.1) mmol/L Chloride 115 H (98-107) mmol/L Carbon Dioxide 21 L (22-30) mmol/L BUN 75 H (7-17) mg/dL Creatinine 3.03 H (0.52-1.04) mg/dL Glucose 102 H (74-99) mg/dL Calcium 8.6 (8.4-10.2) mg/dL
--- NOTE | 2020-07-12 11:57 | CDI ---
Documentation Clarification Form Date: 07/12/2020 11:38:22 AM From: Liseth Kasper RN CCDS Admit Date: 07/06/2020 06:05:00 PM Patient Name: Kelly Oliveira Visit Number: [id number] Discharge Date: ATTENTION: The Clinical Documentation Specialists (CDI) and [facility] Coding Staff appreciate your assistance in clarifying documentation. Please respond to the clarification below the line at the bottom and electronically sign. The CDI & [facility] Coding staff will review the response and follow-up if needed. Please note: Queries are made part of the Legal Health Record. If you have any questions, please contact the author of this message via ITS. Dr. Rinku Echevarria Encephalopathy is documented in your progress note 07/09 History/Risk Factors: 70-year-old female presents to the ED with depression, suicidal ideation and failure to thrive. Medical history recent diagnosis of psychogenic paresthesias, Bipolar disorder, psych affective disorder and depression. Clinical Indicators: Labs: 07/06 Wbc 10.8; Neutrophils 8.6, Cr 1.82 07/08 Cr 3.80; 07/09 4.2; 07/10 4.84; 07/11 3.4; 07/12 3.03 Treatment: 07/07 0.9ns 500cc bolus followed by 80cc/hr d/c 07/09 ; 07/08 Dextrose/Sodium Chl Dextrose 5% 1/2ns 125cc/hr Dc 07/10; In your professional opinion, please clarify the etiology and type of encephalopathy, if known. Other condition (please specify) Metabolic Encephalopathy (Underlying Medical Illness) _ Encephalopathy (specify Type and Underlying Medical Illness) Unable to determine (Last Revision: January 2018) MTDD
--- NOTE | 2020-07-12 12:12 | CDI ---
Documentation Clarification Form Date: 07/12/2020 11:57:53 AM From: Liseth Kasper RN CCDS Admit Date: 07/06/2020 06:05:00 PM Patient Name: Kelly Oliveira Visit Number: [id number] Discharge Date: ATTENTION: The Clinical Documentation Specialists (CDI) and [facility] Coding Staff appreciate your assistance in clarifying documentation. Please respond to the clarification below the line at the bottom and electronically sign. The CDI & [facility] Coding staff will review the response and follow-up if needed. Please note: Queries are made part of the Legal Health Record. If you have any questions, please contact the author of this message via ITS. Dr. Rinku Echevarria Heart Failure is documented in the Hem oncology consult 07/07 History/Risk Factors: 70-year-old female presents to the ED with depression, suicidal ideation and failure to thrive. Medical history recent diagnosis of psychogenic paresthesias, Heart failure, CKD 3 and Bipolar disorder. Clinical Indicators: VS/Pulse OX: 07/06 B/P: 163/84; HR 95; Temp 99.2 F Oral; RR: 20; SpO2 94% ra. 06/30/20 Echocardiogram Results: Moderate concentric left ventricular hypertrophy. Overall left ventricular systolic function is low normal with, an EF between 50-55% Treatment: 07/07 Norvasc bid d/c 07/09; Tenormin 100mg daily d/c 07/09; 07/07 Lasix 40mg daily; Apresoline 100mg TID d/c 07/09; Imdur 30mg daily d/c 07/11; 07/07 Minoxidil 2.5mg daily d/c 07/09 In your professional opinion, can you please clarify the acuity and type of CHF if known? Chronic Diastolic Heart Failure Unable to Determine Other, please specify (Last Revision: January 2018) MTDD
[2020-07-12 15:33] VITALS: BP 151/72; PULSE 83; TEMP 98.6
--- NOTE | 2020-07-12 16:37 | MISC ---
MISCELLANOUS REPORT Encephalopathy, unable to determine. This is on heart failure, unable to determine. MMODL / IJN: [id number] /
--- NOTE | 2020-07-12 20:18 | DS ---
DISCHARGE SUMMARY DATE OF SERVICE: 07/12/2020 CHIEF COMPLAINT: Encephalopathy, major depression and general debility. HISTORY OF PRESENT ILLNESS/PHYSICAL EXAMINATION: The details of this lady's history and physical can be found in the initial workup. LABORATORY STUDIES: While she was in the hospital she had laboratory studies, details of which can be found in the laboratory section of her chart. COURSE IN THE HOSPITAL: After admission she was placed on bedrest, started venous fluids, and she was seen in consultation by Psychiatry. Her discharge arrangements began to be a problem. Initially it was felt that she could go to a group home, but the family came in and stated they did not want her to. She was then unable to leave the hospital on Saturday and stayed in over the weekend. Social Work worked on the case, and the family said that they would help take care of her when she went home, but this was not likely over the long haul. Nonetheless, that was the plan and she was discharged home on 07/12/2020. We will follow her as an outpatient. Her next big issue will be her renal failure. FINAL DIAGNOSES: 1. Mental status changes. 2. Major depression. 3. Chronic renal failure. 4. Hypertension. OPERATIONS: None. CONSULTATIONS: None. She is improved. MMODL / IJN: [id number] /
--- NOTE | 2020-07-14 07:42 | CDI ---
Documentation Clarification Form Date: 07/14/20 From: Osiris Parra Phone: If you have a question about this query, please contact Luanne Albright, [employer] at [phone] between 8am and 5pm. Admit Date: 07/06/20 Discharge Date: 07/12/20 Patient Name: KATHY BARKLEY Visit Number: [id number] ATTENTION: The Clinical Documentation Specialists (CDI) and [facility] Coding Staff appreciate your assistance in clarifying documentation. Please respond to the clarification below the line at the bottom and electronically sign. The CDI & [facility] Coding staff will review the response and follow-up if needed. Please note: Queries are made part of the Legal Health Record. If you have any questions, please contact the author of this message via ITS. Dear Dr. Rinku Echevarria, Altered Mental Status/mental status changes was documented in the ED note, Dr Mar's consult, PNs 07/08 & DS. History/Risk Factors: recent hysterical paraparesis, bipolar w depression, HTN w CHF & CKD IIIb, hx weakness and memory impairment following CVA, pulm HTN, schizoaffective disorder, anemia d/t CKD and iron deficiency Clinical Indicators: Mental status appears to be too unstable and therefore returns to ED. Encephalopathy was documented in PNs 07/08-07/12 but not documented in DS. Labs: K-3.2, 07/08-CO2-19, BUN: 63, Cr-1.82 Treatment: IV fluids, avoiding narcotics and TOPPIECE CUTTER sedatives, limit anticholinergic medications, frequent re-orientation, minimize use of restraints, open window shades during the day and close them at night, decrease Seroquel to 25 mg at bedtime, continue Prozac 20 mg, start Remeron 7.5 mg In your professional opinion, please clarify the etiology of the Altered Mental Status, if known. Delirium (specify cause): Dementia (if know, specify Type and if with/without Behavioral Disturbance) Encephalopathy (specify Type and Underlying Medical Illness) Bipolar w depression Other condition (please specify) Unable to determine MTDD
--- NOTE | 2020-07-15 01:45 | MISC ---
MISCELLANOUS REPORT QUERY: Bipolar depression. MMODL / IJN: [id number] /
--- NOTE | 2020-07-15 11:13 | MISC ---
MISCELLANOUS REPORT QUERY: Altered mental status. Bipolar depression. MMODL / IJN: [id number] /
== END 2020-07-12 17:16 | disposition home health service (06) | DRG 885 ==
LOC: EC 15:55 → 4SSUR 18:05
PROVIDERS: ADMIT Family Medicine; ATTEND Family Medicine
DX: F31.30 Bipolar disorder, current episode depressed, mild or moderate severity, unspecified (principal); N17.0 Acute kidney failure with tubular necrosis; G93.40 Encephalopathy, unspecified; E46 Unspecified protein-calorie malnutrition; E87.2 Acidosis; I13.0 Hypertensive heart and chronic kidney disease with heart failure and stage 1 through stage 4 chronic kidney disease, or unspecified chronic kidney disease; I69.354 Hemiplegia and hemiparesis following cerebral infarction affecting left non-dominant side; R45.851 Suicidal ideations; I27.20 Pulmonary hypertension, unspecified; F25.9 Schizoaffective disorder, unspecified; D63.1 Anemia in chronic kidney disease; R62.7 Adult failure to thrive; F03.90 Unspecified dementia, unspecified severity, without behavioral disturbance, psychotic disturbance, mood disturbance, and anxiety; I50.9 Heart failure, unspecified; I95.9 Hypotension, unspecified; N18.30 Chronic kidney disease, stage 3 unspecified; J44.9 Chronic obstructive pulmonary disease, unspecified; I69.311 Memory deficit following cerebral infarction; R40.2362 Coma scale, best motor response, obeys commands, at arrival to emergency department; R40.2142 Coma scale, eyes open, spontaneous, at arrival to emergency department; R40.2252 Coma scale, best verbal response, oriented, at arrival to emergency department; E86.0 Dehydration; D50.9 Iron deficiency anemia, unspecified; I07.1 Rheumatic tricuspid insufficiency; E78.5 Hyperlipidemia, unspecified; E55.9 Vitamin D deficiency, unspecified; R25.2 Cramp and spasm; R53.81 Other malaise; S52.502D Unspecified fracture of the lower end of left radius, subsequent encounter for closed fracture with routine healing; K21.9 Gastro-esophageal reflux disease without esophagitis; M19.90 Unspecified osteoarthritis, unspecified site; R94.31 Abnormal electrocardiogram [ECG] [EKG]; M10.9 Gout, unspecified; W19.XXXD Unspecified fall, subsequent encounter; Z68.28 Body mass index [BMI] 28.0-28.9, adult; Z79.82 Long term (current) use of aspirin; Z79.899 Other long term (current) drug therapy; Z87.01 Personal history of pneumonia (recurrent); Z91.5 Personal history of self-harm; Z60.2 Problems related to living alone; Z90.710 Acquired absence of both cervix and uterus; Z90.89 Acquired absence of other organs; Z87.42 Personal history of other diseases of the female genital tract; Z98.890 Other specified postprocedural states; Z88.5 Allergy status to narcotic agent; Z88.8 Allergy status to other drugs, medicaments and biological substances
CPT/HCPCS: 36415; 76770; 80048; 80053; 80306; 80320; 80329; 81003; 82140; 82533; 82550; 82607; 82668; 82728; 82746; 82747; 83010; 83021; 83520; 83540; 83615; 83735; 83883; 83921; 84165; 84466; 84484; 85025; 85045; 85610; 85652; 85660; 85730; 86334; 93005; 99285

== ENCOUNTER 2020-08-12 20:12 | Emergency (ER) | payer MEDICARE, OTHER ==
[2020-08-12 20:19] VITALS: RESP 18
--- NOTE | 2020-08-12 20:23 | ED ---
General Adult HPI - General Chief complaint: Recheck/Abnormal Lab/Rx Stated complaint: low hemoglobin Source: EMS Mode of arrival: EMS Limitations: no limitations - History of Present Illness Initial comments: Patient is a 70-year-old female with past medical history of COPD, CVA, hypertension who presents emergency room from [facility]. Patient had a lab draw done today which demonstrated her hemoglobin was 6.4. She is asymptomatic denies any black or tarry stools. No abnormal vaginal bleeding. No hematuria. Patient is not on any blood thinners. Patient was sent into the emergency department for evaluation. The remainder the history cannot be seen due to the patient's memory impairment - Related Data Home Medications Medication Instructions Recorded Confirmed FLUoxetine HCL [Fluoxetine HCl] 20 mg PO DAILY 07/24/16 07/06/20 amLODIPine BESYLATE [Amlodipine 10 mg PO BID 07/24/16 07/06/20 Besylate] Gabapentin [Neurontin] 300 mg PO HS 07/08/17 07/06/20 Isosorbide Mononitrate ER [Imdur] 30 mg PO DAILY 07/08/17 07/06/20 Albuterol Inhaler [Ventolin Hfa 2 puff INHALATION RT-QID PRN 06/29/20 07/06/20 Inhaler] Atenolol [Tenormin] 100 mg PO DAILY 06/29/20 07/06/20 minoxidiL [Minoxidil] 2.5 mg PO DAILY 06/29/20 07/06/20 hydrALAZINE HCL [Apresoline] 100 mg PO TID 06/30/20 07/06/20 Previous Rx's Medication Instructions Recorded Aspirin 325 mg PO DAILY #100 tab 07/04/20 Folic Acid 1 mg PO DAILY tab 07/04/20 Mirtazapine [Remeron] 15 mg PO HS #30 tab 07/12/20 Allergies Allergy/AdvReac Type Severity Reaction Status Date / Time allopurinol [From Zyloprim] Allergy Unknown Verified 08/12/20 20:19 codeine Allergy Unknown Verified 08/12/20 20:19 Review of Systems ROS Statement: Those systems with pertinent positive or pertinent negative responses have been documented in the HPI. ROS Other: All systems not noted in ROS Statement are negative. Past Medical History Past Medical History: Asthma, Heart Failure, COPD, CVA/TIA, GERD/Reflux, Hyperlipidemia, Hypertension, Memory Impairment, Osteoarthritis (OA), Pneumonia Additional Past Medical History / Comment(s): CVA with L sided weakness/memory impairment, chronic anemia, vitamin D deficiency, gout bilateral feet, chronic lower extremity pain especially L side, acute renal disease. History of Any Multi-Drug Resistant Organisms: None Reported Past Surgical History: Heart Catheterization, Hysterectomy, Tonsillectomy Additional Past Surgical History / Comment(s): Colonoscopy Past Anesthesia/Blood Transfusion Reactions: No Reported Reaction Past Psychological History: Depression Smoking Status: Never smoker Past Alcohol Use History: None Reported Past Drug Use History: None Reported - Past Family History Father History Unknown: Yes Family Medical History: No Reported History Mother History Unknown: Yes Family Medical History: No Reported History Additional Family Medical History / Comment(s): Pt states she does not want to discuss parents past medical history. General Exam Limitations: no limitations Course Vital Signs 08/12/20 08/12/20 08/12/20 20:14 21:21 22:09 Temperature 97.8 F 98.1 F Pulse Rate 73 78 Respiratory 18 18 Rate Blood Pressure 186/79 154/70 O2 Sat by Pulse 98 98 Oximetry Medical Decision Making - Medical Decision Making Upon arrival patient is placed into trauma bay 3. Laboratory studies were obtained. Patient did require ultrasound-guided peripheral IV. Laboratory studies obtained demonstrated a hemoglobin of 7.9. These results are discussed with the patient. She'll be discharged [facility] at this time. Watch laboratory studies closely however she does not require blood transfusion at this time. Patient understood this. Discharged in stable condition - Lab Data Result diagrams: 08/12/20 21:15 08/12/20 21:15 Lab Results 08/12/20 08/12/20 08/12/20 Range/Units 21:15 21:15 21:32 WBC 7.7 (3.8-10.6) k/uL RBC 3.19 L (3.80-5.40) m/uL Hgb 7.9 L (11.4-16.0) gm/dL Hct 25.8 L (34.0-46.0) % MCV 80.9 (80.0-100.0) fL MCH 24.7 L (25.0-35.0) pg MCHC 30.6 L (31.0-37.0) g/dL RDW 16.7 H (11.5-15.5) % Plt Count 555 H (150-450) k/uL Neutrophils % 72 % Lymphocytes % 14 % Monocytes % 6 % Eosinophils % 6 % Basophils % 0 % Neutrophils # 5.6 (1.3-7.7) k/uL Lymphocytes # 1.1 (1.0-4.8) k/uL Monocytes # 0.5 (0-1.0) k/uL Eosinophils # 0.5 (0-0.7) k/uL Basophils # 0.0 (0-0.2) k/uL Hypochromasia Slight Anisocytosis Slight PT 9.7 (9.0-12.0) sec INR 0.9 (<1.2) APTT 17.7 L (22.0-30.0) sec Sodium 144 (137-145) mmol/L Potassium 4.1 (3.5-5.1) mmol/L Chloride 114 H (98-107) mmol/L Carbon Dioxide 21 L (22-30) mmol/L Anion Gap 9 mmol/L BUN 78 H (7-17) mg/dL Creatinine 1.78 H (0.52-1.04) mg/dL Est GFR (CKD-EPI)AfAm 32 (>60 ml/min/1.73 sqM) Est GFR (CKD-EPI)NonAf 28 (>60 ml/min/1.73 sqM) Glucose 86 (74-99) mg/dL Calcium 9.3 (8.4-10.2) mg/dL Total Bilirubin 0.6 (0.2-1.3) mg/dL AST 36 (14-36) U/L ALT 19 (4-34) U/L Alkaline Phosphatase 89 (38-126) U/L Total Protein 7.1 (6.3-8.2) g/dL Albumin 3.3 L (3.5-5.0) g/dL Blood Type Blood Type Recheck Bld Type Recheck Status Antibody Screen Spec Expiration Date 08/12/20 Range/Units 21:32 WBC (3.8-10.6) k/uL RBC (3.80-5.40) m/uL Hgb (11.4-16.0) gm/dL Hct (34.0-46.0) % MCV (80.0-100.0) fL MCH (25.0-35.0) pg MCHC (31.0-37.0) g/dL RDW (11.5-15.5) % Plt Count (150-450) k/uL Neutrophils % % Lymphocytes % % Monocytes % % Eosinophils % % Basophils % % Neutrophils # (1.3-7.7) k/uL Lymphocytes # (1.0-4.8) k/uL Monocytes # (0-1.0) k/uL Eosinophils # (0-0.7) k/uL Basophils # (0-0.2) k/uL Hypochromasia Anisocytosis PT (9.0-12.0) sec INR (<1.2) APTT (22.0-30.0) sec Sodium (137-145) mmol/L Potassium (3.5-5.1) mmol/L Chloride (98-107) mmol/L Carbon Dioxide (22-30) mmol/L Anion Gap mmol/L BUN (7-17) mg/dL Creatinine (0.52-1.04) mg/dL Est GFR (CKD-EPI)AfAm (>60 ml/min/1.73 sqM) Est GFR (CKD-EPI)NonAf (>60 ml/min/1.73 sqM) Glucose (74-99) mg/dL Calcium (8.4-10.2) mg/dL Total Bilirubin (0.2-1.3) mg/dL AST (14-36) U/L ALT (4-34) U/L Alkaline Phosphatase (38-126) U/L Total Protein (6.3-8.2) g/dL Albumin (3.5-5.0) g/dL Blood Type A Positive Blood Type Recheck A Pos Bld Type Recheck Status No Antibody Screen NEGATIVE Spec Expiration Date 08/15/2020 - 2331 Disposition Clinical Impression: Anemia Disposition: HOME SELF-CARE Condition: Stable Instructions (If sedation given, give patient instructions): Anemia (ED) Additional Instructions: Your hemoglobin today was 7.9. You did not require a blood transfusion. Follow-up with your doctor. Return to the emergency department for any new or worsening symptoms Is patient prescribed a controlled substance at d/c from ED?: No Referrals: Rinku Echevarria MD [Primary Care Provider] - 1-2 days Time of Disposition: 21:43
[2020-08-12 21:27] LABS: Anisocytosis Slight; Basophils % (A) 0 %; Eosinophils # (A) 0.5 k/uL (0-0.7); Eosinophils % (A) 6 %; HCT 25.8 % (34.0-46.0); HGB 7.9 gm/dL (11.4-16.0); Hypochromasia Slight; Lymphocytes # (A) 1.1 k/uL (1.0-4.8); Lymphocytes % (A) 14 %; MCH 24.7 pg (25.0-35.0); MCHC 30.6 g/dL (31.0-37.0); MCV 80.9 fL (80.0-100.0); Mean Platelet Volume 6.8; Monocytes # (A) 0.5 k/uL (0-1.0); Monocytes % (A) 6 %; Neutrophils # (A) 5.6 k/uL (1.3-7.7); Neutrophils % (A) 72 %; Platelet Count 555 k/uL (150-450); RBC 3.19 m/uL (3.80-5.40); RDW 16.7 % (11.5-15.5); WBC 7.7 k/uL (3.8-10.6)
[2020-08-12 21:43] LABS: Albumin 3.3 g/dL (3.5-5.0); Calcium 9.3 mg/dL (8.4-10.2); Potassium 4.1 mmol/L (3.5-5.1); Total Bilirubin 0.6 mg/dL (0.2-1.3); Total Protein 7.1 g/dL (6.3-8.2)
[2020-08-12 22:10] VITALS: BP 154/70; PULSE 78; TEMP 98.1
[2020-08-12 22:14] LABS: INR 0.9 (<1.2); Prothrombin Time 9.7 sec (9.0-12.0)
[2020-08-12 22:21] LABS: Partial Thromboplastin Time 17.7 sec (22.0-30.0)
== END 2020-08-12 22:10 | disposition home or self-care (01) ==
LOC: EC 20:12
DX: D64.9 Anemia, unspecified (principal); J44.9 Chronic obstructive pulmonary disease, unspecified; F32.9 Major depressive disorder, single episode, unspecified; I50.9 Heart failure, unspecified; I11.0 Hypertensive heart disease with heart failure; Z79.899 Other long term (current) drug therapy; Z88.5 Allergy status to narcotic agent; Z88.8 Allergy status to other drugs, medicaments and biological substances; Z95.5 Presence of coronary angioplasty implant and graft; Z86.73 Personal history of transient ischemic attack (TIA), and cerebral infarction without residual deficits; Z90.710 Acquired absence of both cervix and uterus
CPT/HCPCS: 36415; 80053; 85025; 85610; 85730; 86850; 86900; 86901; 99284

== ENCOUNTER 2020-10-24 18:15 | Inpatient (IN) | payer MEDICARE, OTHER ==
[2020-10-24] MEDS ORDERED: SODIUM CHLORIDE 0.9% 1,000 ML IV ONE (18:39)
--- NOTE | 2020-10-24 19:30 | ED ---
General Adult HPI - General Source: EMS Mode of arrival: EMS Limitations: physical limitation <Bradley Jurado - Last Filed: 10/24/20 21:57> <Rika Singh - Last Filed: 10/25/20 22:22> - General Chief complaint: Altered Mental Status Stated complaint: Mental health Time Seen by Provider: 10/24/20 18:39 - History of Present Illness Initial comments: 70-year-old female with a past medical history of asthma, COPD, GERD, hyperlipidemia, hypertension, heart failure presents to the emergency room for a chief complaint of "failure to thrive." Patient was admitted to [facility] 6 days ago apparently and since that time has been refusing to speak to anyone or eat or drink. They reports they think she is upset that her family put her there. Patient does have a history of altered mental status, bipolar disorder, schizoaffective disorder. She is previously similar episodes and was diagnosed with encephalopathy as well as psychiatric causes. Patient has no other complaints at this time including shortness of breath, chest pain, abdominal pain, nausea or vomiting, headache, or visual changes. (Bradley Jurado) - Related Data Home Medications Medication Instructions Recorded Confirmed amLODIPine BESYLATE [Amlodipine 10 mg PO DAILY@0900 07/24/16 10/24/20 Besylate] Gabapentin [Neurontin] 300 mg PO BID@0900,209907/08/17 10/24/20 Albuterol Inhaler [Ventolin Hfa 2 puff INHALATION RT-QID PRN 06/29/20 10/24/20 Inhaler] Atenolol [Tenormin] 100 mg PO DAILY@0906/29/20 10/24/20 Acetaminophen Tab [Tylenol] 650 mg PO Q4H PRN 10/24/20 10/24/20 Aspirin EC [Ecotrin Low Dose] 81 mg PO DAILY@0900 10/24/20 10/24/20 Atorvastatin Calcium [Lipitor] 40 mg PO HS@209910/24/20 10/24/20 Magnesium Hydroxide [Milk of 7,200 mg PO DAILY PRN 10/24/20 10/24/20 Magnesia Concentrate] Mirtazapine [Remeron] 15 mg PO HS@209910/24/20 10/24/20 Na Phos,M-B/Na Phos,Di-Ba [Fleet 133 ml RECTAL DAILY PRN 10/24/20 10/24/20 Adult] bisacodyL [Bisacodyl] 10 mg RECTAL DAILY PRN 10/24/20 10/24/20 Allergies Allergy/AdvReac Type Severity Reaction Status Date / Time No Known Allergies Allergy Verified 10/24/20 19:50 Review of Systems ROS Other: All systems not noted in ROS Statement are negative. <Bradley Jurado P - Last Filed: 10/24/20 21:57> ROS Other: All systems not noted in ROS Statement are negative. <Rika Singh A - Last Filed: 10/25/20 22:22> ROS Statement: Those systems with pertinent positive or pertinent negative responses have been documented in the HPI. Past Medical History Past Medical History: Asthma, Heart Failure, COPD, CVA/TIA, GERD/Reflux, Hyperlipidemia, Hypertension, Memory Impairment, Osteoarthritis (OA), Pneumonia Additional Past Medical History / Comment(s): CVA with L sided weakness/memory impairment, chronic anemia, vitamin D deficiency, gout bilateral feet, chronic lower extremity pain especially L side, acute renal disease. History of Any Multi-Drug Resistant Organisms: None Reported Past Surgical History: Heart Catheterization, Hysterectomy, Tonsillectomy Additional Past Surgical History / Comment(s): Colonoscopy Past Anesthesia/Blood Transfusion Reactions: No Reported Reaction Past Psychological History: Anxiety, Bipolar, Depression Smoking Status: Never smoker Past Alcohol Use History: None Reported Past Drug Use History: None Reported - Past Family History Father History Unknown: Yes Family Medical History: No Reported History Mother History Unknown: Yes Family Medical History: No Reported History Additional Family Medical History / Comment(s): Pt states she does not want to discuss parents past medical history. <Bradley Jurado P - Last Filed: 10/24/20 21:57> General Exam Limitations: physical limitation General appearance: alert (responds to physical stimuli) Head exam: Present: atraumatic, normal inspection Eye exam: Present: normal appearance, PERRL, EOMI. Absent: scleral icterus, conjunctival injection ENT exam: Present: normal exam, mucous membranes moist Neck exam: Present: normal inspection, full ROM. Absent: tenderness Respiratory exam: Present: normal lung sounds bilaterally. Absent: respiratory distress Cardiovascular Exam: Present: regular rate, normal rhythm, normal heart sounds GI/Abdominal exam: Present: soft, normal bowel sounds. Absent: distended, tenderness Neurological exam: Present: alert <Bradley Jurado - Last Filed: 10/24/20 21:57> Course Vital Signs 10/24/20 10/24/20 10/24/20 18:19 19:04 21:53 Temperature 97.8 F Pulse Rate 92 87 70 Respiratory 18 18 18 Rate Blood Pressure 138/73 131/72 155/56 O2 Sat by Pulse 99 100 98 Oximetry EKG Findings - EKG Comments: EKG Findings:: Normal sinus rhythm, ventricular rate 91, LA interval 116, QTc 437 <Bradley Jurado - Last Filed: 10/24/20 21:57> Medical Decision Making - Lab Data Result diagrams: 10/24/20 19:40 10/24/20 20:32 <Bradley Jurado - Last Filed: 10/24/20 21:57> - Lab Data Result diagrams: 10/25/20 06:58 10/25/20 06:58 <Rika Singh - Last Filed: 10/25/20 22:22> - Medical Decision Making Vitals are stable patient is alert however refusing to speak to staff. CBC unremarkable. Hemoglobin is stable at 8.8. CMP however does show evidence of dehydration. Patient is hypernatremic. Significant azotemia noted with a BUN of 156. Chronic kidney disease as well. Patient's troponin is slightly elevated at 0.124 however this is presumed secondary to kidney function. Urinalysis unremarkable. Given review of previous visits symptoms are consistent with patients psychiatric complications. However given severe dehydration she will be admitted for IV fluids. Case discussed with Dr. Teixeira who requests a psychiatry consultation. (Bradley Jurado) I was available for consultation in the emergency department. The history and physical exam were done by the midlevel provider. I was consulted for this patients care. I reviewed the case with the midlevel provider and based on thei r presentation of the patient, I agree with the assessment, medical decision making and plan of care as documented. Chart was dictated using [employer] dictation software. Attempts were made to correct any dictation errors however some typographical errors may persist. Patient was seen during a national state of emergency due to the Covid-19 pandemic. (Rika Singh) - Lab Data Lab Results 10/24/20 10/24/20 10/24/20 Range/Units 19:25 19:40 19:40 WBC 10.0 (3.8-10.6) k/uL RBC 3.73 L (3.80-5.40) m/uL Hgb 8.8 L (11.4-16.0) gm/dL Hct 29.3 L (34.0-46.0) % MCV 78.5 L (80.0-100.0) fL MCH 23.7 L (25.0-35.0) pg MCHC 30.2 L (31.0-37.0) g/dL RDW 17.3 H (11.5-15.5) % Plt Count 150 (150-450) k/uL MPV 10.7 Neutrophils % 89 % Lymphocytes % 6 % Monocytes % 4 % Eosinophils % 1 % Basophils % 0 % Neutrophils # 9.0 H (1.3-7.7) k/uL Lymphocytes # 0.6 L (1.0-4.8) k/uL Monocytes # 0.4 (0-1.0) k/uL Eosinophils # 0.1 (0-0.7) k/uL Basophils # 0.0 (0-0.2) k/uL Hypochromasia Marked Anisocytosis Slight Microcytosis Slight PT (9.0-12.0) sec INR (<1.2) APTT (22.0-30.0) sec Sodium 155 H (137-145) mmol/L Potassium 4.6 (3.5-5.1) mmol/L Chloride 119 H (98-107) mmol/L Carbon Dioxide 23 (22-30) mmol/L Anion Gap 13 mmol/L BUN 158 H* (7-17) mg/dL Creatinine 3.74 H (0.52-1.04) mg/dL Est GFR (CKD-EPI)AfAm 13 (>60 ml/min/1.73 sqM) Est GFR (CKD-EPI)NonAf 11 (>60 ml/min/1.73 sqM) Glucose 105 H (74-99) mg/dL Calcium 9.4 (8.4-10.2) mg/dL Total Bilirubin (0.2-1.3) mg/dL AST (14-36) U/L ALT (4-34) U/L Alkaline Phosphatase (38-126) U/L Troponin I 0.124 H* (0.000-0.034) ng/mL Total Protein (6.3-8.2) g/dL Albumin (3.5-5.0) g/dL Urine Color Urine Appearance (Clear) Urine pH (5.0-8.0) Ur Specific [place] (1.001-1.035) Urine Protein (Negative) Urine Glucose (UA) (Negative) Urine Ketones (Negative) Urine Blood (Negative) Urine Nitrite (Negative) Urine Bilirubin (Negative) Urine Urobilinogen (<2.0) mg/dL Ur Leukocyte Esterase (Negative) Urine RBC (0-5) /hpf Urine WBC (0-5) /hpf Ur Squamous Epith Cells (0-4) /hpf Urine Bacteria (None) /hpf Urine Yeast (Budding) (None) /hpf 10/24/20 10/24/20 10/24/20 Range/Units 20:32 20:32 21:00 WBC (3.8-10.6) k/uL RBC (3.80-5.40) m/uL Hgb (11.4-16.0) gm/dL Hct (34.0-46.0) % MCV (80.0-100.0) fL MCH (25.0-35.0) pg MCHC (31.0-37.0) g/dL RDW (11.5-15.5) % Plt Count (150-450) k/uL MPV Neutrophils % % Lymphocytes % % Monocytes % % Eosinophils % % Basophils % % Neutrophils # (1.3-7.7) k/uL Lymphocytes # (1.0-4.8) k/uL Monocytes # (0-1.0) k/uL Eosinophils # (0-0.7) k/uL Basophils # (0-0.2) k/uL Hypochromasia Anisocytosis Microcytosis PT 9.8 (9.0-12.0) sec INR 0.9 (<1.2) APTT 19.6 L (22.0-30.0) sec Sodium 155 H (137-145) mmol/L Potassium 4.4 (3.5-5.1) mmol/L Chloride 118 H (98-107) mmol/L Carbon Dioxide 23 (22-30) mmol/L Anion Gap 14 mmol/L BUN 156 H* (7-17) mg/dL Creatinine 3.73 H (0.52-1.04) mg/dL Est GFR (CKD-EPI)AfAm 13 (>60 ml/min/1.73 sqM) Est GFR (CKD-EPI)NonAf 12 (>60 ml/min/1.73 sqM) Glucose 111 H (74-99) mg/dL Calcium 9.3 (8.4-10.2) mg/dL Total Bilirubin 0.6 (0.2-1.3) mg/dL AST 45 H (14-36) U/L ALT 21 (4-34) U/L Alkaline Phosphatase 65 (38-126) U/L Troponin I (0.000-0.034) ng/mL Total Protein 6.8 (6.3-8.2) g/dL Albumin 3.3 L (3.5-5.0) g/dL Urine Color Yellow Urine Appearance Cloudy H (Clear) Urine pH 5.0 (5.0-8.0) Ur Specific [place] 1.014 (1.001-1.035) Urine Protein Negative (Negative) Urine Glucose (UA) Negative (Negative) Urine Ketones Negative (Negative) Urine Blood Negative (Negative) Urine Nitrite Negative (Negative) Urine Bilirubin Negative (Negative) Urine Urobilinogen <2.0 (<2.0) mg/dL Ur Leukocyte Esterase Negative (Negative) Urine RBC 4 (0-5) /hpf Urine WBC 1 (0-5) /hpf Ur Squamous Epith Cells 2 (0-4) /hpf Urine Bacteria Rare H (None) /hpf Urine Yeast (Budding) Occasional H (None) /hpf Disposition Is patient prescribed a controlled substance at d/c from ED?: No Time of Disposition: 22:08 <Bradley Jurado P - Last Filed: 10/24/20 21:57> <Rika Singh - Last Filed: 10/25/20 22:22> Clinical Impression: Dehydration, Elevated troponin, Azotemia, Hypernatremia, Flat affect Disposition: ADMITTED IP TO THIS HOSP
[2020-10-24 19:40] LABS: Calcium 9.4 mg/dL (8.4-10.2); Potassium 4.6 mmol/L (3.5-5.1)
[2020-10-24 19:47] LABS: Anisocytosis Slight; Basophils % (A) 0 %; Eosinophils # (A) 0.1 k/uL (0-0.7); Eosinophils % (A) 1 %; HCT 29.3 % (34.0-46.0); HGB 8.8 gm/dL (11.4-16.0); Hypochromasia Marked; Lymphocytes # (A) 0.6 k/uL (1.0-4.8); Lymphocytes % (A) 6 %; MCH 23.7 pg (25.0-35.0); MCHC 30.2 g/dL (31.0-37.0); MCV 78.5 fL (80.0-100.0); Mean Platelet Volume 10.7; Microcytosis Slight; Monocytes # (A) 0.4 k/uL (0-1.0); Monocytes % (A) 4 %; Neutrophils % (A) 89 %; Platelet Count 150 k/uL (150-450); RBC 3.73 m/uL (3.80-5.40); RDW 17.3 % (11.5-15.5)
--- NOTE | 2020-10-24 20:29 | XR ---
EXAMINATION TYPE: XR chest 1V portable DATE OF EXAM: 10/24/2020 COMPARISON: 07/01/2020 HISTORY: Altered mental status. TECHNIQUE: FINDINGS: There is no heart failure nor confluent pneumonic infiltrate. Costophrenic angles are clear . There is some spurring in the shoulder joints. There are no hilar masses. Heart size is normal. IMPRESSION: No active cardiopulmonary disease. Normal heart. No change.
[2020-10-24 20:48] LABS: Albumin 3.3 g/dL (3.5-5.0); Calcium 9.3 mg/dL (8.4-10.2); Potassium 4.4 mmol/L (3.5-5.1); Total Bilirubin 0.6 mg/dL (0.2-1.3); Total Protein 6.8 g/dL (6.3-8.2)
[2020-10-24 20:57] LABS: INR 0.9 (<1.2); Prothrombin Time 9.8 sec (9.0-12.0)
--- NOTE | 2020-10-24 20:57 | CT ---
EXAMINATION TYPE: CT brain wo con DATE OF EXAM: 10/24/2020 COMPARISON: 06/29/2020 HISTORY: AMS CT DLP: 1217.4 mGycm Automated exposure control for dose reduction was used. Exam performed without contrast. There is large area of hypodensity involving the left cerebral hemisphere in the left temporal lobe a nd left posterior parietal lobe. There is cerebral cortical atrophy. There is no mass effect nor midl ine shift. There is no sign of intracranial hemorrhage. Calvarium is intact. The skull base is intact . IMPRESSION: Old left hemisphere infarct unchanged compared to old exam. No acute intracranial abnormality.
[2020-10-24 21:09] LABS: Partial Thromboplastin Time 19.6 sec (22.0-30.0)
[2020-10-24 21:23] LABS: Appearance,Urine Cloudy (Clear); Bacteria,Urine Rare /hpf; Bilirubin,Urine Negative (Negative); Blood,Urine Negative (Negative); Budding Yeast,Urine Occasional /hpf; Color,Urine Yellow; Glucose,Urine (UA) Negative (Negative); Ketones,Urine Negative (Negative); Leukocyte Esterase,Urine Negative (Negative); Nitrite,Urine Negative (Negative); Protein,Urine Negative (Negative); RBC,Urine 4 /hpf (0-5); Specific Gravity,Urine 1.014 (1.001-1.035); Squamous Epithelial Cell,Urine 2 /hpf (0-4); Urobilinogen,Urine <2.0 mg/dL (<2.0); WBC,Urine 1 /hpf (0-5)
[2020-10-24] MEDS ORDERED: NALOXONE 0.4 MG/ML 1 ML VIAL IV PRN (22:10)
[2020-10-24] MEDS ORDERED: bisacodyL 10 MG SUPP RECTAL PRN (22:13)
[2020-10-24] MEDS ORDERED: ALBUTEROL HFA INHALER INHALATION PRN (22:13)
[2020-10-24] MEDS ORDERED: ACETAMINOPHEN TAB 325 MG TAB PO PRN (22:13)
[2020-10-24] MEDS ORDERED: ATORVASTATIN 40 MG TAB PO SCH (23:00)
[2020-10-25] MEDS: SODIUM CHLORIDE 0.9% 1,000 ML IV SCH ×2 (02:00→11:57)
[2020-10-25 07:15] LABS: Calcium 8.6 mg/dL (8.4-10.2); Potassium 4.3 mmol/L (3.5-5.1)
[2020-10-25 07:24] LABS: Anisocytosis Slight; Basophils % (A) 0 %; Eosinophils # (A) 0.1 k/uL (0-0.7); Eosinophils % (A) 1 %; HCT 22.8 % (34.0-46.0); Hypochromasia Slight; Lymphocytes # (A) 0.6 k/uL (1.0-4.8); Lymphocytes % (A) 5 %; MCH 23.7 pg (25.0-35.0); MCHC 32.1 g/dL (31.0-37.0); MCV 73.7 fL (80.0-100.0); Mean Platelet Volume 9.6; Microcytosis Moderate; Monocytes # (A) 0.4 k/uL (0-1.0); Monocytes % (A) 3 %; Neutrophils # (A) 11.2 k/uL (1.3-7.7); Neutrophils % (A) 91 %; Platelet Count 122 k/uL (150-450); RBC 3.09 m/uL (3.80-5.40); RDW 17.9 % (11.5-15.5); WBC 12.4 k/uL (3.8-10.6)
[2020-10-25 07:28] LABS: HGB 7.3 gm/dL (11.4-16.0)
[2020-10-25] MEDS: amLODIPine 10 MG TAB PO SCH (09:22)
[2020-10-25] MEDS: atenoloL 50 MG TAB PO SCH (09:22)
[2020-10-25] MEDS: ASPIRIN 81 MG PO SCH (09:22)
[2020-10-25] MEDS: GABAPENTIN 300 MG CAP PO SCH ×2 (09:22→21:33)
--- NOTE | 2020-10-25 14:04 | P.CN ---
Psychiatric Consult - . Consult date: 10/25/20 Consult:: 10/25/20 12:29 IDENTIFYING DATA: This patient is a 70-year-old -[place] female with significant history of bipolar disorder who was living at [facility] and transferred to the ER. Reason for consultation was for "flat affect, history of bipolar". HISTORY OF PRESENT ILLNESS: The patient presented to the hospital [facility] and according to ER report for "failure to thrive". Patient apparently has been at [facility] for the past 6 days before coming in the hospital however has been refusing to speak to anyone eat or drink. Patient was uncooperative and refusing to speak to any staff members while in the hospital. Patient was found to be severely dehydrated and had elevated troponins and patient was admitted to medical floors for treatment. Patient had a computed tomography scan of her brain which showed an old left hemisphere infarct which has been unchanged and no acute intracranial changes. Nurse taking care patient states that she has not been opening her eyes and is refusing medications and is nonverbal. Patient was seen at the bedside and had her eyes closed laying in bed. Patient did not acknowledge brief writer and did not open her eyes. She did not respond to any questions at all during the evaluation. Patient did not follow any commands. PAST PSYCHIATRIC HISTORY: Patient has a a history of Depression, bipolar. Patient's medications include Prozac 20 mg daily and Seroquel 50 mg at bedtime. Her current psychotropic medications are prescribed by her primary care physician. PAST MEDICAL HISTORY: Asthma, heart failure, COPD, CVA, GERD, hyperlipidemia, hypertension, osteoarthritis, pneumonia. ALLERGIES: as per EMR. CHEMICAL DEPENDENCY HISTORY: Denies FAMILY PSYCHIATRIC/SUBSTANCE USE HISTORY: Unable to obtain at this time. SOCIAL HISTORY: Patient was born and raised in [place]. She has a daughter named Bianca. MENTAL STATUS EXAM: General Appearance: Patient appears to be stated age is Somnolent, uncooperative. Nonverbal. Appears to be fairly thin with poor hygiene and grooming wearing hospital gown. Behavior: Patient is calmly lying in bed without any agitated behavior. Uncooperative and nonresponsive to commands. Speech: Nonverbal Mood/Affect: Unable to assess Suicidality/Homicidality: Unable to assess Perceptions: Unable to assess Though content/process: Unable to assess Memory and concentration: Unable to assess. Judgment and insight: poor IMPRESSIONS: Depressive disorder unspecified, rule out bipolar depression versus adjustment disorder Rule out major neurocognitive disorder PLAN: -At this time patient DOES NOT meet criteria for inpatient psychiatric admission. -Patient DOES NOT have decision making capacity at this time and is unable to reason through and communicate/appreciate the risks, benefits and alternatives to treatment. -Delirium precautions recommended with patient including - avoiding use of narcotics and SHEET ROCK APPLICATOR sedatives, limit anticholinergic medications when possible, frequent re-orientation, minimize use of restraints, open window shades during the day and close them at night -Would recommend the following medication changes/additions: Continue Remeron 15 mg by mouth at bedtime for depression and failure to thrive -Will continue to follow along and attempt to speak with patient tomorrow. -Since patient does not have decision making capacity and cannot care for herself, social work instructor to begin the process of seeking guardianship. -Please contact with any questions.
[2020-10-25 15:33] VITALS: BMI 22.9
[2020-10-25] MEDS: DEXTROSE 5%-0.45% NACL 1,000 ML IV SCH (18:13)
--- NOTE | 2020-10-25 18:17 | HP ---
HISTORY AND PHYSICAL CHIEF COMPLAINT: Lethargy, dehydration and mental illness. HISTORY OF PRESENT ILLNESS: This is another admission for this 70-year-old white female from the alf, where she has been refusing to eat and drink. She has become progressively more weak, lethargic and obtunded. In the emergency room she was noted to be extremely dehydrated and BUN was over 155. REVIEW OF SYSTEMS/PHYSICAL EXAMINATION: Review of systems is not obtained, in that she cannot be aroused. Skin is extremely dry and she is clinically very dehydrated. Head, ears, eyes, nose, mouth and throat are unremarkable except for dry mucous membranes. Chest is clear to auscultation. Cardiac exam demonstrates what sounds like sinus rhythm and no murmurs. The abdomen is soft. There are no masses or tenderness. Extremities are normal. Neurologically she is extremely lethargic. She is admitted to the hospital with diagnoses: 1. Profound dehydration. 2. Malnutrition. 3. Lethargy. 4. Prerenal azotemia. 5. History of mental illness. PLAN: 1. Bedrest. 2. IV fluids. 3. Follow renal function. 4. Consult Psychiatry. MMODL / IJN: [id number] /
--- NOTE | 2020-10-25 18:22 | PN ---
PROGRESS NOTE CHIEF COMPLAINT: Dehydration and prerenal azotemia. HISTORY OF PRESENT ILLNESS: This lady is still not responding. She does respond to pain. She is still very dehydrated. PHYSICAL EXAMINATION: Skin is extremely dry and has very poor turgor. Respirations are shallow, but breath sounds are heard on both sides. Cardiac exam is normal. Abdomen is soft and there are no masses. IMPRESSION: 1. Profound dehydration. 2. Prerenal azotemia. 3. Acute psychosis. PLAN: 1. Continue to rehydrate. 2. Follow renal function. MMODL / IJN: [id number] /
[2020-10-25] MEDS ORDERED: MIRTAZAPINE 15 MG TAB PO SCH (21:00)
[2020-10-25] MEDS ORDERED: ATORVASTATIN 40 MG TAB PO SCH (21:00)
[2020-10-26] MEDS: DEXTROSE 5%-0.45% NACL 1,000 ML IV SCH ×3 (04:12→16:29)
[2020-10-26 07:09] LABS: Anisocytosis Slight; Basophils % (A) 0 %; Eosinophils # (A) 0.1 k/uL (0-0.7); Eosinophils % (A) 1 %; HCT 20.1 % (34.0-46.0); Hypochromasia Moderate; Lymphocytes # (A) 0.6 k/uL (1.0-4.8); Lymphocytes % (A) 6 %; MCH 22.7 pg (25.0-35.0); MCHC 29.7 g/dL (31.0-37.0); MCV 76.4 fL (80.0-100.0); Mean Platelet Volume 10.1; Microcytosis Slight; Monocytes # (A) 0.2 k/uL (0-1.0); Monocytes % (A) 3 %; Neutrophils # (A) 8.5 k/uL (1.3-7.7); Neutrophils % (A) 90 %; Platelet Count 113 k/uL (150-450); RBC 2.64 m/uL (3.80-5.40); RDW 17.8 % (11.5-15.5); WBC 9.5 k/uL (3.8-10.6)
[2020-10-26] MEDS: atenoloL 50 MG TAB PO SCH (09:03)
[2020-10-26] MEDS: ASPIRIN 81 MG PO SCH (09:03)
[2020-10-26] MEDS: amLODIPine 10 MG TAB PO SCH (09:03)
[2020-10-26] MEDS: GABAPENTIN 300 MG CAP PO SCH (09:04)
[2020-10-26 11:20] LABS: African American GFR (CKD) 21.5 (60.0-200.0); Albumin/Globulin Ratio 1.36 (1.60-3.17); Calcium 8.3 mg/dL (8.7-10.3); Globulin 2.2 g/dL (1.6-3.3); Non-African American GFR(CKD) 18.6 (60.0-200.0); Potassium 3.4 mmol/L (3.5-5.5); Total Bilirubin 0.3 mg/dL (0.3-1.2); Total Protein 5.2 g/dL (6.2-8.2)
--- NOTE | 2020-10-26 13:40 | P.PN ---
Progress Note - Text Progress Note Date: 10/26/20 Interval History: Patient was seen today for psychiatric follow-up regarding patient's condition. Nurse taking care of patient states that she continues to be nonverbal and minimally responsive. Patient was only able to respond with her hands after a sternal rub. Patient was nonresponsive when ghost writer asked questions and try to engage with the patient. Patient continues to be refusing by mouth medications. Mental Status Exam: General Appearance: Patient appears to be stated age is Somnolent, uncooperative. Nonverbal. Appears to be fairly thin with poor hygiene and grooming wearing hospital gown. Behavior: Patient is calmly lying in bed without any agitated behavior. Uncooperative and nonresponsive to commands. Speech: Nonverbal Mood/Affect: Unable to assess Suicidality/Homicidality: Unable to assess Perceptions: Unable to assess Though content/process: Unable to assess Memory and concentration: Unable to assess. Judgment and insight: poor Assessment Depressive disorder unspecified, rule out bipolar depression versus adjustment disorder Rule out major neurocognitive disorder Plan: -At this time patient DOES NOT meet criteria for inpatient psychiatric admission. -Patient DOES NOT have decision making capacity at this time and is unable to reason through and communicate/appreciate the risks, benefits and alternatives to treatment. -Delirium precautions recommended with patient including - avoiding use of narcotics and A/C TECH sedatives, limit anticholinergic medications when possible, frequent re-orientation, minimize use of restraints, open window shades during the day and close them at night -Would recommend the following medication changes/additions: Continue Remeron 15 mg by mouth at bedtime for depression and failure to thrive -At this time psychiatry will sign off. Can re-consult if patient awakens and is willing to be seen. -decontamination worker continuing to look into guardianship options and discussing care with family members -Please contact with any questions
--- NOTE | 2020-10-26 14:05 | CDI ---
Documentation Clarification Form Date: 10/26/2020 01:52:32 PM From: Karen Crenshaw RN, CCDS Admit Date: 10/24/2020 09:49:00 PM Patient Name: Kelly Oliveira Visit Number: [id number] ATTENTION: The Clinical Documentation Specialists (CDI) and [facility] Coding Staff appreciate your assistance in clarifying documentation. Please respond to the clarification below the line at the bottom and electronically sign. The CDI & [facility] Coding staff will review the response and follow-up if needed. Please note: Queries are made part of the Legal Health Record. If you have any questions, please contact the author of this message via ITS. Dr. Rinku Echevarria Malnutrition has been documented in H&P and requires further specificity. History/Risk Factors: Admitted from [place] with failure to thrive, dehydration, weakness, lethargy, Obtundation, depression Clinical Indicators: Labs: HGB: 8.8/7.3/6 Hct: 29.3/22.8/20.1 BUN: 158/156/150/145 Creatinine: 3.74/3.73/3.19 Total Protein 6.8/5.2 Albumin 3.3/3 Current BMI: 16.7 10/25 Psych Consult and Progress Note: "Appears to be fairly thin with poor hygiene and grooming wearing hospital gown." Insufficient energy intake: 10/25 H&P: "Skin is extremely dry and has very poor turgor. Profound dehydration. Prerenal azotemia." Weight Loss: Loss of subcutaneous fat: skin tear on right buttock, small wound to inside of right heal Loss of muscle mass: Per nursing assessment generalized weakness and stiffness Treatment: Dietary Consult: Completed 10/25/2020 Supplements: Ensure Compact BID Lab monitoring: Am daily In your professional opinion, can you please clarify if these findings signify one of the following conditions? Moderate Protein-Calorie Malnutrition Severe Protein-Calorie Malnutrition Other condition, please specify Unable to determine (Last Revision: April 2019) MTDD
--- NOTE | 2020-10-26 17:36 | PN ---
PROGRESS NOTE DATE OF SERVICE: 10/27/2020 CHIEF COMPLAINT: Dehydration. HISTORY OF PRESENT ILLNESS: This lady remains very lethargic. Her oral medications will be stopped. Sodium is still high. Potassium has dropped. PHYSICAL EXAMINATION: Breath sounds are clear, but respiratory excursions are shallow. Cardiac exam is normal. Abdomen is soft. IMPRESSION: 1. Dehydration. 2. Prerenal azotemia. 3. Hypokalemia. PLAN: Continue with IV fluids and continue to monitor her vital signs and renal function. MMODL / IJN: [id number] /
[2020-10-26 18:28] LABS: Anisocytosis Slight; Basophils % (A) 0 %; Eosinophils # (A) 0.1 k/uL (0-0.7); Eosinophils % (A) 1 %; HCT 31.6 % (34.0-46.0); Hypochromasia Moderate; Lymphocytes # (A) 0.8 k/uL (1.0-4.8); Lymphocytes % (A) 9 %; MCH 24.7 pg (25.0-35.0); MCHC 31.1 g/dL (31.0-37.0); MCV 79.6 fL (80.0-100.0); Mean Platelet Volume 10.3; Microcytosis Slight; Monocytes # (A) 0.3 k/uL (0-1.0); Monocytes % (A) 3 %; Neutrophils # (A) 7.7 k/uL (1.3-7.7); Neutrophils % (A) 87 %; Platelet Count 108 k/uL (150-450); RBC 3.97 m/uL (3.80-5.40); RDW 18.4 % (11.5-15.5); WBC 8.9 k/uL (3.8-10.6)
[2020-10-26 18:31] LABS: HGB 9.8 gm/dL (11.4-16.0)
[2020-10-26 18:57] LABS: AST 39 U/L (14-36); African American GFR (CKD) 27 (>60 ml/min/1.73 sqM); Albumin 3.1 g/dL (3.5-5.0); Albumin/Globulin Ratio 0.8; Alkaline Phosphatase 45 U/L (38-126); Anion Gap 12 mmol/L; Calcium 8.8 mg/dL (8.4-10.2); Carbon Dioxide 20 mmol/L (22-30); Chloride 123 mmol/L (98-107); Globulin 3.7 g/dL; Glucose 160 mg/dL (74-99); Non-African American GFR(CKD) 23 (>60 ml/min/1.73 sqM); Sodium 155 mmol/L (137-145); Total Bilirubin 0.9 mg/dL (0.2-1.3); Total Protein 6.8 g/dL (6.3-8.2)
[2020-10-26 19:04] LABS: ALT 24 U/L (4-34)
[2020-10-26 19:14] LABS: Potassium 4.3 mmol/L (3.5-5.1)
[2020-10-26 19:17] LABS: Blood Urea Nitrogen 124 mg/dL (7-17)
[2020-10-27] MEDS: DEXTROSE 5%-0.45% NACL 1,000 ML IV SCH (00:32)
[2020-10-27 17:22] LABS: African American GFR (CKD) 37 (>60 ml/min/1.73 sqM); Carbon Dioxide 14 mmol/L (22-30); Non-African American GFR(CKD) 32 (>60 ml/min/1.73 sqM)
[2020-10-27 17:33] LABS: Anion Gap 15 mmol/L; Chloride 129 mmol/L (98-107); Glucose 126 mg/dL (74-99); Potassium 3.8 mmol/L (3.5-5.1); Sodium 158 mmol/L (137-145)
[2020-10-27 17:41] LABS: Blood Urea Nitrogen 109 mg/dL (7-17)
--- NOTE | 2020-10-27 19:38 | PN ---
PROGRESS NOTE CHIEF COMPLAINT: Dehydration, malnutrition and coma. HISTORY OF PRESENT ILLNESS: This lady is still not waking up. She is still very dehydrated. Sodium is coming down. I will change her IV solution to D5 and water. PHYSICAL EXAMINATION: Chest is clear on both sides. Cardiac exam is sinus. Abdomen is soft, nontender. IMPRESSION: 1. Malnutrition. 2. Dehydration. 3. Coma. 4. Schizophrenia. PLAN: Continue to rehydrate. MMODL / IJN: [id number] /
--- NOTE | 2020-10-27 23:32 | MISC ---
MISCELLANOUS REPORT Unable to determine. MMODL / IJN: [id number] /
[2020-10-28] MEDS: DEXTROSE 5%-0.45% NACL 1,000 ML IV SCH ×3 (00:36→21:52)
[2020-10-28 14:30] LABS: African American GFR (CKD) 40 (>60 ml/min/1.73 sqM); Anion Gap 12 mmol/L; Calcium 8.8 mg/dL (8.4-10.2); Carbon Dioxide 16 mmol/L (22-30); Chloride 126 mmol/L (98-107); Glucose 123 mg/dL (74-99); Non-African American GFR(CKD) 34 (>60 ml/min/1.73 sqM); Potassium 2.8 mmol/L (3.5-5.1); Sodium 154 mmol/L (137-145)
[2020-10-28 14:34] LABS: Anisocytosis Slight; Basophils % (A) 0 %; Eosinophils # (A) 0.1 k/uL (0-0.7); Eosinophils % (A) 1 %; HCT 21.6 % (34.0-46.0); Hypochromasia Slight; Lymphocytes # (A) 0.4 k/uL (1.0-4.8); Lymphocytes % (A) 5 %; MCH 25.2 pg (25.0-35.0); MCHC 33.2 g/dL (31.0-37.0); Mean Platelet Volume 8.1; Microcytosis Moderate; Monocytes # (A) 0.2 k/uL (0-1.0); Monocytes % (A) 2 %; Neutrophils # (A) 6.8 k/uL (1.3-7.7); Neutrophils % (A) 91 %; Poikilocytosis Slight; RBC 2.84 m/uL (3.80-5.40); RDW 18.8 % (11.5-15.5); WBC 7.4 k/uL (3.8-10.6)
[2020-10-28 14:35] LABS: Blood Urea Nitrogen 100 mg/dL (7-17); HGB 7.2 gm/dL (11.4-16.0)
[2020-10-28 14:57] LABS: Platelet Count 28 k/uL (150-450); Toxic Granulation Present
[2020-10-28 14:58] LABS: RBC Fragments Present
[2020-10-28] MEDS ORDERED: Potassium Replacement Protocol 1 EACH MISC MISCELLANE PRN (15:12)
--- NOTE | 2020-10-28 16:02 | XR ---
EXAMINATION TYPE: XR chest 1V portable DATE OF EXAM: 10/28/2020 CLINICAL HISTORY: Difficulty breathing and fever progress study. TECHNIQUE: Single AP portable upright view of the chest is obtained. COMPARISON: Chest x-ray from 4 days earlier FINDINGS: Osseous structures redemonstrated demineralized. Degenerative change bilateral shoulders a gain seen. Underlying scoliosis noted. Lungs remain clear. Cardiac silhouette size stable and within normal limits. Overlying EKG leads again seen. IMPRESSION: No acute pulmonary process. No significant change from most recent study.
[2020-10-28] MEDS: POTASSIUM CHLORIDE 10 MEQ in WATER FOR INJECTION 1 100ML.BAG IVPB SCH ×6 (16:26→22:55)
[2020-10-28 17:08] LABS: Amorphous Sediment,Urine Rare /hpf; Appearance,Urine Cloudy (Clear); Bacteria,Urine Many /hpf; Bilirubin,Urine Negative (Negative); Blood,Urine Small (Negative); Color,Urine Light Yellow; Glucose,Urine (UA) Negative (Negative); Ketones,Urine Negative (Negative); Leukocyte Esterase,Urine Large (Negative); Mucus,Urine Rare /hpf; Nitrite,Urine Negative (Negative); Protein,Urine Negative (Negative); RBC,Urine 2 /hpf (0-5); Specific Gravity,Urine 1.011 (1.001-1.035); Squamous Epithelial Cell,Urine <1 /hpf (0-4); Urobilinogen,Urine <2.0 mg/dL (<2.0); WBC,Urine 51 /hpf (0-5)
--- NOTE | 2020-10-28 18:37 | PN ---
PROGRESS NOTE DATE OF SERVICE: 10/28/2020 CHIEF COMPLAINT: Dehydration, prerenal azotemia, coma. HISTORY OF PRESENT ILLNESS: This lady is slowly improving in terms of her hydration and laboratory studies. Sodium is coming down. She is still not waking up. Later today she started to spike a temperature, which will be worked up. REVIEW OF SYSTEMS: Unobtainable. PHYSICAL EXAMINATION: The skin is still very dry, but it is improved. Chest is clear. Cardiac exam is normal. The abdomen is soft and nontender. Extremities are normal. IMPRESSION: 1. Dehydration. 2. Electrolyte imbalance with hypernatremia and hypokalemia. 3. Coma. 4. Prerenal azotemia. 5. Fever of undetermined origin. PLAN: 1. Chest x-ray, UA, blood cultures and blood work. 2. Continue with IV fluids. 3. Efforts will be made to contact the family to look for guidance regarding her advance directive. MMODL / IJN: [id number] /
[2020-10-28] MEDS ORDERED: AMPICILLIN-SULBACTAM 3 GM in SODIUM CHLORIDE 0.9% 100 ML IVPB SCH (21:00)
[2020-10-28] MEDS ORDERED: AMPICILLIN-SULBACTAM 3 GM in SODIUM CHLORIDE 0.9% 50 ML IVPB SCH (21:00)
[2020-10-28] MEDS ORDERED: HYDROmorphone 0.5 MG/0.5 ML SYRINGE IVP STA (22:32)
--- NOTE | 2020-10-28 23:04 | CONS ---
CONSULTATION DATE OF SERVICE: 10/28/2020 REASON FOR CONSULTATION: Fever. HISTORY OF PRESENT ILLNESS: The patient is a 70-year-old -[place] female who presented to the ER about 4-5 days ago from [facility] for evaluation of failure to thrive. Apparently the patient has been recently admitted to this facility and the patient has not been eating or drinking and she was refusing to talk to anybody. The patient seemed to be upset per the family report and the shelter. The patient does have a history of mental status changes, bipolar disorder, schizoaffective disorder. The patient subsequently was admitted to the hospital with initial diagnosis of dehydration, and the patient has been getting IV fluids. The patient was afebrile on admission. She did spike a fever of 100.6 to 100.8 this afternoon. That prompted this infectious disease consultation. The patient is currently breathing 100% on room air. No vomiting or diarrhea has been reported by nursing staff. Patient herself did not provide any history. She was noted to have a pressure ulcer on both gluteal areas, stage II, but no evidence of any cellulitis or drainage. Most of the information has been obtained from review of the chart and talking to the nursing staff. REVIEW OF SYSTEMS: All the positive points have been mentioned in HPI. Complete review could not be obtained. PAST MEDICAL HISTORY: Asthma, heart failure, COPD, CVA, TIA, dysphagia, influenza, hyperlipidemia, hypertension, pneumonia, osteoarthritis, CVA with left-sided weakness. PAST SURGICAL HISTORY: PTCA with stent, hysterectomy, tonsillectomy, colonoscopy. SOCIAL HISTORY: Negative for smoking, drinking or drug use. FAMILY HISTORY: No pertinent findings noticed. ALLERGIES: NO KNOWN DRUG ALLERGIES. MEDICATIONS: The patient is currently on Unasyn, IV fluid, Narcan. PHYSICAL EXAMINATION: Blood pressure 125/70 with a pulse of 109, temperature 98.1. T-max is 100.8. She is 100% on room air. General description is an elderly female lying in bed in no distress. No tachypnea or accessory muscle of respiration use. HEENT: Examination shows pallor. No scleral icterus. Oral mucous membrane is dry. NECK: Trachea is central. No thyromegaly. LUNGS: Unlabored breathing. Decreased intensity of breath sounds. No wheeze. HEART: S1, S2. Regular rate and rhythm. ABDOMEN: Soft. No tenderness. No guarding or rigidity. EXTREMITIES: No edema of feet. SKIN EXAMINATION: No rash or mass palpable. Neurologically the patient is lethargic. Orientation could not be determined. No neck rigidity. LABS/IMAGING: Hemoglobin 7.1, white count 7.4, BUN of 100, creatinine 1.51. Chest x-ray report negative for any acute infiltrate. DIAGNOSTIC IMPRESSION AND PLAN: 1. Patient with an episode of fever in this patient admitted to hospital with concern for dehydration and failure to thrive with nosocomial fever. Source possibly urinary tract infection. Chest x-ray report clear for any acute infiltrate. Her abdomen was soft on clinical examination, and no evidence of any cellulitis. 2. Patient with renal insufficiency and high risk of nephrotoxicity. PLAN: 1. Will increase the dose of Unasyn to 3 grams q.8 hours. 2. IV fluid. 3. Will follow clinical condition and culture to further adjust medication if needed. Thank you for this consultation. Will follow this patient along with you. MMODL / IJN: [id number] /
[2020-10-29] MEDS: AMPICILLIN-SULBACTAM 3 GM in SODIUM CHLORIDE 0.9% 100 ML IVPB SCH ×3 (01:38→16:15)
[2020-10-29] MEDS: DEXTROSE 5%-0.45% NACL 1,000 ML IV SCH ×4 (01:41→22:52)
--- NOTE | 2020-10-29 15:09 | PN ---
PROGRESS NOTE DATE OF SERVICE: 10/29/2020 CHIEF COMPLAINT: Coma, dehydration. HISTORY OF PRESENT ILLNESS: This lady is doing well. Temperature is back down. She is on antibiotics and there has been no positive cultures so far. She is being seen by Infectious Disease. PHYSICAL EXAMINATION: She is still quite dehydrated. Chest is clear. Cardiac exam is normal. Abdomen is soft and nontender. IMPRESSION: 1. Coma. 2. Dehydration. 3. Fever of unknown origin. 4. Hypertension. PLAN: Continue with rehydration. If she does not become more awake and alert, Neurology consult may be necessary. MMODL / IJN: [id number] /
--- NOTE | 2020-10-29 19:44 | PN ---
PROGRESS NOTE DATE OF SERVICE: 10/29/2020 REASON FOR FOLLOWUP: Fever, likely urinary tract infection. INTERVAL HISTORY: Patient is currently afebrile. The patient remains to be nonverbal and did not answer any questions. No vomiting, diarrhea or any other changes reported by nursing staff. PHYSICAL EXAMINATION: Blood pressure 97/53 with a pulse of 92. Temperature is 97.9. She is 100% on room air. General description: The patient is an elderly female lying in bed in no distress. Respiratory system: Unlabored breathing. Clear to auscultation anteriorly. Heart S1, S2. Regular rate and rhythm. ABDOMEN: Soft, no tenderness. LABS: Hemoglobin 7.8, white count 7.4, BUN 100, creatinine is 1.51. Cultures currently pending. DIAGNOSTIC IMPRESSION AND PLAN: Patient with a fever concern likely for a urinary tract infection in this patient currently covered with Unasyn. Fever has responded to continue and monitor clinical course closely. Continue supportive care. MMODL / IJN: [id number] /
[2020-10-30] MEDS: AMPICILLIN-SULBACTAM 3 GM in SODIUM CHLORIDE 0.9% 100 ML IVPB SCH ×3 (01:10→16:04)
[2020-10-30] MEDS: DEXTROSE 5%-0.45% NACL 1,000 ML IV SCH ×3 (01:10→16:04)
--- NOTE | 2020-10-30 17:45 | PN ---
PROGRESS NOTE DATE OF SERVICE: 10/30/2020 REASON FOR FOLLOWUP: Fever, likely UTI infection. INTERVAL HISTORY: The patient is currently afebrile. The patient is breathing comfortably. The patient remains to be nonverbal, unable to provide any history. No vomiting, diarrhea or any other changes reported by nursing staff. PHYSICAL EXAMINATION: Blood pressure 100/66, pulse of 67, temperature 96.4. She is 100% on room air. General description: The patient is an elderly female lying in bed in no distress. Respiratory system: Unlabored breathing, clear to auscultation anteriorly. Heart S1, S2. Regular rate and rhythm. Abdomen soft, no tenderness. LABS: Hemoglobin 7.1, white count 7.4, BUN of 100, creatinine 1.51. DIAGNOSTIC IMPRESSION AND PLAN: Patient with fever, source likely urinary tract infection, currently showing gram- negative. Patient is covered with Unasyn to continue in view of clinical response to it. Adjusting antibiotic based on culture report. Continue supportive care. MMODL / IJN: [id number] /
--- NOTE | 2020-10-30 21:30 | PN ---
PROGRESS NOTE DATE OF SERVICE: 10/30/2020. CHIEF COMPLAINT: Coma, dehydration and failure to thrive. HISTORY OF PRESENT ILLNESS: This lady is deteriorating. She is moving less to stimuli and she is not rehydrating. Respirations are becoming more shallow and irregular. PHYSICAL EXAMINATION: She remains quite dehydrated. Breath sounds are diminished bilaterally with rhonchi. Cardiac exam remains normal. Abdomen is soft and there are no masses. There does not appear to be tenderness. IMPRESSION: 1. Dehydration. 2. Renal failure. 3. Anemia. 4. Coma. 5. Schizophrenia. PLAN: 1. Continue supportive care. 2. Efforts have been made to try to contact the family without success. Apparently a son came in tonight and was in for a brief period of time and then left. 3. Continue with supportive efforts. 4. We will try to establish contact with the family. MELANI / JESUS: [id number] /
[2020-10-31] MEDS: AMPICILLIN-SULBACTAM 3 GM in SODIUM CHLORIDE 0.9% 100 ML IVPB SCH ×3 (00:29→16:10)
[2020-10-31] MEDS: DEXTROSE 5%-0.45% NACL 1,000 ML IV SCH ×4 (00:30→20:17)
--- NOTE | 2020-10-31 10:57 | CDI ---
Documentation Clarification Form Date: 10/31/2020 10:41:47 AM From: Karen Crenshaw RN, CCDS Admit Date: 10/24/2020 09:49:00 PM Patient Name: Kelly Oliveira Visit Number: [id number] ATTENTION: The Clinical Documentation Specialists (CDI) and [facility] Coding Staff appreciate your assistance in clarifying documentation. Please respond to the clarification below the line at the bottom and electronically sign. The CDI & [facility] Coding staff will review the response and follow-up if needed. Please note: Queries are made part of the Legal Health Record. If you have any questions, please contact the author of this message via ITS. Dr. Rinku Echevarria Renal failure was documented in the 10/30 Attending Progress note and requires further specificity. History/Risk Factors: Acute renal disease, chronic kidney disease, chronic anemia, vitamin D deficiency, chronic lower extremity pain 08/12/2020 Patients baseline BUN/CR/GFR: 78/1.78/32 Clinical Indicators: 10/30 Attending Progress note: "renal failure" 10/25 H&P: "70-year-old white female from the assisted, where she has been refusing to eat and drink. She has become progressively more weak, lethargic and obtunded. In the emergency room she was noted to be extremely dehydrated and BUN was over 155. Skin is extremely dry and she is clinically very dehydrated. Neurologically she is extremely lethargic. Profound dehydration. Malnutrition. Lethargy. Prerenal azotemia." 10/24-10/28 Current BUN: 156/150/124/109/100 Cr: 3.73/3.19/2.08/1.6/1.51 GFR: //37/40 Treatment: 10/24 1L 0.9%NS IVF bolus 10/24-10/25 0.9%NS @ 75 cc/hr. 10/28-10/31 D5.45%NS @ 150 cc/hr. 10/27 1 Unit PRBC's In order to capture the severity of condition, please clarify if the condition signifies: Acute renal failure, Please specify etiology (if known): Cortical Necrosis Medullary Necrosis Tubular Necrosis Acute kidney injury Acute on chronic renal failure CKD Stage 1 GFR >90 CKD Stage 2 GFR 60-89 CKD Stage 3 GFR 30-59 CKD Stage 4 GFR 15-29 CKD Stage 5 GFR <15 Chronic renal failure/Chronic Kidney disease (CKD) please stage (if known): CKD Stage 1 GFR >90 CKD Stage 2 GFR 60-89 CKD Stage 3 GFR 30-59 CKD Stage 4 GFR 15-29 CKD Stage 5 GFR <15 Other, please specify Unable to determine (Last Revision: January 2018) MTDD
--- NOTE | 2020-10-31 11:21 | CDI ---
Documentation Clarification Form Date: 10/31/2020 10:57:59 AM From: Karen Crenshaw Admit Date: 10/24/2020 09:49:00 PM Patient Name: Kelly Oliveira Visit Number: [id number] ATTENTION: The Clinical Documentation Specialists (CDI) and [facility] Coding Staff appreciate your assistance in clarifying documentation. Please respond to the clarification below the line at the bottom and electronically sign. The CDI & [facility] Coding staff will review the response and follow-up if needed. Please note: Queries are made part of the Legal Health Record. If you have any questions, please contact the author of this message via ITS. Dr. Rinku Echevarria Anemia is documented in the 10/30 Attending Progress note and requires further specificity. History/Risk Factors: Chronic anemia, vitamin D Deficiency, acute on chronic renal disease, dehydration, malnutrition, failure to thrive, lethargy, stage 2 pressure ulcer to bilateral gluteal area Clinical indicators: 10/24-10/28 Hemoglobin: 8.8/7.3/9.8/7.2 10/24/-10/28 Hematocrit: 29.3/22.8/31.6/21.6 Treatment: 10/26 1 unit PRBC's transfused 10/24 1L 0.9% NS IVF Bolus In order to capture the severity of condition, please clarify the type of anemia and etiology if known. Chronic blood loss anemia Iron deficiency anemia Nutritional anemia Anemia of chronic kidney disease Anemia of chronic disease Unable to determine Other, please specify (Last Form Revision: December 2019) MTDD
--- NOTE | 2020-10-31 11:43 | CDI ---
Documentation Clarification Form Date: 10/31/2020 11:22:32 AM From: Karen Crenshaw RN, CCDS Admit Date: 10/24/2020 09:49:00 PM Patient Name: Kelly Oliveira Visit Number: [id number] ATTENTION: The Clinical Documentation Specialists (CDI) and [facility] Coding Staff appreciate your assistance in clarifying documentation. Please respond to the clarification below the line at the bottom and electronically sign. The CDI & [facility] Coding staff will review the response and follow-up if needed. Please note: Queries are made part of the Legal Health Record. If you have any questions, please contact the author of this message via ITS. Dr. Rinku Echevarria The patient presented with lethargy and obtundation with dehydration. History/Risk Factors: Failure to thrive, dehydration, hypernatremia, CVA, depression, bipolar, COPD, HTN, Asthma, CHF Clinical Indicators: 10/27-10/30 Attending Progress notes: Dehydration, malnutrition, prerenal azotemia, failure to thrive, and coma." 10/25 H&P: "She has become progressively more weak, lethargic and obtunded. This lady is still not responding. She does respond to pain" 10/24 ED Note: "responds to physical stimuli." 10/24-10/28 Lab findings: BUN 156/150/124/102, Creat: 3.73/3.19/2.08/1.51, GFR: 12/14/23/32/34, NA+ 155/156/155/158/154, HGB 8.8/7.3/9.8/7.2 Treatment: Consults: Psych: "Patient appears to be stated age is Somnolent, uncooperative. Nonverbal. Appears to be fairly thin with poor hygiene and grooming wearing hospital gown. Behavior: Patient is calmly lying in bed without any agitated behavior. noncooperative and nonresponsive to commands." 10/25-10/26 Neurontin 300 mg Po BID, Dilaudid 0.5mg IVP 10/28 OT 10/24 1L 0.9% NS IVF bolus followed by 75 cc/hr. until 10/25 In your professional opinion, can you please further specify the coma? With Specify Motor response Opening of eyes Verbal response Clare Coma scale AND Underlying cause if known Other, please specify Unable to determine (Last Revision: January 2018) MTDD
--- NOTE | 2020-10-31 13:39 | PN ---
PROGRESS NOTE DATE OF SERVICE: 10/31/2020 REASON FOR FOLLOWUP: Fever, urinary tract infection. INTERVAL HISTORY: The patient is currently afebrile. The patient remains to be sleepy, lethargic and nonverbal. No vomiting, diarrhea or other changes per the nursing staff. PHYSICAL EXAMINATION: Blood pressure 115/76, pulse 83, temperature 96. She is 100% on room air. General description: The patient is an elderly female lying in bed in no distress. Respiratory system: Unlabored breathing. Clear to auscultation anteriorly. Heart S1, S2. Regular rate and rhythm. Abdomen soft, no tenderness. LABS: Urine with Klebsiella sensitive to Unasyn. Patient is already on. DIAGNOSTIC IMPRESSION/PLAN: Patient with fever, source likely Klebsiella urinary tract infection, covered on Unasyn. To finish therapy with a short course of oral Augmentin for mental status changes. May benefit from neurology evaluation. Continue supportive care. MMODL / IJN: [id number] /
[2020-10-31 14:26] VITALS: RESP 14; TEMP 96.8
--- NOTE | 2020-10-31 18:56 | PN ---
PROGRESS NOTE CHIEF COMPLAINT: Coma, electrolyte imbalance. HISTORY OF PRESENT ILLNESS: This lady is deteriorating. Respirations are shallow and irregular. PHYSICAL EXAMINATION: Chest is fairly clear, but she has occasional rhonchi bilaterally. Cardiac exam is normal. The abdomen is soft and seems to be nontender without masses. IMPRESSION: 1. Coma. 2. Electrolyte imbalance. 3. Dehydration. 4. Urinary tract infection. 5. History of schizophrenia. PLAN: No current change in program. A daughter of the patient was finally reached by phone, and she and her brother have had a discussion and decided to make the patient DNR. MMODL / IJN: [id number] /
[2020-10-31 19:32] VITALS: BP 91/49; PULSE 82
[2020-11-01] MEDS: AMPICILLIN-SULBACTAM 3 GM in SODIUM CHLORIDE 0.9% 100 ML IVPB SCH (02:31)
--- NOTE | 2020-11-01 10:27 | CDI ---
Documentation Clarification Form Date: 11/01/2020 10:14:08 AM From: Karen Crenshaw RN, CCDS Admit Date: 10/24/2020 09:49:00 PM Patient Name: Kelly Oliveira Visit Number: [id number] Discharge Date: 11/01/2020 03:15:00 AM ATTENTION: The Clinical Documentation Specialists (CDI) and [facility] Coding Staff appreciate your assistance in clarifying documentation. Please respond to the clarification below the line at the bottom and electronically sign. The CDI & [facility] Coding staff will review the response and follow-up if needed. Please note: Queries are made part of the Legal Health Record. If you have any questions, please contact the author of this message via ITS. Dr. Rinku Echevarria Encephalopathy is documented in the ED note and requires further specificity in a patient with AMS, Lethargy, and obtundation. History/Risk Factors: Encephalopathy, Bipolar, Schizoaffective disorder, dehydration, CKD, malnutrition Clinical Indicators: 10/24 ED Note: "She is previously similar episodes and was diagnosed with encephalopathy as well as psychiatric causes. Patient does have a history of altered mental status, bipolar disorder, schizoaffective disorder. " 10/30 ID: "Fever, UTI" 10/28 Urine Cx + Klebsiella pneumoniae Labs: NA+ 156/155/158/154, BUN 150/124/109/100, Creatinine 3.19/2.08/1.6/1.51 10/24 CT Brain: Old left hemisphere infarct unchanged compared to old exam. No acute intracranial abnormality." Treatment: Consults: ID, Psych 10/28 IV Unasyn 3gm Q 12 hrs. 10/25-10/28 D5.45%NS at 125-150 ml/hr. 10/28 Dilaudid 0.5mg IVP OT 10/28 KCL 10meq IVPB x 6 bags 10/24 0.9% NS IVF Bolus 1L followed by 75 cc/hr. In your professional opinion, can you please clarify the specific type of Encephalopathy, if known? Metabolic Encephalopathy Toxic Encephalopathy Other, please specify Unable to determine (Last Revision: January 2018) MTDD
--- NOTE | 2020-11-01 10:38 | CDI ---
Documentation Clarification Form Date: 11/01/2020 10:36:35 AM From: Karen Crenshaw RN, CCDS Admit Date: 10/24/2020 09:49:00 PM Patient Name: Kelly Oliveira Visit Number: [id number] Discharge Date: 11/01/2020 03:15:00 AM ATTENTION: The Clinical Documentation Specialists (CDI) and [facility] Coding Staff appreciate your assistance in clarifying documentation. Please respond to the clarification below the line at the bottom and electronically sign. The CDI & [facility] Coding staff will review the response and follow-up if needed. Please note: Queries are made part of the Legal Health Record. If you have any questions, please contact the author of this message via ITS. Dr. Rinku Cardenas PMH of heart failure has been documented and requires further specificity to accurately reflect the patient's SOI/ROM. History/Risk Factors: Heart failure, Asthma, COPD, TIA, CVA with left sided weakness, HTN, Pneumonia, GERD, Clinical Indicators: 10/24/209 Admission VS/Pulse OX: Temp 97.8, HR 92, RR 18, B/P 138/73, Spo2 99% RA BNP: not checked this admission 06/30/20 Echocardiogram Results: Moderate concentric LVH, EF 50-55%, moderate pulmonary HTN, moderate tricuspid regurg 10/28 Chest X Ray: No acute pulmonary process. No significant change from most recent study." Treatment: Norvasc 10 mg Po daily held Tenormin 100mg PO QD held 10/25-10/31 D5.45% NS @ 125-150 cc/hr. 10/24 1L IVF bolus 0.9% NS followed by 75 cc/hr. In your professional opinion, can you please clarify the acuity and type of CHF if known? Chronic Diastolic Heart Failure: Chronic Systolic & Diastolic Heart Failure: Unable to Determine Other, please specify (Last Revision: January 2018) MICHELED
--- NOTE | 2020-11-02 20:27 | DS ---
DISCHARGE SUMMARY DATE OF SERVICE: 10/31/2020 CHIEF COMPLAINT: Coma, dehydration and electrolyte imbalance. HISTORY OF PRESENT ILLNESS AND PHYSICAL EXAMINATION: Details of this lady's history and physical can be found in the initial workup. LABORATORY STUDIES: While she was in the hospital she had laboratory studies, details of which can be found in the laboratory section of her chart. COURSE IN THE HOSPITAL: After admission she was placed on bedrest and started on intravenous fluids and efforts were made to rehydrate her correct her electrolyte imbalance. As she was rehydrated, she never regained consciousness. There was no obvious etiology for her persistent coma. She slowly began to deteriorate and efforts were made to try to contact the family to obtain a CODE STATUS. Finally, on October 30, her son showed up but then disappeared a short time afterward. On the day of her , case was discussed with her daughter, who was explained the futility of the situation and decided to make her mother NO CODE. She later that at night. FINAL DIAGNOSES: 1. Dehydration. 2. Coma. 3. Electrolyte imbalance with hypernatremia. 4. Moderate protein-calorie malnutrition. 5. Prerenal azotemia. 6. History of schizophrenia. OPERATIONS: None. CONSULTATIONS: None. She . MMODL / IJN: [id number] /
--- NOTE | 2020-11-03 23:21 | MISC ---
MISCELLANOUS REPORT Anemia, unable to determine. MMODL / IJN: [id number] /
--- NOTE | 2020-11-03 23:21 | MISC ---
MISCELLANOUS REPORT Acute kidney injury. MMODL / IJN: [id number] /
--- NOTE | 2020-11-03 23:26 | MISC ---
MISCELLANOUS REPORT Type of heart failure, unable to determine. MMODL / IJN: [id number] /
--- NOTE | 2020-11-03 23:26 | MISC ---
MISCELLANOUS REPORT I do not know how to answer that. It says with specific motor opening . Patient could not do any of that. Underlying cause unknown. MMODL / IJN: [id number] /
--- NOTE | 2020-11-03 23:26 | MISC ---
MISCELLANOUS REPORT Type of encephalopathy, unable to determine. MMODL / IJN: [id number] /
== END 2020-11-01 03:15 | disposition expired | DRG 640 ==
LOC: EC 18:15 → 4SSUR 21:49
PROVIDERS: ADMIT Family Medicine; ATTEND Family Medicine
PROC: 05HB33Z Insertion of Infusion Device into Right Basilic Vein, Percutaneous Approach (ICD-10-PCS; principal; 2020-10-26 12:15)
DX: E86.0 Dehydration (principal); R40.20 Unspecified coma; E44.0 Moderate protein-calorie malnutrition; G93.40 Encephalopathy, unspecified; I69.354 Hemiplegia and hemiparesis following cerebral infarction affecting left non-dominant side; N39.0 Urinary tract infection, site not specified; Z68.1 Body mass index [BMI] 19.9 or less, adult; I11.0 Hypertensive heart disease with heart failure; E87.0 Hyperosmolality and hypernatremia; E87.6 Hypokalemia; F25.9 Schizoaffective disorder, unspecified; F31.9 Bipolar disorder, unspecified; E78.5 Hyperlipidemia, unspecified; I50.9 Heart failure, unspecified; J44.9 Chronic obstructive pulmonary disease, unspecified; Z66 Do not resuscitate; D64.9 Anemia, unspecified; R62.7 Adult failure to thrive; L89.322 Pressure ulcer of left buttock, stage 2; L89.312 Pressure ulcer of right buttock, stage 2; Z79.82 Long term (current) use of aspirin; Z90.710 Acquired absence of both cervix and uterus; Z95.5 Presence of coronary angioplasty implant and graft; R50.9 Fever, unspecified; E55.9 Vitamin D deficiency, unspecified; M19.90 Unspecified osteoarthritis, unspecified site; R13.10 Dysphagia, unspecified; Y95 Nosocomial condition; M10.9 Gout, unspecified; R39.2 Extrarenal uremia; G89.29 Other chronic pain; M79.605 Pain in left leg; I69.311 Memory deficit following cerebral infarction; R79.89 Other specified abnormal findings of blood chemistry; Z90.89 Acquired absence of other organs; Z87.01 Personal history of pneumonia (recurrent)
CPT/HCPCS: 36410; 36415; 70450; 71045; 76937; 80048; 80053; 81001; 84132; 84484; 85025; 85610; 85730; 86850; 86900; 86901; 86920; 87040; 87077; 87086; 87186; 93005; 96360; 96361; 99285